=== PATIENT | male | born 1965 | race Caucasian/White ===

== ENCOUNTER 2023-10-08 15:37 | Inpatient (IN) | payer OTHER, SELFPAY ==
[2023-10-08] VITALS (8 sets, daily range): BP systolic 133–200; BP diastolic 86–100; BMI 32.5; BMI 30.8
--- NOTE | 2023-10-08 12:18 | ED.GENMED ---
History of Present Illness
General
Chief Complaint: Vascular Symptoms
Time Seen by Provider: 10/08/23 12:09
History of Present Illness
History of Present Illness:
57-year-old male with history of peripheral arterial disease presents to the emergency department for evaluation of left calf pain for the past 3 days. Patient is approximate 4 weeks status post arterial stenting of the left lower extremity,
patient is unaware of the details of this procedure as it was performed at [facility]. When asked why the patient does not wish to go back to [facility] he states 'because they do not speak [place] there'. He notes that he has not been taking
any of his discharge meds that were not previously prescribed to him before this hospital stay as 'I could not understand them'. He reports minimal pain at rest currently. No fevers or chills
Past History
Past History
ED Past Medical History: CAD, HTN, Hypercholesterolemia, NIDDM, [place] and Other
ED Past Surgical History: Tonsilectomy and Other
Patient has exhibited threatening behavior?: No
Social History
Tobacco: Smoker (1 PPD)
Alcohol: Other ('moderately' drinks more than a few times a week.)
Personal:
Living: with family
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
Family History
Family History: CAD
Review of Systems
Review of Systems
Allergies reviewed?: Yes
All Other Systems: ROS reviewed and negative except as documented in HPI and ROS
Phy Exam
Physical Exam
Physical Exam:
GEN: Well appearing, NAD, WDWN
HEENT: Oral mucosa moist, no scleral icterus
Cardiac: Regular rate
Lung: No respiratory distress, no tachypnea
MSK: Left calf compartments are soft x 4 with no tenderness, left dorsalis pedis and posterior tibialis pulses are palpable dopplerable, there is a dopplerable left popliteal pulse
Skin: Good color, no pallor or jaundice, no rashes
Neuro: AO x3, moves all extremities freely
Psych: Calm, cooperative
Course
Orders/Labs/Results
Orders:
Orders
10/08/23 12:17
CT Abd Aorta Angio W/ Run Off Urgent
Comment:
Reason For Exam: L leg pain, recent stent, noncompliant
10/08/23 12:20
Complete Blood Count/With Diff Urgent
Comprehensive Metabolic Panel Urgent
PTT Urgent
Prothrombin Time Urgent
10/08/23 12:36
Heparin 7,100 units IV NOW STA
10/08/23 12:[address] Non Medication Order As Directed
Physician Order: PTT 6 hours after initial start of Heparin infusion
Above order entered?: Yes
10/08/23 12:45
Heparin 84048 Units/250 ml 25,000 units in 250 ml IV PER PROTOCOL
Weight to be used for heparin protocol in kilograms (kg):: 88.5
Protocol:: Vascular Surgery
PTT Goal Range to be used:: PTT 73 to 111 seconds
Order type:: Initial
INITIAL Infusion Dose (UNITS/KG/hr) & then follow protocol:: 18 units/kg/hr
Infusion Dose in UNITS/hr & then follow protocol (UNITS/hr):: 1,600
INFUSION RATE in mL/hr & then follow protocol (mL/hr):: 16
PTT less than or equal to 64 seconds:: Notify Ordering Provider. obtain orders for rate increase &
possible bolus
PTT 64.1 to 72.9 seconds:: Increase rate by 100 units/hr (+ 1 mL/hr)
PTT 73 to 111 seconds:: Target Range. No change in rate.
PTT 111.1 to 130.9 seconds:: Decrease rate by 100 units/hr (- 1 mL/hr)
PTT 131 to 199.9 seconds:: HOLD for 1 hour. Then decrease rate by 200 units/hr (- 2 mL/hr)
PTT greater than or equal to 200 seconds:: STOP INFUSION. Notify Ordering provider to obtain further orders.
Lab follow-up:: Each change, PTT q6h until 2 consecutive are therapeutic. Then PTT
daily.
10/08/23 Dinner
2000 calorie (17 carb) Diabetic
At Your Request: Full Participation
10/08/23 15:07
EKG [Electrocardiogram (*1)] Stat
Reason for Study: PreOp
10/08/23 15:09
CeFAZolin 2 GRAM [Ancef] 2 grams in 10 ml IV PRE PROCEDURE
10/08/23 15:15
Admit/Transfer Patient As Directed
Co-Sign Provider:
Level of Care: Inpatient admission
Assign to:: Telemetry
Physician / Group: Sharon
Diagnosis: LLE critical limb ischemia
Reason for Telemetry: Arrhythmia
Date to Stop Telemetry: 10/11/23
Time to Stop Telemetry: 11:00
Reason for Hospitalization: Vascular surgery consult
Expected length of stay greater than two midnights?: Yes
ELOS- Estimated Length of Stay in days: 5
I certify the patient meets the requirements for IP care: Yes
PRN Pain Medication Management As Directed
May give lesser potent ordered pain med per pt: Yes
preference::
Protocol:: Medication orders for pain may be administered in a
manner that supports deferring to patient preference
when the pt is:
- Requesting an ordered lesser potent pain medication.
Least to most potent pain medications are defined
as: acetaminophen < NSAID < tramadol < opioids
(morphine, oxycodone, hydromorphone).
- Requesting a lesser dose of the same medication IF
ORDERED.
- Requesting a less intrusive route of administration
if both routes are prescribed by the provider (PO <
IV).
10/08/23 15:17
Code Status As Directed
Resuscitation Status: Full Code
10/08/23 15:25
Type+Screen Stat
08/22/24 16:21
Acetaminophen [Tylenol] 650 mg PO Q6HPRN PRN
Aspirin Low Dose EC [Aspir Low (Enteric Coated)] 81 mg PO DAILY
Dextrose 50%-Water [Dextrose 50% Syringe] 12.5 grams IV [id number] PRN
Gabapentin [Neurontin] 900 mg PO TID
Glucagon [GlucaGen] 1 mg IM PRN PRN
10/08/23 16:21
CARDIOLOGY CONSULT Routine
Consulting Provider: Fernanda Hassan
Was physician already notified: Yes
SURGICAL CONSULT Routine
Consulting Provider: Manny Nelson
Was physician already notified: Yes
Heparin Protocol- PTT Orders As Directed
PTT per Heparin protocol: -Obtain CBC and baseline PTT - if not already collected.
-Obtain PTT 6 hours from start of infusion. Then, every 6 hours until 2 consecutive
PTT's are therapeutic. Then, PTT Daily.
-With each rate change, obtain PTT every 6 hours until 2 consecutive PTT's are
therapeutic. Then, PTT Daily.
Activity As Directed
Activity Level: Ambulate
Bedside Glucose Monitoring As Directed
Frequency: AC&HS
Additional Instructions:: Change to q6h if pt on TPN, tube feeding or not eating
Notify MD As Directed
Notify physician if: PTT is greater than or equal to 200.
10/08/23 16:30
Insulin Aspart Corrective Low [Novolog Flexpen-Low Resistance] See Protocol SC AC
10/08/23 18:00
Atorvastatin [Lipitor] 80 mg PO QPM
10/08/23 20:00
Cilostazol [Pletal] 100 mg PO BID
10/08/23 22:00
insulin glargine [Lantus Solostar U-100 Insulin] 12 unit SC HS
10/09/23 Breakfast
NPO
Allow oral meds: Yes
Allow clear liquids: Sips of Clears
BMP [Basic Metabolic Panel] IN AM
Glycohemoglobin (HgbA1c) IN AM
10/09/23 08:00
Metoprolol Xl [Toprol Xl] 25 mg PO DAILY
10/10/23 06:00
BMP [Basic Metabolic Panel] IN AM
Complete Blood Count/No Diff Q2D
Comment: notify provider: Platelet count < 130,000 or decrease by 50% from baseline
10/11/23 06:00
BMP [Basic Metabolic Panel] IN AM
10/11/23 11:00
DC Protocol for Telemetry ONCE
10/12/23 06:00
Complete Blood Count/No Diff Q2D
Comment: notify provider: Platelet count < 130,000 or decrease by 50% from baseline
10/14/23 06:00
Complete Blood Count/No Diff Q2D
Comment: notify provider: Platelet count < 130,000 or decrease by 50% from baseline
10/16/23 06:00
Complete Blood Count/No Diff Q2D
Comment: notify provider: Platelet count < 130,000 or decrease by 50% from baseline
10/18/23 06:00
Complete Blood Count/No Diff Q2D
Comment: notify provider: Platelet count < 130,000 or decrease by 50% from baseline
10/20/23 06:00
Complete Blood Count/No Diff Q2D
Comment: notify provider: Platelet count < 130,000 or decrease by 50% from baseline
10/22/23 06:00
Complete Blood Count/No Diff Q2D
Comment: notify provider: Platelet count < 130,000 or decrease by 50% from baseline
10/24/23 06:00
Complete Blood Count/No Diff Q2D
Comment: notify provider: Platelet count < 130,000 or decrease by 50% from baseline
Abnormal Lab Results
10/08/23
12:20
WBC 12.3 H 10^3/uL
(4.8-10.8)
RBC 4.27 L 10^6/uL
(4.70-6.10)
MCH 31.9 H pg
(27.0-31.0)
MPV 10.8 H fL
(7.4-10.4)
Absolute Neuts (auto) 9.1 H 10^3/uL
(1.4-6.5)
Absolute Monos (auto) 0.8 H 10^3/uL
(0.1-0.6)
Lymphocytes % 16.5 L %
(20.5-51.1)
Sodium 133 L mmol/L
(135-145)
Potassium 5.4 H mmol/L
(3.5-5.1)
Glucose 217 H mg/dl
(70-99)
10/08/23 12:20
10/08/23 12:20
Vital Signs
Initial and Last Documented VS:
Initial Vital Signs
Temp Pulse Resp BP Pulse Ox
97.5 F 72 18 200/100 100
10/08/23 11:25 10/08/23 11:25 10/08/23 11:25 10/08/23 11:25 10/08/23 11:25
Last Documented Vital Signs
Temp Pulse Resp BP Pulse Ox
98.4 F 79 18 185/88 98
10/08/23 19:35 10/08/23 19:35 10/08/23 19:35 10/08/23 19:35 10/08/23 19:35
MDM/Problems Addressed
MDM/Problems Addressed:
Vascular was consulted urgently and evaluated the patient at bedside. Plan will be to admit the patient to the hospitalist service on IV heparin for eventual vascular surgery intervention. At this time he has no rest pain to suggest severe limb
ischemia thus urgent OR is not necessary
*Critical Care Note
Total Time (30-74mins, 75-104mins- exclusive of procedures): Not Applicable
ED Attending Note
-
Portions of this chart may have been created with voice recognition software.� Occasional wrong word or��sound alike� substitutions may have occurred due to the inherent limitations of voice recognition software.
Discharge Plan
Departure
Patient Disposition: Admit
Date of Disposition: 10/08/23
Time of Disposition: 14:37
Admit to: IMU
Presentation/result/management discussed w/ accepting MD/DO: Hospitalist
Discharge Problem:
Critical limb ischemia of left lower extremity
Interventions
Interventions:
*Risk Screen - Suicide Last Done: 10/08/23 11:25
*General Assessment Last Done: 10/08/23 11:25
*Neglect/Abuse Screening Last Done: 10/08/23 11:25
ED- Fall Risk Assessment Last Done: 10/08/23 16:05
*ED COVID-19 Vaccine History Last Done: 10/08/23 16:20
*Nursing Disposition Last Done: 10/08/23 16:20
ED- Cardiac Assessment Last Done: 10/08/23 11:33
ED- Pulmonary Assessment Last Done: 10/08/23 11:47
ED-Peripheral Vascular Assessment Last Done: 10/08/23 11:47
ED-Skin Assessment Last Done: 10/08/23 11:47
Discharge Date and Time
Discharge Date/Time: 10/08/23 16:21
[2023-10-08 12:31] LABS: % Basophils 0.6 % (0-2); % Eosinophils 2.4 % (0-6); % Immature Granulocytes 0.3 % (0-0.5); % Lymphocytes 16.5 % (20.5-51.1); % Monocytes 6.2 % (1.7-9.3); Absolute Basophils 0.1 10^3/uL (0-0.2); Absolute Eosinophils 0.3 10^3/uL (0-0.7); Absolute Monocytes 0.8 10^3/uL (0.1-0.6); Absolute Neutrophils 9.1 10^3/uL (1.4-6.5); Hematocrit 39.8 % (39.0-52.0); Hemoglobin 13.6 g/dL (13.0-18.0); Mean Corp Hgb Conc. 34.2 g/dL (33.0-37.0); Mean Corpuscular Hgb 31.9 pg (27.0-31.0); Mean Corpuscular Volume 93.2 fL (80.0-94.0); Mean Platelet Volume 10.8 fL (7.4-10.4); Nucleated Red Blood Cells % 0 % (-); Platelet Count 280 10^3/uL (130-400); Red Blood Cell Count 4.27 10^6/uL (4.70-6.10); White Blood Cell Count 12.3 10^3/uL (4.8-10.8)
[2023-10-08 12:46] LABS: INR 1.03; PT 13.5 Sec (11.4-14.6)
[2023-10-08 12:47] LABS: APTT 27.5 Sec (23.4-35.0)
[2023-10-08 12:50] LABS: ALT (SGPT) 16 U/L (0-50); AST (SGOT) 20 U/L (17-59); Albumin 4.3 g/dl (3.5-5.0); Alkaline Phosphatase 62 U/L (38-126); Blood Urea Nitrogen 12 mg/dl (9-20); Calcium 9.4 mg/dl (8.4-10.2); Carbon Dioxide 25 mmol/L (22-30); Chloride 98 mmol/L (98-107); Estimated Creatinine Clearance 78 ml/min; Glucose 217 mg/dl (70-99); Potassium 5.4 mmol/L (3.5-5.1); Sodium 133 mmol/L (135-145); Total Bilirubin 0.4 mg/dl (0.2-1.3); Total Protein 7.1 g/dl (6.3-8.2); eGFR > 60.00
[2023-10-08] MEDS: HEPARIN 25000 UNITS/250 ML IV (13:11)
[2023-10-08] MEDS: HEPARIN 7100 UNITS IV (13:12)
--- NOTE | 2023-10-08 15:19 | HPS.HSE ---
Family Physician
-
Family Physician: Miguel Chaney
Chief Complaint
-
Left calf pain, cramps
History of Present Illness
57-year-old male with multiple medical problems including CAD, PAD, here complaining of progressive left calf pain and cramps since Thursday.
Apparently had left lower extremity stenting at [facility] 4 weeks ago. Since then he has grown increasingly frustrated with his medical care and decided to stop all his medications. Has not seen his primary care doctor since.
Continues to smoke as well.
Developed increasing left calf pain and cramping sensation since Thursday. Worse with exertion. Pain does keep him up at night.
Currently does not have a public health outreach worker. Does not take aspirin on a daily basis.
Medical History
Past Medical History
Past Medical History: Reports Other
Additional Past Medical History:
PAD
CAD, history of [place]
Essential hypertension
DM2
Hyperlipidemia
Past Surgical History: Reports Other
Additional Past Surgical History:
Cardiac catheterization with stenting 2008
Tonsillectomy
Umbilical hernia repair
Right lower extremity arteriogram with 3 stents placed, July 2019.
Right lower extremity arteriogram, angioplasty and stenting of right superficial femoral artery, February 2020
Social History
Tobacco: Smoker
Alcohol: Occasional
Drug: None
Employment: Employed
Family History
Family History: Not pertinent
Allergies / Home Medications
Allergies reflects when Allergies were last updated in [employer].
Home Medications with original date entered in [employer]
Allergy/Medication List:
Allergies
Allergy/AdvReac Type Severity Reaction Status Date / Time
No Known Allergies Allergy Verified 03/09/20 10:17
Home Medications
enalapril maleate 10 mg tablet 10 mg PO DAILY ##30 01/11/16
cilostazol 100 mg tablet 100 mg PO BID 03/09/20
metoprolol succinate 25 mg tablet,extended release 24 hr 25 mg PO DAILY 03/09/20
gabapentin 300 mg capsule 900 mg PO TID 03/29/21
dapagliflozin propanediol 10 mg tablet (Vinayga) 10 mg PO DAILY 06/02/22
metformin 1,000 mg tablet 1,000 mg PO BID 06/02/22
atorvastatin 80 mg tablet 80 mg PO QPM 10/08/23
insulin glargine 100 unit/mL (3 mL) subcutaneous pen (Lantus Solostar U-100 Insulin) 25 unit SC HS 10/08/23
semaglutide 0.25 mg or 0.5 mg (2 mg/1.5 mL) subcutaneous pen injector (Ozempic) 0.5 mg SC FR 10/08/23
Review of Systems
-
History Source: Patient
A 12 point ROS was completed and negative except as noted: Yes
Musculoskeletal: Reports Other (Left calf pain, cramps)
Physical Exam
Vital Signs
Vital Signs
Temp Pulse Resp BP Pulse Ox
97.5 F 70 13 186/89 99
10/08/23 11:25 10/08/23 13:15 10/08/23 13:15 10/08/23 13:00 10/08/23 13:15
Physical Exam
General: Well Developed, Well Nourished, No Apparent Distress and Comfortable
HEENT: NormoCephalic, Anicteric and Moist mucous membranes
Respiratory: Clear
Cardiac: S1/S2 and Regular Rhythm
GI: Soft, Non Tender and Non Distended
Genito-urinary: Deferred by me
Musculoskeletal: No Clubbing, No Cyanosis and No Edema
Skin: Warm and Dry
Neuro: AO x 3
Hematologic/Lymphatic: No Lymphadenopathy
Psych: Calm
Laboratory Results
-
10/08/23 12:20
10/08/23 12:20
Laboratory Results
PT 13.5 Sec (11.4-14.6) 10/08/23 12:20
INR 1.03 10/08/23 12:20
APTT 27.5 Sec (23.4-35.0) 10/08/23 12:20
Total Bilirubin 0.4 mg/dl (0.2-1.3) 10/08/23 12:20
AST 20 U/L (17-59) 10/08/23 12:20
ALT 16 U/L (0-50) 10/08/23 12:20
Alkaline Phosphatase 62 U/L (38-126) 10/08/23 12:20
Impression/Plan
-
Left lower extremity critical limb ischemia -concern for stent occlusion. Admit to telemetry. Consult vascular surgery. N.p.o. after midnight. Discussed with Dr. Nelson.
Cardiology consult for preoperative assessment although I suspect he is acceptable risk given the lack of cardiovascular symptoms.
Hyponatremia -recheck labs in the morning.
Hyperkalemia -hold enalapril.
PAD -with prior lower extremity revascularization. Not compliant with antiplatelet therapy or his meds. Still smokes.
CAD -with prior coronary stenting. Currently does not have a public health outreach worker.
DM2 with hyperglycemia -glucose 217. Check hemoglobin A1c. Doubt he takes his meds at home as he admits to noncompliance. Hold Ozempic and Farxiga. Hold metformin. Reduce glargine dose by 50%. Add low resistance corrective aspart scale.
Essential hypertension -stable.
Hyperlipidemia -on atorvastatin.
Tobacco dependence
Obesity due to excess calories
Full code
--- NOTE | 2023-10-08 15:33 | W.PN.UPDATE ---
Update Note
Progress Note Update
Seen and evaluated in the emergency room. 57-year-old male with extensive medical history including diabetes, hypertension, hyperlipidemia, coronary artery disease (history of MS as well as at least 2 coronary percutaneous interventions at
[place]), PAD (history of right lower extremity angioplasty/stent, history of right lower extremity arterial bypass at [facility] subsequently, history of recent left lower extremity stents 4 weeks ago). He also has a history of active
tobacco use up to 2 packs a day. However he recently has slowed and is working on quitting. Patient notes that he had this procedure done about 4 weeks ago due to some toenail issues on his left foot. However about 3 days ago developed acute
onset of left foot pain. The pain was severe. He cannot sleep at night. Finds himself dangling the left foot off the bed to relieve his pain. He notes now however when I saw him in the ER that his pain has lightened and he is actually not in any
pain currently. No weakness in the foot.
On exam/he is awake and alert. Head is normocephalic and atraumatic. Eyes are anicteric. Neck is soft without jugular venous distention. Breathing is unlabored. Right lower extremity with palpable femoral pulse and distal PT pulse. (1+/2+ at
best). In the left lower extremity he has nonpalpable femoral or distal pulses. His left foot is ruborous. He has elevation pallor. No ulcerations. Motor and sensory function are intact.
CT angiogram reviewed. On the right side he has patent iliac stent and patent iliac system otherwise. Right common femoral moderate atherosclerosis with likely about 50% stenosis. He has bypass that emanates from the distal SFA that traverses
down to the below-knee popliteal artery that is patent. (Note chronically occluded right SFA stents). On the left side his entire iliac system is occluded. He has a stent that extends from common iliac to external iliac artery that is occluded.
Then the distal external iliac into common femoral artery has a stent which is not completely expanded in the common femoral artery and is occluded. There is reconstituted flow in his profunda. SFA is chronically occluded as well. Reconstituted
flow in the popliteal artery behind the knee.
Plan/ Ischemic rest pain left foot occluded left common femoral artery stent. Discussed with him that I do not think there is any real benefit in thrombolysis or reopening this common femoral artery stent as it is likely due to fail again. My
recommendation at this point would be surgical revascularization of the common femoral artery with inflow to help revascularize the profunda. That could be done either with left groin cutdown and attempted stent retrieval with thrombectomy (but
this may not be achievable). Alternatively left groin cutdown with right groin redo dissection and right to left femoral to femoral artery bypass. I did discuss with him alternative of aortofemoral bypass but I think this is much higher risk and
he is a high risk patient. In addition he has moderate atherosclerosis throughout his aorta. I did discuss with him that he has outflow occlusive disease (SFA). However would favor at this point only revascularizing his inflow to the profunda
because I think that would get him out of the acute rest pain he has.
I discussed with him timing. He is not acutely ischemic. No evidence of acute limb ischemia. He has ischemic rest pain. He has a significant cardiac history has not followed with a product management consultant in a while. He notes he cannot remember the last
time he saw one. He also has active cardiovascular risk factors including diabetes hypertension hyperlipidemia and he is stated to me that he is tired of having to take these medications that do not make him feel any better. I discussed with him
the importance of medications for risk control/risk factor modifications but he did not seem to fully get that. He has not been taking antiplatelet therapy following his recent stenting as well which may have been a factor in his stent thrombosis
but I do not think it is the only factor, I think more likely this is due to stenting of the common femoral artery with heavy plaque disease. I discussed with hospitalist Dr. Herrera. We recommended patient sees cardiology while here because of
his risk factors. He does not endorse active chest pain or pressure and he is able to climb a flight of stairs, but regardless would favor evaluation and workup as needed. And then we can electively revascularize.
--- NOTE | 2023-10-08 15:39 | CON.VAS ---
Consultation
Consultation Request
Performing Provider: Omar
Reason for Consultation: Left leg pain
Medical History
-
Chief Complaint: L leg pain
History of Present Illness:
57 yo male with significant past medical history for CAD (MIx2, RCA stenting x4? [facility] 2009, [facility] 2014), PAD (BL iliac stenting, femoral stenting, multiple hospitals), uncontrolled DM, HTN, HLD presents to the ER today for increasing pain
to the left foot. Pt states pain began on Thursday and has increased in intensity since then. He was unable to sleep last because of this pain. Slight relief when hanging leg off of the bed. Pain has decreased since arriving to the ER and starting
heparin drip.
Pt has long history of arterial disease. He is treated at [facility], [facility] and [facility]. He has not seen a art dealer in 4-5 years. He does not take any of his prescribed medications at this time just 'when he feels like it.' He has a
history of noncompliance. The last time our services saw the pt was in 2014. Dr Esparza did GUITAR TEACHER/stenting to his opposite leg at that time.
On exam/he is awake and alert. Head is normocephalic and atraumatic. Eyes are anicteric. Neck is soft without jugular venous distention. Breathing is unlabored. Right lower extremity with palpable femoral pulse and distal PT pulse. (1+/2+ at
best). In the left lower extremity he has nonpalpable femoral or distal pulses. His left foot is ruborous. He has elevation pallor. No ulcerations. Motor and sensory function are intact.
CT angiogram reviewed. On the right side he has patent iliac stent and patent iliac system otherwise. Right common femoral moderate atherosclerosis with likely about 50% stenosis. He has bypass that emanates from the distal SFA that traverses
down to the below-knee popliteal artery that is patent. (Note chronically occluded right SFA stents). On the left side his entire iliac system is occluded. He has a stent that extends from common iliac to external iliac artery that is occluded.
Then the distal external iliac into common femoral artery has a stent which is not completely expanded in the common femoral artery and is occluded. There is reconstituted flow in his profunda. SFA is chronically occluded as well. Reconstituted
flow in the popliteal artery behind the knee.
Past Medical History
Past Medical History: CAD, HTN, Hypercholesterolemia, IDDM and Renal Failure
Past Surgical History: Cardiac
Social History
Tobacco: Smoker
Alcohol: Daily
Family History
Family History: Reviewed & Not Pertinent
Allergies / Home Medications
Allergy/AdvReac Type Severity Reaction Status Date / Time
No Known Allergies Allergy Verified 03/09/20 10:17
�Medication �Instructions �Recorded �Confirmed �Type
enalapril maleate 10 mg tablet 10 mg PO DAILY ##30 01/11/16 10/08/23 Rx
cilostazol 100 mg tablet 100 mg PO BID 03/09/20 10/08/23 History
metoprolol succinate 25 mg 25 mg PO DAILY 03/09/20 10/08/23 History
tablet,extended release 24 hr
gabapentin 300 mg capsule 900 mg PO TID 03/29/21 10/08/23 History
dapagliflozin propanediol 10 mg 10 mg PO DAILY 06/02/22 10/08/23 History
tablet (Farxiga)
metformin 1,000 mg tablet 1,000 mg PO BID 06/02/22 10/08/23 History
atorvastatin 80 mg tablet 80 mg PO QPM 10/08/23 10/08/23 History
insulin glargine 100 unit/mL (3 25 unit SC HS 10/08/23 10/08/23 History
mL) subcutaneous pen (Lantus
Solostar U-100 Insulin)
semaglutide 0.25 mg or 0.5 mg (2 0.5 mg SC FR 10/08/23 10/08/23 History
mg/1.5 mL) subcutaneous pen
injector (Ozempic)
Review of Systems
-
History Source: Patient
All other systems: Negative unless noted
Constitutional: Reports No Symptoms
EENT: Reports No Symptoms
Respiratory: Reports No Symptoms
Cardiac: Reports No Symptoms
Vascular: Reports Leg Pain / Claudication
Abdomen/GI: Reports No Symptoms
Musculoskeletal: Reports No Symptoms
Skin: Reports No Symptoms
Neurological: Reports No Symptoms
Physical Exam
Vital Signs
Temp Pulse Resp BP Pulse Ox
97.5 F 71 13 133/93 98
10/08/23 11:25 10/08/23 15:15 10/08/23 15:15 10/08/23 14:00 10/08/23 14:30
Lab Results
10/08/23 12:20
10/08/23 12:20
Physical Exam
General: No Apparent Distress
HEENT: Normocephalic and Atraumatic
Respiratory: Non Labored Respirations
Cardiac: Negative JVD
GI: Soft, Non Tender and Non Distended
Musculoskeletal: No Clubbing, Cyanosis and Edema
Skin: Other (Left foot cooler than R. Great toe pale. elevation palor)
Neuro: Awake, Alert and Oriented
Psych: Calm
Pulses: Left Femoral: Doppler (NONPALP), Left Dorsalis Pedis: Doppler (NO signal), Right Dorsalis Pedis: +1, Left Posterior Tibial: Doppler (NO SIGNAL) and Right Posterior Tibial: +1
Assessment / Plan
-
Plan/ Ischemic rest pain left foot occluded left common femoral artery stent. Discussed with him that I do not think there is any real benefit in thrombolysis or reopening this common femoral artery stent as it is likely due to fail again. My
recommendation at this point would be surgical revascularization of the common femoral artery with inflow to help revascularize the profunda. That could be done either with left groin cutdown and attempted stent retrieval with thrombectomy (but
this may not be achievable). Alternatively left groin cutdown with right groin redo dissection and right to left femoral to femoral artery bypass. I did discuss with him alternative of aortofemoral bypass but I think this is much higher risk and
he is a high risk patient. In addition he has moderate atherosclerosis throughout his aorta. I did discuss with him that he has outflow occlusive disease (SFA). However would favor at this point only revascularizing his inflow to the profunda
because I think that would get him out of the acute rest pain he has.
I discussed with him timing. He is not acutely ischemic. No evidence of acute limb ischemia. He has ischemic rest pain. He has a significant cardiac history has not followed with a art dealer in a while. He notes he cannot remember the last
time he saw one. He also has active cardiovascular risk factors including diabetes hypertension hyperlipidemia and he is stated to me that he is tired of having to take these medications that do not make him feel any better. I discussed with him
the importance of medications for risk control/risk factor modifications but he did not seem to fully get that. He has not been taking antiplatelet therapy following his recent stenting as well which may have been a factor in his stent thrombosis
but I do not think it is the only factor, I think more likely this is due to stenting of the common femoral artery with heavy plaque disease. I discussed with hospitalist Dr. Herrera. We recommended patient sees cardiology while here because of
his risk factors. He does not endorse active chest pain or pressure and he is able to climb a flight of stairs, but regardless would favor evaluation and workup as needed. And then we can electively revascularize.
Data Reviewed
-
Labs: Labs Reviewed by me
[2023-10-08 16:43] LABS: Glucose - Point of Care 127 mg/dl (70-99)
--- NOTE | 2023-10-08 17:07 | CON.CAR ---
Addendum entered and electronically signed by Fernanda Hassan DO 10/09/23 10:23:
Spoke with vascular surgery this morning with plan for possible open surgical right to left femorofemoral bypass. Given high risk vascular procedure will proceed with a Lexiscan nuclear stress test this morning.
Addendum entered and electronically signed by Fernanda Hassan DO 10/09/23 07:38:
Right carotid bruit with prior carotid ultrasound noting greater than 70% right ICA stenosis. Repeat carotid duplex.
Original Note:
Consultation
Consultation Request
Date/Time Consultation Requested: 10/08/23
Date/Time Consultation Performed: 10/08/23
Requesting Provider: Dr. Nelson
Performing Provider: Dr. Hassan
Reason for Consultation: preop cardiac evaluation
Medical History
-
Chief Complaint: Acute on chronic left foot pain
History of Present Illness:
I had the pleasure to meet Weston Richard for preoperative cardiac risk assessment with anticipated need for revascularization of left lower extremity for symptomatic PAD. Parker is a 57-year-old gentleman with longstanding uncontrolled diabetes
mellitus type 2, known coronary artery disease with remote PCI to the RCA at [facility] in 2009 and 2 overlapping drug-eluting stents to the RCA in 2014 at [facility] with Dr. Zarco. He also has significant peripheral
arterial disease status post bilateral iliac stenting and femoral stenting. He also has right carotid artery stenosis deemed greater than 70% by study in 2022, hypertension uncontrolled and hyperlipidemia. He denies a history of stroke/TIA.
Additionally, Weston has a history of alcohol dependence and quit heavy drinking approximately a year ago now drinking 2-3 drinks a week and denies alcohol withdrawal symptoms. He also smokes 2 packs a day which she has been trying to cut back in
the last couple of weeks. He denies illicit drug use. He has a history of medical noncompliance although states that he is taking medications prior to this hospitalization; he was not able to recall names or doses of his medications. He states he
has maintained care with a primary care physician but does not follow with cardiology or vascular surgery. 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 Activity is limited due to leg pain however he denies chest
pain/shortness of breath with activity estimated 5-7 METS. He presented to [facility] for increasing pain in his left foot which began on Thursday including rest pain. He has been admitted and seen by vascular surgery; currently on IV
heparin drip.
Past medical history:
Hypertension; hyperlipidemia; longstanding insulin-dependent diabetes, uncontrolled with neuropathy; coronary artery disease with prior non-STEMI and remote PCI to the RCA in 2009 and 2014, significant PAD, right carotid artery disease, ongoing
tobacco dependence, history of alcohol dependence, history of noncompliance,
Past surgical history: Tonsillectomy, umbilical hernia repair, left heart catheterization/stent placement, lower extremity arteriogram with angioplasty and stenting
Past Medical History
Past Medical History: Other (See HPI)
Past Surgical History: Other (See HPI)
Social History
Tobacco: Smoker
Alcohol: Former (Former alcoholic now drinking 2-3 drinks a week)
Drug: None
Personal: Single
Living: Alone
Employment: Employed
Family History
Family History: Reviewed & Not Pertinent
Allergies / Home Medications
Allergy/AdvReac Type Severity Reaction Status Date / Time
No Known Allergies Allergy Verified 03/09/20 10:17
�Medication �Instructions �Recorded �Confirmed �Type
enalapril maleate 10 mg tablet 10 mg PO DAILY ##30 01/11/16 10/08/23 Rx
cilostazol 100 mg tablet 100 mg PO BID 03/09/20 10/08/23 History
metoprolol succinate 25 mg 25 mg PO DAILY 03/09/20 10/08/23 History
tablet,extended release 24 hr
gabapentin 300 mg capsule 900 mg PO TID 03/29/21 10/08/23 History
dapagliflozin propanediol 10 mg 10 mg PO DAILY 06/02/22 10/08/23 History
tablet (Farxiga)
metformin 1,000 mg tablet 1,000 mg PO BID 06/02/22 10/08/23 History
atorvastatin 80 mg tablet 80 mg PO QPM 10/08/23 10/08/23 History
insulin glargine 100 unit/mL (3 25 unit SC HS 10/08/23 10/08/23 History
mL) subcutaneous pen (Lantus
Solostar U-100 Insulin)
semaglutide 0.25 mg or 0.5 mg (2 0.5 mg SC FR 10/08/23 10/08/23 History
mg/1.5 mL) subcutaneous pen
injector (Ozempic)
Review of Systems
-
History Source: Patient
All other systems: Negative unless noted
Constitutional: Fatigue
EENT: No Symptoms
Respiratory: Cough
Cardiac: No Symptoms
Abdomen/GI: No Symptoms
Musculoskeletal: Joint Pain and Other (Left leg claudication)
Neurological: No Symptoms
Hematologic/Lymphatic: No Symptoms
Physical Exam
Vital Signs
Temp Pulse Resp BP Pulse Ox
98.1 F 77 17 182/95 97
10/08/23 16:29 10/08/23 16:29 10/08/23 16:29 10/08/23 16:29 10/08/23 16:29
Lab Results
10/08/23 12:20
10/08/23 12:20
Physical Exam
General: Other (57-year-old gentleman who appears older than his stated age.)
HEENT: Normocephalic, Anicteric and Other (Poor dentition)
Respiratory: Other (Bronchovesicular breath sounds no wheezes or crackles. Occasional rhonchi)
Cardiac: S1/S2, Regular Rhythm and Other (Right carotid bruit. Left leg cool to touch. Nonpalpable pulses); Negative Murmur, Rub or Peripheral Edema
GI: Soft, Non Tender, Non Distended and Normal Bowel Sounds
Musculoskeletal: No Edema
Neuro: AO x 3 and Nonfocal/Grossly Intact
Psych: Calm
Impression / Plan
-
Impression:
Significant PAD with worsening left lower extremity claudication; no acute limb ischemia per vascular
History of coronary artery disease with remote RCA stenting
Hypertension
Hyperlipidemia
Type 2 diabetes mellitus, uncontrolled with neuropathy
Right carotid artery stenosis, greater than 70% in 2022
Tobacco dependence
8 mm right lower lobe pulmonary mass noted on CT imaging this admission
History of alcohol abuse
History of noncompliance
2D echocardiogram 10/08/2023: Normal biventricular size and systolic function with mild LVH. EF 55 to 60% and grade 1 diastolic dysfunction. No hemodynamically significant valve disease. No evidence of pulmonary hypertension. No significant
change when compared to study in 2014.
Left heart catheterization 02/26/2014: Right dominant. Left main widely patent medium size vessel. LAD with luminal irregularities. Circumflex with moderate luminal irregularities and a proximal 40 to 50% stenosis. RCA small with anterior
takeoff. Mid RCA occluded at the edge of the previously placed overlapping long stented segment. Left to right collaterals fill the distal vessel. Percutaneous coronary intervention with placement of 2 overlapping Resolute drug-eluting stents (2.5
x 30 mm and 2.75 x 26 mm)
Plan:
Patient is admitted for worsening left lower extremity claudication with plans for vascular revascularization possibly tomorrow
-Will discuss plan with Dr. Nelson.
-Continue IV heparin drip
-We discussed the need for aggressive risk factor reduction, tobacco cessation, glycemic control, and medication compliance. We also reviewed the need for close cardiac and vascular follow-up from here on out
-From a cardiovascular standpoint, he has at least moderate cardiovascular risk but is relatively stable and may proceed with procedure as planned.
-Twelve-lead EKG sinus rhythm with occasional PACs. Poor R wave progression with possible anterior infarct age indeterminant and inferior T wave abnormality not significantly changed when compared to 2022 study
-2D echocardiogram with normal biventricular size and systolic function and mild LVH without hemodynamically significant valve disease
Hypertension
-Continue metoprolol succinate. Patient had previously been on FERCHO inhibitor and will likely resume if renal function remained stable following peripheral angiogram
Hyperlipidemia
-continue high intensity statin
-Check lipid profile in the morning
Longstanding type 2 diabetes mellitus, uncontrolled with peripheral neuropathy
-Hemoglobin A1c 10.8%
-Defer management to primary. Consider the addition of SGLT-2 inh
History of renal insufficiency in 2022 with Peak creatinine 2.5. Renal function currently stable at 1.1. Will follow closely.
History of coronary artery disease with remote RCA stenting�no symptoms of angina. Continue aggressive risk factor reduction
Tobacco dependence�smoking cessation strongly advised
Pulmonary nodule noted on CT abdomen�will need further evaluation given concern for malignancy
Data Reviewed
-
EKG: Report Reviewed by me
Radiology: Report Reviewed by me
CT Scan: Report Reviewed by me
Medical Tests (Nuc Med, Echo etc): Report Reviewed by me
Labs: Labs Reviewed by me
Old Records: Reviewed
[2023-10-08] MEDS: NEURONTIN 900 MG PO ×2 (17:53→21:59)
[2023-10-08] MEDS: ASPIR LOW (ENTERIC COATED) 81 MG PO (17:53)
[2023-10-08] MEDS: LIPITOR 80 MG PO (17:54)
[2023-10-08] MEDS: TYLENOL 650 MG PO (17:54)
--- NOTE | 2023-10-08 18:10 | PTCARENOTE ---
Pt. arrived to [facility] at 1630 walked from stretcher to bed without incident. Shortly after arrival pt. taken down to echo. On return to unit, pt.'s BP was 184/93. made aware, no new orders at this time. will continue to monitor.
--- NOTE | 2023-10-08 18:25 | W.PN.UPDATE ---
Update Note
Progress Note Update
Cross Coverage Update:
Notified by nurse concern uncontrolled BP 187/93 patient also in significant pain from critical limb ischemia despite Tylenol.
Morphine 2 mg Q4HPRN ordered for moderate severe pain
Case was discussed with primary attending who was in agreement with plan for pain control.
Per discussion, aggressive blood pressure control not indicated at this time without signs/evidence end organ damage.
Recommend to continue monitoring for now and treat underlying cause elevated pressures (such as pain).
[2023-10-08] MEDS: MORPHINE SULFATE 2 MG IV ×2 (18:40→22:43)
[2023-10-08 19:18] LABS: APTT 98.3 Sec (23.4-35.0)
[2023-10-08] MEDS: PLETAL 100 MG PO (20:35)
[2023-10-08 21:46] LABS: Glucose - Point of Care 236 mg/dl (70-99)
[2023-10-08] MEDS: LANTUS 0.12 UNITS SC (21:59)
[2023-10-09] VITALS (8 sets, daily range): BP systolic 138–186; BP diastolic 79–103
[2023-10-09 02:12] LABS: APTT 49.4 Sec (23.4-35.0)
--- NOTE | 2023-10-09 02:44 | PTCARENOTE ---
PTT resulted as 49.4. Per protocol TATIANA Caro notified of result. Ordered to increase rate by 200 units. Next PTT due in 6 hours.
[2023-10-09 06:05] LABS: Glucose - Point of Care 187 mg/dl (70-99)
[2023-10-09] MEDS: NOVOLOG FLEXPEN-LOW RESISTANCE 1 UNITS SC (06:09)
[2023-10-09] MEDS: ASPIR LOW (ENTERIC COATED) 81 MG PO (08:07)
[2023-10-09] MEDS: TOPROL XL PO ×2 (08:07→08:48)
[2023-10-09] MEDS: NEURONTIN 900 MG PO (08:08)
[2023-10-09] MEDS: PLETAL 100 MG PO ×2 (08:13→19:31)
[2023-10-09] MEDS: MORPHINE SULFATE 2 MG IV ×4 (08:36→23:47)
[2023-10-09 08:48] LABS: APTT 29.6 Sec (23.4-35.0)
[2023-10-09 09:32] LABS: Blood Urea Nitrogen 14 mg/dl (9-20); Calcium 9.4 mg/dl (8.4-10.2); Carbon Dioxide 24 mmol/L (22-30); Chloride 104 mmol/L (98-107); Estimated Creatinine Clearance 69 ml/min; Glucose 166 mg/dl (70-99); Potassium 4.8 mmol/L (3.5-5.1); Sodium 139 mmol/L (135-145); eGFR > 60.00
--- NOTE | 2023-10-09 09:36 | CM ---
CM met with Mr. Richard at bedside to complete IA and review discharge plans.
He states prior to admission he has been living with his son in a spilt level home with 2 entry steps and He states he has two steps seven steps to get to each level. 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 He states he does not have any
DME in the home; has a prescription plan and uses [facility] in [place].
Plan: Weston would like to return home with his son when medically stable; Watch for SNF or VN needs post-op
[2023-10-09 10:09] LABS: Glycohemoglobin (HgbA1c) 10.3 % (4.0-5.6)
--- NOTE | 2023-10-09 10:18 | W.PN.VS ---
Addendum entered and electronically signed by Dagoberto Esparza III, MD 10/09/23 11:43:
This patient was seen and examined with TATIANA Vincent. I agree with the history and physical exam as well as the assessment and plan. I have the following additions:
No rest pain currently
Dopp signal monophasic/weak in distal AT
Motor/sensory intact left foot
Cardiology now planning to proceed with stress test today
Patient subtherapeutic on heparin this morning
Needs better IV access
Heparin drip with therapeutic PTT goal
Agree with transfer to IMU
Discussed revascularization strategy with patient this morning which will include a planned left femoral exposure, retrograde iliac thrombectomy and likely iliac stenting along with removal of common femoral artery stent/femoral endarterectomy and
profundoplasty.
Technical aspects of this procedure were discussed with him in detail. Benefits and rationale for this approach were discussed with him in detail. Operative risks were discussed with him in detail including but limited to CT, bleeding, infection,
wound healing complications, ongoing limb ischemia and the need for additional procedures. We also discussed limited durability of any vascular procedure given his poor medical compliance and active smoking.
Will discuss results of stress with cardiology later today
Signed:
Dagoberto Esparza III, MD
[facility]
[phone] (cell)
Original Note:
Today's Communication / Plan
-
Patient seen and examined at bedside with Dr. Dagoberto sEparza III, below plan reviewed with attending.
Assessment/Plan
-
Assessment: 57-year-old male with chronic limb threatening ischemia and rest pain to left lower extremity
Plan:
Initially considering OR today for revascularization, however cardiology preferring nuclear stress test prior to providing clearance for surgery
Noted to be subtherapeutic at PTT 29 this a.m. despite heparin infusion order in place (and evidence of being therapeutic with prior PTT draw), after reviewing with darlene RN suspect patient was occluding peripheral IV with arm bent as peripheral
IV is in his antecubital, thus he subsequently was not receiving his heparin infusion. Additionally he only has 1 usable peripheral IV, ordered for IV team to insert additional IV so heparin could be initiated while also going down to nuclear
stress test. Unfortunately patient was already off floor to nuclear stress test prior to be able to give order for heparin bolus. Will restart heparin drip at previous rate and obtain PTT at 4 hours.
Transfer to IMU for increased observation given reports of rest pain overnight
Subjective Data
-
Date of Service: October 09, 2023
Patient seen and examined at bedside, currently denies pain at left foot/lower extremity. However, he does endorse experiencing intermittent rest pain overnight requiring increased pain medication for control. Denies chest pain, fever, chills,
nausea, and vomiting.
Objective Data
-
Vital Signs
Temp Pulse Resp BP Pulse Ox
98.4 F 77 18 138/84 98
10/09/23 07:53 10/09/23 07:53 10/09/23 07:53 10/09/23 07:53 10/09/23 07:53
Intake and Output
10/08/23 10/09/23 10/10/23
06:59 06:59 06:59
Intake Total 350 / 350
Balance 350 / 350
Intake:
Oral fluids 350 / 350
Other:
Number of approximated MODERATE 2
amounts of urine
Lab Results
10/08/23 12:20
10/09/23 08:10
Calcium 9.4 mg/dl (8.4-10.2) 10/09/23 08:10
Total Bilirubin 0.4 mg/dl (0.2-1.3) 10/08/23 12:20
AST 20 U/L (17-59) 10/08/23 12:20
ALT 16 U/L (0-50) 10/08/23 12:20
Alkaline Phosphatase 62 U/L (38-126) 10/08/23 12:20
Total Protein 7.1 g/dl (6.3-8.2) 10/08/23 12:20
Albumin 4.3 g/dl (3.5-5.0) 10/08/23 12:20
Physical Exam
-
No apparent distress, resting in bed comfortably, AAOx3
No tachycardia
Non Labored Respirations on room air
Soft, Non Tender and Non Distended
Left foot remains cooler than right, left foot with elevation pallor
--- NOTE | 2023-10-09 12:19 | W.PN.CARDCBS ---
Today's Communication / Plan
-
Check Lexiscan sestamibi stress test prior to cardiac clearance for peripheral bypass surgery
Needs pulmonary follow-up regarding lung nodule
Impression / Plan
-
Impression:
Significant PAD with worsening left lower extremity claudication; no acute limb ischemia per vascular
History of coronary artery disease with remote RCA stenting
Hypertension
Hyperlipidemia
Type 2 diabetes mellitus, uncontrolled with neuropathy
Right carotid artery stenosis, greater than 70% in 2022
Tobacco dependence
8 mm right lower lobe pulmonary mass noted on CT imaging this admission
History of alcohol abuse
History of noncompliance
2D echocardiogram 10/08/2023: Normal biventricular size and systolic function with mild LVH. EF 55 to 60% and grade 1 diastolic dysfunction. No hemodynamically significant valve disease. No evidence of pulmonary hypertension. No significant
change when compared to study in 2014.
Left heart catheterization 02/26/2014: Right dominant. Left main widely patent medium size vessel. LAD with luminal irregularities. Circumflex with moderate luminal irregularities and a proximal 40 to 50% stenosis. RCA small with anterior
takeoff. Mid RCA occluded at the edge of the previously placed overlapping long stented segment. Left to right collaterals fill the distal vessel. Percutaneous coronary intervention with placement of 2 overlapping Resolute drug-eluting stents (2.5
x 30 mm and 2.75 x 26 mm)
Plan:
He is for Lexiscan sestamibi stress test as preoperative evaluation prior to planned peripheral lower extremity bypass surgery
Continue statin for hypercholesterolemia
He needs better control of diabetes with hemoglobin A1c of 10.8
Tobacco dependence�smoking cessation strongly advised
Pulmonary nodule noted on CT abdomen�will need further evaluation given concern for malignancy
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
Subjective
Date of Service: October 09, 2023
No complaints.
Objective
Labs:
10/08/23 12:20
10/09/23 08:10
Labs
Hgb 13.6 g/dL (13.0-18.0) 10/08/23 12:20
Hct 39.8 % (39.0-52.0) 10/08/23 12:20
Plt Count 280 10^3/uL (130-400) 10/08/23 12:20
PT 13.5 Sec (11.4-14.6) 10/08/23 12:20
INR 1.03 10/08/23 12:20
APTT 29.6 Sec (23.4-35.0) 10/09/23 08:10
Sodium 139 mmol/L (135-145) 10/09/23 08:10
Potassium 4.8 mmol/L (3.5-5.1) 10/09/23 08:10
BUN 14 mg/dl (9-20) 10/09/23 08:10
Creatinine 1.2 mg/dL (0.7-1.3) 10/09/23 08:10
Glucose 166 mg/dl (70-99) H 10/09/23 08:10
Vital Signs and I&O:
Vital Signs
Temp Pulse Resp BP Pulse Ox
98.4 F 77 18 138/84 98
10/09/23 07:53 10/09/23 07:53 10/09/23 07:53 10/09/23 07:53 10/09/23 07:53
Vital Signs
Temp Pulse Resp BP Pulse Ox
98.4 F 77 18 138/84 98
10/09/23 07:53 10/09/23 07:53 10/09/23 07:53 10/09/23 07:53 10/09/23 07:53
Intake & Output
10/07/23 10/08/23 10/09/23 10/10/23
06:59 06:59 06:59 06:59
Intake Total 350 / 350
Balance 350 / 350
Physical Exam
Physical Exam
General: Well developed, well nourished in NAD.
Neck: Supple, no JVD, HJR, carotids +2 B/L, no bruits bilaterally.
Heart: Non displaced PMI, RRR, no murmurs, No S3, S4, no rubs.
Lungs: Scattered rhonchi
Extremities: No clubbing, cyanosis or edema bilaterally.
Neuro: Grossly nonfocal, awake, alert and oriented x3.
[2023-10-09] MEDS: HEPARIN 25000 UNITS/250 ML IV (12:49)
--- NOTE | 2023-10-09 12:54 | W.PN.HOSP.TC ---
Addendum entered and electronically signed by Rio Herrera DO 10/09/23 14:18:
Vascular surgery plans on performing left lower extremity revascularization on Thursday.
Diet resumed.
CT of abdomen on admission shows incidental new 8 mm noncalcified pulmonary mass in the basilar portion of the right lower lobe. Will need outpatient follow-up.
Original Note:
Today's Communication/Plan
-
Await vascular surgery input
Assessment / Plan
Assessment / Plan
Gen-AAOx3, NAD
HEENT-NC, AT, anicteric, clear oral mm
Neck-supple
CV-reg, no M, +S1/S2
Lungs-clear B/L
Abd-soft, NT, ND
Ext-no edema
Musculoskeletal-no cyanosis, clubbing
Skin-warm and dry
Neuro-grossly non-focal
Psych-calm, cooperative
Left lower extremity critical limb ischemia -concern for stent occlusion. Currently n.p.o. awaiting operative intervention by vascular surgery. Currently on IV heparin drip.
Revised cardiac risk index score of 3. Stress test performed this morning, showed small area of inferior/inferolateral ischemia. Cardiology recommends medical management. No plans for catheterization.
Echocardiogram shows normal biventricular size and systolic function without regional wall motion abnormality. Mild concentric LVH. LVEF 55 to 60%, grade 1 diastolic dysfunction. No significant valvular disease.
Hyponatremia -improved.
Hyperkalemia -hold enalapril. Potassium improved.
PAD -with prior lower extremity revascularization. Not compliant with antiplatelet therapy or his meds. Still smokes.
CAD -with prior coronary stenting. Currently does not have a compound worker.
DM2 with hyperglycemia -glucose 217. Hemoglobin A1c 10.3%. Doubt he takes his meds at home as he admits to noncompliance. Hold Ozempic and Farxiga. Hold metformin.
Lantus dose cut in half, currently on 12 units at bedtime. Glucose 187 this morning.
Essential hypertension -stable.
Hyperlipidemia -on atorvastatin.
Tobacco dependence -currently on nicotine replacement therapy.
Obesity due to excess calories
Full code
Anticipated Discharge: > 48 hours
Subjective/Interval History
-
Date of Service: October 09, 2023
Patient seen and examined. Complaining of hunger.
Objective Data
-
Labs:
Laboratory Results
10/09/23 10/09/23 10/09/23
01:54 08:10 14:00
APTT 49.4 H 29.6 Pending
Sodium 139
Potassium 4.8
Chloride 104
Carbon Dioxide 24
BUN 14
Creatinine 1.2
Glucose 166 H
Calcium 9.4
Vital Signs:
Vital Signs
Temp Pulse Resp BP Pulse Ox
97.6 F 80 18 185/81 98
10/09/23 12:48 10/09/23 12:48 10/09/23 12:48 10/09/23 12:48 10/09/23 12:48
I&O
10/08/23 10/09/23 10/10/23
06:59 06:59 06:59
Intake Total 350 / 350
Balance 350 / 350
Review of Systems
-
History Source: Patient
All other systems: Reviewed and negative
[2023-10-09 12:57] LABS: Glucose - Point of Care 148 mg/dl (70-99)
[2023-10-09] MEDS: NOVOLOG FLEXPEN-LOW RESISTANCE SC ×2 (13:09→17:19)
[2023-10-09 14:25] LABS: APTT 68.5 Sec (23.4-35.0)
--- NOTE | 2023-10-09 14:28 | W.PN.UPDATE ---
Update Note
Progress Note Update
Reviewed extensively with patient plan for revascularization on 10/12/2023, all questions and concerns addressed. N.p.o. at midnight on 10/11. Hospitalist and external relations manager updated via [place] text.
[2023-10-09] MEDS: NEURONTIN 600 MG PO ×2 (15:40→22:08)
[2023-10-09 16:52] LABS: Glucose - Point of Care 292 mg/dl (70-99)
[2023-10-09] MEDS: LIPITOR 80 MG PO (17:19)
[2023-10-09] MEDS: NOVOLOG FLEXPEN-LOW RESISTANCE 3 UNITS SC (17:21)
--- NOTE | 2023-10-09 18:28 | PTCARENOTE ---
Pt arrived from 3 via bed. Aox3. Heparin gtt infusing per orders, see intervention. Unable to obtain doppler pulses on LLE. Dr. Herrera aware, no further orders received at this time.
[2023-10-09] MEDS: FLUSH (NSS) 2 FLUSH IV ×2 (19:46→23:48)
[2023-10-09] MEDS: LANTUS 0.12 UNITS SC (22:09)
[2023-10-09 22:16] LABS: Glucose - Point of Care 216 mg/dl (70-99)
--- NOTE | 2023-10-09 22:19 | PTCARENOTE ---
SBP 184. Karina SIMPSON TT'd and up to floor for another pt's rapid response. BP taken again after some time and SBP now 175. Per Karina SIMPSON will continue to monitor at this time. If BP continues to be high may give low dose Lopressor. Will continue to
monitor.
[2023-10-09 22:28] LABS: APTT 98.7 Sec (23.4-35.0)
[2023-10-10] VITALS (9 sets, daily range): BP systolic 142–170; BP diastolic 58–90
--- NOTE | 2023-10-10 02:13 | PTCARENOTE ---
Pt received at beginning of shift resting in bed. AAOx3. Left foot warm but cooler then right foot. Negative doppler dorsalis pulse on left, decreased on right. Pt admits to decreased sensation to LLE. Heparin infusing at 19ml/hr. 2200 PTT 98.7 -
therapeutic. Next PTT at 0400. Admits to left calf tenderness. Sits up at side of bed for pain relief. Medicated with IV Morphine x 2 so far this shift with fair relief. Able to bare weight on left foot/leg. VSS. Hypertensive SBP 150-180's.
Continuing to monitor. Afebrile. POX 94% RA. Occasional moist window draper cough. Rest of assessment as documented. Call santillan remains within reach. Will continue to monitor.
[2023-10-10] MEDS: HEPARIN 25000 UNITS/250 ML IV ×2 (02:31→14:43)
[2023-10-10 04:56] LABS: Hematocrit 39.1 % (39.0-52.0); Hemoglobin 13.2 g/dL (13.0-18.0); Mean Corp Hgb Conc. 33.8 g/dL (33.0-37.0); Mean Corpuscular Hgb 31.5 pg (27.0-31.0); Mean Corpuscular Volume 93.3 fL (80.0-94.0); Mean Platelet Volume 10.5 fL (7.4-10.4); Platelet Count 277 10^3/uL (130-400); Red Blood Cell Count 4.19 10^6/uL (4.70-6.10); Red Cell Dist. Width 13.2 % (11.5-14.5); White Blood Cell Count 10.9 10^3/uL (4.8-10.8)
[2023-10-10 05:00] LABS: Blood Urea Nitrogen 20 mg/dl (9-20); Calcium 9.4 mg/dl (8.4-10.2); Carbon Dioxide 27 mmol/L (22-30); Chloride 104 mmol/L (98-107); Estimated Creatinine Clearance 69 ml/min; Glucose 126 mg/dl (70-99); Potassium 4.7 mmol/L (3.5-5.1); Sodium 140 mmol/L (135-145); eGFR > 60.00
[2023-10-10 05:15] LABS: APTT 98.7 Sec (23.4-35.0)
[2023-10-10] MEDS: TOPROL XL 25 MG PO (07:43)
[2023-10-10] MEDS: PLETAL 100 MG PO ×2 (07:43→21:10)
[2023-10-10] MEDS: ASPIR LOW (ENTERIC COATED) 81 MG PO (07:44)
[2023-10-10] MEDS: NEURONTIN 600 MG PO ×3 (07:44→21:10)
[2023-10-10] MEDS: MORPHINE SULFATE 2 MG IV ×3 (07:45→20:21)
--- NOTE | 2023-10-10 08:09 | W.PN.HOSP.TC ---
Today's Communication/Plan
-
Adjust insulin
Assessment / Plan
Assessment / Plan
Gen-AAOx3, NAD
HEENT-NC, AT, anicteric, clear oral mm
Neck-supple
CV-reg, no M, +S1/S2
Lungs-clear B/L
Abd-soft, NT, ND
Ext-no edema
Musculoskeletal-no cyanosis, clubbing
Skin-warm and dry
Neuro-grossly non-focal
Psych-calm, cooperative
Left lower extremity critical limb ischemia -due to occlusion of left common iliac artery, left external iliac artery, left common femoral artery and proximal two thirds of the left superficial femoral artery despite presence of multiple vascular
stents. This was confirmed on CT angio. Continue IV heparin drip. Vascular surgery plans on revascularization of left lower extremity on Thursday.
Currently on IV morphine as needed for left lower extremity pain due to ischemia.
Revised cardiac risk index score of 3. Stress test performed this morning, showed small area of inferior/inferolateral ischemia. Cardiology recommends medical management. No plans for catheterization.
Echocardiogram shows normal biventricular size and systolic function without regional wall motion abnormality. Mild concentric LVH. LVEF 55 to 60%, grade 1 diastolic dysfunction. No significant valvular disease.
Hyponatremia -improved.
Hyperkalemia -hold enalapril. Potassium improved.
PAD -with prior lower extremity revascularization involving bypass graft extending from the right common femoral artery to the distal right popliteal artery/tibioperoneal trunk. Not compliant with antiplatelet therapy or his meds. Still smokes.
Smoking cessation encouraged.
CAD -with prior coronary stenting. Currently does not have a jigger artisan.
Bilateral carotid artery stenosis -ultrasound confirms 70% stenosis in the right carotid bulb. 50 to 69% stenosis left carotid bulb. No known history of stroke. Will need outpatient follow-up.
DM2 with hyperglycemia -glucose 217. Hemoglobin A1c 10.3%. Doubt he takes his meds at home as he admits to noncompliance. Hold Ozempic and Farxiga. Hold metformin.
Glucose 126 this morning. Increase Lantus to 15 units at bedtime, add NovoLog 5 units AC. Discussed importance of strict glucose control with patient.
Incidental 8 mm right lower lobe pulmonary nodule - noted on CT scan. Will need outpatient follow-up.
Essential hypertension -stable.
Hyperlipidemia -on atorvastatin.
Tobacco dependence -currently on nicotine replacement therapy.
Obesity due to excess calories
Full code
Anticipated Discharge: > 48 hours
Subjective/Interval History
-
Date of Service: October 10, 2023
Patient seen and examined. Complaining of some left lower extremity pain.
Objective Data
-
Labs:
Laboratory Results
10/09/23 10/09/23 10/10/23
21:14 22:05 04:12
WBC 10.9 H
Hgb 13.2
Hct 39.1
Plt Count 277
APTT Cancelled 98.7 H 98.7 H
Sodium 140
Potassium 4.7
Chloride 104
Carbon Dioxide 27
BUN 20
Creatinine 1.2
Glucose 126 H
Calcium 9.4
Vital Signs:
Vital Signs
Temp Pulse Resp BP Pulse Ox
97.8 F 77 12 148/68 96
10/10/23 02:35 10/10/23 07:43 10/10/23 06:00 10/10/23 07:43 10/10/23 06:00
I&O
10/09/23 10/10/23 10/11/23
06:59 06:59 06:59
Intake Total 350 / 350 468 / 468
Balance 350 / 350 468 / 468
Review of Systems
-
History Source: Patient
All other systems: Reviewed and negative
[2023-10-10] MEDS: NOVOLOG FLEXPEN-LOW RESISTANCE 1 UNITS SC (08:23)
[2023-10-10] MEDS: NOVOLOG FLEXPEN 5 UNITS SC ×2 (08:23→17:38)
[2023-10-10 08:29] LABS: Glucose - Point of Care 180 mg/dl (70-99)
[2023-10-10 11:33] LABS: Glucose - Point of Care 204 mg/dl (70-99)
[2023-10-10] MEDS: NOVOLOG FLEXPEN SC (13:26)
[2023-10-10] MEDS: NOVOLOG FLEXPEN-LOW RESISTANCE 2 UNITS SC ×2 (13:27→17:38)
--- NOTE | 2023-10-10 14:54 | PTCARENOTE ---
Rec'd pt this AM. Pt became angry over discussion with MD regarding poorly controlled diabetes. Pt also refuses to call for assisstance to get OOB and use the bathroom, stating he finds it 'creepy' and inappropriate that staff would stand outside
bathroom. He demands to be allowed to walk to bathroom on his own, stating that he has been walking on his ischemic leg for months with no fall issues. Will not cooperate witih call santillan or bed alarm. RN educated pt on fall risk. He states that he
understands the risk. vital signs stable. Heparin drip infusing.
[2023-10-10] MEDS: LIPITOR 80 MG PO (17:37)
[2023-10-10 17:41] LABS: Glucose - Point of Care 202 mg/dl (70-99)
[2023-10-10] MEDS: FLUSH (NSS) 2 FLUSH IV (20:21)
[2023-10-10] MEDS: LANTUS 0.15 UNITS SC (21:09)
[2023-10-10 21:20] LABS: Glucose - Point of Care 125 mg/dl (70-99)
[2023-10-10 21:52] LABS: Glucose - Point of Care 125 mg/dl (70-99)
[2023-10-11] VITALS (13 sets, daily range): BP systolic 120–179; BP diastolic 61–95
--- NOTE | 2023-10-11 00:35 | PTCARENOTE ---
Pt received at beginning of shift resting in bed. All hardwired wires off. Pt taking wires off constantly. Will not keep BP cuff on. Pt requested to shower but currently on Heparin gtt. Offered bed bath and pt refused. Argumentative when pt does not
get what he wants. Admits to 08/25 pain to LLE. Medicated with Morphine x 1 with fair relief. VSS. SR/PVC/Bigeminy on CM. Afebrile. POX 95% RA. 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 Refuses to use call santillan for oob assistance to bathroom. LLE without pulse,
sensation. Pt argumentative with education on safety plan of care. Rest of assessment as documented. Turns self in bed. Sits up on side of bed intermittently. Call santillan remains within reach. Will continue to monitor.
[2023-10-11] MEDS: HEPARIN 25000 UNITS/250 ML IV ×2 (03:42→18:25)
[2023-10-11 05:54] LABS: APTT 121.3 Sec (23.4-35.0)
[2023-10-11 06:03] LABS: Blood Urea Nitrogen 20 mg/dl (9-20); Calcium 9.6 mg/dl (8.4-10.2); Carbon Dioxide 23 mmol/L (22-30); Chloride 105 mmol/L (98-107); Estimated Creatinine Clearance 76 ml/min; Glucose 147 mg/dl (70-99); Potassium 4.2 mmol/L (3.5-5.1); Sodium 139 mmol/L (135-145); eGFR > 60.00
[2023-10-11] MEDS: MORPHINE SULFATE 2 MG IV (07:14)
[2023-10-11 07:45] LABS: Glucose - Point of Care 152 mg/dl (70-99)
--- NOTE | 2023-10-11 08:29 | W.PN.HOSP.TC ---
Today's Communication/Plan
-
N.p.o. after midnight
Assessment / Plan
Assessment / Plan
Gen-AAOx3, NAD
HEENT-NC, AT, anicteric, clear oral mm
Neck-supple
CV-reg, no M, +S1/S2
Lungs-clear B/L
Abd-soft, NT, ND
Ext-no edema
Musculoskeletal-no cyanosis, clubbing
Skin-warm and dry
Neuro-grossly non-focal
Psych-calm, cooperative
Left lower extremity critical limb ischemia -due to occlusion of left common iliac artery, left external iliac artery, left common femoral artery and proximal two thirds of the left superficial femoral artery despite presence of multiple vascular
stents. This was confirmed on CT angio. Continue IV heparin drip. Vascular surgery plans on revascularization of left lower extremity on Thursday.
Currently on IV morphine as needed for left lower extremity pain due to ischemia.
Revised cardiac risk index score of 3. Stress test performed this morning, showed small area of inferior/inferolateral ischemia. Cardiology recommends medical management. No plans for catheterization.
Echocardiogram shows normal biventricular size and systolic function without regional wall motion abnormality. Mild concentric LVH. LVEF 55 to 60%, grade 1 diastolic dysfunction. No significant valvular disease.
Hyponatremia -improved.
Hyperkalemia -hold enalapril. Potassium improved.
PAD -with prior lower extremity revascularization involving bypass graft extending from the right common femoral artery to the distal right popliteal artery/tibioperoneal trunk. Not compliant with antiplatelet therapy or his meds. Still smokes.
Smoking cessation encouraged.
CAD -with prior coronary stenting. 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
Bilateral carotid artery stenosis -ultrasound confirms 70% stenosis in the right carotid bulb. 50 to 69% stenosis left carotid bulb. No known history of stroke. Will need outpatient follow-up.
DM2 with hyperglycemia -glucose 147 this am. Hemoglobin A1c 10.3%. Doubt he takes his meds at home as he admits to noncompliance. Hold Ozempic and Farxiga. Hold metformin.
Continue Lantus to 15 units at bedtime, NovoLog 5 units AC. Discussed importance of strict glucose control with patient.
Incidental 8 mm right lower lobe pulmonary nodule - noted on CT scan. Will need outpatient follow-up.
Essential hypertension -stable.
Hyperlipidemia -on atorvastatin.
Tobacco dependence -currently on nicotine replacement therapy.
Obesity due to excess calories
Full code
Anticipated Discharge: > 48 hours
Subjective/Interval History
-
Date of Service: October 11, 2023
Patient seen and examined. Complaining of left foot pain.
Objective Data
-
Labs:
Laboratory Results
10/11/23 10/11/23
05:05 12:00
APTT 121.3 H Pending
Sodium 139
Potassium 4.2
Chloride 105
Carbon Dioxide 23
BUN 20
Creatinine 1.1
Glucose 147 H
Calcium 9.6
Vital Signs:
Vital Signs
Temp Pulse Resp BP Pulse Ox
98.1 F 86 19 167/81 91
10/11/23 03:19 10/11/23 06:00 10/11/23 06:00 10/11/23 01:11 10/11/23 06:00
I&O
10/10/23 10/11/23 10/12/23
06:59 06:59 06:59
Intake Total 468 / 468 428 / 428
Balance 468 / 468 428 / 428
Review of Systems
-
History Source: Patient
All other systems: Reviewed and negative
[2023-10-11] MEDS: NOVOLOG FLEXPEN-LOW RESISTANCE 1 UNITS SC ×2 (09:09→17:40)
[2023-10-11] MEDS: NOVOLOG FLEXPEN 5 UNITS SC ×3 (09:09→17:39)
[2023-10-11] MEDS: PLETAL 100 MG PO ×2 (09:10→19:26)
[2023-10-11] MEDS: ASPIR LOW (ENTERIC COATED) 81 MG PO (09:10)
[2023-10-11] MEDS: NEURONTIN 600 MG PO ×3 (09:10→21:27)
[2023-10-11] MEDS: TOPROL XL 25 MG PO ×2 (09:11→19:26)
[2023-10-11] MEDS: TOPROL XL PO (09:18)
[2023-10-11] MEDS: NICODERM TRANSDERMAL 21 MG TRANSDERM (10:11)
[2023-10-11] MEDS: MORPHINE SULFATE 4 MG IV ×4 (10:18→23:28)
[2023-10-11 11:13] LABS: Glucose - Point of Care 219 mg/dl (70-99)
[2023-10-11 12:32] LABS: APTT 101.3 Sec (23.4-35.0)
[2023-10-11] MEDS: NOVOLOG FLEXPEN-LOW RESISTANCE 2 UNITS SC (13:01)
--- NOTE | 2023-10-11 14:09 | W.PN.CARDCBS ---
Today's Communication / Plan
-
Continue IV heparin drip
N.p.o. after midnight for vascular surgery
Will follow with you
Impression / Plan
-
Impression:
Significant PAD with worsening left lower extremity claudication; no acute limb ischemia per vascular
History of coronary artery disease with remote RCA stenting
Hypertension
Hyperlipidemia
Type 2 diabetes mellitus, uncontrolled with neuropathy
Right carotid artery stenosis, greater than 70% in 2022
Tobacco dependence
8 mm right lower lobe pulmonary mass noted on CT imaging this admission
History of alcohol abuse
History of noncompliance
2D echocardiogram 10/08/2023: Normal biventricular size and systolic function with mild LVH. EF 55 to 60% and grade 1 diastolic dysfunction. No hemodynamically significant valve disease. No evidence of pulmonary hypertension. No significant
change when compared to study in 2014.
Left heart catheterization 02/26/2014: Right dominant. Left main widely patent medium size vessel. LAD with luminal irregularities. Circumflex with moderate luminal irregularities and a proximal 40 to 50% stenosis. RCA small with anterior
takeoff. Mid RCA occluded at the edge of the previously placed overlapping long stented segment. Left to right collaterals fill the distal vessel. Percutaneous coronary intervention with placement of 2 overlapping Resolute drug-eluting stents (2.5
x 30 mm and 2.75 x 26 mm)
Plan:
Lower extremity critical limb ischemia due to occlusion of left common iliac artery, left external iliac artery, left common femoral artery and proximal two thirds of left superficial femoral artery despite presence of multiple vascular stents
confirmed by CT angiogram
-Continue IV heparin. Continue aspirin/Pletal
-Vascular plan for left femoral exposure, retrograde iliac thrombectomy and likely iliac stenting along with removal of common femoral artery stent/femoral endarterectomy and profundoplasty on 10/12/2023
-2D echocardiogram with normal biventricular size and systolic function and mild LVH without hemodynamically significant valve disease
-Lexiscan nuclear stress test with small inferior inferolateral ischemia; official report pending.
-No chest pain suggestive of angina and recommend medical therapy in the setting of critical limb ischemia
-Revised cardiac risk index 4. Patient aware of increased cardiovascular risks. Patient remains relatively stable without symptoms suggestive of angina or heart failure and may proceed as planned
-Close hemodynamic monitoring during surgery
-Check postop EKG
-Will follow with you
Coronary artery disease with history of non-STEMI and remote RCA stenting
-No chest pain suggestive of angina
-Stress test does show small area of inferior and inferolateral ischemia which was reviewed with patient and vascular surgery. In the setting of critical limb ischemia requiring revascularization would manage medically
-Continue aspirin/Plavix and IV heparin
-High intensity statin for goal LDL 55 to 60 mg/dL. Will check lipid profile
Continue metoprolol succinate but increase to 25 mg twice daily for goal heart rates 60-65 bpm
-Continue blood pressure management, currently hypertensive. Increase beta-[place].
-Patient had been on lisinopril which was held due to hyperkalemia. Will reassess postop
Uncontrolled hypertension�monitor trends after increasing metoprolol succinate. If able would consider retrial of FERCHO or ARB in the postoperative period [discontinued secondary to hyperkalemia]
Uncontrolled type 2 diabetes mellitus with hemoglobin A1c 10.3%
-Management per primary
-Patient would benefit from diabetic education and outpatient endocrine involvement
-Would consider addition of SGLT2 inhibitor prior to discharge
Bilateral carotid stenosis with inpatient ultrasound noting 70% stenosis in the right carotid bulb and 50 to 69% stenosis in left carotid bulb
-Recommend outpatient surveillance monitoring with vascular surgery
COPD with ongoing tobacco dependence�tobacco cessation strongly advised
Incidental 8 mm right lower lobe pulmonary nodule noted on CT scan which will require outpatient follow-up. Patient is aware.
History of alcoholism in remission
History of noncompliance with medical follow-up and medications�importance of compliance strongly stressed
Progress Note - Continuity Manager
Subjective
Date of Service: October 11, 2023
Patient seen and examined sitting out of bed to chair. Still complaining of left leg pain although improved with narcotics. No chest pain or pressure. No shortness of breath.
Objective
Labs:
10/10/23 04:12
10/11/23 05:05
Labs
Hgb 13.2 g/dL (13.0-18.0) 10/10/23 04:12
Hct 39.1 % (39.0-52.0) 10/10/23 04:12
Plt Count 277 10^3/uL (130-400) 10/10/23 04:12
PT 13.5 Sec (11.4-14.6) 10/08/23 12:20
INR 1.03 10/08/23 12:20
APTT 101.3 Sec (23.4-35.0) H 10/11/23 12:01
Sodium 139 mmol/L (135-145) 10/11/23 05:05
Potassium 4.2 mmol/L (3.5-5.1) 10/11/23 05:05
BUN 20 mg/dl (9-20) 10/11/23 05:05
Creatinine 1.1 mg/dL (0.7-1.3) 10/11/23 05:05
Glucose 147 mg/dl (70-99) H 10/11/23 05:05
Vital Signs and I&O:
Vital Signs
Temp Pulse Resp BP Pulse Ox
98.3 F 76 14 123/73 91
10/11/23 10:55 10/11/23 12:04 10/11/23 12:04 10/11/23 12:04 10/11/23 12:04
Vital Signs
Temp Pulse Resp BP Pulse Ox
98.3 F 76 14 123/73 91
10/11/23 10:55 10/11/23 12:04 10/11/23 12:04 10/11/23 12:04 10/11/23 12:04
Intake & Output
10/09/23 10/10/23 10/11/23 10/12/23
06:59 06:59 06:59 06:59
Intake Total 350 / 350 468 / 468 428 / 428 200 / 200
Output Total 500 / 500
Balance 350 / 350 468 / 468 428 / 428 -300 / -300
Physical Exam
Physical Exam
General: Other (57-year-old gentleman who appears older than his stated age.)
HEENT: Normocephalic, Anicteric and Other (Poor dentition)
Respiratory: Other (Bronchovesicular breath sounds no wheezes or crackles. Occasional rhonchi)
Cardiac: S1/S2, Regular Rhythm. No murmur
GI: Soft, Non Tender, Non Distended and Normal Bowel Sounds
Musculoskeletal: No Edema. Left leg warmth has improved since admission.
Neuro: AO x 3 and Nonfocal/Grossly Intact
--- NOTE | 2023-10-11 14:20 | PTCARENOTE ---
Patient has been calm and cooperative this shift with fall protocol after further education provided. Discussed Heparin drip and Morphine IV side effects and risks. Patient has been calling for nurse before getting out of bed. Pain on left lower
extremity improved after Morphine 4mg IV administered. Patients PTT at noon was therapeutic. Patient is scheduled for OR tomorrow, NPO status discussed. Patient informed nurse that he took 2 of his Nicotene Gum tablets this morning. Dr. Herrera
notified and orders for Nicotene patch and gum placed. Patients own meds sent to pharmacy as per protocol.
[2023-10-11] MEDS: NICORETTE 4 MG PO ×2 (14:58→19:10)
[2023-10-11 16:53] LABS: Glucose - Point of Care 150 mg/dl (70-99)
[2023-10-11] MEDS: LIPITOR 80 MG PO (17:39)
[2023-10-11 18:26] LABS: APTT 87.3 Sec (23.4-35.0)
[2023-10-11] MEDS: FLUSH (NSS) 2 FLUSH IV ×2 (19:28→23:28)
[2023-10-11] MEDS: LANTUS 0.15 UNITS SC (21:30)
--- NOTE | 2023-10-11 21:30 | PTCARENOTE ---
Report received from previous shift RN [id number]. Pt in bed, AAO3. Telemetry rhythm reveals SR w oc PVCs, HR 70-90's, no edema noted, doppler pulses in RLE, absent pulses L dp/pt, decreased sensation in b/l LE (L more decreased than R), unchanged from
earlier in admission. Lung sounds are decreased throughout w crackles 1/[address] up L and in R base, pt denies SOB, + oc nonproductive cough, pox 95-96% on room air. Pt requested PRN Nicorette gum, administered as ordered. Nicotine patch on R upper
arm. +BS, abdomen soft round nontender, tolerating 2000 ADA diet, pt aware of NPO p mn status for pending OR procedure. Urinal at bedside. L w int with Heparin drip infusing at therapeutic rate of 1800 units/hr. L AC int flushed and patent, capped.
Pt reporting pain LLE 7/10 (on 1-10 pain scale), PRN medication administered as ordered. Call santillan within reach, safe environment maintained, bed alarm on and monitoring for pt safety. Will monitor closely.
[2023-10-11 21:41] LABS: Glucose - Point of Care 171 mg/dl (70-99)
[2023-10-11 21:45] LABS: HDL Cholesterol 42 mg/dl; LDL Cholesterol, Calculated 84 mg/dl; Total Cholesterol 148 mg/dl (50-199); Triglyceride 113 mg/dl (10-149); Very Low Density Lipoprotein 22 mg/dl (0-30)
[2023-10-12] VITALS (12 sets, daily range): BP systolic 129–164; BP diastolic 48–89
[2023-10-12] MEDS: MORPHINE SULFATE 4 MG IV ×4 (04:45→18:16)
[2023-10-12] MEDS: FLUSH (NSS) 2 FLUSH IV (04:46)
[2023-10-12 04:59] LABS: Hematocrit 35.7 % (39.0-52.0); Hemoglobin 12.1 g/dL (13.0-18.0); Mean Corp Hgb Conc. 33.9 g/dL (33.0-37.0); Mean Corpuscular Hgb 31.3 pg (27.0-31.0); Mean Corpuscular Volume 92.5 fL (80.0-94.0); Mean Platelet Volume 10.8 fL (7.4-10.4); Platelet Count 253 10^3/uL (130-400); Red Blood Cell Count 3.86 10^6/uL (4.70-6.10); White Blood Cell Count 9.1 10^3/uL (4.8-10.8)
[2023-10-12 05:07] LABS: INR 1.05; PT 13.5 Sec (11.4-14.6)
[2023-10-12 05:32] LABS: APTT 192.5 Sec (23.4-35.0)
[2023-10-12 05:38] LABS: Blood Urea Nitrogen 21 mg/dl (9-20); Calcium 8.3 mg/dl (8.4-10.2); Carbon Dioxide 22 mmol/L (22-30); Chloride 107 mmol/L (98-107); Estimated Creatinine Clearance 93 ml/min; Glucose 150 mg/dl (70-99); Potassium 4.1 mmol/L (3.5-5.1); Sodium 139 mmol/L (135-145); eGFR > 60.00
[2023-10-12] MEDS: NEURONTIN 600 MG PO ×3 (08:27→20:53)
--- NOTE | 2023-10-12 08:28 | W.PN.HOSP.TC ---
Today's Communication/Plan
-
For LLE revascularization today
Assessment / Plan
Assessment / Plan
Left lower extremity critical limb ischemia -due to occlusion of left common iliac artery, left external iliac artery, left common femoral artery and proximal two thirds of the left superficial femoral artery despite presence of multiple vascular
stents. This was confirmed on CT angio. Continue IV heparin drip. Vascular surgery plans on revascularization of left lower extremity today.
Currently on IV morphine as needed for left lower extremity pain due to ischemia. Revised cardiac risk index score of 3. Stress test showed small area of inferior/inferolateral ischemia. Cardiology recommends medical management. No plans for
catheterization. Echocardiogram shows normal biventricular size and systolic function without regional wall motion abnormality. Mild concentric LVH. LVEF 55 to 60%, grade 1 diastolic dysfunction. No significant valvular disease.
Hyponatremia -improved.
Hyperkalemia -hold enalapril. Resolved
PAD -with prior lower extremity revascularization involving bypass graft extending from the right common femoral artery to the distal right popliteal artery/tibioperoneal trunk. Not compliant with antiplatelet therapy or his meds. Still smokes.
Smoking cessation encouraged.
CAD -with prior coronary stenting. 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
Bilateral carotid artery stenosis -ultrasound confirms 70% stenosis in the right carotid bulb. 50 to 69% stenosis left carotid bulb. No known history of stroke. Will need outpatient follow-up.
DM2 with hyperglycemia -Hemoglobin A1c 10.3%. Doubt he takes his meds at home as he admits to noncompliance. Hold Ozempic and Farxiga. Hold metformin.
Continue Lantus to 15 units at bedtime, NovoLog 5 units AC. Discussed importance of strict glucose control with patient.
Incidental 8 mm right lower lobe pulmonary nodule - noted on CT scan. Will need outpatient follow-up.
Essential hypertension -stable.
Hyperlipidemia -on atorvastatin.
Tobacco dependence -currently on nicotine replacement therapy.
Obesity due to excess calories
DVT prophylaxis�IV heparin drip
Full code
Total time spent to see the patient on the floor, examine the patient, review data and lab results, discuss treatment plan with patient, nursing staff around 38 minutes.
Physical Exam
General: No acute distress
HEENT: Normocephalic, Atraumatic, EOMI, MMM
Respiratory: Clear to Auscultation bilaterally
Cardiac: Normal S1/S2, Regular Rate and Rhythm
GI: Soft, Nontender, Nondistended, Normal Bowel Sounds
Extremities: No Clubbing, Cyanosis, or Edema
Neuro: Nonfocal/Grossly Intact
Psych: Calm, Cooperative
Derm: No Visible lesions
Anticipated Discharge: 24 - 48 hours
Subjective/Interval History
-
Date of Service: October 12, 2023
Patient denies pain. No shortness of breath. No fever, no vomiting.
Objective Data
-
Labs:
Laboratory Results
10/12/23 10/12/23
04:39 12:35
WBC 9.1
Hgb 12.1 L
Hct 35.7 L
Plt Count 253
PT 13.5
INR 1.05
APTT 192.5 H* Pending
Sodium 139
Potassium 4.1
Chloride 107
Carbon Dioxide 22
BUN 21 H
Creatinine 0.9
Glucose 150 H
Calcium 8.3 L
Vital Signs:
Vital Signs
Temp Pulse Resp BP Pulse Ox
97.5 F 65 14 148/65 98
10/12/23 08:27 10/12/23 08:00 10/12/23 06:00 10/12/23 08:00 10/12/23 08:00
I&O
10/11/23 10/12/23 10/13/23
06:59 06:59 06:59
Intake Total 428 / 428 851 / 851
Output Total 2049
Balance 428 / 428 -1199 / -1199
[2023-10-12] MEDS: NOVOLOG FLEXPEN-LOW RESISTANCE SC ×3 (08:30→17:56)
[2023-10-12] MEDS: NOVOLOG FLEXPEN SC ×3 (08:30→17:28)
[2023-10-12] MEDS: ASPIR LOW (ENTERIC COATED) PO (08:35)
[2023-10-12] MEDS: TOPROL XL 25 MG PO ×2 (08:36→20:54)
[2023-10-12 08:40] LABS: Glucose - Point of Care 144 mg/dl (70-99)
[2023-10-12] MEDS: PLETAL PO ×2 (10:05→20:56)
[2023-10-12] MEDS: NICODERM TRANSDERMAL TRANSDERM (10:05)
[2023-10-12] MEDS: PERIDEX 0.12% ORAL RINSE 15 ML PO (10:06)
[2023-10-12] MEDS: BACTROBAN 2% OINTMENT 1 APPLIC NASAL (10:06)
--- NOTE | 2023-10-12 10:44 | W.SUR.PREOP ---
Pre-Operative Surgical Note
-
I have examined this patient prior to the performance of the scheduled procedure.
The patient's condition is unchanged from the time of the current History and
Physical and the patient is able to undergo the scheduled procedure.
--- NOTE | 2023-10-12 10:44 | PTCARENOTE ---
Patient NPO overnight for OR. OR check list complete. Waiting for call to OR.
[2023-10-12] MEDS: HEPARIN 25000 UNITS/250 ML IV (10:51)
[2023-10-12 12:00] LABS: Glucose - Point of Care 142 mg/dl (70-99)
[2023-10-12 13:37] LABS: APTT 75.5 Sec (23.4-35.0)
--- NOTE | 2023-10-12 14:02 | PTCARENOTE ---
Report given to RN from Naval Inspector. Waiting for call to send patient. PTT 75.5 as per protocol heparin drip remains at 1600 units/16 mls/hr. Patient currently sleeping in bed. No complaints at this time. Vital signs stable. Patient remains NPO.
[2023-10-12] MEDS: FLUSH (NSS) 1 FLUSH IV (14:14)
[2023-10-12 16:41] LABS: Glucose - Point of Care 100 mg/dl (70-99)
[2023-10-12] MEDS: NEURONTIN PO (17:28)
--- NOTE | 2023-10-12 18:45 | PTCARENOTE ---
Patient remains NPO still waiting to go to [facility]. Medicated patient with IV morphine as ordered for pain at left leg and foot.
[2023-10-12] MEDS: LIPITOR PO (20:04)
[2023-10-12 21:20] LABS: Glucose - Point of Care 85 mg/dl (70-99)
[2023-10-13] VITALS (14 sets, daily range): BP systolic 120–175; BP diastolic 42–102
[2023-10-13 00:52] LABS: Glucose - Point of Care 99 mg/dl (70-99)
[2023-10-13] MEDS: LANTUS SC (01:43)
[2023-10-13] MEDS: ANCEF 10 IV (02:00)
--- NOTE | 2023-10-13 02:05 | PTCARENOTE ---
Report given to [facility] RN. pathology lab technician RN to bedside to take Pt to procedure.
[2023-10-13 02:22] LABS: ACT-LR - POC 147 Seconds (116-155)
[2023-10-13 02:34] LABS: Glucose - Point of Care 99 mg/dl (70-99)
[2023-10-13 02:40] LABS: ACT-LR - POC 279 Seconds (116-155)
[2023-10-13 03:42] LABS: ACT-LR - POC 260 Seconds (116-155)
[2023-10-13 06:03] LABS: Hematocrit 36.4 % (39.0-52.0); Hemoglobin 12.7 g/dL (13.0-18.0); Mean Corp Hgb Conc. 34.9 g/dL (33.0-37.0); Mean Corpuscular Hgb 31.4 pg (27.0-31.0); Mean Corpuscular Volume 90.1 fL (80.0-94.0); Mean Platelet Volume 10.6 fL (7.4-10.4); Platelet Count 307 10^3/uL (130-400); Red Blood Cell Count 4.04 10^6/uL (4.70-6.10); Red Cell Dist. Width 13.2 % (11.5-14.5); White Blood Cell Count 17.5 10^3/uL (4.8-10.8)
[2023-10-13] MEDS: DILAUDID 0.5 MG IV ×3 (06:19→15:19)
[2023-10-13] MEDS: NSS 1000 IV ×3 (06:22→23:41)
[2023-10-13 06:36] LABS: APTT 176.8 Sec (23.4-35.0)
[2023-10-13 06:37] LABS: Blood Urea Nitrogen 25 mg/dl (9-20); Carbon Dioxide 19 mmol/L (22-30)
--- NOTE | 2023-10-13 07:05 | PTCARENOTE ---
~[id number]: Received patient from PACU team in room 3361 on oxygen via simple mask at 10L. neurovascular assessment performed with handoff RN. Pt's left lower extremity is skin color and warm to the touch. > 2 capillary refill. Pt verbalized
feeling some sensation to his Left LE but mild. Doppler pulse to Lt foot DP and DT are weak. Left groin aquacell dressing is intact with a small amount of drainage. Right radial arterial line zeroed and calibrated. Waveform is wdl. The patient is
oriented to self. Pt states that he is in a 'vehicle' and attempted multiple times to get oob to urinate. Teaching provided on goss catheter. showed the patient goss bag as he did not believe RN. Pt continued attempts at getting OOB. Teaching
provided on post-op orders and risk for fall and injury. Explained to the patient the need for oxygen mask and Jessica hugger use to aid in perfusion. RNs at the bedside for assistance with the patient. The pt verbalized feeling 'pain in my penis.' PRN
administered.Continued reorientation for confusion as the patient verbalized not being aware of hospital stay nor reasoning for being in the hospital. Pt's sinus rhtyhm on the monitor. Afebrile with them 98.7 via temp sensing goss
catheter.Diminished breath sounds throughout. No cough noted at this time. Audible bowel sound. Goss catheter is draining small amount of cloudy and yellow urine. Patient cleansed with CHG wipes. Safety measure in use. Bed check alarm in use.
Handoff report to incoming RN.
[2023-10-13 07:08] LABS: Calcium 9.2 mg/dl (8.4-10.2); Chloride 106 mmol/L (98-107); Estimated Creatinine Clearance 51 ml/min; Glucose 152 mg/dl (70-99); Magnesium 2.1 mg/dl (1.6-2.3); Potassium 5.6 mmol/L (3.5-5.1); Sodium 139 mmol/L (135-145); eGFR 50.57
[2023-10-13 07:42] LABS: Glucose - Point of Care 178 mg/dl (70-99)
--- NOTE | 2023-10-13 08:17 | W.PN.ANS.POP ---
Anesthesia Post Operative
- Anesthesia Post Op Note
Vital Signs Stable-See Nursing Note: Yes
Airway Patent: Yes
Adequate Pain Control: Yes
Change in Mental Status: Yes (confused per nurse, was AAAOx3, but when asked if ok, responds 'i dont know)
Current Postoperative Nausea & Vomiting: No
Anesthesia Complications: No
General Anesthetic Recall: No
Unplanned Admission: No
Post Op Hydration Adequate: Yes
--- NOTE | 2023-10-13 08:20 | W.PN.VS ---
Today's Communication / Plan
-
See below.
Assessment/Plan
-
Assessment: 57-year-old male with chronic limb threatening ischemia and rest pain to left lower extremity, POD# 0 Left LINEN CHECKER endarterectomy, angioplasty, and stent placement
Plan:
Operative findings suggestive of chronic disease not acute thrombus, no role for continuation of heparin infusion. Will transition patient to [facility] protocol of Xarelto 2.5 mg p.o. twice daily with aspirin 81 mg p.o. daily
Continue neurovascular checks
Bed rest today
Subjective Data
-
Date of Service: October 13, 2023
Patient seen and examined at bedside, oriented to person and time confused to situation; however, easily reoriented. Reports mild pain at left groin surgical site. Denies nausea, vomiting, fever, and chills.
Objective Data
-
Vital Signs
Temp Pulse Resp BP Pulse Ox
98.8 F 81 17 135/64 97
10/13/23 08:03 10/13/23 07:00 10/13/23 07:00 10/13/23 07:00 10/13/23 07:37
Intake and Output
10/12/23 10/13/23 10/14/23
06:59 06:59 06:59
Intake Total 851 / 851 64 64 100 / 100
Output Total 2049 1200 / 1200 40 / 40
Balance -1199 / -1199 -1136 / -1136 60 / 60
Intake:
Oral fluids 440 / 440
IV fluids (Total) 195 / 195 100 / 100
Nss 1,000 ml @ 100 mls/hr IV . 100 / 100
Q10H KENNY Rx#:[id number]
IV piggybacks 216 / 216 / 64
Output:
Urine, Esparza 100 / 100 40 / 40
Urine, Voided 2049 1100 / 1100
Lab Results
10/13/23 05:35
Calcium 9.2 mg/dl (8.4-10.2) 10/13/23 05:35
Magnesium 2.1 mg/dl (1.6-2.3) 10/13/23 05:35
Total Bilirubin 0.4 mg/dl (0.2-1.3) 10/08/23 12:20
AST 20 U/L (17-59) 10/08/23 12:20
ALT 16 U/L (0-50) 10/08/23 12:20
Alkaline Phosphatase 62 U/L (38-126) 10/08/23 12:20
Total Protein 7.1 g/dl (6.3-8.2) 10/08/23 12:20
Albumin 4.3 g/dl (3.5-5.0) 10/08/23 12:20
Physical Exam
-
Awake, alert, oriented x 2 (person and time). Required reorientation to situation/place.
No tachycardia
No dyspnea
ABD rotund, nondistended, nontender
Left groin dressing dry and intact, no evidence of hematoma, all surrounding compartments soft
Left foot warm, positive DP Doppler signal
Esparza draining clear yellow urine
--- NOTE | 2023-10-13 08:21 | W.SUR.POST ---
Surgical Immediate Post Op
Note
Pre Op Diagnosis: Acute on chronic PAOD
Post Op Diagnosis: Acute on chronic PAOD
Procedure Performed: Left WEDGER MACHINE endarterectomy, angioplasty, and stent placement
Primary Surgeon: Mechelle Esparza MD
Secondary Surgeons: Parker Esparza MD, PhD
Anesthesia: Per Anesthesia
Estimated Blood Loss: 20 cc
Fluids: Per Anestehsia
Drains/Shunts: None
Specimens/Cultures: None
Doppler/Duplex/Angio (Y/N): Yes, multiple angios
Complications: None
Operative Findings: Left groin cutdown, angioplasty and stent retrograde to aortic bifurcation, LFCA endarterectomy, completion angio with adequate runoff.
[2023-10-13 08:29] LABS: Urine Albumin 1+ (Neg - Trace); Urine Bilirubin Negative (Negative); Urine Character Clear (Clear); Urine Color Yellow; Urine Glucose Negative (Negative); Urine Ketone 1+ (Negative); Urine Leukocyte Negative (Negative); Urine Nitrite Negative (Negative); Urine Occult Blood 1+ (Negative); Urine Urobilinogen Negative (Neg - 1+)
[2023-10-13 08:32] LABS: APTT 48.8 Sec (23.4-35.0)
[2023-10-13] MEDS: NOVOLOG FLEXPEN-LOW RESISTANCE 1 UNITS SC (08:35)
[2023-10-13] MEDS: ASPIR LOW (ENTERIC COATED) 81 MG PO (08:36)
[2023-10-13] MEDS: NOVOLOG FLEXPEN 5 UNITS SC ×2 (08:36→12:40)
[2023-10-13] MEDS: NEURONTIN 600 MG PO ×3 (08:36→22:02)
[2023-10-13] MEDS: NICODERM TRANSDERMAL 21 MG TRANSDERM (08:36)
[2023-10-13] MEDS: TOPROL XL 25 MG PO ×2 (08:37→20:41)
[2023-10-13 08:51] LABS: Blood Urea Nitrogen 29 mg/dl (9-20); Calcium 9.2 mg/dl (8.4-10.2); Carbon Dioxide 19 mmol/L (22-30); Chloride 105 mmol/L (98-107); Estimated Creatinine Clearance 48 ml/min; Glucose 182 mg/dl (70-99); Potassium 5.6 mmol/L (3.5-5.1); Sodium 139 mmol/L (135-145); eGFR 47.02
[2023-10-13] MEDS: OFIRMEV 100 IV (08:51)
--- NOTE | 2023-10-13 09:11 | W.PN.HOSP.TC ---
Today's Communication/Plan
-
see bold
Assessment / Plan
Assessment / Plan
Left lower extremity critical limb ischemia -due to occlusion of left common iliac artery, left external iliac artery, left common femoral artery and proximal two thirds of the left superficial femoral artery despite presence of multiple vascular
stents. This was confirmed on CT angio. Status post left lower extremity angioplasty 10/11. Status post IV heparin drip, now on Xarelto. Continue Pletal, aspirin, statin.
Acute kidney injury -likely from contrast during surgery. Hold enalapril/metformin, continue IV fluids.
CAD - Stress test showed small area of inferior/inferolateral ischemia. Cardiology recommends medical management. No plans for catheterization. Echocardiogram shows normal biventricular size and systolic function without regional wall motion
abnormality. Mild concentric LVH. LVEF 55 to 60%, grade 1 diastolic dysfunction. No significant valvular disease.
Hyperkalemia -hold enalapril. Potassium 5.6 this morning, treat with Lokelma.
Hyponatremia -improved.
PAD -with prior lower extremity revascularization involving bypass graft extending from the right common femoral artery to the distal right popliteal artery/tibioperoneal trunk. Not compliant with antiplatelet therapy or his meds. Still smokes.
Smoking cessation encouraged. Continue Pletal, aspirin, statin, xarelto.
Bilateral carotid artery stenosis -ultrasound confirms 70% stenosis in the right carotid bulb. 50 to 69% stenosis left carotid bulb. No known history of stroke. Will need outpatient follow-up.
DM2 with hyperglycemia -Hemoglobin A1c 10.3%. Doubt he takes his meds at home as he admits to noncompliance. Hold Ozempic and Farxiga. Hold metformin. Continue insulin adjustment as per diabetes nurse practitioner.
Incidental 8 mm right lower lobe pulmonary nodule - noted on CT scan. Will need outpatient follow-up.
Essential hypertension -stable.
Hyperlipidemia -on atorvastatin.
Tobacco dependence -currently on nicotine replacement therapy.
Obesity due to excess calories
DVT prophylaxis�xarelto
Full code
Total time spent to see the patient on the floor, examine the patient, review data and lab results, discuss treatment plan with patient, nursing staff around 51 minutes.
Physical Exam
General: Obese, no acute distress
HEENT: Normocephalic, Atraumatic, EOMI, MMM
Respiratory: Clear to Auscultation bilaterally
Cardiac: Normal S1/S2, Regular Rate and Rhythm
GI: Soft, Nontender, Nondistended, Normal Bowel Sounds
Extremities: No Clubbing, Cyanosis, or Edema
Neuro: Nonfocal/Grossly Intact
Psych: Calm, Cooperative
Derm: No Visible lesions
Anticipated Discharge: 24 - 48 hours
Subjective/Interval History
-
Date of Service: October 13, 2023
Patient reports left groin pain. No chest pain, no shortness of breath. No fever, no vomiting.
Objective Data
-
Labs:
Laboratory Results
10/12/23 10/13/23 10/13/23
21:09 05:35 08:10
WBC 17.5 H
Hgb 12.7 L
Hct 36.4 L
Plt Count 307 D
APTT 81.0 H 176.8 H* 48.8 H
Sodium 139 139
Potassium 5.6 H D 5.6 H
Chloride 106 105
Carbon Dioxide 19 L 19 L
BUN 25 H 29 H
Creatinine 1.6 H 1.7 H
Glucose 152 H 182 H
Calcium 9.2 9.2
Vital Signs:
Vital Signs
Temp Pulse Resp BP Pulse Ox
98.8 F 81 17 135/64 97
10/13/23 08:03 10/13/23 07:00 10/13/23 07:00 10/13/23 07:00 10/13/23 07:37
I&O
10/12/23 10/13/23 10/14/23
06:59 06:59 06:59
Intake Total 851 / 851 64 / 64 100 / 100
Output Total 2049 1200 / 1200 40
Balance -1199 / -1199 -1136 / -1136 60
[2023-10-13 09:20] LABS: Urine Amorphous Seen
[2023-10-13 09:21] LABS: Urine Hyaline Cast 0-2 /LPF (0-2)
[2023-10-13] MEDS: LOKELMA 10 GRAM PO ×2 (09:22→15:18)
[2023-10-13 09:23] LABS: Urine Red Blood Cell 0-2 /HPF (0-2)
[2023-10-13] MEDS: PLETAL 100 MG PO ×2 (09:23→20:41)
[2023-10-13 09:24] LABS: Urine Mucus Few
[2023-10-13] MEDS: XARELTO 2.5 MG PO ×2 (09:24→20:41)
--- NOTE | 2023-10-13 10:11 | OR.RPT ---
Operative Report
Operative Report
Date of Operation: 10/13/2023
Pre Op Diagnosis: Acute on chronic limb ischemia, left lower extremity
Post Op Diagnosis: Acute on chronic limb ischemia, left lower extremity
Procedure:
1.)Lleft common femoral artery endarterectomy with profundoplasty and patch angioplasty using bovine pericardium
2.) Removal of intravascular stent from common femoral artery
2.) Retrograde balloon angioplasty and stenting of the left common iliac artery and left external iliac artery (overlapping [place] VBX stents; 7 mm x 59 mm proximal; 7 mm x 59 mm mid; 7 mm x 39 mm distal)
3.) Completion left lower extremity arteriogram
Surgeon: Dagoberto Esparza III, MD
Employee Benefits Director: Parker Esparza MD PhD PGY-6
Anesthesia: General
Complications: None
Estimated Blood Loss: 100 cc
History and Indications for Procedure: 57-year-old male with prior left lower extremity endovascular interventions. He developed acute on chronic left lower extremity ischemia. He was taken to the operating room for revascularization.
Procedure in Detail: Weston Richard was correctly identified and placed supine on the operating table. After adequate induction of anesthesia, the abdomen, pelvis, and bilateral groins to the thighs were prepped and draped in usual sterile fashion.
Preoperative antibiotics were administered. A time-out procedure was performed with the nursing and anesthesia staff confirming the patient's identity as well as the nature and laterality of the procedure. I made a vertical incision over the left
groin. Electrocautery was used to dissect the subcutaneous tissue. Lymphatics were ligated and divided between ties and metal clips. Through a combination of sharp dissection and electrocautery, I identified the common femoral artery. The distal
external iliac artery was encircled with a vessel loop underneath the inguinal ligament. Dissection was then continued distally. The femoral bifurcation was identified as well as the proximal superficial femoral artery and profunda femoral artery.
The proximal superficial femoral artery was encircled with a vessel loop. Dissection on the profunda femoral artery was carried to the first branch point. Distal control was obtained with vessel loop. The distal external iliac artery was heavily
calcified, occluded and could not be clamped for proximal control.
The patient was systemically heparinized. I punctured the distal QUALITY ASSURANCE CLERK at the femoral bifurcation, distal to the thrombosed common femoral artery stent in a retrograde fashion with a micropuncture needle and upsized to a 5 Fr sheath over a [place]ap[place]
wire. Using a [place] and Glidewire we navigated retrograde through the occluded iliac system. The wire and catheter were advanced into the distal abdominal aorta. An aortogram was performed confirming that we were within the true lumen. I
then upsized to a 7 Fr sheath over a [employer] wire. Under roadmap guidance I then treated the occluded iliac system with overlapping VBX stents. A 7 mm x 59 mm [place] VBX stent was positioned in the proximal left common iliac artery and deployed without
difficulty. An additional 7 mm x 59 mm [place] VBX stent was then positioned and deployed just distal to this. Lastly, a 7 mm x 39 mm [place] VBX stent was brought into the distal external iliac artery and deployed without difficulty. The balloon was
then left at nominal pressure here and secured for proximal control. The distal vessel loops were secured.
The 7 [place] sheath was backed out of the arteriotomy. An 11-blade and Gardner scissors were used to make and extend the arteriotomy on the common femoral artery. The arteriotomy was carried distally on to the profunda femoral artery. The
arteriotomy was extended up to the proximal common femoral artery. The thrombosed bare metal stent within the common femoral artery was completely removed. Acute thrombus was removed with forceps and suction. An endarterectomy was then performed
in the standard fashion with a [place] elevator. The proximal extent of the plaque was pulled out from the distal external iliac artery using forceps and clamps. Additional thrombus from this area was also removed with forceps, irrigation and
suction. Following this we could clearly visualize the distal end of the VBX balloon in the lumen of the distal external iliac artery. The distal end of the plaque was everted from the profunda femoral artery. There was brisk backbleeding from
the profunda femoral artery which was then flushed with heparinized saline. The endarterectomy plane was then irrigated with heparinized saline solution and any loose fronds of tissue were removed. I brought onto the field a precut piece of bovine
pericardium and this was sewn in place using a running 6-0 Prolene suture. Prior to the completion of the anastomosis I deflated the balloon and removed the wire, sheath and balloon from the artery. I forward and back flushed the artery. The
anastomosis was then completed. The proximal and distal vessel loops were then released. There was an excellent palpable pulse within the common femoral artery and the profunda femoral artery. Excellent quality Doppler signals were demonstrated in
the distal profunda femoral artery branches. The suture line was closely inspected for hemostasis which was achieved.
I performed a completion arteriogram by puncturing the midportion of the patch in a retrograde fashion with a micropuncture needle and then placing the micro dilator and sheath over the microwire. A runoff arteriogram demonstrated a widely patent
left common femoral artery and profunda femoral artery. Robust profunda branches in the thigh were identified. The superficial femoral artery was chronically occluded. There was reconstitution of the popliteal artery behind the knee. Tibial
runoff was via the peroneal and anterior tibial arteries. The posterior tibial artery appeared to be occluded. Flow was seen into the foot. Satisfied with this result we then concluded the procedure. The micro sheath was removed from the patch
and the access site repaired with a single interrupted 5-0 Prolene suture.
All suture lines were closely inspected once again. Hemostasis was achieved. Hemostasis was achieved in the wound bed. The wound was irrigated with copious amounts of saline. The wound was then closed in multiple layers and sterile dressings
applied.
The patient tolerated the procedure well and was taken to the PACU in stable condition.
Attestation: I was present and responsible for the entire procedure
Signed:
Dagoberto Esparza III, MD
[facility]
[phone] ([id number])
--- NOTE | 2023-10-13 10:24 | CON.INTV ---
Consultation
Consultation Request
Date/Time Consultation Requested: 10/13/2023
Date/Time Consultation Performed: 10/13/2023
Requesting Provider: Dr. Esparza
Performing Provider: Dr. Frank Alvarez
Reason for Consultation: Postoperative ICU care
Medical History
-
History of Present Illness:
57-year-old man with past medical history significant for coronary artery disease, peripheral arterial disease, tobacco abuse, type 2 diabetes, hypertension, prior history of alcohol abuse comes to the hospital complaining of left calf pain and
cramping since Thursday prior to admission. He was admitted on 10/08/2023.
Patient with history of bilateral iliac stents, femoral stenting in multiple hospital. Patient history of medical noncompliance. Vascular surgery was consulted, heparin drip started. After his prior stenting's by vascular surgery he lost to
follow-up. Last time seen was in 2014.
He was found to have a left food occluded left common femoral artery stent.
He was taken to the operating room on 10/08/2023 and underwent left common femoral artery endarterectomy, angioplasty and stent placement.
Seen by me in the critical care unit 10/13/2023: He is somnolent but comfortable. Pain is controlled.
Denies any shortness of breath. Arterial line is in place. Hemodynamically stable.
Past Medical History
Past Medical History: Other (See assessment and plan)
Social History
Tobacco: Smoker
Alcohol: Occasional
Drug: None
Personal: Single
Employment: Employed
Family History
Family History: Reviewed & Not Pertinent
Allergies / Home Medications
Allergies
Allergy/AdvReac Type Severity Reaction Status Date / Time
No Known Allergies Allergy Verified 03/09/20 10:17
Home Medications
�Medication �Instructions �Recorded �Confirmed �Last Taken �Type
enalapril maleate 10 mg tablet 10 mg PO DAILY ##30 01/11/16 10/08/23 10/07/23 Rx
cilostazol 100 mg tablet 100 mg PO BID Blood Clot 03/09/20 10/08/23 10/07/23 History
Prevention/Tx
metoprolol succinate 25 mg 25 mg PO DAILY Blood Pressure 03/09/20 10/08/23 10/07/23 History
tablet,extended release 24 hr
gabapentin 300 mg capsule 900 mg PO TID Neurological 03/29/21 10/08/23 10/08/23 History
Condition
dapagliflozin propanediol 10 mg 10 mg PO DAILY Diabetes 06/02/22 10/08/23 10/07/23 History
tablet (Farxiga)
metformin 1,000 mg tablet 1,000 mg PO BID Diabetes 06/02/22 10/08/23 10/07/23 History
atorvastatin 80 mg tablet 80 mg PO QPM High Cholesterol 10/08/23 10/08/23 10/07/23 History
insulin glargine 100 unit/mL (3 25 unit SC HS Diabetes 10/08/23 10/08/23 10/07/23 History
mL) subcutaneous pen (Lantus
Solostar U-100 Insulin)
semaglutide 0.25 mg or 0.5 mg (2 0.5 mg SC FR Diabetes 10/08/23 10/08/23 10/02/23 History
mg/1.5 mL) subcutaneous pen
injector (Ozempic)
Review of Systems
-
History Source: Patient
All other systems: Negative unless noted
Vitals / Labs / Diagnostic Testing
Vital Signs
Temp Pulse Resp BP Pulse Ox
98.2 F 81 17 135/64 96
10/13/23 09:00 10/13/23 07:00 10/13/23 07:00 10/13/23 07:00 10/13/23 09:43
Lab Data
10/13/23 05:35
Laboratory Results
10/12/23 10/12/23 10/12/23
13:10 20:42 21:09
APTT 75.5 H Cancelled 81.0 H
10/13/23 10/13/23
05:35 08:10
APTT 176.8 H* 48.8 H
Diagnostic Testing:
Physical Exam
-
HEENT: Normocephalic
GI: Soft and Non Distended
Neurology: Awake and No Motor Deficits
Skin: Warm
General: Comfortable
Assessment
-
Critical limb ischemia-occlusion of left, iliac artery, left external iliac artery, left common femoral artery and proximal two thirds of the left superficial femoral artery despite stents placed in the past.
Status post: 10/13/2023
1.)Lleft common femoral artery endarterectomy with profundoplasty and patch angioplasty using bovine pericardium
2.) Removal of intravascular stent from common femoral artery
3.) Retrograde balloon angioplasty and stenting of the left common iliac artery and left external iliac artery
Postoperative acute kidney injury: Suspect hypotensive insult/ATN
Hyperkalemia-multifactorial
Uncontrolled diabetes
Incidental right lower lobe lung nodule-about [address] abdomen pelvis
Conditions present prior admission:
History of peripheral arterial disease with prior stents, lost to follow-up last time seen was 2014
History of coronary stenting remote RCA-not following with cardiology
Stress test this admission showed small area of inferior and inferior lateral ischemia-medical management.
Hypertension
Hyperlipidemia
Type 2 diabetes with neuropathy-uncontrolled
Right carotic artery stenosis greater than 70% in 2022
Tobacco abuse
History of alcohol abuse
History of noncompliance
Assessment and plan:
Postoperative surgical intensive care unit monitoring
Supplemental oxygen as needed
Incentive spirometry
Aspiration precautions
Nebulizers if needed-currently not bronchospastic
Smoking cessation encouraged-nicotine replacement
-
Neuro and vascular checks per protocol
Analgesia with narcotics-watch respiratory status and mental status closely. Still waking up from anesthesia.
Vascular surgery following-correspondence and operative notes reviewed
Anticoagulation restarted
Monitor H&H
Incisions are intact without hematoma
-
Acute kidney injury: Suspect hypotensive insult during procedure.
Hyperkalemic
Continue gentle IV fluids
Hyperkalemia: Multifactorial, acidosis, constipation, hyper glycemia.
Insulin provided as insulin sliding scale
Lokelma will be provided
Hopefully as renal function improves potassium will decrease back to normal. Hold enalapril
Repeat BMP later today.
Monitor blood pressure
Arterial line in place
Restart oral antihypertensives
Poorly controlled diabetes with hemoglobin A1c of 10
Follow blood sugars-subcu insulin
Low carbohydrate diet
Insulin supplementation as needed
In regards to right lower lobe lung nodule: Patient will require follow-up in the outpatient setting with short-term follow-up with a CAT scan of the chest.. Suspect lung nodule too small for PET/CT sensitivity
DVT prophylaxis-on anticoagulation
Early nutrition
Early mobilization
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

Imaging reviewed:
2D echocardiogram 10/08/2023: Normal biventricular size and systolic function with mild LVH. EF 55 to 60% and grade 1 diastolic dysfunction. No hemodynamically significant valve disease. No evidence of pulmonary hypertension. No significant
change when compared to study in 2015.
CT angiogram 10/08/2023: Reviewed
1). The left common iliac artery, left external iliac artery, left common femoral artery and proximal two thirds of the left superficial femoral artery are occluded despite the presence of multiple vascular stents. The distal left superficial
femoral artery reconstitutes via collateral circulation
2). The right SFA graft is occluded, however, there is patent bypass graft extending from the distal common femoral artery to the distal right popliteal artery/tibial peroneal trunk.
3). There is a new 8 mm noncalcified pulmonary mass in the basilar portion of the right lower lobe. This mass may be benign or malignant.
[2023-10-13] MEDS: MIRALAX 17 GRAMS PO ×2 (11:10→20:41)
--- NOTE | 2023-10-13 11:25 | W.PN.CARDCBS ---
Today's Communication / Plan
-
Stable cardiology status
Sign off
Arrange follow-up in our office
Impression / Plan
-
Impression:
Significant PAD with worsening left lower extremity claudication
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
left common femoral artery endarterectomy with profundoplasty and patch angioplasty and removal of intravascular stent from common femoral artery with retrograde balloon angioplasty and stenting of left common iliac artery and left external iliac
artery 10/13/2023
History of coronary artery disease with remote RCA stenting
Hypertension
Hyperlipidemia
Type 2 diabetes mellitus, uncontrolled with neuropathy
Right carotid artery stenosis, greater than 70% in 2022
Tobacco dependence
8 mm right lower lobe pulmonary mass noted on CT imaging this admission
History of alcohol abuse
History of noncompliance
Lexiscan sestamibi stress test 10/09/2023: Positive Lexiscan sestamibi stress test consistent with ischemia and a small to moderate area of inferior inferolateral infarct
2D echocardiogram 10/08/2023: Normal biventricular size and systolic function with mild LVH. EF 55 to 60% and grade 1 diastolic dysfunction. No hemodynamically significant valve disease. No evidence of pulmonary hypertension. No significant
change when compared to study in 2014.
Left heart catheterization 02/26/2014: Right dominant. Left main widely patent medium size vessel. LAD with luminal irregularities. Circumflex with moderate luminal irregularities and a proximal 40 to 50% stenosis. RCA small with anterior
takeoff. Mid RCA occluded at the edge of the previously placed overlapping long stented segment. Left to right collaterals fill the distal vessel. Percutaneous coronary intervention with placement of 2 overlapping Resolute drug-eluting stents (2.5
x 30 mm and 2.75 x 26 mm)
Plan:
He is seen status post left femoral artery vascular surgery
Remains stable from a cardiology viewpoint
Continue to treat abnormal stress test with Toprol and high-dose Lipitor
Incidental 8 mm right lower lobe pulmonary nodule noted on CT scan which will require outpatient follow-up. Patient is aware.
Will sign off and arrange cardiology follow-up in our office
Progress Note - Beverage Manager
Subjective
Date of Service: October 13, 2023
No chest pain or shortness of breath. Appears confused.
Objective
Labs:
10/13/23 05:35
Labs
Hgb 12.7 g/dL (13.0-18.0) L 10/13/23 05:35
Hct 36.4 % (39.0-52.0) L 10/13/23 05:35
Plt Count 307 10^3/uL (130-400) D 10/13/23 05:35
PT 13.5 Sec (11.4-14.6) 10/12/23 04:39
INR 1.05 10/12/23 04:39
APTT 48.8 Sec (23.4-35.0) H 10/13/23 08:10
Sodium 139 mmol/L (135-145) 10/13/23 08:10
Potassium 5.6 mmol/L (3.5-5.1) H 10/13/23 08:10
BUN 29 mg/dl (9-20) H 10/13/23 08:10
Creatinine 1.7 mg/dL (0.7-1.3) H 10/13/23 08:10
Glucose 182 mg/dl (70-99) H 10/13/23 08:10
Vital Signs and I&O:
Vital Signs
Temp Pulse Resp BP Pulse Ox
98.0 F 81 17 135/64 96
10/13/23 11:15 10/13/23 07:00 10/13/23 07:00 10/13/23 07:00 10/13/23 09:43
Vital Signs
Temp Pulse Resp BP Pulse Ox
98.0 F 81 17 135/64 96
10/13/23 11:15 10/13/23 07:00 10/13/23 07:00 10/13/23 07:00 10/13/23 09:43
Intake & Output
10/11/23 10/12/23 10/13/23 10/14/23
06:59 06:59 06:59 06:59
Intake Total 428 / 428 851 / 851 64 / 64 300 / 300
Output Total 2049 / 2049 1200 / 1200 90 / 90
Balance 428 / 428 -1199 / -1199 -1136 / -1136 210 / 210
Physical Exam
Physical Exam
General: Well developed, well nourished in NAD.
Neck: Supple, no JVD, HJR, carotids +2 B/L, no bruits bilaterally.
Heart: Non displaced PMI, RRR, no murmurs, No S3, S4, no rubs.
Lungs: Scattered rhonchi
Extremities: No clubbing, cyanosis or edema bilaterally.
Neuro: Awake but confused
--- NOTE | 2023-10-13 11:54 | PTCARENOTE ---
systems reviewed, pt less confused, follows commands. c/o l incision discomfort. medicated as charted. pt consistently reporting he needs to urinate despite goss catheter. Bladder scan for 0ml.
[2023-10-13 12:14] LABS: Glucose - Point of Care 268 mg/dl (70-99)
[2023-10-13] MEDS: NOVOLOG FLEXPEN-LOW RESISTANCE 3 UNITS SC ×2 (12:39→16:30)
--- NOTE | 2023-10-13 13:16 | PN.DE.MGMTRT ---
Insulin Management
- -
10/13/2023 Diabetes Management Consult
Patient admitted 10/07 with l calf pain for 3 days. PMH PAD, CAD, HTN, HCL, diabetes [place], s/p arterial stens at [facility] 4 weeks ago. Prior to admission was taking Farxiga 10 mg, lantus 25 units @ hs, 1000 mg metformin BID, Ozempic Fridays. A1C is
10.3%, cr 1.7, eGFR 47.02
Patient is awake alert and oriented able to discuss diabetes management. States his primary care manages his diabetes. He has had diabetes 13 years.
Patient did not receive his lantus last HS, glucose this AM 152 to 268. Will resume Lantus 25 units @ hs tonight. Will resume Farxiga 10 mg now and daily. Currently receiving novolog 5 units AC with low corrective. I did discuss with patient
with A1C 10.3% he most likely will require meal time insulin. He states he really was hoping not to have to take it.
Patient states he has a working glucose monitor at home.
Will follow for further needed adjustments.
Discussed with nurse.
Diabetes History
- -
Type of Diabetes: 2 requiring insulin
Pre-Admission Diabetes Regimen
10/13/23 10/13/23
05:35 08:10
Creatinine 1.6 H 1.7 H
Lab Results
Hemoglobin A1c 10.3 % (4.0-5.6) H 10/09/23 08:10
Insulin Pump Settings
IP Diabetes Regimen
10/12/23 10/12/23 10/13/23
16:30 21:09 00:41
Glucose
POC Glucose 100 H 85 99
10/13/23 10/13/23 10/13/23
02:22 05:35 07:30
Glucose 152 H
POC Glucose 99 178 H
10/13/23 10/13/23
08:10 11:56
Glucose 182 H
POC Glucose 268 H
Patient Education
[2023-10-13 14:27] LABS: Blood Urea Nitrogen 34 mg/dl (9-20); Carbon Dioxide 22 mmol/L (22-30); Chloride 98 mmol/L (98-107); Estimated Creatinine Clearance 46 ml/min; Glucose 287 mg/dl (70-99); Potassium 5.5 mmol/L (3.5-5.1); Sodium 136 mmol/L (135-145)
--- NOTE | 2023-10-13 14:42 | W.PN.UPDATE ---
Update Note
Progress Note Update
Remains mildly hyperkalemic
Renal function no significantly worsened
UA noted with concentrated urine.
Will adjust bowel regimen.
Will treat with 5 units of IV insulin as he is hyperglycemic.
Will adjust baseline insulin as well
Will increase IV fluids to 120 cc an hour.
Encourage oral intake.
Repeat labs 9 PM.
[2023-10-13] MEDS: TYLENOL 650 MG PO (14:58)
[2023-10-13] MEDS: NOVOLIN R 5 UNITS IV (14:59)
[2023-10-13] MEDS: FARXIGA 10 MG PO (15:02)
[2023-10-13 15:08] LABS: Glucose - Point of Care 323 mg/dl (70-99)
--- NOTE | 2023-10-13 15:25 | CM ---
CM following re: discharge planning.
Discussed in Rounds, reviewed pt's chart, met with pt.
Pt is s/p Left common femoral artery endarterectomy 10/13/23.
Pt reports he lives with a room mate who rents a space in his house, has 2 sons. Per pt, one son visits every weekend and helps as needed. Per pt, his room mate is helpful as well. 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
Pt reports he does not anticipate any after care VN needs and he will come back to work.
D/C plan: home with no after care VN needs. family to transport at discharge.
CM will follow with discharge plan updates as needed.
--- NOTE | 2023-10-13 15:28 | PTCARENOTE ---
pt repeat k remains elevated, iv insulin given with additional lokelma as ordered. otherwise no changes.
--- NOTE | 2023-10-13 16:00 | PTCARENOTE ---
systems reviewed. on room air sats dropping in to mid 80s, sats mid to high 90s on 2lnc. pulses unchanged. Pt continues to c/o needing to 'pee' Otherwise no changes.
[2023-10-13] MEDS: NOVOLOG FLEXPEN 8 UNITS SC (16:30)
[2023-10-13 16:36] LABS: Glucose - Point of Care 268 mg/dl (70-99)
[2023-10-13] MEDS: LIPITOR 80 MG PO (17:35)
--- NOTE | 2023-10-13 20:00 | PTCARENOTE ---
on assessment pt AAOx3, denies pain, bedrest orders, doppler pulses, SR with PVCs, 2L NC, lungs diminished, dario hugger per order, goss draining yellow urine, L groin site intact with old drainage noted, call santillan in reach.
[2023-10-13] MEDS: LIDOCAINE URO-JET 2% 1 SYRINGE TOPICAL (20:40)
[2023-10-13 21:41] LABS: Glucose - Point of Care 269 mg/dl (70-99)
[2023-10-13] MEDS: LANTUS 0.25 UNITS SC (22:02)
[2023-10-13 22:26] LABS: Blood Urea Nitrogen 35 mg/dl (9-20); Calcium 8.7 mg/dl (8.4-10.2); Carbon Dioxide 22 mmol/L (22-30); Chloride 101 mmol/L (98-107); Estimated Creatinine Clearance 51 ml/min; Glucose 279 mg/dl (70-99); Potassium 4.7 mmol/L (3.5-5.1); Sodium 136 mmol/L (135-145); eGFR 50.57
[2023-10-14] VITALS (17 sets, daily range): BP systolic 124–186; BP diastolic 58–102; PULSE 91; BMI 31.6
--- NOTE | 2023-10-14 | PTCARENOTE ---
no change from prior assessment, denies pain to L groin, discomfort at catheter site has improved.
[2023-10-14] MEDS: DILAUDID 0.5 MG IV ×2 (00:36→05:32)
--- NOTE | 2023-10-14 03:50 | PTCARENOTE ---
pt c/o increased pain to L groin site, see MAR, PRN meds given, pt states 'much better', continues with positive doppler pulses to BLLE, call santillan in reach.
[2023-10-14 04:42] LABS: Hematocrit 32.5 % (39.0-52.0); Hemoglobin 11.8 g/dL (13.0-18.0); Mean Corp Hgb Conc. 36.3 g/dL (33.0-37.0); Mean Corpuscular Hgb 31.5 pg (27.0-31.0); Mean Corpuscular Volume 86.7 fL (80.0-94.0); Mean Platelet Volume 10.6 fL (7.4-10.4); Platelet Count 285 10^3/uL (130-400); Red Blood Cell Count 3.75 10^6/uL (4.70-6.10)
[2023-10-14 05:32] LABS: Blood Urea Nitrogen 31 mg/dl (9-20); Calcium 8.9 mg/dl (8.4-10.2); Carbon Dioxide 22 mmol/L (22-30); Chloride 105 mmol/L (98-107); Estimated Creatinine Clearance 59 ml/min; Glucose 202 mg/dl (70-99); Potassium 4.4 mmol/L (3.5-5.1); Sodium 140 mmol/L (135-145); eGFR 59.36
[2023-10-14] MEDS: NOVOLOG FLEXPEN-LOW RESISTANCE 1 UNITS SC (08:03)
[2023-10-14] MEDS: NOVOLOG FLEXPEN 8 UNITS SC (08:04)
[2023-10-14] MEDS: NICODERM TRANSDERMAL 21 MG TRANSDERM (08:05)
[2023-10-14] MEDS: ASPIR LOW (ENTERIC COATED) 81 MG PO (08:05)
[2023-10-14] MEDS: MIRALAX 17 GRAMS PO ×2 (08:05→20:09)
[2023-10-14] MEDS: FARXIGA 10 MG PO (08:05)
[2023-10-14] MEDS: NEURONTIN 600 MG PO ×3 (08:05→21:47)
[2023-10-14] MEDS: XARELTO 2.5 MG PO ×2 (08:06→20:10)
[2023-10-14] MEDS: TOPROL XL 25 MG PO ×2 (08:06→20:10)
[2023-10-14] MEDS: PLETAL 100 MG PO ×2 (08:06→20:10)
[2023-10-14 08:07] LABS: Glucose - Point of Care 180 mg/dl (70-99)
[2023-10-14] MEDS: TYLENOL 650 MG PO ×5 (08:07→23:07)
--- NOTE | 2023-10-14 08:26 | PN.DE.MGMTRT ---
Insulin Management
- -
10/14/2023 Diabetes Management Consult Follow up:
Patient admitted 10/07 with l calf pain for 3 days. s/p LLE angioplasty. PMH PAD, CAD, HTN, HCL, diabetes [place], s/p arterial stens at [facility] 4 weeks ago. Prior to admission was taking Farxiga 10 mg, lantus 25 units @ hs, 1000 mg metformin BID,
Ozempic Fridays. A1C is 10.3%, cr 1.7, eGFR 47.02
Patient is awake alert and oriented able to discuss diabetes management. States his primary care manages his diabetes. He has had diabetes 13 years.
10/11 Patient did not receive his lantus last HS, glucose 10/12 AM 152 to 268.
10/13 Received Lantus 25 units @ hs fasting glucose 207, will increase hs lantus to 28 units. Farxiga 10 mg daily resumed yesterday. Currently receiving novolog 8 units AC with low corrective, pre meal glucose 268 consistently. Will increase AC
novolog to 10 units with low corrective.
I did discuss with patient with A1C 10.3% he will require meal time insulin. Provided information on novolog insulin action. He again states he really was hoping not to have to take it. Discussed importance of good glucose control for healing,
he verbalizes understanding.
Patient states he has a working glucose monitor at home.
Will follow for further needed adjustments.
Discussed with nurse.
Diabetes History
- -
Type of Diabetes: 2 requiring insulin
Pre-Admission Diabetes Regimen
10/13/23 10/13/23 10/13/23
08:10 13:59 21:56
Creatinine 1.7 H 1.8 H 1.6 H
10/14/23
04:46
Creatinine 1.4 H
Lab Results
Hemoglobin A1c 10.3 % (4.0-5.6) H 10/09/23 08:10
Insulin Pump Settings
IP Diabetes Regimen
10/13/23 10/13/23 10/13/23
08:10 11:56 13:59
Glucose 182 H 287 H
POC Glucose 268 H
10/13/23 10/13/23 10/13/23
14:57 16:25 21:30
Glucose
POC Glucose 323 H 268 H 269 H
10/13/23 10/14/23 10/14/23
21:56 04:46 07:56
Glucose 279 H 202 H
POC Glucose 180 H
Meal type: Breakfast
Amount consumed: 100%
Patient Education
--- NOTE | 2023-10-14 08:54 | W.PN.VS ---
Today's Communication / Plan
-
Assessment/Plan
-
Assessment: 57-year-old male with chronic limb threatening ischemia and rest pain to left lower extremity, POD# 1 Left FRAUD MANAGER endarterectomy, angioplasty, and stent placement
Plan:
Continue Compass protocol of Xarelto 2.5 mg p.o. twice daily with aspirin 81 mg p.o. daily for AC
Continue neurovascular checks
Can discontinue bed rest, PT/OT consult
Remove goss
Liberate from IVF
Continue serial labs
Subjective Data
-
Date of Service: October 14, 2023
Overnight he had no new complaints. His pain is well-controlled. He is having some bladder irritation from his goss catheter but otherwise denies any new issues and is clinically improving.
Objective Data
-
Vital Signs
Temp Pulse Resp BP Pulse Ox
98.9 F 79 14 141/60 95
10/14/23 06:00 10/14/23 06:00 10/14/23 06:00 10/14/23 06:00 10/14/23 06:00
Intake and Output
10/13/23 10/14/23 10/15/23
06:59 06:59 06:59
Intake Total 4450 / 4450
Output Total 1200 / 1200 3425 / 3425
Balance -1136 / -1136 1025 / 1025
Intake:
Oral fluids 1730 / 1730
IV fluids (Total) 2720 / 2720
Nss 1,000 ml @ 120 mls/hr IV . 2720 / 2720
[id number] KENNY Rx#:[id number]
IV piggybacks
Output:
Urine, Goss 100 / 100 2525 / 2525
Urine, Voided 1100 / 1100 900 / 900
Lab Results
10/14/23 04:36
10/14/23 04:46
Calcium 8.9 mg/dl (8.4-10.2) 10/14/23 04:46
Magnesium 2.1 mg/dl (1.6-2.3) 10/13/23 05:35
Total Bilirubin 0.4 mg/dl (0.2-1.3) 10/08/23 12:20
AST 20 U/L (17-59) 10/08/23 12:20
ALT 16 U/L (0-50) 10/08/23 12:20
Alkaline Phosphatase 62 U/L (38-126) 10/08/23 12:20
Total Protein 7.1 g/dl (6.3-8.2) 10/08/23 12:20
Albumin 4.3 g/dl (3.5-5.0) 10/08/23 12:20
Physical Exam
-
Awake, alert, oriented x 3. NAD.
No tachycardia
No dyspnea
ABD nondistended, nontender
Left groin dressing dry and intact, no evidence of hematoma
Left foot warm, positive DP/PT Doppler signal
Goss draining clear yellow urine
--- NOTE | 2023-10-14 09:17 | W.PN.HOSP.TC ---
Today's Communication/Plan
-
Stable for tele
Assessment / Plan
Assessment / Plan
Left lower extremity critical limb ischemia -due to occlusion of left common iliac artery, left external iliac artery, left common femoral artery and proximal two thirds of the left superficial femoral artery despite presence of multiple vascular
stents. This was confirmed on CT angio. Status post left lower extremity angioplasty 10/11. Status post IV heparin drip, now on Xarelto. Continue Pletal, aspirin, statin. Discharge when cleared by vascular surgery.
Acute kidney injury -likely from contrast during surgery. Hold enalapril/metformin, continue IV fluids. Creatinine improved, is 1.4 today, down from 1.7.
CAD - Stress test showed small area of inferior/inferolateral ischemia. Cardiology recommends medical management. No plans for catheterization. Echocardiogram shows normal biventricular size and systolic function without regional wall motion
abnormality. Mild concentric LVH. LVEF 55 to 60%, grade 1 diastolic dysfunction. No significant valvular disease.
Hyperkalemia -hold enalapril. Resolved, potassium normal status post Lokelma.
Hyponatremia -improved.
PAD -with prior lower extremity revascularization involving bypass graft extending from the right common femoral artery to the distal right popliteal artery/tibioperoneal trunk. Not compliant with antiplatelet therapy or his meds. Still smokes.
Smoking cessation encouraged. Continue Pletal, aspirin, statin, xarelto.
Bilateral carotid artery stenosis -ultrasound confirms 70% stenosis in the right carotid bulb. 50 to 69% stenosis left carotid bulb. No known history of stroke. Will need outpatient follow-up.
DM2 with hyperglycemia -Hemoglobin A1c 10.3%. Doubt he takes his meds at home as he admits to noncompliance. Hold Ozempic and Farxiga. Hold metformin. Continue insulin adjustment as per diabetes nurse practitioner.
Incidental 8 mm right lower lobe pulmonary nodule - noted on CT scan. Will need outpatient follow-up.
Essential hypertension -blood pressure elevated, start hydralazine 50 mg 3 times daily, continue metoprolol succinate 25 mg twice daily
Hyperlipidemia -on atorvastatin.
Tobacco dependence -currently on nicotine replacement therapy.
Obesity due to excess calories
DVT prophylaxis�xarelto
Full code
Total time spent to see the patient on the floor, examine the patient, review data and lab results, discuss treatment plan with patient, nursing staff around 50 minutes.
Physical Exam
General: Obese, no acute distress
HEENT: Normocephalic, Atraumatic, EOMI, MMM
Respiratory: Clear to Auscultation bilaterally
Cardiac: Normal S1/S2, Regular Rate and Rhythm
GI: Soft, Nontender, Nondistended, Normal Bowel Sounds
Extremities: No Clubbing, Cyanosis, or Edema
Neuro: Nonfocal/Grossly Intact
Psych: Calm, Cooperative
Anticipated Discharge: 24 - 48 hours
Subjective/Interval History
-
Date of Service: October 14, 2023
Patient reports his groin pain is tolerable. No shortness of breath, no chest pain. No fever, no vomiting.
Objective Data
-
Labs:
Laboratory Results
10/13/23 10/14/23 10/14/23
21:56 04:36 04:46
WBC 19.0 H
Hgb 11.8 L
Hct 32.5 L
Plt Count 285
Sodium 136 140
Potassium 4.7 4.4
Chloride 101 105
Carbon Dioxide 22 22
BUN 35 H 31 H
Creatinine 1.6 H 1.4 H
Glucose 279 H 202 H
Calcium 8.7 8.9
Vital Signs:
Vital Signs
Temp Pulse Resp BP Pulse Ox
98.9 F 79 14 141/60 95
10/14/23 06:00 10/14/23 06:00 10/14/23 06:00 10/14/23 06:00 10/14/23 06:00
I&O
10/13/23 10/14/23 10/15/23
06:59 06:59 06:59
Intake Total 64 / 64 4450 / 4450
Output Total 1200 / 1200 3425 / 3425
Balance -1136 / -1136 1025 / 1025
[2023-10-14] MEDS: ROXICODONE 5 MG PO ×2 (10:02→15:02)
--- NOTE | 2023-10-14 11:43 | W.PN.INTV ---
Today's Communication / Plan
Recommendations
Continue postoperative care
Neurovascular checks
Increase activity as able
Analgesia
Follow renal function
Discontinue IV fluids
Encourage oral hydration
Smoking cessation
Outpatient pulmonary follow-up in regards to lung nodule
Sign off. Please call pulmonary if any respiratory issues arise.
Assessment
-
Critical limb ischemia-occlusion of left, iliac artery, left external iliac artery, left common femoral artery and proximal two thirds of the left superficial femoral artery despite stents placed in the past.
Status post: 10/13/2023
1.)Lleft common femoral artery endarterectomy with profundoplasty and patch angioplasty using bovine pericardium
2.) Removal of intravascular stent from common femoral artery
3.) Retrograde balloon angioplasty and stenting of the left common iliac artery and left external iliac artery
Postoperative acute kidney injury: Suspect hypotensive insult/ATN
Hyperkalemia-multifactorial
Uncontrolled diabetes
Incidental right lower lobe lung nodule-about [address] abdomen pelvis
Conditions present prior admission:
History of peripheral arterial disease with prior stents, lost to follow-up last time seen was 2014
History of coronary stenting remote RCA-not following with cardiology
Stress test this admission showed small area of inferior and inferior lateral ischemia-medical management.
Hypertension
Hyperlipidemia
Type 2 diabetes with neuropathy-uncontrolled
Right carotic artery stenosis greater than 70% in 2022
Tobacco abuse
History of alcohol abuse
History of noncompliance
Assessment and plan:
Continue with current care
Now out of bed, sitting on a chair.
Tolerating diet
Continue with analgesia, as needed narcotics orally. Monitor respiratory status closely.
-
Again, smoking cessation encouraged-nicotine replacement
-
Neuro and vascular checks per protocol
Incision without hematoma.
Vascular surgery following-correspondence and operative notes reviewed
Anticoagulation restarted-Xarelto
Antiplatelet
-
Acute kidney injury: Suspect hypotensive insult during procedure.
Hyperkalemia resolved
Discontinue IV fluids, encourage oral hydration.
Monitor blood pressure
Arterial line has been discontinued
Continue oral antihypertensive
-
Poorly controlled diabetes with hemoglobin A1c of 10
Follow blood sugars-subcu insulin
Low carbohydrate diet
Insulin supplementation as needed
In regards to right lower lobe lung nodule: Patient will require follow-up in the outpatient setting with short-term follow-up with a CAT scan of the chest.. Suspect lung nodule too small for PET/CT sensitivity.
Information will be left in the chart.
DVT prophylaxis-on anticoagulation-Xarelto
-
Tolerating diet
Physical therapy/Occupational Therapy.
Stable hemodynamically over 24 hours postop. Will transition to telemetry.
Critical care team will sign off.
Please call pulmonary if any respiratory issues arise

Imaging reviewed:
2D echocardiogram 10/08/2023: Normal biventricular size and systolic function with mild LVH. EF 55 to 60% and grade 1 diastolic dysfunction. No hemodynamically significant valve disease. No evidence of pulmonary hypertension. No significant
change when compared to study in 2015.
CT angiogram 10/08/2023: Reviewed
1). The left common iliac artery, left external iliac artery, left common femoral artery and proximal two thirds of the left superficial femoral artery are occluded despite the presence of multiple vascular stents. The distal left superficial
femoral artery reconstitutes via collateral circulation
2). The right SFA graft is occluded, however, there is patent bypass graft extending from the distal common femoral artery to the distal right popliteal artery/tibial peroneal trunk.
3). There is a new 8 mm noncalcified pulmonary mass in the basilar portion of the right lower lobe. This mass may be benign or malignant.
Subjective Dataa
Subjective Data
Date of Service:
Date of Service: October 14, 2023
Chief Complaint: [employer] Follow Up ( left, iliac artery, left external iliac artery, left common femoral artery and proximal two thirds of the left superficial femoral artery despite stents placed in the past.)
Subjective:
No new complaints.
Now sitting out of bed.
Discomfort on the incision site.
Denies shortness of breath, significant cough or phlegm production.
Has not been able to move his bowels.
Review of Systems
General: Fever (n)
Cardiopulmonary: Dyspnea (none at rest)
GI: Abdominal Pain (n) and Nausea (n)
Neuro: Headache (n)
Objective Data
Data Reviewed
Vital Signs / I&O / Oxygen:
Vital Signs
Temp Pulse Resp BP Pulse Ox
98.9 F 80 13 156/102 97
10/14/23 08:25 10/14/23 08:38 10/14/23 08:38 10/14/23 08:38 10/14/23 08:38
Intake and Output
10/13/23 10/14/23 10/15/23
06:59 06:59 06:59
Intake Total 64 / 64 4450 / 4970 580 / 580
Output Total 1200 / 1200 3425 / 4375 1125 / 1125
Balance -1136 / -1136 1025 / 595 -545 / -545
SaO2 97
Nasal Cannula flow liters per 2
minute
Physical Exam
General: Comfortable
HEENT: Normocephalic
Cardiovascular: S1-S2
Respiratory: Clear and Non-Labored Respirations
GI: Soft and Distended (Obese)
Neurology: Awake, Alert and Oriented
Skin: Other (Left inguinal incision intact. No evidence for hematoma. No evidence for bleeding.)
Labs/Micro/Reports
Lab Data
10/14/23 04:36
10/14/23 04:46
--- NOTE | 2023-10-14 12:50 | CM ---
CM following re: discharge planning.
Discussed in Rounds, reviewed pt's chart, met with pt.
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
PT and OT evaluations noted - home PT/OT recommended. Pt is aware, expressed his agreement. A list of VN vendors provided. pt preferred [facility]. A referral to VN made.
Pt reports he lives with a room mate who rents a space in his house, has 2 sons. Per pt, one son visits every weekend and helps as needed. Per pt, his room mate is helpful as well.
D/C plan: home with [facility] and family support. Family to transport at discharge.
CM will follow with discharge plan updates as needed.
[2023-10-14 13:10] LABS: Glucose - Point of Care 229 mg/dl (70-99)
[2023-10-14] MEDS: NOVOLOG FLEXPEN-LOW RESISTANCE 2 UNITS SC (13:11)
[2023-10-14] MEDS: NOVOLOG FLEXPEN 10 UNITS SC ×2 (13:11→18:15)
--- NOTE | 2023-10-14 13:13 | PTCARENOTE ---
Received pt this am with assessment as charted. Pt c/o incisional discomfort and goss discomfort. Once Dr Goss in to see pt, goss removed, ivf capped and pt assisted oob to chair. Steady on feet, but awkward gait that improved with use of
walker. Pt/ot in to see pt once oob for a few hours and worked with pt. Pt with increased groin/incisional pain with activity, medicated with oxycodone and pt rested. Pt with downgrade to [facility], given new room 2120, report called prior to transfer.
--- NOTE | 2023-10-14 13:19 | PTCARENOTE ---
Pt. transferred from ICU to . VSS. Pt. oriented to floor.
[2023-10-14] MEDS: APRESOLINE 50 MG PO ×2 (17:06→21:47)
[2023-10-14] MEDS: LIPITOR 80 MG PO (17:09)
[2023-10-14 18:14] LABS: Glucose - Point of Care 295 mg/dl (70-99)
[2023-10-14] MEDS: NOVOLOG FLEXPEN-LOW RESISTANCE 3 UNITS SC (18:15)
[2023-10-14 21:30] LABS: Glucose - Point of Care 200 mg/dl (70-99)
[2023-10-14] MEDS: LANTUS 0.28 UNITS SC (21:47)
[2023-10-15 03:00] VITALS: BP 160/78
[2023-10-15] MEDS: TYLENOL PO ×2 (03:55→12:38)
[2023-10-15] MEDS: TYLENOL 650 MG PO ×4 (05:15→20:41)
[2023-10-15 05:41] VITALS: BMI 30.9
[2023-10-15 06:54] LABS: Hematocrit 35.3 % (39.0-52.0); Mean Corpuscular Hgb 31.3 pg (27.0-31.0); Mean Corpuscular Volume 91.9 fL (80.0-94.0); Mean Platelet Volume 11.4 fL (7.4-10.4); Platelet Count 305 10^3/uL (130-400); Red Blood Cell Count 3.84 10^6/uL (4.70-6.10); Red Cell Dist. Width 13.3 % (11.5-14.5); White Blood Cell Count 16.4 10^3/uL (4.8-10.8)
[2023-10-15 07:00] VITALS: BP 174/86
--- NOTE | 2023-10-15 07:30 | PN.DE.MGMTRT ---
Insulin Management
- -
10/15/2023 Diabetes Management Consult Follow up:
Patient admitted 10/07 with l calf pain for 3 days. s/p LLE angioplasty. PMH PAD, CAD, HTN, HCL, diabetes OR, s/p arterial stens at [facility] 4 weeks ago. Prior to admission was taking Farxiga 10 mg, lantus 25 units @ hs, 1000 mg metformin BID,
Ozempic Fridays. A1C is 10.3%, cr 1.7, eGFR 47.02
Patient is awake alert and oriented able to discuss diabetes management. States his primary care manages his diabetes. He has had diabetes 13 years.
10/14 Received Lantus 28 units @ hs fasting glucose 178, will increase hs lantus to 30 units. Farxiga 10 mg daily resumed. Currently receiving novolog 10 units AC with low corrective, pre meal glucose 180 to 295 consistently. Will increase AC
novolog to 14 units with low corrective.
Provided information on novolog insulin action. He states he understands importance of taking novolog. Discussed importance of good glucose control for healing, he verbalizes understanding.
Patient states he has a working glucose monitor at home.
Will follow for further needed adjustments.
Discussed with nurse.
Diabetes History
- -
Type of Diabetes: 2 requiring insulin
Pre-Admission Diabetes Regimen
Lab Results
Hemoglobin A1c 10.3 % (4.0-5.6) H 10/09/23 08:10
Insulin Pump Settings
IP Diabetes Regimen
10/14/23 10/14/23 10/14/23
07:56 13:09 18:13
POC Glucose 180 H 229 H 295 H
10/14/23
21:26
POC Glucose 200 H
Meal type: Dinner
Meal type: Lunch
Meal type: Breakfast
Amount consumed: 100%
Amount consumed: 100%
Amount consumed: 100%
Patient Education
[2023-10-15 07:39] LABS: Blood Urea Nitrogen 24 mg/dl (9-20); Calcium 9.3 mg/dl (8.4-10.2); Carbon Dioxide 25 mmol/L (22-30); Chloride 104 mmol/L (98-107); Estimated Creatinine Clearance 60 ml/min; Glucose 146 mg/dl (70-99); Potassium 4.8 mmol/L (3.5-5.1); Sodium 141 mmol/L (135-145); eGFR 59.36
[2023-10-15 07:49] LABS: Glucose - Point of Care 178 mg/dl (70-99)
--- NOTE | 2023-10-15 07:59 | W.PN.HOSP.TC ---
Today's Communication/Plan
-
Increase bowel regimen
Discharge tomorrow
Assessment / Plan
Assessment / Plan
Left lower extremity critical limb ischemia -due to occlusion of left common iliac artery, left external iliac artery, left common femoral artery and proximal two thirds of the left superficial femoral artery despite presence of multiple vascular
stents. This was confirmed on CT angio. Status post left lower extremity angioplasty 10/11. Status post IV heparin drip, now on Xarelto. Continue Pletal, aspirin, statin. Plan for discharge tomorrow
Acute kidney injury -likely from contrast during surgery. Hold enalapril/metformin, continue IV fluids. Creatinine improved, is 1.4 today, down from 1.7.
CAD - Stress test showed small area of inferior/inferolateral ischemia. Cardiology recommends medical management. No plans for catheterization. Echocardiogram shows normal biventricular size and systolic function without regional wall motion
abnormality. Mild concentric LVH. LVEF 55 to 60%, grade 1 diastolic dysfunction. No significant valvular disease.
Hyperkalemia -hold enalapril. Resolved, potassium normal status post Lokelma.
Constipation-increase bowel regimen
Hyponatremia -improved.
PAD -with prior lower extremity revascularization involving bypass graft extending from the right common femoral artery to the distal right popliteal artery/tibioperoneal trunk. Not compliant with antiplatelet therapy or his meds. Still smokes.
Smoking cessation encouraged. Continue Pletal, aspirin, statin, xarelto.
Bilateral carotid artery stenosis -ultrasound confirms 70% stenosis in the right carotid bulb. 50 to 69% stenosis left carotid bulb. No known history of stroke. Will need outpatient follow-up.
DM2 with hyperglycemia -Hemoglobin A1c 10.3%. Doubt he takes his meds at home as he admits to noncompliance. Hold Ozempic and Farxiga. Hold metformin. Continue insulin adjustment as per diabetes nurse practitioner.
Incidental 8 mm right lower lobe pulmonary nodule - noted on CT scan. Will need outpatient follow-up.
Essential hypertension -blood pressure elevated, started hydralazine 50 mg 3 times daily, continue metoprolol succinate 25 mg twice daily
Hyperlipidemia -on atorvastatin.
Tobacco dependence -currently on nicotine replacement therapy.
Obesity due to excess calories
DVT prophylaxis�xarelto
Full code
Total time spent to see the patient on the floor, examine the patient, review data and lab results, discuss treatment plan with patient, nursing staff around 51 minutes.
Physical Exam
General: Obese, no acute distress
HEENT: Normocephalic, Atraumatic, EOMI, MMM
Respiratory: Clear to Auscultation bilaterally
Cardiac: Normal S1/S2, Regular Rate and Rhythm
GI: Soft, Nontender, Nondistended, Normal Bowel Sounds
Extremities: No Clubbing, Cyanosis, or Edema
Neuro: Nonfocal/Grossly Intact
Psych: Calm, Cooperative
Anticipated Discharge: Within 24 hours
Subjective/Interval History
-
Date of Service: October 15, 2023
Patient complains of neuropathic pain in his feet. He complains of constipation. No fever, no vomiting.
Objective Data
-
Labs:
Laboratory Results
10/15/23
05:37
WBC 16.4 H
Hgb 12.0 L
Hct 35.3 L
Plt Count 305
Sodium 141
Potassium 4.8
Chloride 104
Carbon Dioxide 25
BUN 24 H
Creatinine 1.4 H
Glucose 146 H
Calcium 9.3
Vital Signs:
Vital Signs
Temp Pulse Resp BP Pulse Ox
98.8 F 85 20 160/78 93
10/15/23 03:00 10/15/23 03:00 10/15/23 03:00 10/15/23 03:00 10/15/23 03:00
I&O
10/14/23 10/15/23 10/16/23
06:59 06:59 06:59
Intake Total 4450 / 4970 2960 / 2960
Output Total 3425 / 4375 2425 / 2425
Balance 1025 / 306 535 / 535
[2023-10-15] MEDS: ROXICODONE 5 MG PO ×2 (08:17→22:43)
--- NOTE | 2023-10-15 08:17 | W.PN.VS ---
Today's Communication / Plan
-
Patient seen and examined at bedside with Dr. Manny Nelson, below plan approved by attending
Assessment/Plan
-
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
Plan:
Continue [facility] protocol of Xarelto 2.5 mg p.o. twice daily with aspirin 81 mg p.o. daily for AC
PT/OT consult
From a vascular surgical perspective cleared for discharge
Follow-up appointment placed in discharge instructions, we will sign off please call with questions or concerns
Subjective Data
-
Date of Service: October 15, 2023
Patient seen and examined at bedside, offers no complaints. Reports complete resolution of rest pain at left foot. Does endorse continued discomfort at bilateral feet which is baseline due to his peripheral neuropathy.
Objective Data
-
Vital Signs
Temp Pulse Resp BP Pulse Ox
98.8 F 85 20 160/78 93
10/15/23 03:00 10/15/23 03:00 10/15/23 03:00 10/15/23 03:00 10/15/23 03:00
Intake and Output
10/14/23 10/15/23 10/16/23
06:59 06:59 06:59
Intake Total 4450 / 4970 2960 / 2960
Output Total 3425 / 4375 2425 / 2425
Balance 1025 / 595 535 / 535
Intake:
Oral fluids 1730 / 2130 2780 / 2780
IV fluids (Total) 2720 / 2840 180 / 180
Nss 1,000 ml @ 120 mls/hr IV . 2720 / 2840 180 / 180
[id number] KENNY Rx#:[id number]
Output:
Urine, Esparza 2525 / 3475 1125 / 1125
Urine, Voided 900 / 900 1300 / 1300
Other:
Number of approximated MODERATE 4
amounts of urine
Lab Results
10/15/23 05:37
10/15/23 05:37
Calcium 9.3 mg/dl (8.4-10.2) 10/15/23 05:37
Magnesium 2.1 mg/dl (1.6-2.3) 10/13/23 05:35
Total Bilirubin 0.4 mg/dl (0.2-1.3) 10/08/23 12:20
AST 20 U/L (17-59) 10/08/23 12:20
ALT 16 U/L (0-50) 10/08/23 12:20
Alkaline Phosphatase 62 U/L (38-126) 10/08/23 12:20
Total Protein 7.1 g/dl (6.3-8.2) 10/08/23 12:20
Albumin 4.3 g/dl (3.5-5.0) 10/08/23 12:20
Physical Exam
-
Awake, alert, oriented x 3. NAD.
No tachycardia
No dyspnea
ABD nondistended, nontender
Left groin dressing removed, no evidence of hematoma, staple sites well-approximated and CDI
Left foot warm, positive DP Doppler signal
[2023-10-15] MEDS: TOPROL XL 25 MG PO ×2 (08:18→20:41)
[2023-10-15] MEDS: MIRALAX 17 GRAMS PO ×2 (08:18→20:40)
[2023-10-15] MEDS: NEURONTIN 600 MG PO ×3 (08:18→21:49)
[2023-10-15] MEDS: APRESOLINE 50 MG PO ×3 (08:19→21:49)
[2023-10-15] MEDS: PLETAL 100 MG PO ×2 (08:19→20:40)
[2023-10-15] MEDS: ASPIR LOW (ENTERIC COATED) 81 MG PO (08:20)
[2023-10-15] MEDS: FARXIGA 10 MG PO (08:20)
[2023-10-15] MEDS: NICODERM TRANSDERMAL 21 MG TRANSDERM (08:25)
[2023-10-15] MEDS: XARELTO 2.5 MG PO ×2 (08:29→20:40)
[2023-10-15] MEDS: NOVOLOG FLEXPEN-LOW RESISTANCE 1 UNITS SC (09:35)
[2023-10-15] MEDS: CITROMA 300 ML PO (09:36)
[2023-10-15] MEDS: NOVOLOG FLEXPEN 14 UNITS SC ×2 (09:36→12:59)
[2023-10-15 11:00] VITALS: BP 152/79
[2023-10-15 11:27] LABS: Glucose - Point of Care 241 mg/dl (70-99)
[2023-10-15] MEDS: NOVOLOG FLEXPEN-LOW RESISTANCE 2 UNITS SC (12:58)
--- NOTE | 2023-10-15 14:48 | CM ---
Patient seen at bedside.
PT recommends home health.
Patient referral in care port for [facility].
Per note patient to be discharged tomorrow.
Spoke with him regarding transportation and he states drove to the hospital.
tt - [facility] - no driving for 1 week.
CM spoke to patient & patient will have his friend transport.
PLAN: Discharge tentative for tomorrow to home with [facility].
Friend will transport him home.
[2023-10-15 15:00] VITALS: BP 160/80
[2023-10-15 17:22] LABS: Glucose - Point of Care 72 mg/dl (70-99)
[2023-10-15] MEDS: DULCOLAX 10 MG RECTAL (17:35)
[2023-10-15] MEDS: NOVOLOG FLEXPEN-LOW RESISTANCE SC (17:35)
[2023-10-15] MEDS: LIPITOR 80 MG PO (17:35)
[2023-10-15] MEDS: NOVOLOG FLEXPEN SC (17:36)
--- NOTE | 2023-10-15 18:00 | PTCARENOTE ---
Patient drank entire bottle of mag citrate this morning ; he refused ordered supp. this morning; patient has not had a bowel movement but reports flatus; patient requested Dulcolax supp this evening so that he can administer it himself. Patient
educated on how to administer and supplies left in bathroom.
[2023-10-15 19:14] VITALS: BP 146/69
[2023-10-15] MEDS: SENOKOT-S 2 TABLET PO (20:41)
[2023-10-15 21:31] LABS: Glucose - Point of Care 226 mg/dl (70-99)
[2023-10-15] MEDS: LANTUS 0.28 UNITS SC (21:48)
[2023-10-15 23:33] VITALS: BP 158/70
[2023-10-16] MEDS: TYLENOL 650 MG PO (00:11)
[2023-10-16 02:54] VITALS: BP 145/75
[2023-10-16 03:00] VITALS: BP 145/75
[2023-10-16] MEDS: TYLENOL PO ×2 (04:24→10:15)
[2023-10-16 07:00] VITALS: BP 140/76
[2023-10-16 07:26] LABS: Hematocrit 34.2 % (39.0-52.0); Hemoglobin 11.7 g/dL (13.0-18.0); Mean Corp Hgb Conc. 34.2 g/dL (33.0-37.0); Mean Corpuscular Hgb 31.2 pg (27.0-31.0); Mean Corpuscular Volume 91.2 fL (80.0-94.0); Mean Platelet Volume 11.2 fL (7.4-10.4); Platelet Count 309 10^3/uL (130-400); Red Blood Cell Count 3.75 10^6/uL (4.70-6.10); Red Cell Dist. Width 13.2 % (11.5-14.5); White Blood Cell Count 14.8 10^3/uL (4.8-10.8)
[2023-10-16 07:43] LABS: Blood Urea Nitrogen 19 mg/dl (9-20); Calcium 9.4 mg/dl (8.4-10.2); Carbon Dioxide 24 mmol/L (22-30); Chloride 103 mmol/L (98-107); Estimated Creatinine Clearance 69 ml/min; Glucose 123 mg/dl (70-99); Magnesium 2.8 mg/dl (1.6-2.3); Potassium 4.1 mmol/L (3.5-5.1); Sodium 140 mmol/L (135-145); eGFR > 60.00
--- NOTE | 2023-10-16 07:43 | PN.DE.MGMTRT ---
Insulin Management
- -
10/16/2023: Diabetes Management F/U:
Patient admitted 10/07 with Left calf pain for 3 days. s/p LLE angioplasty. PMH: PAD, CAD, HTN, HCL, T2DM, [place] s/p arterial stents at [facility] 4 weeks ago. Prior to admission was taking Farxiga 10 mg, Lantus 25 units @ hs, 1000 mg metformin BID,
Ozempic Fridays. States his primary care manages his diabetes. He has had diabetes 13 years. A1C is 10.3%, cr 1.7, eGFR 47.02
Patient is sleeping at this time, unable to discuss diabetes management.
10/14 Farxiga 10 mg daily was resumed. AC NovoLog was increased to 14 units with low corrective, pre meal glucose 74 to 241.
Received Lantus 28 units @ hs fasting glucose 123 this AM.
Will cont current regimen: AC NovoLog 14 units with low corrective, Lantus 28 units and Farxiga
Will follow for further needed adjustments.
Pt was provided information on NovoLog insulin action on 10/14. He states he understands importance of taking NovoLog. Discussed importance of good glucose control for healing, he verbalizes understanding. Patient states he has a working glucose
monitor at home.
Diabetes History
- -
Type of Diabetes: 2 requiring insulin
Pre-Admission Diabetes Regimen
Lab Results
Hemoglobin A1c 10.3 % (4.0-5.6) H 10/09/23 08:10
Insulin Pump Settings
IP Diabetes Regimen
10/15/23 10/15/23 10/15/23
07:47 11:23 17:19
POC Glucose 178 H 241 H 72
10/15/23
21:29
POC Glucose 226 H
Meal type: Lunch
Meal type: Breakfast
Amount consumed: 0
Amount consumed: 100%
Patient Education
[2023-10-16 07:47] LABS: Glucose - Point of Care 142 mg/dl (70-99)
[2023-10-16 07:52] LABS: Procalcitonin 0.23 ng/ml (0.0-0.25)
--- NOTE | 2023-10-16 08:20 | W.PN.HOSP.TC ---
Today's Communication/Plan
-
Discharge today
Assessment / Plan
Assessment / Plan
Left lower extremity critical limb ischemia -due to occlusion of left common iliac artery, left external iliac artery, left common femoral artery and proximal two thirds of the left superficial femoral artery despite presence of multiple vascular
stents. This was confirmed on CT angio. Status post left lower extremity angioplasty 10/11. Status post IV heparin drip, now on Xarelto. Continue Pletal, aspirin, statin. Medically stable for discharge today, follow-up with vascular surgery in
the office.
Acute kidney injury -likely from contrast during surgery. Hold enalapril/metformin, continue IV fluids. Creatinine improved, is 1.2 today, down from 1.7.
CAD - Stress test showed small area of inferior/inferolateral ischemia. Cardiology recommends medical management. No plans for catheterization. Echocardiogram shows normal biventricular size and systolic function without regional wall motion
abnormality. Mild concentric LVH. LVEF 55 to 60%, grade 1 diastolic dysfunction. No significant valvular disease.
Hyperkalemia -hold enalapril. Resolved, potassium normal status post Lokelma.
Constipation-resolved on laxatives
Hyponatremia -improved.
PAD -with prior lower extremity revascularization involving bypass graft extending from the right common femoral artery to the distal right popliteal artery/tibioperoneal trunk. Not compliant with antiplatelet therapy or his meds. Still smokes.
Smoking cessation encouraged. Continue Pletal, aspirin, statin, xarelto.
Bilateral carotid artery stenosis -ultrasound confirms 70% stenosis in the right carotid bulb. 50 to 69% stenosis left carotid bulb. No known history of stroke. Will need outpatient follow-up.
DM2 with hyperglycemia -Hemoglobin A1c 10.3%. Doubt he takes his meds at home as he admits to noncompliance. Continue insulin adjustment as per diabetes nurse practitioner. Recommend discharge on Lantus 28 units at bedtime, NovoLog 14 units AC 3
times daily. Can resume metformin, Ozempic, Farxiga upon discharge.
Incidental 8 mm right lower lobe pulmonary nodule - noted on CT scan. Will need outpatient follow-up.
Essential hypertension -blood pressure elevated, continue metoprolol succinate 25 mg twice daily, resume enalapril upon discharge
Hyperlipidemia -on atorvastatin.
Tobacco dependence -currently on nicotine replacement therapy.
Peripheral neuropathy�continue gabapentin
Obesity due to excess calories
DVT prophylaxis�xarelto
Full code
Physical Exam
General: Obese, no acute distress
HEENT: Normocephalic, Atraumatic, EOMI, MMM
Respiratory: Clear to Auscultation bilaterally
Cardiac: Normal S1/S2, Regular Rate and Rhythm
GI: Soft, Nontender, Nondistended, Normal Bowel Sounds
Extremities: No Clubbing, Cyanosis, or Edema
Neuro: Nonfocal/Grossly Intact
Psych: Calm, Cooperative
Anticipated Discharge: Today
Subjective/Interval History
-
Date of Service: October 16, 2023
Patient reports having a large bowel movement and feeling better. No fever, no vomiting. He is eager for discharge today.
Objective Data
-
Labs:
Laboratory Results
10/16/23
07:03
WBC 14.8 H
Hgb 11.7 L
Hct 34.2 L
Plt Count 309
Sodium 140
Potassium 4.1
Chloride 103
Carbon Dioxide 24
BUN 19
Creatinine 1.2
Glucose 123 H
Calcium 9.4
Vital Signs:
Vital Signs
Temp Pulse Resp BP Pulse Ox
98.5 F 89 18 140/76 97
10/16/23 07:00 10/16/23 07:00 10/16/23 07:00 10/16/23 07:00 10/16/23 07:00
I&O
10/15/23 10/16/23 10/17/23
06:59 06:59 06:59
Intake Total 2960 / 2960 2620 / 2620
Output Total 2425 / 2425
Balance 535 / 535 262 / 2620
[2023-10-16] MEDS: MIRALAX 17 GRAMS PO (09:45)
[2023-10-16] MEDS: NOVOLOG FLEXPEN-LOW RESISTANCE SC (09:46)
[2023-10-16] MEDS: NOVOLOG FLEXPEN 14 UNITS SC (09:47)
[2023-10-16] MEDS: PLETAL 100 MG PO (09:48)
[2023-10-16] MEDS: SENOKOT-S 2 TABLET PO (09:48)
[2023-10-16] MEDS: ASPIR LOW (ENTERIC COATED) 81 MG PO (09:49)
[2023-10-16] MEDS: XARELTO 2.5 MG PO (09:49)
[2023-10-16] MEDS: APRESOLINE PO (09:49)
[2023-10-16] MEDS: NEURONTIN 600 MG PO (09:50)
[2023-10-16] MEDS: TOPROL XL 25 MG PO (09:50)
[2023-10-16] MEDS: FARXIGA 10 MG PO (09:50)
[2023-10-16] MEDS: NICODERM TRANSDERMAL 21 MG TRANSDERM (09:51)
[2023-10-16 10:29] VITALS: PULSE 101; O2SAT 94
--- NOTE | 2023-10-16 10:32 | CM ---
IMM explained & signed & placed in chart.
Stated Dr. Pope is discharging today.
Patient seen walking hallway.
PT had recommended Home health.
Referral in Care Port for [facility]-liaison aware
PLAN: Discharge to home with [facility]
Friend to transport home.
[2023-10-16 11:59] VITALS: BP 177/91
[2023-10-16] MEDS: APRESOLINE 50 MG PO (12:20)
--- NOTE | 2023-10-16 14:38 | W.DCSUMMARY ---
Discharge Summary
Discharge Data
Date of Admission: 10/08/23
Date of Discharge: 10/16/23
-
Pending Results: No
Hospital Course
Discharge diagnosis:
Left lower extremity critical limb ischemia
Acute kidney injury
Coronary artery disease
Hyperkalemia
Constipation
Hyponatremia
Peripheral artery disease
Bilateral carotid artery stenosis
Uncontrolled type 2 diabetes
Cigarette nicotine dependency
Peripheral neuropathy
Benign essential hypertension
Hyperlipidemia
Obesity due to excess calories
Incidental 8 mm right lower lobe pulmonary nodule
Consults: Cardiology, vascular surgery, sharepoint analyst
Procedures:
10/12/2023
Left lower extremity angioplasty with endarterectomy, and stent placement
Hospital course:
57-year-old male with a past medical history of cigarette nicotine dependency, PAD, CAD, DM2, peripheral neuropathy, hypertension, hyperlipidemia, and obesity was admitted for left lower extremity critical limb ischemia. Patient was treated with
heparin drip, pletal, aspirin, statin. Patient was seen in conjunction with vascular surgery. He has a history of coronary artery disease. Stress test showed small area of inferior/inferior lateral ischemia. He was also seen in conjunction with
cardiology. Cardiology recommends medical management. He underwent left lower extremity angioplasty with atherectomy and stent placement. His heparin drip was transitioned to Xarelto.
Patient's hospital course was complicated by hyperkalemia and acute kidney injury. His acute kidney injury is likely due to the contrast he received during his procedure. His enalapril and metformin were held. He received IV fluids. His
hyperkalemia resolved, and his creatinine improved to 1.2 on the day of discharge.
Patient also has uncontrolled type 2 diabetes. His hemoglobin A1c is 10.3. Suspect he is not compliant with a low carbohydrate diet. His metformin, Farxiga and Ozempic were held in the hospital. He was seen in conjunction with the diabetes nurse
practitioner. It is recommended that he be discharged on Lantus 28 units at bedtime, NovoLog 14 units AC 3 times daily. He has been counseled to adhere to a low carbohydrate diet. He can resume his metformin, Farxiga, and Ozempic upon discharge.
Patient also has cigarette nicotine dependency. He was counseled to permanently stop smoking.
He has benign essential hypertension. While his enalapril was held, he was treated with hydralazine for his hypertension. He is continued on metoprolol succinate. Since his creatinine normalized, he can resume enalapril upon discharge. He does
not need to continue the hydralazine upon discharge.
Patient's multiple medical conditions have been optimized. He is medically stable for discharge. He needs to follow-up with his primary care doctor in 1 week, and cardiology/vascular surgery as directed.
Disposition: Home self-care
Discharge planning: Required 52 minutes
Discharge Plan
-
Patient Disposition: Home (Routine Discharge)
Discharge Diagnosis/Procedures: Left common femoral artery endarterectomy with profundoplasty, removal of intravascular stent from common femoral artery, retrograde balloon angioplasty and stenting of the left common iliac artery and left external
iliac artery
Uncontrolled type 2 diabetes
Cigarette nicotine dependency
Acute kidney injury
Hyperkalemia
Condition: Good
Diet: As tolerated and Diabetic, Carb Controlled
Activity: No strenuous activity
Driving Restrictions: No driving for 1 week
Bathing Restrictions: OK to Shower
Wound Care: You may leave left groin staple site open to air. However, if meron are pulling due to clothing you may place gauze pad to protect meron from rubbing on clothes. If you choose to place gauze pad, you may secure with tape. Change
dressing daily or more frequently if becomes soiled. Please do your best to keep surgical site area dry at all times. You may shower but then promptly dry staple area. Do not soak or submerge surgical incision.
Activity Restrictions/Additional Instructions:
It is very important that you eat a low carb diet, quit smoking, and take your medications as prescribed.
Please follow-up with your primary care doctor in 1 week, cardiology and vascular surgery as directed.
Stand Alone Forms: DC Instr - Vascular OR
Referrals:
Jin Prince MD [Active] - 11/13/23 8:40 am (You have a cardiology follow-up appointment at the [place] office. Please call with questions)
Deepak Trejo MD [Active] - in two to four weeks (Lung nodule on CT)
Miguel Chaney DO [Family Provider] - in one week
Margi Peterson CRNP [Specified Professional Personl] - 10/29/23 9:45 am
Prescriptions:
New
insulin aspart U-100 [Novolog FlexPen U-100 Insulin] 100 unit/mL (3 mL) Insulin Pen
14 unit SC AC Qty: 5 0RF
(DME) pen needle, diabetic [BD Ultra-Fine Safia Pen Needle] 32 gauge x 5/32' Needle
Qty: 200 0RF
Rx Instructions:
As Directed
Xarelto 2.5 mg Tablet
2.5 mg PO BID Qty: 60 0RF
oxycodone 5 mg Tablet
5 mg PO Q4HPRN PRN (Reason: MODERATE TO SEVERE PAIN) Qty: 20 0RF
sennosides-docusate sodium 8.6-50 mg Tablet
2 tab PO BID Qty: 120 0RF
aspirin 81 mg Tablet,Delayed Release (Dr/Ec)
81 mg PO DAILY Qty: 30 0RF
Insulin Glargine Lantus [Lantus] 28 UNITS
Subcutaneous Insulin Syringe [Syringe-Insulin] 0 UNIT
As Directed mls/hr SC HS
Ordered By: Shaheed Pope MD
Last Taken: 10/15/23 21:48 0.28 mls
Continued
enalapril maleate 10 MG tablet
10 mg PO DAILY Qty: 30 0RF
cilostazol 100 MG tablet
100 mg PO BID
metoprolol succinate 25 MG tablet extended release 24 hr
25 mg PO DAILY
gabapentin 300 MG capsule
900 mg PO TID
metformin 1,000 mg Tablet
1,000 mg PO BID
dapagliflozin propanediol [Farxiga] 10 mg Tablet
10 mg PO DAILY
Ozempic 0.25 mg or 0.5 mg(2 mg/1.5 mL) Pen Injector
0.5 mg SC FR
atorvastatin 80 MG tablet
80 mg PO QPM
Discharge Orders:
Discharge Patient (As Directed); Ordered 10/16/23
Ordered By: Shaheed Pope
Discharge Date and Time
Discharge Date/Time: 10/16/23 12:34
Print Language: GHANAIAN
== END 2023-10-16 12:34 | disposition home health service (06) | DRG 253 ==
LOC: 2 NORTH 15:37
PROVIDERS: Internal Medicine Cardiovascular Disease; Nurse Practitioner; Physician Assistant; Surgery Vascular Surgery; ADMITTING PHYSICIAN Hospitalist; ATTENDING PHYSICIAN Family Medicine; CONSULT PHYSICIAN Internal Medicine Cardiovascular Disease; CONSULT PHYSICIAN Internal Medicine Critical Care Medicine; EMERGENCY PHYSICIAN Student in an Organized Health Care Education/Training Program; FAMILY PHYSICIAN Family Medicine; OTHER PHYSICIAN Surgery Vascular Surgery
PROC: 4A12XM4 Monitoring of Cardiac Stress, External Approach (ICD-10-PCS; 2023-10-09)
PROC: 3E033HZ Introduction of Radioactive Substance into Peripheral Vein, Percutaneous Approach (ICD-10-PCS; 2023-10-09)
PROC: 047J3DZ Dilation of Left External Iliac Artery with Intraluminal Device, Percutaneous Approach (ICD-10-PCS; 2023-10-13)
PROC: B4101ZZ Fluoroscopy of Abdominal Aorta using Low Osmolar Contrast (ICD-10-PCS; 2023-10-13)
PROC: 04PY3DZ Removal of Intraluminal Device from Lower Artery, Percutaneous Approach (ICD-10-PCS; 2023-10-13)
PROC: 04UL0KZ Supplement Left Femoral Artery with Nonautologous Tissue Substitute, Open Approach (ICD-10-PCS; 2023-10-13)
PROC: 047D3EZ Dilation of Left Common Iliac Artery with Two Intraluminal Devices, Percutaneous Approach (ICD-10-PCS; 2023-10-13)
PROC: 04CL0ZZ Extirpation of Matter from Left Femoral Artery, Open Approach (ICD-10-PCS; 2023-10-13)
DX: T82.868A Thrombosis due to vascular prosthetic devices, implants and grafts, initial encounter (principal); E87.1 Hypo-osmolality and hyponatremia; E87.20 Acidosis, unspecified; N17.8 Other acute kidney failure; I74.3 Embolism and thrombosis of arteries of the lower extremities; E11.51 Type 2 diabetes mellitus with diabetic peripheral angiopathy without gangrene; I70.222 Atherosclerosis of native arteries of extremities with rest pain, left leg; E11.42 Type 2 diabetes mellitus with diabetic polyneuropathy; F17.210 Nicotine dependence, cigarettes, uncomplicated; I25.10 Atherosclerotic heart disease of native coronary artery without angina pectoris; E66.09 Other obesity due to excess calories; E87.5 Hyperkalemia; G89.29 Other chronic pain; Y83.1 Surgical operation with implant of artificial internal device as the cause of abnormal reaction of the patient, or of later complication, without mention of misadventure at the time of the procedure; Y92.9 Unspecified place or not applicable; I65.23 Occlusion and stenosis of bilateral carotid arteries; F10.20 Alcohol dependence, uncomplicated; J44.9 Chronic obstructive pulmonary disease, unspecified; R91.1 Solitary pulmonary nodule; E11.65 Type 2 diabetes mellitus with hyperglycemia; N14.11 Contrast-induced nephropathy; T50.8X5A Adverse effect of diagnostic agents, initial encounter; Y92.234 Operating room of hospital as the place of occurrence of the external cause; E78.00 Pure hypercholesterolemia, unspecified; K59.00 Constipation, unspecified; I11.9 Hypertensive heart disease without heart failure; I25.2 Old myocardial infarction; Z91.148 Patient's other noncompliance with medication regimen for other reason; Z91.199 Patient's noncompliance with other medical treatment and regimen due to unspecified reason; Z79.84 Long term (current) use of oral hypoglycemic drugs; Z79.85 Long-term (current) use of injectable non-insulin antidiabetic drugs; Z79.4 Long term (current) use of insulin; Z95.5 Presence of coronary angioplasty implant and graft; Z68.30 Body mass index [BMI] 30.0-30.9, adult
CPT/HCPCS: 88300; 88304; 88311; 35371; 37221; 37799; 71045; 75635; 78452; 80048; 80053; 80061; 81003; 81015; 82962; 83036; 83735; 84145; 85025; 85027; 85610; 85730; 86850; 86900; 86901; 93005; 93017; 93306; 93880; 96374; 97116; 97163; 97166; 99285; 99406; A9500; C1769; C1874; C1894; J2785; Q9967

== ENCOUNTER 2023-10-29 14:41 | Inpatient (IN) | payer OTHER, SELFPAY ==
[2023-10-29] VITALS (23 sets, daily range): BP systolic 132–172; BP diastolic 68–118; BMI 30.9; BMI 30.8
--- NOTE | 2023-10-29 11:28 | ED.GENMED ---
History of Present Illness
<Nadia Flaherty PA-C - Last Filed: 10/29/23 16:49>
General
Chief Complaint: DVT/Possible Blood Clot
Source: patient
Exam Limitations: none
Time Seen by Provider: 10/29/23 10:39
Nursing documentation reviewed up to this point in time: agreed with
History of Present Illness
History of Present Illness:
Patient is a 57-year-old male with history CAD, hypertension, hyperlipidemia currently approximately 2 weeks postop from stent placement on Xarelto presenting with numbness/pain in right hand and fingers and suspected right radial artery occlusion
visualized on ultrasound this morning. Patient sent by vascular surgeon for evaluation.
Patient was seen by vascular surgeon this morning for staple removal following procedure. Patient reported that he had been feeling pain and numbness in his right hand and first 3 fingers since the procedure. Ultrasound displayed radial artery
occlusion. Patient did recently start Xarelto following stenting procedure.
Patient denies any chest pain or shortness of breath.
Patient denies any other complaints today.
Past History
<Nadia Flaherty PA-C - Last Filed: 10/29/23 16:49>
Past History
ED Past Medical History: CAD, HTN, Hypercholesterolemia, NIDDM, HI and Other
ED Past Surgical History: Tonsilectomy and Other
Patient has exhibited threatening behavior?: No
Social History
Tobacco: Smoker (1 PPD)
Alcohol: Other ('moderately' drinks more than a few times a week.)
Personal:
Living: with family
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
Family History
Family History: CAD
Review of Systems
<Nadia Flaherty PA-C - Last Filed: 10/29/23 16:49>
Review of Systems
Allergies reviewed?: Yes
All Other Systems: ROS reviewed and negative except as documented in HPI and ROS
Phy Exam
<Nadia Flaherty PA-C - Last Filed: 10/29/23 16:49>
Physical Exam
Physical Exam:
Vitals: Patient's vital signs are stable. Afebrile
General: Patient is well appearing, no acute distress. Nontoxic-appearing
Skin: Warm and dry, no rashes or lesions
Head: Normocephalic, atraumatic
Eyes: Sclera nonicteric. EOMs intact. No nystagmus.
Throat: Protecting airway
Neck: Normal ROM, no cervical spine tenderness, no meningismus
Cardiac: Regular rate and rhythm, no murmurs.
Pulm: Normal respiratory effort, no wheezes, rales, rhonchi heard on exam.
Abdomen: No abdominal tenderness.
Extremities: Palpable left radial pulse. Unable to palpate right radial pulse. Coolness noted to first 3 digits of right hand with delayed capillary refill. Limited range of motion in right hand/fingers with decreased production painter strength. Sensation
fully intact to right upper extremity.
Neuro: AAOx3. CN II-XII intact. No focal neurologic deficits.
Psychiatric: Normal affect.
Course
<Nadia Flaherty PA-C - Last Filed: 10/29/23 16:49>
Orders/Labs/Results
Orders:
Orders
10/29/23 10:57
Upper Ext Angio w/wo Contrast CT [CT Upper Ext Angio W/wo Iv Con] Urgent
Comment:
Reason For Exam: Right radial occlusion confirmed by US
0.9% Sodium Chloride 500 ml [Nss] 500 ml IV BOLUS
10/29/23 11:36
Complete Blood Count/With Diff Urgent
PTT Urgent
10/29/23 12:10
Comprehensive Metabolic Panel Urgent
10/29/23 14:21
Admit/Transfer Patient As Directed
Co-Sign Provider:
Level of Care: Inpatient admission
Assign to:: ICU
Physician / Group: [facility]
Diagnosis: right artery occlusion
Reason for Hospitalization: right artery occlusion
Expected length of stay greater than two midnights?: Yes
ELOS- Estimated Length of Stay in days: 3
I certify the patient meets the requirements for IP care: Yes
PRN Pain Medication Management As Directed
May give lesser potent ordered pain med per pt: Yes
preference::
Protocol:: Medication orders for pain may be administered in a
manner that supports deferring to patient preference
when the pt is:
- Requesting an ordered lesser potent pain medication.
Least to most potent pain medications are defined
as: acetaminophen < NSAID < tramadol < opioids
(morphine, oxycodone, hydromorphone).
- Requesting a lesser dose of the same medication IF
ORDERED.
- Requesting a less intrusive route of administration
if both routes are prescribed by the provider (PO <
IV).
10/29/23 14:26
Code Status As Directed
Resuscitation Status: Full Code
10/29/23 14:31
Consult Vascular Surgery [Vascular Surgery Consult] Routine
Consulting Provider: Manny Nelson
Was physician already notified: Yes
Abnormal Lab Results
10/29/23 10/29/23
11:36 12:10
WBC 16.6 H 10^3/uL
(4.8-10.8)
RBC 3.93 L 10^6/uL
(4.70-6.10)
Hgb 12.3 L g/dL
(13.0-18.0)
Hct 37.0 L %
(39.0-52.0)
MCV 94.1 H fL
(80.0-94.0)
MCH 31.3 H pg
(27.0-31.0)
Plt Count 563 H 10^3/uL
(130-400)
MPV 10.6 H fL
(7.4-10.4)
Abs Immat Gran (auto) 0.1 H 10^3/uL
(0-0.05)
Absolute Neuts (auto) 12.8 H 10^3/uL
(1.4-6.5)
Absolute Monos (auto) 1.0 H 10^3/uL
(0.1-0.6)
Neutrophils % 77.4 H %
(42.2-75.2)
Lymphocytes % 13.5 L %
(20.5-51.1)
Carbon Dioxide 21 L mmol/L
(22-30)
Glucose 187 H mg/dl
(70-99)
10/29/23 11:36
10/29/23 12:10
Vital Signs
Initial and Last Documented VS:
Initial Vital Signs
Temp Pulse Resp BP Pulse Ox
97.6 F 88 18 147/78 100
10/29/23 10:33 10/29/23 10:33 10/29/23 10:33 10/29/23 10:33 10/29/23 10:33
Last Documented Vital Signs
Temp Pulse Resp BP Pulse Ox
97.6 F 72 18 172/83 96
10/29/23 10:33 10/29/23 14:45 10/29/23 14:45 10/29/23 14:30 10/29/23 14:30
<Rajni Jasso MD - Last Filed: 10/29/23 13:55>
Orders/Labs/Results
Orders:
Orders
10/29/23 10:57
Upper Ext Angio w/wo Contrast CT [CT Upper Ext Angio W/wo Iv Con] Urgent
Comment:
Reason For Exam: Right radial occlusion confirmed by US
0.9% Sodium Chloride 500 ml [Nss] 500 ml IV BOLUS
10/29/23 11:36
Complete Blood Count/With Diff Urgent
PTT Urgent
10/29/23 12:10
Comprehensive Metabolic Panel Urgent
10/29/23 14:21
Admit/Transfer Patient As Directed
Co-Sign Provider:
Level of Care: Inpatient admission
Assign to:: ICU
Physician / Group: [facility]
Diagnosis: right artery occlusion
Reason for Hospitalization: right artery occlusion
Expected length of stay greater than two midnights?: Yes
ELOS- Estimated Length of Stay in days: 3
I certify the patient meets the requirements for IP care: Yes
PRN Pain Medication Management As Directed
May give lesser potent ordered pain med per pt: Yes
preference::
Protocol:: Medication orders for pain may be administered in a
manner that supports deferring to patient preference
when the pt is:
- Requesting an ordered lesser potent pain medication.
Least to most potent pain medications are defined
as: acetaminophen < NSAID < tramadol < opioids
(morphine, oxycodone, hydromorphone).
- Requesting a lesser dose of the same medication IF
ORDERED.
- Requesting a less intrusive route of administration
if both routes are prescribed by the provider (PO <
IV).
10/29/23 14:26
Code Status As Directed
Resuscitation Status: Full Code
10/29/23 14:31
Consult Vascular Surgery [Vascular Surgery Consult] Routine
Consulting Provider: Manny Nelson
Was physician already notified: Yes
Abnormal Lab Results
10/29/23 10/29/23
11:36 12:10
WBC 16.6 H 10^3/uL
(4.8-10.8)
RBC 3.93 L 10^6/uL
(4.70-6.10)
Hgb 12.3 L g/dL
(13.0-18.0)
Hct 37.0 L %
(39.0-52.0)
MCV 94.1 H fL
(80.0-94.0)
MCH 31.3 H pg
(27.0-31.0)
Plt Count 563 H 10^3/uL
(130-400)
MPV 10.6 H fL
(7.4-10.4)
Abs Immat Gran (auto) 0.1 H 10^3/uL
(0-0.05)
Absolute Neuts (auto) 12.8 H 10^3/uL
(1.4-6.5)
Absolute Monos (auto) 1.0 H 10^3/uL
(0.1-0.6)
Neutrophils % 77.4 H %
(42.2-75.2)
Lymphocytes % 13.5 L %
(20.5-51.1)
Carbon Dioxide 21 L mmol/L
(22-30)
Glucose 187 H mg/dl
(70-99)
10/29/23 11:36
10/29/23 12:10
Vital Signs
Initial and Last Documented VS:
Initial Vital Signs
Temp Pulse Resp BP Pulse Ox
97.6 F 88 18 147/78 100
10/29/23 10:33 10/29/23 10:33 10/29/23 10:33 10/29/23 10:33 10/29/23 10:33
Last Documented Vital Signs
Temp Pulse Resp BP Pulse Ox
97.6 F 72 18 172/83 96
10/29/23 10:33 10/29/23 14:45 10/29/23 14:45 10/29/23 14:30 10/29/23 14:30
<Nadia Flaherty PA-C - Last Filed: 10/29/23 16:49>
MDM/Problems Addressed
Differential Diagnosis Includes:
Not limited to: Arterial occlusion, postoperative complication, Raynaud's, etc.
MDM/Problems Addressed:
57-year-old male 2 weeks postop from stenting presents with suspected right arterial occlusion visualized on ultrasound this morning outpatient. Patient with pain, numbness in right hand and digits (mainly in first 3 digits). Symptoms seem to
start immediately following procedure 2 weeks ago. Has been on Xarelto postoperatively. Vital stable. Exam as above. Patient does have palpable left radial pulse. Unable to palpate right radial pulse. Coolness and decreased capillary refill
noted to right hand/first 3 digits. Patient does have great sensation in right hand. Discussed with vascular surgery who recommend CTA upper extremity for better evaluation. Will check basic labs. Vascular surgeon at bedside to eval patient.
Treatment and dispo pending imaging. Patient stable
Chronic conditions affecting care:
CAD, hypertension, hyperlipidemia, diabetes
Acute Exacerbation and/or Progression of Chronic Illness:
Acute hypertensive
<Nadia Flaherty PA-C - Last Filed: 10/29/23 16:49>
*Radiology
Radiology exam reviewed: radiology read reviewed
*Pulse Oximetry
Patient hypoxic: no
*EKG
Interpreted by ED Provider?: NA
*Coatings Inspector Interpretation
Rate: Coatings Inspector- N/A
*Critical Care Note
Total Time (30-74mins, 75-104mins- exclusive of procedures): Not Applicable
Data Reviewed
Review of Other/Old Records Reveals: Operative Reports (Stenting INSPECTOR FIBROUS WALLBOARD endarterectomy, angioplasty and stent placement 10/13/23)
<Nadia Flaherty PA-C - Last Filed: 10/29/23 16:49>
Patient Management
Discussion with other providers: Compress Trucker (Vascular Surgeon - Dr. Nelson )
Escalation/DeEscalation of care consider admission/obs:
Admit for thrombectomy versus bypass. Patient to go to the OR shortly and admit to ICU postop.
<Nadia Flaherty PA-C - Last Filed: 10/29/23 16:49>
Update Note
Update Note:
Update: Labs reviewed. Leukocytosis and mild anemia noted. Chemistry without any abnormal findings. CTA upper extremity�no occlusion of right radial artery at level of mid forearm. Incidental finding of nodule in right lower lobe which patient
was made aware of. Discussed findings with vascular surgeon, Dr. Nelson. Patient will be brought to OR for thrombectomy versus bypass and admitted to ICU following OR. Will hold off on heparin for now per vascular surgery. Patient admitted to
hospitalist service in stable condition. Patient comfortable with plan. Patient seen by attending physician.
ED Attending Note
<Nadia Flaherty PA-C - Last Filed: 10/29/23 16:49>
-
Portions of this chart may have been created with voice recognition software.� Occasional wrong word or��sound alike� substitutions may have occurred due to the inherent limitations of voice recognition software.
<Rajni Jasso MD - Last Filed: 10/29/23 13:55>
ED Attending Note
Patient seen and examined by attending physician: Yes
I performed the substantive portion of visit, reviewed & personally made and approve the management plan that is documented in note by myself or ALPHONSE.: Yes
ED Attending Note:
57-year-old man with recent femoral stent placement presenting to the emergency department with radial artery occlusion. Patient states that for the past few weeks has been having right wrist pain with cool first 3 digits. He does have numbness
tingling to the first 3 digits intermittently. He has been taking Xarelto. He did have a ultrasound outpatient that showed a radial artery occlusion so he was sent here for additional imaging. Vitals unremarkable.
GENERAL: in no acute distress
HEENT: normocephalic, extraocular movements intact, moist oral mucosa
NECK: normal inspection
RESPIRATORY: no respiratory distress, clear to auscultation bilaterally
CARDIOVASCULAR: regular rate and rhythm, left radial pulse palpable. Unable to palpate right radial pulse. Cool first 3 digits of the right hand. Normal sensation to the entire hand
ABDOMEN/: soft, non-distended, non-tender to palpation, no rebound or guarding
EXTREMITIES: non-tender, no edema/swelling
NEUROLOGIC: awake and alert, moves all extremities
SKIN: warm
57-year-old man with history of recent stent placement presenting to the emergency department with radial artery occlusion seen on outpatient ultrasound today. Discussed with vascular surgery who evaluated patient at bedside. Will proceed with CTA
of the extremity. Will hold off on heparin initiation until the results of the CAT scan per vascular. Dispo pending results.
Discharge Plan
Departure
Patient Disposition: Admit
Date of Disposition: 10/29/23
Time of Disposition: 13:43
Presentation/result/management discussed w/ accepting MD/DO: Hospitalist
Discharge Problem:
Radial artery occlusion, right
Interventions
Interventions:
*Risk Screen - Suicide Last Done: 10/29/23 11:38
*General Assessment Last Done: 10/29/23 11:38
*Neglect/Abuse Screening Last Done: 10/29/23 11:38
ED- Fall Risk Assessment Last Done: 10/29/23 11:38
*Nursing Disposition Last Done: 10/29/23 14:53
ED- Cardiac Assessment Last Done: 10/29/23 11:38
ED- Pulmonary Assessment Last Done: 10/29/23 11:38
ED-Peripheral Vascular Assessment Last Done: 10/29/23 11:38
ED-Skin Assessment Last Done: 10/29/23 11:38
Discharge Date and Time
Discharge Date/Time: 10/29/23 14:59
[2023-10-29] MEDS: NSS 500 IV (11:33)
[2023-10-29 12:04] LABS: % Basophils 0.8 % (0-2); % Eosinophils 1.7 % (0-6); % Immature Granulocytes 0.4 % (0-0.5); % Lymphocytes 13.5 % (20.5-51.1); % Monocytes 6.2 % (1.7-9.3); % Neutrophils 77.4 % (42.2-75.2); Absolute Basophils 0.1 10^3/uL (0-0.2); Absolute Eosinophils 0.3 10^3/uL (0-0.7); Absolute Immature Granulocytes 0.1 10^3/uL (0-0.05); Absolute Lymphocytes 2.2 10^3/uL (1.2-3.4); Absolute Neutrophils 12.8 10^3/uL (1.4-6.5); Hemoglobin 12.3 g/dL (13.0-18.0); Mean Corp Hgb Conc. 33.2 g/dL (33.0-37.0); Mean Corpuscular Hgb 31.3 pg (27.0-31.0); Mean Corpuscular Volume 94.1 fL (80.0-94.0); Mean Platelet Volume 10.6 fL (7.4-10.4); Nucleated Red Blood Cells % 0 % (-); Platelet Count 563 10^3/uL (130-400); Red Blood Cell Count 3.93 10^6/uL (4.70-6.10); Red Cell Dist. Width 12.6 % (11.5-14.5); White Blood Cell Count 16.6 10^3/uL (4.8-10.8)
[2023-10-29 12:06] LABS: APTT 34.6 Sec (23.4-35.0)
[2023-10-29 12:48] LABS: ALT (SGPT) 18 U/L (0-50); AST (SGOT) 21 U/L (17-59); Albumin 3.8 g/dl (3.5-5.0); Alkaline Phosphatase 49 U/L (38-126); Blood Urea Nitrogen 13 mg/dl (9-20); Calcium 9.4 mg/dl (8.4-10.2); Carbon Dioxide 21 mmol/L (22-30); Chloride 104 mmol/L (98-107); Estimated Creatinine Clearance 76 ml/min; Glucose 187 mg/dl (70-99); Potassium 5.1 mmol/L (3.5-5.1); Sodium 139 mmol/L (135-145); Total Bilirubin 0.3 mg/dl (0.2-1.3); Total Protein 6.5 g/dl (6.3-8.2); eGFR > 60.00
--- NOTE | 2023-10-29 13:32 | W.PN.UPDATE ---
Addendum entered and electronically signed by Manny Nelson MD 10/29/23 16:31:
Correction to below CT interpretation. The interosseous branch does not appear occluded as I noted below. The ulnar artery is occluded at least segmentally.
Original Note:
Update Note
Progress Note Update
Seen and examined. Status post recent left femoral thromboendarterectomy and removal stent and iliac stenting. For ischemic rest pain. Notes his left foot pain symptoms have significantly proved, however he has been complaining of right hand pain
and numbness and slight weakness. Symptoms primarily on the second third and fourth fingers. He notes that he has had the symptoms since essentially postoperatively but has worsened over the last couple days. No ulcerations. Symptoms have been
present now for approximately 2 weeks. Patient seen in CT scan.
On exam/he is in no acute distress. Right upper extremity with palpable brachial pulse in the distal upper arm. Nonpalpable distally. He does have a scar along the ulnar aspect of his forearm. When asked him about it he notes that he had an
injury there years ago. I asked if any vascular injuries or issues were present and he thinks he might of had a ligation of the artery, but then on further questioning it sounds like it may have been a nerve issue. Unclear. Regardless I am unable
to palpate an ulnar or radial pulse distally. His hand is pink. Capillary refill slightly delayed compared to the other side
Plan/subacute ischemia right hand/fingers. I reviewed his CT scan imaging he just completed (CTA). Distal brachial artery does indeed have an area of moderate stenosis with plaque calcified eccentrically, soft plaque more centrally. Distal to
here he does have a normal brachial bifurcation. Ulnar artery bifurcates into the interosseous and the main ulnar artery. The main ulnar artery distally appears occluded on CT imaging. Interosseous also appears to be calcified and occluded.
Radial artery proximally is patent and then occludes more distally but there is what appears to be reconstituted flow at the level of the hand. Discussed with him these findings. Discussed recommendation for revascularization. Discussed attempted
thrombectomy through wrist incision. Discussed however that his symptoms have been present for 2 weeks and therefore may not be treatable with standard thrombectomy. Discussed alternative of bypass from the brachial artery more proximally. He
does have disease in the brachial artery in the distal upper arm. Would have to come off proximally to there. Discussed the use of venous conduit if needed. Discussed potential development of compartment syndrome in which case would enlist the
help of hand surgeons for hand fasciotomies if needed. Discussed risk/benefits/alternatives. He understands all wishes to proceed. Will plan relatively urgent OR today and add onto the schedule.
--- NOTE | 2023-10-29 13:41 | W.PN.UPDATE ---
Update Note
Progress Note Update
Consult for Vascular Surgery:
--- NOTE | 2023-10-29 13:55 | HPS.HSE ---
Addendum entered and electronically signed by Norman White MD 10/29/23 14:37:
I saw and examined the patient.
The HOUSE CARPENTER or PA's note was reviewed and I agree with the note.
Comment:
57-year-old male with a past medical history of cigarette nicotine dependency, PAD, CAD, DM2, peripheral neuropathy, hypertension, hyperlipidemia, and obesity, left lower extremity critical limb ischemia 2 weeks ago and underwent recent left femoral
thromboendarterectomy and removal stent and iliac stenting, now presents for right hand pain and numbness and slight weakness over the last 2 weeks.� Symptoms began in the second third and fourth fingers and worsened over the last couple days.�
Patient does have palpable brachial pulse in the distal upper arm, nonpalpable distally.� Able to palpate ulnar and radial pulses.� Hand is warm.� Vascular consulted..� Main ulnar artery distally appears to be occluded on CAT scan.� Vascular
discussed recommendation from HPI revascularization,� Attempted thrombectomy.� Plan�will undergo vascular procedure to evaluate further possible interventions.� Follow-up with vascular for plan of anticoagulation, aspirin, cilostazol.� Can resume
home dose of Lantus if resuming regular diet, hold oral hypoglycemics.� Pain control with IV morphine
Original Note:
Family Physician
-
Family Physician: Miguel Chaney
Chief Complaint
-
right hand pain and and numb
History of Present Illness
57 year old Status post recent left femoral thromboendarterectomy and removal stent and iliac stenting. For ischemic rest pain, DM, HLD, PVD, CO, HTN, CAD presented to us with complaining of right hand pain and numbness and slight weakness.
Symptoms primarily on the second third and fourth fingers. He notes that he has had the symptoms since essentially postoperatively but has worsened over the last couple days. denied chest pain, sob. denied RODRIGUEZ, dizzy or syncopal episode .denied
abdominal pain,n,v,d. denied dysuria o hematuria.
patient was evaluated by Vascular for plan for OR today.
Medical History
Past Medical History
Past Medical History: Reports Other
Additional Past Medical History:
diabetes
hyperlipidemia
Peripheral vascular disease,
CO:
Hypertension
Coronary artery disease
Past Surgical History: Reports Other
Additional Past Surgical History:
tonsillectomy
Emblica hernia repair
Right lower extremity stents left lower extremity send stent
Social History
Tobacco: Smoker
Alcohol: Occasional
Drug: None
Family History
Family History: Not pertinent
Allergies / Home Medications
Allergies reflects when Allergies were last updated in [facility].
Home Medications with original date entered in [facility]
Allergy/Medication List:
Allergies
Allergy/AdvReac Type Severity Reaction Status Date / Time
No Known Allergies Allergy Verified 10/29/23 10:38
Home Medications
cilostazol 100 mg tablet 100 mg PO BID Blood Clot Prevention/Tx 03/09/20
metoprolol succinate 25 mg tablet,extended release 24 hr 25 mg PO DAILY Blood Pressure 03/09/20
gabapentin 300 mg capsule 900 mg PO TID pain 03/29/21
dapagliflozin propanediol 10 mg tablet (Farxiga) 10 mg PO DAILY Diabetes 06/02/22
metformin 1,000 mg tablet 1,000 mg PO BID Diabetes 06/02/22
atorvastatin 80 mg tablet 80 mg PO DAILY High Cholesterol 10/08/23
aspirin 81 mg tablet,delayed release 81 mg PO DAILY Blood Clot Prevention/Tx 10/29/23
enalapril maleate 10 mg tablet 10 mg PO DAILY blood pressure 10/29/23
insulin aspart U-100 100 unit/mL (3 mL) subcutaneous pen (Novolog FlexPen U-100 Insulin aspart) 14 unit SC AC diabetes 10/29/23
insulin glargine 100 unit/mL (3 mL) subcutaneous pen (Lantus Solostar U-100 Insulin) 28 unit SC HS diabetes 10/29/23
oxycodone 5 mg tablet 5 mg PO Q4HPRN PRN moderate-severe pain 10/29/23
rivaroxaban 2.5 mg tablet (Xarelto) 2.5 mg PO BID Blood Clot Prevention/Tx 10/29/23
sennosides 8.6 mg-docusate sodium 50 mg tablet 2 tab PO BID Constipation 10/29/23
Review of Systems
-
Constitutional: Reports No Symptoms
EENT: Reports No Symptoms
Respiratory: Reports No Symptoms
Cardiac: Reports No Symptoms
Abdomen/GI: Reports No Symptoms
: Reports No Symptoms
Musculoskeletal: Reports Other ( right hand pain, numbness)
Skin: Reports Other ( left groin Steri-Strips)
Neurological: Reports No Symptoms
Endocrine: Reports No Symptoms
Hematologic/Lymphatic: Reports No Symptoms
Psych: Reports No Symptoms
Physical Exam
Vital Signs
Vital Signs
Temp Pulse Resp BP Pulse Ox
97.6 F 71 17 157/86 98
10/29/23 10:33 10/29/23 13:00 10/29/23 13:00 10/29/23 13:00 10/29/23 12:45
Physical Exam
General: Well Developed, Well Nourished and No Apparent Distress
HEENT: NormoCephalic, Moist mucous membranes and Atraumatic
Respiratory: Clear
Cardiac: S1/S2 and Regular Rhythm; No Murmur or Rub
GI: Soft, Non Tender, Non Distended and Normal Bowel Sounds; No Organomegaly
Rectal: Deferred by Provider
Musculoskeletal: No Clubbing, No Cyanosis and No Edema
Skin: Rash and Other ( left groin Steri-Strips clean dry and intact)
Neuro: AO x 3 and Nonfocal/grossly intact
Psych: Calm
Laboratory Results
-
10/29/23 11:36
10/29/23 12:10
Laboratory Results
APTT 34.6 Sec (23.4-35.0) 10/29/23 11:36
Total Bilirubin 0.3 mg/dl (0.2-1.3) 10/29/23 12:10
AST 21 U/L (17-59) 10/29/23 12:10
ALT 18 U/L (0-50) 10/29/23 12:10
Alkaline Phosphatase 49 U/L (38-126) 10/29/23 12:10
Data Reviewed
-
Diagnostic Radiology: Report Reviewed by me
Lab Data: Labs Reviewed by me
Impression/Plan
-
#right radial arterial occlusion
#s/p stent placement
-vascular consulted
-Extremity arterial Study with Right digital brachial index measures 0.33. There is focal occlusion of the right radial artery at the level of the wrist, with reconstitution of the distal radial artery.Left digital brachial index measures 0.96.
-UE angio pending.
-plan for revascularization today
-keep patient NPO
-Tylenol, oxy and morphine for pain.
#chronic leukocytosis
-wbc 16.6, patient afebrile
-ctm
#post op anemia
-hgb 12.3
-ctm
#recent Left lower extremity critical limb ischemia -due to occlusion of left common iliac artery, left external iliac artery, left common femoral artery and proximal two thirds of the left superficial femoral artery despite presence of multiple
vascular stents.
- Status post left lower extremity angioplasty 10/11.
-hold cilostazol and Xarelto
#CAD
- Stress test showed small area of inferior/inferolateral ischemia
- Echocardiogram shows normal biventricular size and systolic function without regional wall motion abnormality. Mild concentric LVH. LVEF 55 to 60%, grade 1 diastolic dysfunction. No significant valvular disease.
#PAD -with prior lower extremity revascularization involving bypass graft extending from the right common femoral artery to the distal right popliteal artery/tibioperoneal trunk.
-Continue, aspirin, statin,
#Bilateral carotid artery stenosis
-ultrasound confirms 70% stenosis in the right carotid bulb. 50 to 69% stenosis left carotid bulb. No known history of stroke. Will need outpatient follow-up.
#DM2 with hyperglycemia -Hemoglobin A1c 10.3%.
-Farxiga
-NovoLog 14u with meals
-Lantus 28u at hs
-metformin continued
-at present NPO for surgical intervention, insulin when on Diet
#Essential hypertension
-BP stable
continue metoprolol succinate 25 mg twice daily,and enalapril
#Hyperlipidemia -on atorvastatin.
#Tobacco dependence -currently on nicotine replacement therapy.
#Peripheral neuropathy�continue gabapentin
#Obesity due to excess calories
#DVT prophylaxis�Xarelto
#Full code
--- NOTE | 2023-10-29 15:27 | PTCARENOTE ---
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 Patient has 20G in left arm, 20g originally in right arm removed. Patient with faint pulse in right radial, SPO2 monitor 98% with good pleth, + cap refill. Patient states small amount of pain
in right hand. No complaints otherwise currently. awaiting MD to consent patient.
--- NOTE | 2023-10-29 16:27 | W.SUR.PREOP ---
Pre-Operative Surgical Note
-
I have examined this patient prior to the performance of the scheduled procedure.
The patient's condition is unchanged from the time of the current History and
Physical and the patient is able to undergo the scheduled procedure.
Discussed again with patient procedure of right upper extremity arterial thrombectomy (radial artery), possible need for surgical bypass. Discussed risks including but not limited to bleeding, infections, worsened or acute limb ischemia, thrombotic
complications, failure to relieve his symptoms (discussed with patient that if his symptoms are neurologic in nature they may not be recoverable). He understands all these things and wishes to proceed.
[2023-10-29 17:31] LABS: Glucose - Point of Care 108 mg/dl (70-99)
--- NOTE | 2023-10-29 18:35 | W.SUR.POST ---
Surgical Immediate Post Op
Note
Pre Op Diagnosis: Right radial occlusion/ subacute ischemia right hand/fingers
Post Op Diagnosis: Same
Procedure Performed: RUE right radial artery thrombectomy
Primary Surgeon: Manny Nelson MD
Livestock Farmer: TATIANA Monroy
Anesthesia: GETA
Estimated Blood Loss: 15 ml
Fluids: See anesthesia flow sheets
Drains/Shunts: N/A
Specimens/Cultures: None
Doppler/Duplex/Angio (Y/N): Y
Complications: None
Operative Findings: Successful thrombectomy of right radial artery, distal Doppler radial pulse
--- NOTE | 2023-10-29 18:49 | OR.RPT ---
Operative Report
Operative Report
PROCEDURE DATE: 10/29/2023
Preoperative diagnosis: Subacute right hand ischemia with radial artery thrombosis.
Postoperative diagnosis: Same
Procedure: Right upper extremity radial artery thrombectomy.
Surgeon: Omar
[facility] Subject Matter Expert: ENEDELIA Boles, required for all aspects of procedure including assistance with traction/countertraction, following a suture line, assistance with closure.
Complications: None
Anesthesia: General
Indications for procedure:
Patient had undergone left lower extremity revascularization procedure. Had a right upper extremity radial arterial line placed at the time. Post procedurally and when he went home he noted numbness/pain in his 2nd through 4th digits. Worsened
and therefore patient presented to the emergency room. CT scan findings demonstrated occlusion of his right radial artery. Therefore brought for thrombectomy. Risk/benefit/alternatives all fully discussed. Patient understood all wish to proceed.
Description of procedure:
Patient was identified brought to the operating room placed on the table in supine position. After the adequate administration of anesthesia he was prepped and draped in the standard surgical fashion. A standard preoperative timeout was undertaken
and everybody was in agreement the plan. A longitudinal incision was made in the volar aspect of the wrist on the radial aspect. This was carried through skin subcutaneous tissue. Through the fascial layer and the radial artery was identified.
It was carefully dissected away from surrounding structures to great care to void and injuries structures. Circumferential dissection was undertaken proximally distally and Vesseloops passed around it. I gave the patient appropriate dose of
heparin and then tightened the Vesseloops proximally distally. A transverse arteriotomy was made with a Davis blade and then extended using a micro Gardner scissor. A 2 Tomas was then run proximally. I retrieved some form debris as well. Had
better inflow bleeding but still not well. I then had trouble passing the to Tomas again. Therefore then used a 3 Tomas and pulled out a fairly large or thrombus/clot. Now I had much improved inflow bleeding. I ran the 3 Tomas 1 more time
with a negative pass. I ran the 2 Tomas twice more with negative passes as well. I had good backbleeding distally. Therefore irrigated heparinized saline. I then closed the arteriotomy with interrupted 7-0 Prolene sutures. I then released my
clamps proximally and distally. There was a good pulse into the closure site but more distally in the radial artery the pulse we can. There was still a Doppler signal but I was concerned that there may have been more thrombus distally even though
there had been good backbleeding. Therefore I reopened my arteriotomy after replacing the clamps on the artery proximally distally. I then used a 2 Tomas and ran it distally towards the hand. I now retrieved a very small formed thrombus versus
intimal debris. After this side excellent much improved backbleeding. I ran the 2 Tomas 2 more times with negative passes. At this point I was very satisfied. I reclosed the arteriotomy with 7-0 Prolene suture interrupted. I then released my
clamps again and now had excellent pulsatile bleeding proximally and distally to the closure site. Excellent Doppler signal was noted. At this point is very satisfied. I irrigated. I achieved full hemostasis. We then closed in layers using 3-0
Vicryl deep dermal followed by 4 Monocryl running subcuticular stitch. Dermabond was applied. The patient tolerated the procedure well.
[2023-10-29 18:59] LABS: Glucose - Point of Care 139 mg/dl (70-99)
[2023-10-29] MEDS: DILAUDID 0.5 MG IV (19:22)
[2023-10-29 19:27] LABS: Hematocrit 32.5 % (39.0-52.0); Mean Corp Hgb Conc. 33.8 g/dL (33.0-37.0); Mean Corpuscular Hgb 30.8 pg (27.0-31.0); Mean Platelet Volume 10.1 fL (7.4-10.4); Platelet Count 475 10^3/uL (130-400); Red Blood Cell Count 3.57 10^6/uL (4.70-6.10); Red Cell Dist. Width 12.6 % (11.5-14.5); White Blood Cell Count 14.7 10^3/uL (4.8-10.8)
[2023-10-29] MEDS: HEPARIN 25000 UNITS/250 ML IV (19:36)
[2023-10-29 19:39] LABS: PT 15.3 Sec (11.4-14.6)
[2023-10-29 19:43] LABS: APTT 148.7 Sec (23.4-35.0)
[2023-10-29 20:09] LABS: Blood Urea Nitrogen 11 mg/dl (9-20); Calcium 8.9 mg/dl (8.4-10.2); Carbon Dioxide 20 mmol/L (22-30); Chloride 108 mmol/L (98-107); Estimated Creatinine Clearance 69 ml/min; Glucose 143 mg/dl (70-99); Potassium 5.6 mmol/L (3.5-5.1); Sodium 140 mmol/L (135-145); eGFR > 60.00
[2023-10-29] MEDS: NOVOLOG FLEXPEN-LOW RESISTANCE SC (20:19)
--- NOTE | 2023-10-29 20:30 | PTCARENOTE ---
rec'd patient from lab nurse. oriented x3. neurovascular checks initiated. R wrist with incision, approximated edges, glue in place. + radial pulse with Doppler. SR on monitor. on RA, denies SOB. pt c/o hunger, diet ordered, dinner provided. pt
verbally upset stating we are 'starving him' after providing food tray and snacks. pt cursing continuously, expressing anger with discomfort during his stay, removing BP buff. pt educated on need for cardiac monitoring. urinal at bedside. call santillan
within reach. care ongoing.
[2023-10-29] MEDS: NSS 1000 IV (20:43)
[2023-10-29] MEDS: ROXICODONE 5 MG PO (21:48)
[2023-10-29] MEDS: NEURONTIN 900 MG PO (21:48)
[2023-10-29] MEDS: LANTUS 0.28 UNITS SC (23:02)
[2023-10-29] MEDS: NOVOLOG FLEXPEN 14 UNITS SC (23:03)
[2023-10-29 23:08] LABS: Glucose - Point of Care 285 mg/dl (70-99)
[2023-10-30] VITALS (11 sets, daily range): BP systolic 134–174; BP diastolic 59–93; BMI 30.8
--- NOTE | 2023-10-30 | PTCARENOTE ---
pt reassessed. neurovascular checks unchanged, see flowsheet. PRN pain meds given. pt still cursing and expressing discomfort. offered ways to provide comfort to patient. heparin gtt and IVF continue. call santillan within reach, care ongoing.
[2023-10-30 03:55] LABS: Hematocrit 34.5 % (39.0-52.0); Hemoglobin 11.7 g/dL (13.0-18.0); Mean Corp Hgb Conc. 33.9 g/dL (33.0-37.0); Mean Corpuscular Hgb 30.3 pg (27.0-31.0); Mean Corpuscular Volume 89.4 fL (80.0-94.0); Mean Platelet Volume 10.2 fL (7.4-10.4); Platelet Count 527 10^3/uL (130-400); Red Blood Cell Count 3.86 10^6/uL (4.70-6.10); Red Cell Dist. Width 12.5 % (11.5-14.5); White Blood Cell Count 18.3 10^3/uL (4.8-10.8)
[2023-10-30 04:12] LABS: Blood Urea Nitrogen 16 mg/dl (9-20); Calcium 9.5 mg/dl (8.4-10.2); Carbon Dioxide 20 mmol/L (22-30); Chloride 105 mmol/L (98-107); Estimated Creatinine Clearance 64 ml/min; Glucose 245 mg/dl (70-99); Potassium 5.8 mmol/L (3.5-5.1); Sodium 138 mmol/L (135-145); eGFR > 60.00
[2023-10-30] MEDS: NOVOLOG FLEXPEN 4 UNITS SC (04:40)
[2023-10-30] MEDS: ROXICODONE 5 MG PO (04:40)
[2023-10-30 05:15] LABS: PT 14.3 Sec (11.4-14.6)
[2023-10-30 05:16] LABS: APTT 32.6 Sec (23.4-35.0)
--- NOTE | 2023-10-30 05:23 | PTCARENOTE ---
AM labs sent. PRN pain meds given for R wrist pain. neurovascular checks ongoing. call santillan within reach, care ongoing.
[2023-10-30] MEDS: ASPIR LOW (ENTERIC COATED) 81 MG PO (07:41)
[2023-10-30] MEDS: GLUCOPHAGE 1000 MG PO (07:41)
[2023-10-30] MEDS: NEURONTIN 900 MG PO (07:42)
[2023-10-30] MEDS: TOPROL XL 25 MG PO (07:42)
[2023-10-30] MEDS: NOVOLOG FLEXPEN 14 UNITS SC ×2 (07:42→12:45)
[2023-10-30] MEDS: FARXIGA 10 MG PO (07:42)
[2023-10-30] MEDS: LIPITOR 80 MG PO (07:42)
[2023-10-30] MEDS: NOVOLOG FLEXPEN-LOW RESISTANCE 1 UNITS SC ×2 (07:43→12:45)
[2023-10-30 07:49] LABS: Glucose - Point of Care 197 mg/dl (70-99)
--- NOTE | 2023-10-30 07:54 | PTCARENOTE ---
pt received from previous rn- aox3, nsr on monitor, room air. pt angry about admission and cursing at staff- taking off bp cuff and pulse ox, educated about importance of monitoring and keeping wires on, pt verbalized understanding. educated about
importance of heparin gtt and ivf. pt continues to need reinforcement about compliance and medications. denies pain. right radial site c/d/i, palpable pulse. discussed poc with [place] [facility] from vascular. all safety precautions in place.call santillan within
reach
--- NOTE | 2023-10-30 08:05 | CON.INTV ---
Consultation
Consultation Request
Date/Time Consultation Requested: 10/29/2023 - 1854
Date/Time Consultation Performed: 10/30/2023 - 801
Requesting Provider: TATIANA Rodriguez
Performing Provider: Bijan Howell MD
Reason for Consultation: post-op/thrombectomy
Medical History
-
Chief Complaint: Right arm clot seen on outpatient ultrasound
History of Present Illness:
57-year-old male tobacco smoker with a past medical history of PAD s/p left common femoral endarterectomy with profundoplasty and patch angioplasty (10/13/2023) and right lower extremity endovascular intervention (February 2020 + July 2019), CAD with
history of WI 2009 s/p JANNA, hypertension, hyperlipidemia and DM type II presents with right hand pain and cool to touch. He saw the vascular surgery today in the office; today he underwent upper extremity arterial US study showing right-sided
short segment radial artery occlusion with reconstitution distally. Patient was recommended to go to the ER for admission and further management. He was given 500cc IVF with NS 0.9% in ER. Initial vitals showed he was afebrile to 97.6 �F, pulse
rate 88, breathing at 18 breaths/min, BP 147/78 and saturating 100% on room air. Labs showed leukocytosis to 16.6, anemia of 12.3, platelet count elevated at 563, and glucose 187. He underwent CTA right upper extremity showing focal narrowing at
the junction of the right axillary + proximal brachial arteries with diameter reduction of 50 to 60%, and focal calcification involving the distal right brachial artery. The radial artery appears to occlude at the level of the mid forearm,
reconstituting at the level of the wrist. There was also evidence for multifocal short segment occlusion of the ulnar artery. Surgical revascularization was discussed and he is being brought to the OR for right-sided radial artery thrombectomy.
There were no complications and he was transferred to the ICU for further care with cylinder press operator helper services consulted for additional management/recommendations.
Patient seen and evaluated this morning. No right hand pain. He does have some slight numbness in his middle 3 fingers, but it is not bothersome. Saturating 92% on room air, BP 153/74 and heart rate 83. Likely going home today as per vascular
surgery.
PMHx: Tobacco smoker, DM type II, hyperlipidemia, PVD, CAD with Hx of WI (2009) s/p stent, hypertension
PSHx: Umbilical hernia repair, bilateral lower extremity stents, coronary artery stent
Past Medical History
Past Medical History: Other (Above as per HPI)
Past Surgical History: Other (Above as per HPI)
Social History
Tobacco: Smoker
Alcohol: Other (History of alcohol abuse)
Drug: None
Employment: Employed
Family History
Family History: Reviewed & Not Pertinent
Allergies / Home Medications
Allergies
Allergy/AdvReac Type Severity Reaction Status Date / Time
No Known Allergies Allergy Verified 10/29/23 10:38
Home Medications
�Medication �Instructions �Recorded �Confirmed �Last Taken �Type
cilostazol 100 mg tablet 100 mg PO BID Blood Clot 03/09/20 10/08/23 10/07/23 History
Prevention/Tx
metoprolol succinate 25 mg 25 mg PO DAILY Blood Pressure 03/09/20 10/29/23 10/29/23 History
tablet,extended release 24 hr
gabapentin 300 mg capsule 900 mg PO TID pain 03/29/21 10/29/23 10/29/23 History
dapagliflozin propanediol 10 mg 10 mg PO DAILY Diabetes 06/02/22 10/29/23 10/29/23 History
tablet (Farxiga)
metformin 1,000 mg tablet 1,000 mg PO BID Diabetes 06/02/22 10/29/23 10/29/23 History
atorvastatin 80 mg tablet 80 mg PO DAILY High Cholesterol 10/08/23 10/29/23 10/29/23 History
aspirin 81 mg tablet,delayed 81 mg PO DAILY Blood Clot 10/29/23 10/29/23 10/29/23 History
release Prevention/Tx
enalapril maleate 10 mg tablet 10 mg PO DAILY blood pressure 10/29/23 10/29/23 10/29/23 History
insulin aspart U-100 100 unit/mL 14 unit SC AC diabetes 10/29/23 10/29/23 Unknown History
(3 mL) subcutaneous pen (Novolog
FlexPen U-100 Insulin aspart)
insulin glargine 100 unit/mL (3 28 unit SC HS diabetes 10/29/23 10/29/23 Unknown History
mL) subcutaneous pen (Lantus
Solostar U-100 Insulin)
oxycodone 5 mg tablet 5 mg PO Q4HPRN PRN moderate-severe 10/29/23 10/29/23 Unknown History
pain
rivaroxaban 2.5 mg tablet (Xarelto) 2.5 mg PO BID Blood Clot 10/29/23 10/29/23 10/29/23 History
Prevention/Tx
sennosides 8.6 mg-docusate sodium 2 tab PO BID Constipation 10/29/23 Unknown History
50 mg tablet
Review of Systems
-
History Source: Patient
All other systems: Negative unless noted
Vitals / Labs / Diagnostic Testing
Vital Signs
Temp Pulse Resp BP Pulse Ox
98.5 F 72 14 153/74 96
10/30/23 04:50 10/30/23 07:40 10/30/23 07:40 10/30/23 08:19 10/30/23 07:57
Lab Data
10/30/23 03:40
Laboratory Results
10/29/23 10/29/23 10/30/23
11:36 19:18 03:40
PT 15.3 H Cancelled
INR 1.20 Cancelled
APTT 34.6 148.7 H Cancelled
10/30/23
04:39
PT 14.3
INR 1.10
APTT 32.6
Diagnostic Testing:
Physical Exam
-
HEENT: Normocephalic and Anicteric
Cardiovascular: S1/S2 and Peripheral Edema (negative)
Respiratory: Clear, Wheeze (negative), Rales (negative) and Rhonchi (negative)
GI: Soft, Non Distended, Non Tender and Normal Bowel Sounds
Neurology: AO x 3 and Tremors (negative)
Skin: Warm and Dry
General: Respiratory Distress (negative), Comfortable, Chills (negative) and Sweats (negative)
Assessment
-
Assessment: 57-year-old male tobacco smoker with a past medical history of PAD s/p left common femoral endarterectomy with profundoplasty and patch angioplasty (10/13/2023) and right lower extremity endovascular intervention (February 2020 + July
2019), CAD with history of [place] 2008 s/p JANNA, hypertension, hyperlipidemia and DM type II presents with right hand pain and cool to touch. He saw the vascular surgery today in the office; today he underwent upper extremity arterial US study showing
right-sided short segment radial artery occlusion with reconstitution distally. Patient was recommended to go to the ER for admission and further management. He was given 500cc IVF with NS 0.9% in ER. Initial vitals showed he was afebrile to 97.6
�F, pulse rate 88, breathing at 18 breaths/min, BP 147/78 and saturating 100% on room air. Labs showed leukocytosis to 16.6, anemia of 12.3, platelet count elevated at 563, and glucose 187. He underwent CTA right upper extremity showing focal
narrowing at the junction of the right axillary + proximal brachial arteries with diameter reduction of 50 to 60%, and focal calcification involving the distal right brachial artery. The radial artery appears to occlude at the level of the mid
forearm, reconstituting at the level of the wrist. There was also evidence for multifocal short segment occlusion of the ulnar artery. Surgical revascularization was discussed and he is being brought to the OR for right-sided radial artery
thrombectomy. There were no complications and he was transferred to the ICU for further care with cylinder press operator helper services consulted for additional management/recommendations.
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
Impression:
#Right upper extremity occlusion involving the radial + ulnar arteries with focal narrowing at the junction of the right axillary + proximal brachial arteries s/p radial artery thrombectomy (POD #1)
#8 mm right lower lobe pulmonary nodule
#Anemia
#Hyperkalemia
#DM type II (uncontrolled with HbA1c: 10.3 on 10/09/2023) c/b hyperglycemia
#Tobacco use disorder
Plan:
Postoperative surgical intensive care unit monitoring
Supplemental oxygen as needed to maintain SpO2 >90-94%
prn nebulized bronchodilators
Incentive spirometry encouraged 10x per hour for at least 4 hrs a day
Aspiration precautions
Pain control
Neuro and vascular checks per protocol
Maintain MAP>65
Replete electrolytes with K>4, Mg>2
Recheck BMP to assess K level to assure <5.2
Maintain euglycemia with goal BG 140-180
Vascular surgery following-correspondence and operative notes reviewed
Transfuse blood products as needed to keep Hb>7g/dL, and plt>50k (given post-operative status)
Of note, on CTA right upper extremity there was a right lower lobe 8 mm noncalcified solitary pulmonary nodule seen; this nodule was present on recent CTA abdominal aorta with runoff on 10/08/2023. Would recommend dedicated CT chest to evaluate the
remainder of the lung parenchyma as he is at risk of lung cancer given his tobacco smoking history. Since patient is being discharged home today, I will arrange for outpatient office follow-up to discuss this further.
DVT prophylaxis
Nicotine patch
Early nutrition
Early mobilization
Patient doing well, and is being prepared for discharge home. Blanket Folder/Pulmonary service will now sign off. Thank you for allowing us to be involved in the care of this patient. Please reconsult if there are any additional questions/concerns,
or if patient's respiratory status deteriorates.
Data:
CTA RUE 10/29/2023:
Focal narrowing at the junction of the right axillary and proximal brachial arteries, diameter reduction of 50-60%.
There is focal calcification involving the distal right brachial artery, with diameter reduction in the range of 50-60%.
The radial artery appears to occlude at the level the mid forearm, with reconstitution at the level of the wrist.
By CT angiography, there is evidence for multifocal short segment occlusion of the ulnar artery. Thin caliber interosseous artery has contrast enhancement into the distal forearm.
Not mentioned above, in the visualized right lung, there is a well-defined nodule within the right lower lobe, and this nodule has diameter of 8 mm. A follow-up CT of the chest is recommended.
Arterial US 10/29/2023:
1. Right digital brachial index measures 0.33. There is focal occlusion of the right radial artery at the level of the wrist, with reconstitution of the distal radial artery.
2. Left digital brachial index measures 0.96.
[2023-10-30] MEDS: VASOTEC 10 MG PO (08:19)
--- NOTE | 2023-10-30 08:48 | VNURNOTE ---
Chart reviewed. Patient is current with [facility] nurses. Res[facility] care [facility]- Will follow hospital course.
--- NOTE | 2023-10-30 09:22 | W.PN.VS ---
Addendum entered and electronically signed by Manny Nelson MD 10/30/23 09:54:
Seen and examined with ENEDELIA Cartagena. Agree with findings as noted below. Patient notes his right hand feels overall better. He has improved strength and no pain anymore (pain is all resolved now). He does note some persistent slight numbness/atypical
sensation. Right wrist incision is clean dry and intact. 2+ palpable radial pulse distal to the incision. Excellent palmar arch Doppler signal. Hand is pink and warm and well-perfused. Improved motor function. Compartments all soft in the
hand. Plan/as discussed and noted below.
Original Note:
Today's Communication / Plan
-
Patient seen and examined at bedside with Dr. Manny Nelson, the plan reviewed with attending.
Assessment/Plan
-
Assessment: 57 year old male POD#1 Right upper extremity radial artery thrombectomy
Plan:
Will discontinue heparin infusion and transition patient to full-strength Xarelto (20 mg p.o. once a day) for 1 month postoperative and then he will transition back to [facility] protocol which is Xarelto 2.5 mg p.o. twice daily, with aspirin 81 mg
p.o. daily
Can get out of bed to chair with progression ambulation as tolerated
Will follow-up in 2 weeks in our office
From a vascular surgical perspective he is eligible for discharge later this afternoon, however will defer to primary team
Subjective Data
-
Date of Service: October 30, 2023
Initially attempted to assess patient earlier in the morning but he was clearly frustrated and angered at his current situation. He stated he was 'Fjoe over this place and all these tubes.' He continued to angrily yell more expletive words. He
was attempting to walk around his room after he was instructed to ask for help in order to ensure he did not fall. Patient was helped back to bed, and I returned with attending Dr. Nelson. He did state pain, paresthesia, and motor function is markedly
was improved at right hand. He denies coolness at right hand.
Objective Data
-
Vital Signs
Temp Pulse Resp BP Pulse Ox
98.5 F 72 14 153/74 96
10/30/23 04:50 10/30/23 07:40 10/30/23 07:40 10/30/23 08:19 10/30/23 07:57
Intake and Output
10/29/23 10/30/23 10/31/23
06:59 06:59 06:59
Intake Total 1064 / 1064 176 / 176
Output Total 1000 / 1000 600 / 600
Balance 64 / 64 -424 / -424
Intake:
Oral fluids 960 / 960
IV fluids (Total) 104 / 104 176 / 176
Heparin gtt 4 / 4 16 16
NS 0 / 0 160 / 160
normosol 100 / 100
Output:
Urine, Voided 1000 / 1000 600 / 600
Lab Results
10/30/23 03:40
10/30/23 03:40
Calcium 9.5 mg/dl (8.4-10.2) 10/30/23 03:40
Total Bilirubin 0.3 mg/dl (0.2-1.3) 10/29/23 12:10
AST 21 U/L (17-59) 10/29/23 12:10
ALT 18 U/L (0-50) 10/29/23 12:10
Alkaline Phosphatase 49 U/L (38-126) 10/29/23 12:10
Total Protein 6.5 g/dl (6.3-8.2) 10/29/23 12:10
Albumin 3.8 g/dl (3.5-5.0) 10/29/23 12:10
Physical Exam
-
Awake, alert, oriented x 3. NAD.
No tachycardia
No dyspnea
ABD nondistended, nontender
Right upper extremity with +1palpable radial pulse, hand warm, motor and sensation intact
Left groin CDI with steri strips
--- NOTE | 2023-10-30 09:22 | PTCARENOTE ---
pt refusing vitals at this time despite education
[2023-10-30] MEDS: LOKELMA 10 GRAM PO (10:11)
[2023-10-30] MEDS: XARELTO 20 MG PO (10:30)
[2023-10-30 11:42] LABS: Glucose - Point of Care 134 mg/dl (70-99)
--- NOTE | 2023-10-30 12:23 | W.PN.HOSP.TC ---
Addendum entered and electronically signed by Norman White MD 10/30/23 15:07:
[id number]
Original Note:
Today's Communication/Plan
-
ransition patient to full-strength Xarelto (20 mg p.o. once a day) for 1 month postoperative and then he will transition back to [facility] protocol which is Xarelto 2.5 mg p.o. twice daily, with aspirin 81 mg p.o. daily
�Ambulate as tolerated
-lokelma, f/u bmp prior to dc
-if K improves can dc
f/u pcp, vascular outpatient
-f/u cbc, bmp outpatient in 3 days with pcp
Assessment / Plan
Assessment / Plan
Awake, alert, oriented x 3. NAD.
No tachycardia
No dyspnea
ABD nondistended, nontender
Right upper extremity with +1palpable radial pulse, hand warm, motor and sensation intact
Left groin CDI with steri strips
#right radial arterial occlusion
#s/p stent placement
-Extremity arterial Study with Right digital brachial index measures 0.33. There is focal occlusion of the right radial artery at the level of the wrist, with reconstitution of the distal radial artery.Left digital brachial index measures 0.96.
- POD#1 Right upper extremity radial artery thrombectomy
�Discontinue heparin
�transition patient to full-strength Xarelto (20 mg p.o. once a day) for 1 month postoperative and then he will transition back to [facility] protocol which is Xarelto 2.5 mg p.o. twice daily, with aspirin 81 mg p.o. daily
�Ambulate as tolerated
� Follow-up vascular in 2 weeks
#Hyperkalemia
� Suspect secondary to heparin
� Discontinue heparin
� Lokelma
� Follow-up BMP
� Follow BMP outpatient to ensure stability
#chronic leukocytosis
=- patient afebrile, no source of infection
-ctm
� Follow-up CBC outpatient
� Slight jump most likely secondary to acute procedure
#recent Left lower extremity critical limb ischemia -due to occlusion of left common iliac artery, left external iliac artery, left common femoral artery and proximal two thirds of the left superficial femoral artery despite presence of multiple
vascular stents.
- Status post left lower extremity angioplasty 10/11.
- cilostazol and Xarelto(as discussed above)
#CAD
- Stress test showed small area of inferior/inferolateral ischemia
- Echocardiogram shows normal biventricular size and systolic function without regional wall motion abnormality. Mild concentric LVH. LVEF 55 to 60%, grade 1 diastolic dysfunction. No significant valvular disease.
#PAD -with prior lower extremity revascularization involving bypass graft extending from the right common femoral artery to the distal right popliteal artery/tibioperoneal trunk.
-Continue, aspirin, statin, cilostazol
#Bilateral carotid artery stenosis
-ultrasound confirms 70% stenosis in the right carotid bulb. 50 to 69% stenosis left carotid bulb. No known history of stroke. Will need outpatient follow-up with vascular
#DM2 with hyperglycemia -Hemoglobin A1c 10.3%.
-Farxiga
-NovoLog 14u with meals
-Lantus 28u at hs
-metformin continued
#Essential hypertension
-BP stable
continue metoprolol succinate 25 mg twice daily,and enalapril
#Hyperlipidemia -on atorvastatin.
#Tobacco dependence -currently on nicotine replacement therapy. cessation advised
#Peripheral neuropathy�continue gabapentin
#Obesity due to excess calories
#DVT prophylaxis�Xarelto
#Full code
More than 30 minutes spent in discharge including
Final examination of the patient
Summarizing hospital stay
Instructions for continuing care to all relevant caregivers
Preparation of discharge records, prescriptions, and referral forms
Total time spent (35 in minutes):
Anticipated Discharge: Today
Subjective/Interval History
-
Date of Service: October 30, 2023
Tolerated thrombectomy well, persistent slight numbness/atypical sensation, pulses palpable. Hand is pink and warm.
Objective Data
-
Labs:
Laboratory Results
10/30/23 10/30/23 10/30/23
03:40 04:39 14:00
WBC 18.3 H
Hgb 11.7 L
Hct 34.5 L
Plt Count 527 H
PT Cancelled 14.3
INR Cancelled 1.10
APTT Cancelled 32.6
Sodium 138 Pending
Potassium 5.8 H Pending
Chloride 105 Pending
Carbon Dioxide 20 L Pending
BUN 16 Pending
Creatinine 1.3 Pending
Glucose 245 H Pending
Calcium 9.5 Pending
Vital Signs:
Vital Signs
Temp Pulse Resp BP Pulse Ox
98.7 F 68 20 159/78 97
10/30/23 11:20 10/30/23 10:10 10/30/23 10:00 10/30/23 10:10 10/30/23 11:20
I&O
10/29/23 10/30/23 10/31/23
06:59 06:59 06:59
Intake Total 1064 / 1064 184 / 184
Output Total 1000 / 1000 1200 / 1200
Balance 64 / 64 -1016 / -1016
Review of Systems
-
History Source: Patient
All other systems: Not reviewed unless documented
Data Reviewed
-
CT Scan: Image personally visualized and interpreted and Report Reviewed by me
Labs: Labs Reviewed by me
--- NOTE | 2023-10-30 12:32 | CM ---
Addendum entered by Kvng [place] 10/30/23 13:49:
Discharge order noted. pt is aware and he stated his friend will transport home.
D/C plan: home with [facility] and family support. Friend to transport.
Original Note:
CM following re: discharge planning.
Discussed in Rounds, reviewed pt's chart, met with pt.
Pt is a 57 year old male, admitted with primary dx of POD#1 Right upper extremity radial artery thrombectomy
Pt reports he lives with a room mate who rents a space in his house, has 2 sons. Per pt, one son visits every weekend and helps as needed. Per pt, his room mate is helpful as well. 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
Pt reports he does not anticipate any after care VN needs and he will come back to work.
Pt was discharged home 2 weeks ago from with [facility].
D/C plan: home with resumptions of [facility] and family support. Family to transport at discharge.
CM will follow with discharge plan updates as needed.
[2023-10-30 12:55] LABS: Glucose - Point of Care 154 mg/dl (70-99)
[2023-10-30 13:39] LABS: Blood Urea Nitrogen 16 mg/dl (9-20); Calcium 9.7 mg/dl (8.4-10.2); Carbon Dioxide 23 mmol/L (22-30); Chloride 102 mmol/L (98-107); Estimated Creatinine Clearance 69 ml/min; Glucose 134 mg/dl (70-99); Potassium 4.5 mmol/L (3.5-5.1); Sodium 139 mmol/L (135-145); eGFR > 60.00
--- NOTE | 2023-10-30 14:22 | PTCARENOTE ---
pt vascular check unchanged. ambulating in room without difficulty. given d/c paperwork- verbalized understanding to education. iv removed, pressure dressing applied, wheelchaired down by rn
== END 2023-10-30 14:10 | disposition home health service (06) | DRG 254 ==
LOC: ICU 14:41
PROVIDERS: Nurse Practitioner; Physician Assistant; Registered Nurse; Surgery Vascular Surgery; ADMITTING PHYSICIAN Internal Medicine; CONSULT PHYSICIAN Internal Medicine Critical Care Medicine; EMERGENCY PHYSICIAN Student in an Organized Health Care Education/Training Program; FAMILY PHYSICIAN Family Medicine
PROC: 03CB0ZZ Extirpation of Matter from Right Radial Artery, Open Approach (ICD-10-PCS; 2023-10-29)
DX: I74.2 Embolism and thrombosis of arteries of the upper extremities (principal); I25.10 Atherosclerotic heart disease of native coronary artery without angina pectoris; I10 Essential (primary) hypertension; E11.42 Type 2 diabetes mellitus with diabetic polyneuropathy; M79.641 Pain in right hand; E78.00 Pure hypercholesterolemia, unspecified; F17.210 Nicotine dependence, cigarettes, uncomplicated; I70.208 Unspecified atherosclerosis of native arteries of extremities, other extremity; E11.51 Type 2 diabetes mellitus with diabetic peripheral angiopathy without gangrene; I65.23 Occlusion and stenosis of bilateral carotid arteries; E87.5 Hyperkalemia; R91.1 Solitary pulmonary nodule; E66.09 Other obesity due to excess calories; F10.10 Alcohol abuse, uncomplicated; D64.9 Anemia, unspecified; D72.829 Elevated white blood cell count, unspecified; M25.531 Pain in right wrist; E11.65 Type 2 diabetes mellitus with hyperglycemia; I25.2 Old myocardial infarction; Z68.30 Body mass index [BMI] 30.0-30.9, adult; Z79.84 Long term (current) use of oral hypoglycemic drugs; Z79.82 Long term (current) use of aspirin; Z79.4 Long term (current) use of insulin; Z79.02 Long term (current) use of antithrombotics/antiplatelets; Z95.5 Presence of coronary angioplasty implant and graft
CPT/HCPCS: 88304; 34111; 73206; 80048; 80053; 82962; 85025; 85027; 85610; 85730; 93923; 93930; 96360; 99285; C1757; Q9967

== ENCOUNTER 2024-04-25 14:57 | Inpatient (IN) | payer OTHER, SELFPAY ==
[2024-04-25] VITALS (13 sets, daily range): BP systolic 135–196; BP diastolic 67–114; BMI 31.2
--- NOTE | 2024-04-25 11:42 | ED.GENMED ---
History of Present Illness
<TATIANA Multani - Last Filed: 04/26/24 09:18>
General
Chief Complaint: DVT/Possible Blood Clot
Source: patient
Exam Limitations: none
Time Seen by Provider: 04/25/24 10:43
Nursing documentation reviewed up to this point in time: agreed with
History of Present Illness
History of Present Illness:
Patient is a 58-year-old male with past medical history of radial arterial occlusion history of, left limb ischemia with left lower extremity angioplasty with arthrectomy and stent, CAD hyperkalemia type 2 diabetes chronic nicotine use hypertension
hyperlipidemia presents to the ER complaining of left calf and lower leg pain for the past 2 days. Worse with walking. Patient is on Xarelto.
Patient denies any injury fever chills.
Past History
<TATIANA Multani - Last Filed: 04/26/24 09:18>
Past History
ED Past Medical History: CAD, HTN, Hypercholesterolemia, NIDDM, [place] and Other
ED Past Surgical History: Tonsilectomy and Other
Patient has exhibited threatening behavior?: No
Social History
Tobacco: Smoker (1 PPD)
Alcohol: Other ('moderately' drinks more than a few times a week.)
Personal:
Living: with family
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
Family History
Family History: CAD
Review of Systems
<TATIANA Multani - Last Filed: 04/26/24 09:18>
Review of Systems
Allergies reviewed?: Yes
All Other Systems: ROS reviewed and negative except as documented in HPI and ROS
Constitutional: Reports no symptoms; Denies fever, fatigue or chills
Respiratory: Reports no symptoms
Cardiac: Reports no symptoms
ABD/GI: Reports no symptoms
Musculoskeletal: Reports other (Left lower extremity pain worse with walking; denies swelling denies redness)
Skin: Reports no symptoms
Neurological: Reports no symptoms
Psychiatric: Reports no symptoms
Phy Exam
<TATIANA Multani - Last Filed: 04/26/24 09:18>
General Physical Exam
General Presentation: no apparent distress
General age: appears stated age
General Skin: warm and dry
General Habitus: normal
General Mental: alert
Neurological Exam
Neurological Exam: alert and oriented x3
Musculoskeletal Exam
Musculoskeletal Exam: other (lle : unable to obtain doppler/palpable pulses , left foot is cold to touch compared to right and calf is cooler than right )
Course
<TATIANA Multani - Last Filed: 04/26/24 09:18>
Orders/Labs/Results
Orders:
Orders
04/25/24 Breakfast
NPO
Allow oral meds: No
Allow clear liquids: No
NPO with Ice Chips: No
04/25/24 09:59
US Periph Venous LOWER Ext LT Urgent
Comment:
Reason For Exam: pain, history of DVT
04/25/24 12:02
IV Insert/Care/Rem.- Treatment PRN
HYDROmorphone [Dilaudid] 0.5 mg IV NOW STA
04/25/24 12:03
CT Abd Aorta Angio W/ Run Off Stat
Comment:
Reason For Exam: cold leg/acute limb ischemia
04/25/24 12:50
Complete Blood Count/With Diff Urgent
04/25/24 13:50
Heparin 7,000 units IV NOW STA
Nursing to Place Non Medication Order As Directed
Physician Order: PTT 6 hours after initial start of Heparin infusion
Above order entered?: Yes
04/25/24 13:58
Type And Crossmatch [Type+Screen] Urgent
Comprehensive Metabolic Panel Urgent
PTT Urgent
Comment: Obtain baseline before beginning heparin infusion if not already collected
Prothrombin Time Urgent
Comment: ADD ON
04/25/24 14:00
Heparin 3,500 units IV PRN PRN
Heparin 7,000 units IV PRN PRN
Heparin 68743 Units/250 ml 25,000 units in 250 ml IV PER PROTOCOL
Weight to be used for heparin protocol in kilograms (kg):: 87.4
Protocol:: DVT/PE
PTT Goal Range to be used:: PTT 73 to 111 seconds
Order type:: Initial
INITIAL Infusion Dose (UNITS/KG/hr) & then follow protocol:: 18 units/kg/hr
Infusion Dose in UNITS/hr & then follow protocol (UNITS/hr):: 1,600
INFUSION RATE in mL/hr & then follow protocol (mL/hr):: 16
For DVT/PE algorithm, re-bolus for low PTT?: Yes
PTT less than or equal to 64 seconds:: Re-bolus 80 units/kg (max 10,000units). Increase by 300 units/hr
(+ 3mL/hr)
PTT 64.1 to 72.9 seconds:: Re-bolus 40 units/kg (max 5,000 units). Increase by 200 units/hr
(+ 2mL/hr)
PTT 73 to 111 seconds:: Target Range. No change in rate.
PTT 111.1 to 130.9 seconds:: Decrease rate by 200 units/hr (- 2 mL/hr)
PTT 131 to 199.9 seconds:: HOLD for 1 hr. Then decrease by 300 units/hr (- 3mL/hr)
PTT greater than or equal to 200 seconds:: HOLD for 2 hrs & Notify Provider. Then decrease by 300 units/hr
(- 3mL/hr)
Lab follow-up:: Each change, PTT q6h until 2 consecutive are therapeutic. Then
PTT daily.
04/25/24 14:08
CeFAZolin 2 GRAM [Ancef] 2 grams in 10 ml IV PRE PROCEDURE
Chlorhexidine Oral Rinse 0.12% [Peridex 0.12% Oral Rinse] 15 ml PO ONCE ONE
Mupirocin [Bactroban 2% Ointment] See Dose Instructions NASAL ONCE ONE
04/25/24 14:28
Sustainability Engineer Consult Routine
Consulting Provider: Bijan Howell
Was physician already notified: Yes
Vascular Surgery Consult Routine
Consulting Provider: Dagoberto Esparza III
Was physician already notified: Yes
04/25/24 14:38
Admit/Transfer Patient As Directed
Co-Sign Provider:
Level of Care: Inpatient admission
Assign to:: ICU
Physician / Group: Ant
Diagnosis: LLE Artery Occlusion
Reason for Hospitalization: Heparin Drip, LE Bypass
Expected length of stay greater than two midnights?: Yes
ELOS- Estimated Length of Stay in days: 3
I certify the patient meets the requirements for IP care: Yes
PRN Pain Medication Management As Directed
May give lesser potent ordered pain med per pt: Yes
preference::
Protocol:: Medication orders for pain may be administered in a
manner that supports deferring to patient preference
when the pt is:
- Requesting an ordered lesser potent pain medication.
Least to most potent pain medications are defined
as: acetaminophen < NSAID < tramadol < opioids
(morphine, oxycodone, hydromorphone).
- Requesting a lesser dose of the same medication IF
ORDERED.
- Requesting a less intrusive route of administration
if both routes are prescribed by the provider (PO <
IV).
04/25/24 14:41
Code Status As Directed
Resuscitation Status: Full Code
04/25/24 16:06
Acetaminophen [Tylenol] 650 mg PO Q4HPRN PRN
Dextrose 50%-Water [Dextrose 50% Syringe] 12.5 grams IV [id number] PRN
Gabapentin [Neurontin] 900 mg PO TID
Glucagon [GlucaGen] 1 mg IM PRN PRN
HydrALAZINE [Apresoline] 5 mg IV Q4HPRN PRN
04/25/24 16:06
Heparin Protocol- PTT Orders As Directed
PTT per Heparin protocol: -Obtain CBC and baseline PTT - if not already collected.
-Obtain PTT 6 hours from start of infusion. Then, every 6 hours until 2 consecutive
PTT's are therapeutic. Then, PTT Daily.
-With each rate change, obtain PTT every 6 hours until 2 consecutive PTT's are
therapeutic. Then, PTT Daily.
Activity As Directed
Activity Level: Out of Bed-Early Mobility
With Assistance
Bedside Glucose Monitoring As Directed
Frequency: AC&HS
Additional Instructions:: Change to q6h if pt on TPN, tube feeding or not eating
I&O [Intake/ Output] As Directed
Frequency: q12h
Notify MD As Directed
Notify physician if: PTT is greater than or equal to 200.
Vital Signs As Directed
Frequency: Per unit guidelines
Weight As Directed
Frequency: Daily
Smoking Cessation Counseling [RESP] Routine
04/25/24 16:30
Insulin Aspart Pen [Novolog Flexpen] 14 units SC AC
04/25/24 18:00
Insulin Aspart Corrective Mod [Novolog Flexpen-Moderate Resistance] See Protocol SC Q6
04/25/24 20:00
Duloxetine Delayed Release [Cymbalta Delayed Release] 60 mg PO BID
04/25/24 22:00
Zolpidem Tartrate [Ambien] 5 mg PO HS
04/25/24 22:30
PTT Routine
04/26/24 04:28
Basic Metabolic Panel IN AM
Complete Blood Count/No Diff IN AM
Glycohemoglobin (HgbA1c) IN AM
04/26/24 08:00
Aspirin Low Dose EC [Aspir Low (Enteric Coated)] 81 mg PO DAILY
Atorvastatin [Lipitor] 80 mg PO DAILY
Dapagliflozin [Farxiga] 10 mg PO DAILY
Enalapril [Vasotec] 10 mg PO DAILY
Metoprolol Xl [Toprol Xl] 25 mg PO DAILY
Nicotine [Nicoderm Transdermal] 14 mg TRANSDERM DAILY
04/27/24 06:00
Complete Blood Count/No Diff Q2D
Comment: notify provider: Platelet count < 130,000 or decrease by 50% from baseline
04/29/24 06:00
Complete Blood Count/No Diff Q2D
Comment: notify provider: Platelet count < 130,000 or decrease by 50% from baseline
05/01/24 06:00
Complete Blood Count/No Diff Q2D
Comment: notify provider: Platelet count < 130,000 or decrease by 50% from baseline
05/03/24 06:00
Complete Blood Count/No Diff Q2D
Comment: notify provider: Platelet count < 130,000 or decrease by 50% from baseline
05/05/24 06:00
Complete Blood Count/No Diff Q2D
Comment: notify provider: Platelet count < 130,000 or decrease by 50% from baseline
05/07/24 06:00
Complete Blood Count/No Diff Q2D
Comment: notify provider: Platelet count < 130,000 or decrease by 50% from baseline
05/09/24 06:00
Complete Blood Count/No Diff Q2D
Comment: notify provider: Platelet count < 130,000 or decrease by 50% from baseline
05/11/24 06:00
Complete Blood Count/No Diff Q2D
Comment: notify provider: Platelet count < 130,000 or decrease by 50% from baseline
Abnormal Lab Results
04/25/24 04/25/24
12:50 13:58
WBC 14.7 H 10^3/uL
(4.8-10.8)
MPV 11.3 H fL
(7.4-10.4)
Abs Immat Gran (auto) 0.1 H 10^3/uL
(0-0.05)
Absolute Neuts (auto) 11.3 H 10^3/uL
(1.4-6.5)
Absolute Monos (auto) 0.9 H 10^3/uL
(0.1-0.6)
Neutrophils % 77.3 H %
(42.2-75.2)
Lymphocytes % 13.8 L %
(20.5-51.1)
Sodium 134 L mmol/L
(135-145)
Glucose 224 H mg/dl
(70-99)
04/25/24 12:50
04/25/24 13:58
Vital Signs
Initial and Last Documented VS:
Initial Vital Signs
Temp Pulse Resp BP Pulse Ox
97.3 F 96 18 165/110 98
04/25/24 09:56 04/25/24 09:56 04/25/24 09:56 04/25/24 09:56 04/25/24 09:56
Last Documented Vital Signs
Temp Pulse Resp BP Pulse Ox
98.7 F 92 20 196/76 95
04/26/24 07:38 04/26/24 07:02 04/26/24 06:00 04/26/24 07:02 04/26/24 05:00
<Maxime Kurtz, DO - Last Filed: 04/25/24 13:53>
Orders/Labs/Results
Orders:
Orders
04/25/24 Breakfast
NPO
Allow oral meds: No
Allow clear liquids: No
NPO with Ice Chips: No
04/25/24 09:59
US Periph Venous LOWER Ext LT Urgent
Comment:
Reason For Exam: pain, history of DVT
04/25/24 12:02
IV Insert/Care/Rem.- Treatment PRN
HYDROmorphone [Dilaudid] 0.5 mg IV NOW STA
04/25/24 12:03
CT Abd Aorta Angio W/ Run Off Stat
Comment:
Reason For Exam: cold leg/acute limb ischemia
04/25/24 12:50
Complete Blood Count/With Diff Urgent
04/25/24 13:50
Heparin 7,000 units IV NOW STA
Nursing to Place Non Medication Order As Directed
Physician Order: PTT 6 hours after initial start of Heparin infusion
Above order entered?: Yes
04/25/24 13:58
Type And Crossmatch [Type+Screen] Urgent
Comprehensive Metabolic Panel Urgent
PTT Urgent
Comment: Obtain baseline before beginning heparin infusion if not already collected
Prothrombin Time Urgent
Comment: ADD ON
04/25/24 14:00
Heparin 3,500 units IV PRN PRN
Heparin 7,000 units IV PRN PRN
Heparin 89394 Units/250 ml 25,000 units in 250 ml IV PER PROTOCOL
Weight to be used for heparin protocol in kilograms (kg):: 87.4
Protocol:: DVT/PE
PTT Goal Range to be used:: PTT 73 to 111 seconds
Order type:: Initial
INITIAL Infusion Dose (UNITS/KG/hr) & then follow protocol:: 18 units/kg/hr
Infusion Dose in UNITS/hr & then follow protocol (UNITS/hr):: 1,600
INFUSION RATE in mL/hr & then follow protocol (mL/hr):: 16
For DVT/PE algorithm, re-bolus for low PTT?: Yes
PTT less than or equal to 64 seconds:: Re-bolus 80 units/kg (max 10,000units). Increase by 300 units/hr
(+ 3mL/hr)
PTT 64.1 to 72.9 seconds:: Re-bolus 40 units/kg (max 5,000 units). Increase by 200 units/hr
(+ 2mL/hr)
PTT 73 to 111 seconds:: Target Range. No change in rate.
PTT 111.1 to 130.9 seconds:: Decrease rate by 200 units/hr (- 2 mL/hr)
PTT 131 to 199.9 seconds:: HOLD for 1 hr. Then decrease by 300 units/hr (- 3mL/hr)
PTT greater than or equal to 200 seconds:: HOLD for 2 hrs & Notify Provider. Then decrease by 300 units/hr
(- 3mL/hr)
Lab follow-up:: Each change, PTT q6h until 2 consecutive are therapeutic. Then
PTT daily.
04/25/24 14:08
CeFAZolin 2 GRAM [Ancef] 2 grams in 10 ml IV PRE PROCEDURE
Chlorhexidine Oral Rinse 0.12% [Peridex 0.12% Oral Rinse] 15 ml PO ONCE ONE
Mupirocin [Bactroban 2% Ointment] See Dose Instructions NASAL ONCE ONE
04/25/24 14:28
Sustainability Engineer Consult Routine
Consulting Provider: Bijan Howell
Was physician already notified: Yes
Vascular Surgery Consult Routine
Consulting Provider: Dagoberto Esparza III
Was physician already notified: Yes
04/25/24 14:38
Admit/Transfer Patient As Directed
Co-Sign Provider:
Level of Care: Inpatient admission
Assign to:: ICU
Physician / Group: Ant
Diagnosis: LLE Artery Occlusion
Reason for Hospitalization: Heparin Drip, LE Bypass
Expected length of stay greater than two midnights?: Yes
ELOS- Estimated Length of Stay in days: 3
I certify the patient meets the requirements for IP care: Yes
PRN Pain Medication Management As Directed
May give lesser potent ordered pain med per pt: Yes
preference::
Protocol:: Medication orders for pain may be administered in a
manner that supports deferring to patient preference
when the pt is:
- Requesting an ordered lesser potent pain medication.
Least to most potent pain medications are defined
as: acetaminophen < NSAID < tramadol < opioids
(morphine, oxycodone, hydromorphone).
- Requesting a lesser dose of the same medication IF
ORDERED.
- Requesting a less intrusive route of administration
if both routes are prescribed by the provider (PO <
IV).
04/25/24 14:41
Code Status As Directed
Resuscitation Status: Full Code
04/25/24 16:06
Acetaminophen [Tylenol] 650 mg PO Q4HPRN PRN
Dextrose 50%-Water [Dextrose 50% Syringe] 12.5 grams IV [id number] PRN
Gabapentin [Neurontin] 900 mg PO TID
Glucagon [GlucaGen] 1 mg IM PRN PRN
HydrALAZINE [Apresoline] 5 mg IV Q4HPRN PRN
04/25/24 16:06
Heparin Protocol- PTT Orders As Directed
PTT per Heparin protocol: -Obtain CBC and baseline PTT - if not already collected.
-Obtain PTT 6 hours from start of infusion. Then, every 6 hours until 2 consecutive
PTT's are therapeutic. Then, PTT Daily.
-With each rate change, obtain PTT every 6 hours until 2 consecutive PTT's are
therapeutic. Then, PTT Daily.
Activity As Directed
Activity Level: Out of Bed-Early Mobility
With Assistance
Bedside Glucose Monitoring As Directed
Frequency: AC&HS
Additional Instructions:: Change to q6h if pt on TPN, tube feeding or not eating
I&O [Intake/ Output] As Directed
Frequency: q12h
Notify MD As Directed
Notify physician if: PTT is greater than or equal to 200.
Vital Signs As Directed
Frequency: Per unit guidelines
Weight As Directed
Frequency: Daily
Smoking Cessation Counseling [RESP] Routine
04/25/24 16:30
Insulin Aspart Pen [Novolog Flexpen] 14 units SC AC
04/25/24 18:00
Insulin Aspart Corrective Mod [Novolog Flexpen-Moderate Resistance] See Protocol SC Q6
04/25/24 20:00
Duloxetine Delayed Release [Cymbalta Delayed Release] 60 mg PO BID
04/25/24 22:00
Zolpidem Tartrate [Ambien] 5 mg PO HS
04/25/24 22:30
PTT Routine
04/26/24 04:28
Basic Metabolic Panel IN AM
Complete Blood Count/No Diff IN AM
Glycohemoglobin (HgbA1c) IN AM
04/26/24 08:00
Aspirin Low Dose EC [Aspir Low (Enteric Coated)] 81 mg PO DAILY
Atorvastatin [Lipitor] 80 mg PO DAILY
Dapagliflozin [Farxiga] 10 mg PO DAILY
Enalapril [Vasotec] 10 mg PO DAILY
Metoprolol Xl [Toprol Xl] 25 mg PO DAILY
Nicotine [Nicoderm Transdermal] 14 mg TRANSDERM DAILY
04/27/24 06:00
Complete Blood Count/No Diff Q2D
Comment: notify provider: Platelet count < 130,000 or decrease by 50% from baseline
04/29/24 06:00
Complete Blood Count/No Diff Q2D
Comment: notify provider: Platelet count < 130,000 or decrease by 50% from baseline
05/01/24 06:00
Complete Blood Count/No Diff Q2D
Comment: notify provider: Platelet count < 130,000 or decrease by 50% from baseline
05/03/24 06:00
Complete Blood Count/No Diff Q2D
Comment: notify provider: Platelet count < 130,000 or decrease by 50% from baseline
05/05/24 06:00
Complete Blood Count/No Diff Q2D
Comment: notify provider: Platelet count < 130,000 or decrease by 50% from baseline
05/07/24 06:00
Complete Blood Count/No Diff Q2D
Comment: notify provider: Platelet count < 130,000 or decrease by 50% from baseline
05/09/24 06:00
Complete Blood Count/No Diff Q2D
Comment: notify provider: Platelet count < 130,000 or decrease by 50% from baseline
05/11/24 06:00
Complete Blood Count/No Diff Q2D
Comment: notify provider: Platelet count < 130,000 or decrease by 50% from baseline
Abnormal Lab Results
04/25/24 04/25/24
12:50 13:58
WBC 14.7 H 10^3/uL
(4.8-10.8)
MPV 11.3 H fL
(7.4-10.4)
Abs Immat Gran (auto) 0.1 H 10^3/uL
(0-0.05)
Absolute Neuts (auto) 11.3 H 10^3/uL
(1.4-6.5)
Absolute Monos (auto) 0.9 H 10^3/uL
(0.1-0.6)
Neutrophils % 77.3 H %
(42.2-75.2)
Lymphocytes % 13.8 L %
(20.5-51.1)
Sodium 134 L mmol/L
(135-145)
Glucose 224 H mg/dl
(70-99)
04/25/24 12:50
04/25/24 13:58
Vital Signs
Initial and Last Documented VS:
Initial Vital Signs
Temp Pulse Resp BP Pulse Ox
97.3 F 96 18 165/110 98
04/25/24 09:56 04/25/24 09:56 04/25/24 09:56 04/25/24 09:56 04/25/24 09:56
Last Documented Vital Signs
Temp Pulse Resp BP Pulse Ox
98.7 F 92 20 196/76 95
04/26/24 07:38 04/26/24 07:02 04/26/24 06:00 04/26/24 07:02 04/26/24 05:00
<TATIANA Multani - Last Filed: 04/26/24 09:18>
MDM/Problems Addressed
MDM/Problems Addressed:
As documented patient is a 58-year-old male with significant medical history including diabetes arterial disease with recent left lower leg angioplasty stent in September 2023 and radial artery occlusion on the right in October 2023. He presents for
pain to his left calf. He does note that his foot is cold. He has pain with walking. He presents awake alert his left lower extremity is cool to touch worse in the foot and lower calf. He has no Doppler pulses are palpable pulses. Ultrasound
negative for DVT. Case discussed with vascular surgery Dr. Esparza who operated on this same leg in October 2023. Patient ordered CT abdomen aorta with runoff.
Patient was evaluated by vascular surgery CAT scan shows on the left occlusion of iliac stents the common and external iliac arteries:, Probable femoral enterectomy changes which are partially thrombosed and there is long segment SFA and popliteal
occlusion on the left
Patient will require surgery
<TATIANA Multani - Last Filed: 04/26/24 09:18>
*Radiology
Radiology exam reviewed: radiology read reviewed
*Pulse Oximetry
Patient hypoxic: no
<Maxime Kurtz DO - Last Filed: 04/25/24 13:53>
*Critical Care Note
Total Time (30-74mins, 75-104mins- exclusive of procedures): 33 min
comment:
The high probability of a clinically significant, sudden or life threatening deterioration of the cardiovascular system(s) required my full and direct attention, intervention and personal management. The aggregate critical care time was 33 minutes.
This time is in addition to time spent performing reported procedures but includes the following:
[x] Data Review and interpretation
[x] Patient assessment and monitoring of vital signs
[x] Documentation
[x] Medication orders and management
ED Attending Note
<TATIANA Multani - Last Filed: 04/26/24 09:18>
-
Portions of this chart may have been created with voice recognition software.� Occasional wrong word or��sound alike� substitutions may have occurred due to the inherent limitations of voice recognition software.
<Maxime Kurtz DO - Last Filed: 04/25/24 13:53>
ED Attending Note
Patient seen and examined by attending physician: Yes
I performed the substantive portion of visit, reviewed & personally made and approve the management plan that is documented in note by myself or ALPHONSE.: Yes
ED Attending Note:
I have seen and evaluated the patient with a [id number] encounter. I have spoken to the advance practicer provider and involved in the medical history, the physical exam, medical decision making.
Evaluation and management service: agree unless noted differently below.
Results interpretation: agree unless noted differently below.
Focused HPI: 58-year-old male presenting with sudden onset of pain in his left leg. 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
Physical exam: Left foot is cold. Cap refill greater than 2 seconds. I cannot appreciate a DP pulse in the left foot
Medical Decision Making: Vascular surgery made aware and will evaluate. Will obtain CTA
Update 1:50 PM Case discussed with vascular surgery. Patient has arterial clot and the plan is for femorofemoral bypass. Will start heparin and admit
Discharge Plan
Departure
Patient Disposition: Admit
Date of Disposition: 04/25/24
Time of Disposition: 13:52
Admit to: Telemetry
Presentation/result/management discussed w/ accepting MD/DO: Hospitalist
Discharge Problem:
Peripheral artery embolism or thrombosis
Interventions
Interventions:
*General Assessment Last Done: 04/25/24 09:56
*Neglect/Abuse Screening Last Done: 04/25/24 09:56
*Nursing Disposition Last Done: 04/25/24 16:12
ED- Cardiac Assessment Last Done: 04/25/24 11:59
ED- Pulmonary Assessment Last Done: 04/25/24 11:59
ED-Peripheral Vascular Assessment Last Done: 04/25/24 11:59
ED-Skin Assessment Last Done: 04/25/24 11:59
Discharge Date and Time
Discharge Date/Time: 04/25/24 16:22
[2024-04-25] MEDS: DILAUDID 0.5 MG IV ×2 (12:52→18:29)
[2024-04-25 13:23] LABS: % Basophils 0.8 % (0-2); % Eosinophils 1.4 % (0-6); % Immature Granulocytes 0.4 % (0-0.5); % Lymphocytes 13.8 % (20.5-51.1); % Monocytes 6.3 % (1.7-9.3); % Neutrophils 77.3 % (42.2-75.2); Absolute Basophils 0.1 10^3/uL (0-0.2); Absolute Eosinophils 0.2 10^3/uL (0-0.7); Absolute Immature Granulocytes 0.1 10^3/uL (0-0.05); Absolute Monocytes 0.9 10^3/uL (0.1-0.6); Absolute Neutrophils 11.3 10^3/uL (1.4-6.5); Hematocrit 48.6 % (39.0-52.0); Hemoglobin 16.2 g/dL (13.0-18.0); Mean Corp Hgb Conc. 33.3 g/dL (33.0-37.0); Mean Corpuscular Hgb 30.2 pg (27.0-31.0); Mean Corpuscular Volume 90.5 fL (80.0-94.0); Mean Platelet Volume 11.3 fL (7.4-10.4); Nucleated Red Blood Cells % 0 % (-); Platelet Count 336 10^3/uL (130-400); Red Blood Cell Count 5.37 10^6/uL (4.70-6.10); Red Cell Dist. Width 14.4 % (11.5-14.5); White Blood Cell Count 14.7 10^3/uL (4.8-10.8)
--- NOTE | 2024-04-25 14:00 | HPS.HSE ---
Family Physician
-
Family Physician: Miguel Chaney
Chief Complaint
-
Left Lower Extremity Pain
History of Present Illness
Patient is a 58 y/o male past medical history of peripheral arterial disease, hypertension, hyperlipidemia, diabetes and active smoker who presents with worsening left lower extremity pain. Patient reports intermittent left lower extremity pain for
the last several weeks. Over the weekend pain became much more intense, and lasting for longer periods of time. He denies any discoloration of the foot.
Medical History
Past Medical History
Past Medical History: Reports Other
Additional Past Medical History:
Peripheral Arterial Disease
Coronary Artery Disease
Essential Hypertension
Hyperlipidemia
Diabetes Mellitus, Type II
Past Surgical History: Reports Other
Additional Past Surgical History:
Tonsillectomy
Umbilical Hernia Repair
Right Radial Artery Thrombectomy
Left Common Femoral Artery Endarterectomy
Bilateral Lower Extremity Stents
Social History
Tobacco: Smoker (1 PPD)
Alcohol: Occasional
Family History
Family History: Not pertinent
Allergies / Home Medications
Allergies reflects when Allergies were last updated in [employer].
Home Medications with original date entered in [employer]
Allergy/Medication List:
Allergies
Allergy/AdvReac Type Severity Reaction Status Date / Time
No Known Allergies Allergy Verified 04/25/24 09:58
Home Medications
cilostazol 100 mg tablet 100 mg PO BID Blood Clot Prevention/Tx 03/09/20
metoprolol succinate 25 mg tablet,extended release 24 hr 25 mg PO DAILY Blood Pressure 03/09/20
gabapentin 300 mg capsule 900 mg PO TID pain 03/29/21
dapagliflozin propanediol 10 mg tablet (Farxiga) 10 mg PO DAILY Diabetes 06/02/22
metformin 1,000 mg tablet 1,000 mg PO BID Diabetes 06/02/22
atorvastatin 80 mg tablet 80 mg PO DAILY High Cholesterol 10/08/23
aspirin 81 mg tablet,delayed release 81 mg PO DAILY Blood Clot Prevention/Tx 10/29/23
enalapril maleate 10 mg tablet 10 mg PO DAILY blood pressure 10/29/23
insulin aspart U-100 100 unit/mL (3 mL) subcutaneous pen (Novolog FlexPen U-100 Insulin aspart) 14 unit SC AC diabetes 10/29/23
insulin glargine 100 unit/mL (3 mL) subcutaneous pen (Lantus Solostar U-100 Insulin) 25 unit SC HS diabetes 10/29/23
duloxetine 30 mg capsule,delayed release 60 mg PO BID 04/25/24
rivaroxaban 2.5 mg tablet 2.5 mg PO BID 04/25/24
zolpidem 5 mg tablet 5 mg PO HS 04/25/24
Review of Systems
-
A 12 point ROS was completed and negative except as noted: Yes
Constitutional: Denies Fever or Chills
Respiratory: Denies Cough or Trouble Breathing
Cardiac: Denies Chest Pain or Palpitations
Physical Exam
Vital Signs
Vital Signs
Temp Pulse Resp BP Pulse Ox
97.3 F 78 15 161/102 98
04/25/24 09:56 04/25/24 12:18 04/25/24 12:18 04/25/24 12:18 04/25/24 09:56
Physical Exam
General: Comfortable and Conversant
HEENT: Anicteric and Moist mucous membranes
Respiratory: Clear and Non Labored Respirations
Cardiac: S1/S2 and Regular Rhythm
GI: Soft and Non Tender
Rectal: Deferred by Provider
Musculoskeletal: No Clubbing, No Cyanosis and No Edema
Skin: Dry and Other (Left Lower Extremity Cold to Touch; No discoloration noted)
Neuro: Awake, Alert, Oriented and Nonfocal/grossly intact
Psych: Calm
Laboratory Results
-
04/25/24 12:50
Laboratory Results
Total Bilirubin Cancelled 04/25/24 13:32
AST Cancelled 04/25/24 13:32
ALT Cancelled 04/25/24 13:32
Alkaline Phosphatase Cancelled 04/25/24 13:32
Data Reviewed
-
CT Scan: Report Reviewed by me
Lab Data: Labs Reviewed by me
Impression/Plan
-
Left Iliac Artery Stent Occlusion
-Vascular planning for Bypass this afternoon
-Admit to ICU
-Continue heparin drip
-Continue aspirin
Right Lower Lobe Lung Nodule
-Noted to be increasing in size, highly suspicious of malignancy
-Follow-up with Pulmonary
Essential Hypertension
-Continue enalapril, and metoprolol
-Add hydralazine prn
Hyperlipidemia
-Continue atorvastatin
Diabetes Mellitus, Type II
-Hold Metformin
-Continue Farxiga
-Continue Lantus and Novolog
-Monitor sugars and continue coverage insulin
Diabetes Neuropathy
-Continue duloxetine and gabapentin
Coronary Artery Disease s/p Stent
-Continue aspirin
Tobacco Use Disorder / Nicotine Dependence
-Continue Nicotine Patch
-Encourage smoking cessation
DVT proph: Heparin Drip
Code Status: Full Code
[2024-04-25] MEDS: HEPARIN 7000 UNITS IV (14:05)
[2024-04-25] MEDS: HEPARIN 25000 UNITS/250 ML IV (14:07)
--- NOTE | 2024-04-25 14:08 | CON.VAS ---
Addendum entered and electronically signed by Dagoberto Esparza III, MD 04/25/24 17:05:
This patient was seen and examined in collaboration with Flower and Bina in the emergency department. I agree with the history and physical exam as well as the assessment and plan. I have the following additions:
58-year-old male
Known to me from prior acute limb ischemia event treated in September 2023
Patient noncompliant with follow-up and has not been seen for regular surveillance visits for several months
Previously declined further workup of carotid stenosis
Continues to smoke 1 pack/day
Presents with left foot symptoms starting Thursday evening
On examination today he has gross motor function to the left foot and ankle
Foot is cool compared to the right
No Doppler signals in the left foot
CT angiogram reveals occluded left iliac stents
Common femoral endarterectomy site filled with thrombus
Profunda reconstitutes
Chronic SFA occlusion
Also noted to have a right lower lobe nodule, larger in size compared to the prior imaging and highly suspicious for malignancy.
Planning for operative intervention. My plan is for right to left femorofemoral bypass. The technical aspects of this procedure were discussed with him in detail. The benefits and rationale for this approach were discussed with him in detail.
Operative risks were discussed with him in detail including but not limited to bleeding, heart attack, stroke, , infection, wound healing complications, leg swelling, graft failure, limb loss and the need for additional procedures. He
expressed a clear understanding of our conversation and agrees to proceed with surgery as detailed above.
Signed:
Dagoberto Esparza III, MD
[facility]
[phone] ([id number])
Original Note:
Consultation
Consultation Request
Date/Time Consultation Performed: 04/25/24 1400
Requesting Provider: Hospitalist
Performing Provider: Flower Cartagena, RESEARCH COORDINATOR-C for Dagoberto Esparza III, MD
Reason for Consultation: Left lower extremity critical limb threatening ischemia
Medical History
-
Chief Complaint: Left lower extremity acute onset pain
History of Present Illness:
This is a 58-year-old male with significant past medical history for CAD, hypertension, peripheral arterial disease, chronic kidney disease, hypercholesterolemia, and insulin-dependent diabetes who presents to [facility] reporting acute
onset of left lower extremity calf/foot pain starting on Thursday (04/23/2024). Patient is known to our vascular surgical group for extensive history of peripheral arterial disease see below for past vascular surgical interventions. Patient endorses
that he has been doing well until experiencing acute onset of left foot and calf pain on Thursday, he noted that dangling his leg off the side of the bed improved his pain. He also endorses that left foot pain was bothersome and giving him trouble
sleeping throughout the night on Thursday night into Thursday and last night. Left foot pain described as rest pain. He does note that it was intermittently improving, until yesterday morning acutely worsened when he attempted to go grocery shopping
and his left calf pain was so painful with ambulation that he aborted his grocery shopping trip. Following his attempt at increased ambulation he continued to experience more consistent pain, prompting him to seek medical attention this morning.
He continues to smoke roughly 1 pack/day. However, he does endorse compliance with prescribed medications including Xarelto. According to outpatient records he was to follow-up in December of 2023 but canceled that appointment and did not
reschedule.
Past vascular surgical history:
08/12/19 Balloon angioplasty and stenting of right superficial femoral artery stenosis 5 mm x 120 mm Innova stent proximal SFA and 6 mm x 60 mm Innova stent distal SFA, balloon angioplasty of right external iliac artery (7 mm x 40 mm), balloon
angioplasty and stenting of left common iliac artery (8 mm x 37 mm Express LD), balloon angioplasty of left external iliac artery (7 mm x 40 mm), diagnostic [id number] arteriogram, diagnostic right lower extremity arteriogram Dagoberto Esparza III, MD
03/09/20 Balloon angioplasty and stenting of right superficial femoral artery (Overlapping Zilver PTX's (distal to proximal SFA: 6 mm x 140 mm-->6 mm x 140 mm-->6 mm x 40 mm), diagnostic [id number] arteriogram, diagnostic right lower extremity
arteriogram- Dagoberto Esparza III, MD
10/13/23 Left common femoral artery endarterectomy with profundoplasty and patch angioplasty using bovine pericardium, removal of intravascular stent from common femoral artery, retrograde balloon angioplasty and stenting of the left common iliac
artery and left external iliac artery (overlapping Davis VBX stents; 7 mm x 59 mm proximal; 7 mm x 59 mm mid; 7 mm x 39 mm distal), completion left lower extremity arteriogram- Dagoberto Esparza III, MD
10/29/23 Right upper extremity radial artery thrombectomy- Manny Nelson MD
Past Medical History
Past Medical History: CAD, HTN, Hypercholesterolemia, IDDM and Other (CKD)
Past Surgical History: Tonsilectomy and Other (Umbilical hernia repair)
Social History
Tobacco: Smoker (1 pack/day)
Alcohol: Other ('moderately' drinks more than a few times a week)
Allergies / Home Medications
Allergy/AdvReac Type Severity Reaction Status Date / Time
No Known Allergies Allergy Verified 04/25/24 09:58
�Medication �Instructions �Recorded �Confirmed �Type
cilostazol 100 mg tablet 100 mg PO BID Blood Clot 03/09/20 04/25/24 History
Prevention/Tx
metoprolol succinate 25 mg 25 mg PO DAILY Blood Pressure 03/09/20 04/25/24 History
tablet,extended release 24 hr
gabapentin 300 mg capsule 900 mg PO TID pain 03/29/21 04/25/24 History
dapagliflozin propanediol 10 mg 10 mg PO DAILY Diabetes 06/02/22 04/25/24 History
tablet (Farxiga)
metformin 1,000 mg tablet 1,000 mg PO BID Diabetes 06/02/22 04/25/24 History
atorvastatin 80 mg tablet 80 mg PO DAILY High Cholesterol 10/08/23 04/25/24 History
aspirin 81 mg tablet,delayed 81 mg PO DAILY Blood Clot 10/29/23 04/25/24 History
release Prevention/Tx
enalapril maleate 10 mg tablet 10 mg PO DAILY blood pressure 10/29/23 04/25/24 History
insulin aspart U-100 100 unit/mL 14 unit SC AC diabetes 10/29/23 04/25/24 History
(3 mL) subcutaneous pen (Novolog
FlexPen U-100 Insulin aspart)
insulin glargine 100 unit/mL (3 25 unit SC HS diabetes 10/29/23 04/25/24 History
mL) subcutaneous pen (Lantus
Solostar U-100 Insulin)
duloxetine 30 mg capsule,delayed 60 mg PO BID 04/25/24 04/25/24 History
release
rivaroxaban 2.5 mg tablet 2.5 mg PO BID 04/25/24 04/25/24 History
zolpidem 5 mg tablet 5 mg PO HS 04/25/24 04/25/24 History
Review of Systems
-
History Source: Patient
Constitutional: Reports No Symptoms
EENT: Reports No Symptoms
Respiratory: Reports No Symptoms
Cardiac: Reports No Symptoms
Vascular: Reports Leg Pain / Claudication
Abdomen/GI: Reports No Symptoms
: Reports No Symptoms
Musculoskeletal: Reports Other (Left foot and calf sharp/stabbing pain)
Skin: Reports No Symptoms
Neurological: Reports No Symptoms
Endocrine: Reports No Symptoms
Physical Exam
Vital Signs
Temp Pulse Resp BP Pulse Ox
97.3 F 78 15 161/102 98
04/25/24 09:56 04/25/24 12:18 04/25/24 12:18 04/25/24 12:18 04/25/24 09:56
Lab Results
04/25/24 12:50
Physical Exam
General: No Apparent Distress and Comfortable
HEENT: Normocephalic, Anicteric and Atraumatic
Respiratory: Non Labored Respirations
Cardiac: Negative JVD
GI: Soft, Non Tender and Non Distended
Musculoskeletal: No Edema
Skin: Other (Left foot cooler than right, cap refill less than 4 seconds at left foot digits, nonpalpable/no Doppler signals at DP or PT at left foot )
Neuro: AO x 3
Pulses: Right Dorsalis Pedis: Doppler
Assessment / Plan
-
Assessment: 58-year-old male with left lower extremity acute limb threatening ischemia, CT aorta angio with runoff demonstrating occlusion of left iliac artery stents and partially thrombosed femoral endarterectomy site
Plan:
Given acute onset of changes, rest pain, and absent DP and PT Doppler signals in the left foot will urgently expedite patient to OR today for right to left fem-fem bypass with right femoral endarterectomy
N.p.o.
Type and screen
Initiate heparin infusion for anticoagulation
Plan relayed to ED physician
I performed this shared service with the attending. I evaluated the patient [id number] and have entered clinical documentation as shown in the encounter note. I performed the following component(s):�history and physical exam. Note that medical
decision making is not final until attested by vascular attending.
--- NOTE | 2024-04-25 14:20 | W.PN.UPDATE ---
Addendum entered and electronically signed by Padma Cain MD 04/25/24 14:26:
Blood pressure 190s due to pain. PRN hydralazine.
Original Note:
Update Note
Progress Note Update
This is an addendum to H&P written by Sona Yeh on 04/25/2024. Patient seen and examined independently with PA.
58-year-old male past medical history of radial artery occlusion status post thrombectomy, CAD, PAD status post revascularization of right lower extremity on Xarelto, prior [employer] endarterectomy/stent, bilateral carotid artery stenosis, type 2
diabetes, hypertension, hyperlipidemia, tobacco dependence, peripheral neuropathy, obesity, presenting with left calf pain for the past 2 days with walking.
Cold left foot on examination with diminished pulses.
Labs show leukocytosis.
CTA abdomen with runoff shows high-grade stenosis of superior mesenteric artery, patent iliac stent and patent femoral to below-knee popliteal bypass. One-vessel runoff via peroneal. On the left occlusion of the iliac stents of common and external
iliac arteries. Probable femoral endarterectomy changes partially thrombosed. There is long segment SFA and popliteal lesion in the left.
There is also incidentally discovered right lower lobe 1.2 cm nodule highly suspicious for malignancy.
Patient with acute arterial occlusion with limb ischemia.
Vascular consulted. Heparin drip started. NPO. Plan for femorofemoral bypass today.
Patient aware of lung nodule. Outpatient follow-up with pulmonary.
[2024-04-25 14:30] LABS: ALT (SGPT) 19 U/L (0-50); AST (SGOT) 20 U/L (17-59); Albumin 3.7 g/dl (3.5-5.0); Alkaline Phosphatase 85 U/L (38-126); Blood Urea Nitrogen 14 mg/dl (9-20); Calcium 9.3 mg/dl (8.4-10.2); Carbon Dioxide 27 mmol/L (22-30); Chloride 102 mmol/L (98-107); Glucose 224 mg/dl (70-99); Potassium 4.8 mmol/L (3.5-5.1); Sodium 134 mmol/L (135-145); Total Bilirubin 0.4 mg/dl (0.2-1.3); Total Protein 6.8 g/dl (6.3-8.2); eGFR > 60.00
[2024-04-25 14:33] LABS: APTT 29.6 Sec (23.4-35.0)
--- NOTE | 2024-04-25 15:00 | CON.INTV ---
Consultation
Consultation Request
Date/Time Consultation Requested: 04/25/20241427
Date/Time Consultation Performed: 04/25/2024 - 1444
Requesting Provider: Sona Purcell PA-C
Performing Provider: Dr. Howell
Reason for Consultation: LLE ischemia
Medical History
-
Chief Complaint: Left lower extremity pain
History of Present Illness:
58-year-old male active tobacco smoker with a past medical history of PAD with multiple balloon angioplasties and stenting of the lower extremities + left common femoral endarterectomy, CAD with history of DC s/p JANNA (2008), hypertension,
hyperlipidemia, DM type II, and alcohol use who presents with left lower extremity pain. Patient thought that he was having a DVT, however lower extremity duplex done on admission was negative for a DVT in the left lower extremity. Initially in
the ER, he was afebrile to 97.3 �F, pulse rate 96, respiratory rate 18, BP 165/110, and saturating 98% on room air. Initial labs showed leukocytosis to 14.7, Hb 16.2, sodium 134, and glucose 224. The patient's left foot was cool with no Doppler
signals. CTA abdominal aorta with runoff showed occluded left iliac stents and the common femoral endarterectomy site was filled with thrombus. Patient seen by vascular surgery and plan is for a right to left femoral-femoral bypass. Patient was
admitted to the ICU for closer monitoring while awaiting the OR. Can Line Examiner services consulted for additional management/recommendations.
When I saw the patient he was resting in bed, complaining of left foot pain that extends up to the knee. Also says that he has a toothache and his finger on his right hand hurt as he hit it on a fan recently. He is continuing to smoke 1 pack/day.
He knows that he has to quit but he is addicted and does not really want to stop yet. He currently denies a cough, SOB, chest pain, nausea, fevers or chills.
PMHx: PAD with history of lower extremity PCI with stenting + left common femoral artery endarterectomy, CAD, hypertension, history of DC s/p stent (2008), hyperlipidemia, hypertension, DM type II, tobacco use, alcohol use, history of DVT
PSHx: Tonsillectomy, umbilical hernia repair, balloon angioplasty with stenting of the right SFA x2, balloon angioplasty and stenting of left common iliac artery, left common femoral endarterectomy, right upper extremity radial artery thrombectomy,
umbilical hernia repair
Past Medical History
Past Medical History: Other (Above as per HPI)
Past Surgical History: Other (Above as per HPI)
Social History
Tobacco: Smoker (1 PPD)
Alcohol: Daily
Drug: Marijuana
Family History
Family History: Reviewed & Not Pertinent
Allergies / Home Medications
Allergies
Allergy/AdvReac Type Severity Reaction Status Date / Time
No Known Allergies Allergy Verified 04/25/24 09:58
Home Medications
�Medication �Instructions �Recorded �Confirmed �Last Taken �Type
cilostazol 100 mg tablet 100 mg PO BID Blood Clot 03/09/20 04/25/24 04/25/24 History
Prevention/Tx
metoprolol succinate 25 mg 25 mg PO DAILY Blood Pressure 03/09/20 04/25/24 04/25/24 History
tablet,extended release 24 hr
gabapentin 300 mg capsule 900 mg PO TID pain 03/29/21 04/25/24 04/25/24 History
dapagliflozin propanediol 10 mg 10 mg PO DAILY Diabetes 06/02/22 04/25/24 04/25/24 History
tablet (Farxiga)
metformin 1,000 mg tablet 1,000 mg PO BID Diabetes 06/02/22 04/25/24 04/25/24 History
atorvastatin 80 mg tablet 80 mg PO DAILY High Cholesterol 10/08/23 04/25/24 04/25/24 History
aspirin 81 mg tablet,delayed 81 mg PO DAILY Blood Clot 10/29/23 04/25/24 7 Days Ago History
release Prevention/Tx ~04/18/24
enalapril maleate 10 mg tablet 10 mg PO DAILY blood pressure 10/29/23 04/25/24 04/25/24 History
insulin aspart U-100 100 unit/mL 14 unit SC AC diabetes 10/29/23 04/25/24 Unknown History
(3 mL) subcutaneous pen (Novolog
FlexPen U-100 Insulin aspart)
insulin glargine 100 unit/mL (3 25 unit SC HS diabetes 10/29/23 04/25/24 04/24/24 History
mL) subcutaneous pen (Lantus
Solostar U-100 Insulin)
duloxetine 30 mg capsule,delayed 60 mg PO BID 04/25/24 04/25/24 04/25/24 History
release
rivaroxaban 2.5 mg tablet 2.5 mg PO BID 04/25/24 04/25/24 04/25/24 History
tizanidine 2 mg capsule 2 - 4 mg PO HSPRN PRN muscle spasms 04/25/24 04/25/24 Unknown History
zolpidem 5 mg tablet 5 mg PO HS 04/25/24 04/25/24 Unknown History
Review of Systems
-
History Source: Patient
All other systems: Negative unless noted
Vitals / Labs / Diagnostic Testing
Vital Signs
Temp Pulse Resp BP Pulse Ox
98.4 F 68 18 189/100 96
04/25/24 16:15 04/25/24 17:00 04/25/24 17:00 04/25/24 17:00 04/25/24 17:00
Lab Data
04/25/24 12:50
04/25/24 13:58
Laboratory Results
04/25/24
13:58
PT 13.8
INR 1.03
APTT 29.6
Diagnostic Testing:
Physical Exam
-
HEENT: Normocephalic and Anicteric
Cardiovascular: S1/S2 and Peripheral Edema (negative)
Respiratory: Wheeze (negative), Rales (negative), Rhonchi (negative) and Non-Labored Respirations
GI: Soft, Non Distended, Non Tender and Normal Bowel Sounds
Neurology: AO x 3 and Tremors (negative)
Skin: Dry and Other (Cool left foot with no cyanosis)
General: Respiratory Distress (negative), Pain (Left lower extremity from the foot up to the knee), Chills (negative) and Sweats (negative)
Assessment
-
Assessment: 58-year-old male active tobacco smoker with a past medical history of PAD with multiple balloon angioplasties and stenting of the lower extremities + left common femoral endarterectomy, CAD with history of DC s/p JANNA (2008),
hypertension, hyperlipidemia, DM type II, and alcohol use who presents with left lower extremity pain. Patient thought that he was having a DVT, however lower extremity duplex done on admission was negative for a DVT in the left lower extremity.
Initially in the ER, he was afebrile to 97.3 �F, pulse rate 96, respiratory rate 18, BP 165/110, and saturating 98% on room air. Initial labs showed leukocytosis to 14.7, Hb 16.2, sodium 134, and glucose 224. The patient's left foot was cool with
no Doppler signals. CTA abdominal aorta with runoff showed occluded left iliac stents and the common femoral endarterectomy site was filled with thrombus. Patient seen by vascular surgery and plan is for a right to left femoral-femoral bypass.
Patient was admitted to the ICU for closer monitoring while awaiting the OR. Can Line Examiner services consulted for additional management/recommendations.
Chronic conditions INVOICE CHECKER: PAD with history of lower extremity PCI with stenting + left common femoral artery endarterectomy, CAD, hypertension, history of DC s/p stent (2008), hyperlipidemia, hypertension, DM type II, tobacco use, alcohol use, history
of DVT
Impression:
#Left lower extremity pain due to ischemia with threatened limb due to occluded left iliac stents and common femoral endarterectomy site is filled with thrombus
#Leukocytosis likely reactive due to above
#Hyponatremia (mild)
#DM type II complicated by hyperglycemia (uncontrolled with HbA1c: 10.3 on 10/09/2023)
#Enlarging right lower lobe nodule measuring 1.3 cm on CTA A/P from 04/25/2024 (previously measured 6.3 mm on CTA A/P from 10/08/2023) - concerning for lung cancer
#Active tobacco use (started smoking at age 14, and smokes 1 pack/day)
#Alcohol use
#History of DC s/p JANNA (2008)
#History of DVT on Xarelto
Plan:
- Patient presented with left lower extremity pain with concern for DVT however duplex US was negative. CTA abdominal aorta with runoff on 04/25/2024 showed occlusion of the left-sided iliac stents involving the common and external iliac arteries
with partially thrombosed femoral endarterectomy and long segment SFA and popliteal occlusion on the left with two-vessel runoff.
- Patient seen by vascular surgery, and the left foot is cool with no Doppler signals. Patient is being prepared for operative intervention with right to left femorofemoral bypass
- For now, continue heparin gtt
- Patient will be transferred back here to the ICU postoperatively for further care
- In the meantime, continue with q1hr neurovascular checks
- Nicotine patch if ok with vascular surgery
- Maintain SpO2 >90-94%; recommend outpatient PFTs given concern for COPD due to long tobacco smoking history
- Maintain MAP>65
- Trend WBC
- trend serum Na
- Replete electrolytes with K>4, Mg>2
- Maintain euglycemia with goal BG 140-180 with ISS q6hr with pre-meal aspart + lantus; check A1C tomorrow AM
- Trend H/H and transfuse if needed to keep Hb>7g/dL; keep plt>20k, unless there is concern for bleeding then keep plt>50k
- prn nebulized bronchodilators - not currently bronchospastic
- Incentive spirometer encouraged 10x per hour for at least 4 hrs a day
- Of note, he has a right lower lobe nodule measuring 1.3 cm, which is enlarging compared to prior CT abdomen/pelvis from 10/08/[address]23. [address] chest without contrast to assess remainder of the lung kirk and then additional workup
should be discussed as an outpatient --> he will likely need a robotic-assisted lung biopsy. Of note I had seen this patient previously in October 2023 and recommended outpatient follow-up with me at that time given his lung nodule however due to
his insurance he was unable to be scheduled with me - he had apparently been 'living on the streets' and lost his job at the time so he was never seen in our pulmonary office
- DVT ppx: heparin gtt
Critical care statement: A total of 42 minutes of critical care time was provided for this patient today. This includes management of unstable vital signs, evaluation of the patient at bedside, reviewing the patient's pertinent medical records
including radiographs, microbiology, laboratory evaluations, and discussion with primary team, consultants, pharmacy, nutrition, physical therapy, case management, charge nurse, critical care nursing, and respiratory therapy.
Data:
CTA abdominal aorta with runoff 04/25/2024:
1. Aortic atherosclerotic changes without aneurysmal dilation. High-grade stenosis superior mesenteric artery. Segmental narrowing of the splenic artery.
2. On the right, patent iliac stent and patent femoral to below-knee popliteal bypass. One-vessel runoff via peroneal. On the left, occlusion of iliac stents the common and external iliac arteries. Probable femoral endarterectomy changes which are
partially thrombosed, with narrow caliber patent channel reconstituted at the common femoral. There is long segment SFA and popliteal occlusion on the left. Two-vessel runoff.
3. Right lower lobe 1.3 cm nodule, larger as compared with prior and highly suspicious for malignancy.
4. Abnormal wall thickening of the sigmoid colon. While this may be inflammatory, neoplastic etiology cannot be excluded. This could be further evaluated with colonoscopy.
[2024-04-25 16:32] LABS: INR 1.03; PT 13.8 Sec (11.4-14.6)
[2024-04-25] MEDS: APRESOLINE 5 MG IV (16:43)
[2024-04-25] MEDS: NEURONTIN PO (16:45)
--- NOTE | 2024-04-25 16:55 | PTCARENOTE ---
Addendum entered by Lakia Mac RN 04/25/24 17:48:
no response from hydralazine. tangled yarn spool straightener updated, no new orders at this time
Original Note:
patient received from ED, assessments per work list. doppler pulses right leg, only able to obtain left femoral pulse by Doppler. heparin per work list. patient c/o pain left calf 04/25. lungs with expiratory wheezing, rhonchi bilaterally. crackles
bases. pulse oximeter 95 on room air. abdomen soft, distended. hypoactive bowel sounds. oriented to room. call santillan in reach. reviewed plan of care. tangled yarn spool straightener updated with patient assessments. prn hydralazine administered
[2024-04-25] MEDS: NOVOLOG FLEXPEN SC (17:14)
[2024-04-25] MEDS: NOVOLOG FLEXPEN-MODERATE RESISTANCE 1 UNITS SC (17:28)
[2024-04-25 17:38] LABS: Glucose - Point of Care 150 mg/dl (70-99)
[2024-04-25] MEDS: NICODERM TRANSDERMAL 14 MG TRANSDERM (17:54)
[2024-04-25] MEDS: TYLENOL 650 MG PO (18:28)
[2024-04-25] MEDS: ROXICODONE 5 MG PO (18:28)
[2024-04-25] MEDS: PERIDEX 0.12% ORAL RINSE 15 ML PO (19:01)
[2024-04-25] MEDS: BACTROBAN 2% OINTMENT 1 APPLIC NASAL (19:01)
--- NOTE | 2024-04-25 19:07 | PTCARENOTE ---
patient medicated with one time dose tylenol, roxycodone and dilaudid. patient voiced displeasure about not having anything to eat. explained rationale of npo prior to surgery. phone report given to vascular RN, transported to vascular lab by charge
nurse. report to oncoming RN
[2024-04-25 20:36] LABS: Glucose - Point of Care 137 mg/dl (70-99)
[2024-04-25 21:03] LABS: ACT-LR - POC 360 Seconds (116-155)
[2024-04-25 21:56] LABS: ACT-LR - POC 284 Seconds (116-155)
[2024-04-25 22:04] LABS: Glucose - Point of Care 138 mg/dl (70-99)
[2024-04-25] MEDS: CYMBALTA DELAYED RELEASE PO (22:48)
--- NOTE | 2024-04-25 23:02 | W.SUR.POST ---
Surgical Immediate Post Op
Note
Pre Op Diagnosis: acute left leg ischemia
Post Op Diagnosis: acute left leg ischemia
Procedure Performed: bilateral groin cutdown. R CFEA. R common femoral interposition graft with fem-fem bypass to L profunda.
Primary Surgeon: Dagoberto Esparza
Secondary Surgeons: Luis Barragan
Anesthesia: see anesthesia record
Estimated Blood Loss: 100cc
Fluids: see anesthesia record
Drains/Shunts: none
Specimens/Cultures: L inguinak lymph node
Doppler/Duplex/Angio (Y/N): y, doppler
Complications: none
Operative Findings: Bilateral groin cutdown. Extensive scar tissue. R CFEA -> interposition graft with 8mm dacron due to poor tissue quality. 6mm ringed ptfe from this R groin interposition graft to the L profunda with improvement in mottling of
LLE. Intermittent L DP and PT signal at end of case. Strong R PT, intermittent R DP signals. L inguinal lymph node excised and sent for pathology during the case due to abnormal discoloration.
--- NOTE | 2024-04-25 23:13 | OR.RPT ---
Operative Report
Operative Report
Date of Operation: 04/25/2024
Pre Op Diagnosis:
1. Acute limb ischemia, left lower extremity
2. Thrombosed left iliac stents and common femoral endarterectomy
3. Prior right lower extremity bypass
4. Severe peripheral arterial occlusive disease
5. Active smoker
6. Diabetes with peripheral arterial disease
Post Op Diagnosis:
1. Acute limb ischemia, left lower extremity
2. Thrombosed left iliac stents and common femoral endarterectomy
3. Prior right lower extremity bypass
4. Severe peripheral arterial occlusive disease
5. Active smoker
6. Diabetes with peripheral arterial disease
Procedure:
1. Reoperative BILATERAL groin surgery
2. Right distal external iliac artery to distal common femoral artery interposition graft (8 mm Dacron)
3. Right common femoral artery to left profunda femoral artery bypass using 6 mm ring reinforced PTFE graft
Surgeon: Dagoberto Esparza III, MD
Head Holder: Luis Barragan MD, PGY4
Anesthesia: General
Complications: None
Estimated Blood Loss: 100 cc
History and Indications for Procedure: 58-year-old male with known severe peripheral arterial occlusive disease. Previously underwent a left common femoral endarterectomy and patch angioplasty along with retrograde left iliac stenting for acute
limb ischemia at that time. He presented today with another episode of acute limb ischemia involving his left lower extremity. He was taken to the operating room emergently for revascularization
Procedure in Detail: Weston Richard was correctly identified and placed supine on the operating table. After adequate induction of anesthesia his abdomen, pelvis, bilateral groins and left lower extremity circumferentially was prepped and draped in
the usual sterile fashion. He received preoperative antibiotics. A timeout procedure was performed with the nursing and anesthesia staff confirming the patient's identity as well as the nature and laterality of the procedure.
On the right we made a vertical incision through the previous scar. Electrocautery and sharp dissection were used to expose the right common femoral artery. The right common femoral artery was calcified diffusely and clearly diseased by palpation.
We continued sharp dissection distally to the femoral bifurcation and identified the anastomosis of the bypass as well as the proximal vein graft. Distal control was obtained with a vessel loop. I then continued dissection proximally under the
inguinal ligament which was densely scarred. This made dissection quite difficult but we were able to obtain vessel loop control around the distal external iliac artery.
On the left we made a vertical incision through the inferior aspect of the previous scar. Electrocautery was used to divide the subcutaneous tissue down to the sartorius muscle. The sartorius fascia was incised and the muscle was retracted
laterally. Using careful sharp dissection and electrocautery I exposed the main profunda femoral artery at this location. A segment long enough for the anastomosis was exposed. The artery was soft at this location. Proximal and distal control
was obtained with vessel loops. A tunnel was created between the 2 incisions using a long tunneling clamp. A 6 mm ring reinforced PTFE graft was brought through the tunnel taking great care to keep proper orientation using the blue woodward.
The patient was systemically heparinized. We applied a Derra clamp to the distal right external iliac artery. We secured the distal vessel loop. The common femoral artery was calcified and diffusely diseased. I used an 11 blade to make an
arteriotomy and extended this proximally and distally with Gardner scissors. There was significant plaque within the common femoral artery. I made an attempt to perform an endarterectomy with a [place] elevator however the artery was very thin walled
and tore such that I did not think endarterectomy and patch angioplasty was suitable. I then transected common femoral artery proximally. Plaque was pulled from the distal external iliac artery up to the level of the clamp using forceps. The
femoral bifurcation was transected. The vessel loop was released. Backbleeding was identified. I then flushed the bypass with heparinized saline solution. A vascular clamp was applied distally.
I then brought onto the field and 8 mm Dacron limb. This was sewn end to end to the distal right external iliac artery using a running 5-0 Prolene suture. I then shortened the distal end of the graft and beveled it appropriately. The distal end
was sewn to the femoral bifurcation using a running 5-0 Prolene suture in a similar fashion. The proximal and distal clamps were then released. The proximal and distal suture lines were inspected and were hemostatic. Clamps were then reapplied.
I used an 11 blade to make a slit in the Dacron graft and extended this proximally and distally with Gardner scissors. I then beveled the end of the 6 mm PTFE graft. The end of the 6 mm PTFE graft was sewn end-to-side to the Dacron limb using a
running CV 6 [place]-Jj suture. Following this anastomosis the proximal and distal clamps were released. There was excellent pulsatile flow from the distal end of the PTFE graft in the left groin. The PTFE graft was back flushed with heparinized
saline and a clamp was placed on the graft in the right groin.
The proximal and distal vessel loops in the left profunda femoral artery were secured. I used an 11 blade to make an arteriotomy on the profunda. This was extended proximally distally with Gardner scissors. The distal artery backbled and was then
flushed with heparinized saline solution. I pressurized and then shortened the 6 mm PTFE graft. The graft was beveled and sewn to the profunda femoral artery in an end-to-side fashion using a running 6-0 Prolene suture. Prior to completing this
anastomosis I irrigated under the anastomosis with heparinized saline solution. The anastomosis was completed. The vessel loops were released in the left groin followed by the clamp on the graft in the right groin. Immediately there was a good
pulse in the graft and profunda femoral artery and the left groin. Excellent quality Doppler signals were audible in the distal profunda femoral artery and the left groin incision. The signal clearly augmented with compression and release of the
PTFE graft.
At this point all suture lines were once again closely inspected for hemostasis which was achieved. Both wounds were irrigated with copious amounts of saline solution. The wounds were then closed in multiple layers and sterile ASIA dressings were
applied.
At the conclusion of the case the patient had a monophasic Doppler signal at the dorsalis pedis location in the left foot and in the popliteal artery behind the knee.
Attestation: I was present and responsible for the entire procedure
Signed:
Dagoberto Esparza III, MD
[facility]
[phone] (cell)
[2024-04-25 23:55] LABS: Glucose - Point of Care 164 mg/dl (70-99)
[2024-04-26] MEDS: APRESOLINE 5 MG IV
[2024-04-26] MEDS: NEURONTIN 900 MG PO ×4 (00:08→21:56)
[2024-04-26] MEDS: AMBIEN 5 MG PO ×2 (00:08→21:56)
[2024-04-26] MEDS: LANTUS 0.25 UNITS SC (00:09)
[2024-04-26] MEDS: NOVOLOG FLEXPEN-MODERATE RESISTANCE 1 UNITS SC ×3 (00:09→12:36)
--- NOTE | 2024-04-26 00:25 | PTCARENOTE ---
received pt from PACU got bedside report, pt drowsy but Ox3, weak but [place] and follows commands, denies pain, diaphoretic, NSR on the monitor c PVCs, hypertensive, hydralazine given per APR, Dr. Esparza made aware, + radials, doppler R post tib and
pedal, doppler L popliteal, and post tib, absent L pedal c doppler, L radial a-line zeroed, lungs coarse, rhonchi, crackles @ bases, SpO2 96% 4L NC, BSx4 hypoactive, thermistor wolfgang draining yellow output, B/L groin ASIA drains, L drain reinforced,
dressings dry and intact, Hep 1000 units, NS via gravity, 18G RAC, 18G L hand, CHG bath, call santillan within reach, otherwise refer to documentation.
[2024-04-26 00:57] LABS: Hematocrit 44.5 % (39.0-52.0); Hemoglobin 14.7 g/dL (13.0-18.0); Mean Corpuscular Hgb 30.4 pg (27.0-31.0); Mean Corpuscular Volume 92.1 fL (80.0-94.0); Mean Platelet Volume 11.3 fL (7.4-10.4); Platelet Count 269 10^3/uL (130-400); Red Blood Cell Count 4.83 10^6/uL (4.70-6.10); Red Cell Dist. Width 14.6 % (11.5-14.5); White Blood Cell Count 21.1 10^3/uL (4.8-10.8)
[2024-04-26 01:08] LABS: INR 1.17; PT 15.2 Sec (11.4-14.6)
[2024-04-26 01:22] LABS: APTT > 200 Sec (23.4-35.0)
[2024-04-26] MEDS: APRESOLINE 10 MG IV ×2 (01:31→04:41)
--- NOTE | 2024-04-26 01:33 | PTCARENOTE ---
PTT >200 orders followed SIDEWALK REPAIRER made aware, pt remains hypertensive after dose of hydralazine, SIDEWALK REPAIRER notified hydralazine given per APR.
[2024-04-26 01:53] LABS: Blood Urea Nitrogen 13 mg/dl (9-20); Calcium 7.9 mg/dl (8.4-10.2); Carbon Dioxide 19 mmol/L (22-30); Chloride 112 mmol/L (98-107); Estimated Creatinine Clearance 83 ml/min; Glucose 163 mg/dl (70-99); Potassium 4.1 mmol/L (3.5-5.1); Sodium 140 mmol/L (135-145); eGFR > 60.00
--- NOTE | 2024-04-26 03:25 | PTCARENOTE ---
systems reviewed, vascular checks per worklist, pt denies pain, doppler pulses, L pedal and post tib weak c doppler, otherwise refer to documentation
[2024-04-26] MEDS: DILAUDID 0.5 MG IV (04:51)
[2024-04-26 05:01] LABS: Hematocrit 44.5 % (39.0-52.0); Hemoglobin 14.9 g/dL (13.0-18.0); Mean Corp Hgb Conc. 33.5 g/dL (33.0-37.0); Mean Corpuscular Hgb 30.7 pg (27.0-31.0); Mean Corpuscular Volume 91.8 fL (80.0-94.0); Mean Platelet Volume 11.6 fL (7.4-10.4); Platelet Count 275 10^3/uL (130-400); Red Blood Cell Count 4.85 10^6/uL (4.70-6.10); Red Cell Dist. Width 14.7 % (11.5-14.5); White Blood Cell Count 23.5 10^3/uL (4.8-10.8)
[2024-04-26 05:06] VITALS: BMI 31.4
[2024-04-26 05:06] LABS: Blood Urea Nitrogen 15 mg/dl (9-20); Calcium 8.6 mg/dl (8.4-10.2); Carbon Dioxide 18 mmol/L (22-30); Chloride 107 mmol/L (98-107); Estimated Creatinine Clearance 75 ml/min; Glucose 187 mg/dl (70-99); Potassium 4.6 mmol/L (3.5-5.1); Sodium 138 mmol/L (135-145); eGFR > 60.00
[2024-04-26 05:46] LABS: Glucose - Point of Care 184 mg/dl (70-99)
--- NOTE | 2024-04-26 05:57 | PTCARENOTE ---
pulses on left leg faint throughout the night much harder to fine with 0600 pulse checks, pt c/o 08/25 R groin pain refer to APR, hydralazine given per MAR, Dr. Esparza made aware, dario claudettegger applied to lower extremities, otherwise refer to
documentation.
[2024-04-26] MEDS: VASOTEC 10 MG PO (07:02)
[2024-04-26] MEDS: LOPRESSOR 5 MG IV (07:02)
[2024-04-26] MEDS: TOPROL XL 25 MG PO (07:02)
--- NOTE | 2024-04-26 07:06 | PTCARENOTE ---
house provider ordered IV Lopressor, and morning BP meds given, otherwise refer to documentation
[2024-04-26 08:03] LABS: APTT 37.4 Sec (23.4-35.0); INR 1.06; PT 14.1 Sec (11.4-14.6)
--- NOTE | 2024-04-26 08:20 | W.PN.INTV ---
Today's Communication / Plan
Recommendations
Continue postoperative vascular management as per vascular surgery
Neurovascular checks
Cardene drip as per vascular surgery
Heparin drip as per vascular surgery
prn DuoNebs; outpatient PFTs given suspected COPD
Pain control
Up OOB as tolerated
PT/OT
Nicotine patch; nicotine cessation strongly recommended
Outpatient follow-up for concerning right lower lobe nodule
Continue ICU level care for this critically ill patient
Assessment
-
Assessment: 58-year-old male active tobacco smoker with a past medical history of PAD with multiple balloon angioplasties and stenting of the lower extremities + left common femoral endarterectomy, CAD with history of SD s/p JANNA (2008),
hypertension, hyperlipidemia, DM type II, and alcohol use who presents with left lower extremity pain. Patient thought that he was having a DVT, however lower extremity duplex done on admission was negative for a DVT in the left lower extremity.
Initially in the ER, he was afebrile to 97.3 �F, pulse rate 96, respiratory rate 18, BP 165/110, and saturating 98% on room air. Initial labs showed leukocytosis to 14.7, Hb 16.2, sodium 134, and glucose 224. The patient's left foot was cool with
no Doppler signals. CTA abdominal aorta with runoff showed occluded left iliac stents and the common femoral endarterectomy site was filled with thrombus. Patient seen by vascular surgery and plan is for a right to left femoral-femoral bypass.
Patient was admitted to the ICU for closer monitoring while awaiting the OR. Master Esthetician services consulted for additional management/recommendations.
Chronic conditions OUT PATIENT THERAPIST: PAD with history of lower extremity PCI with stenting + left common femoral artery endarterectomy, CAD, hypertension, history of SD s/p stent (2008), hyperlipidemia, hypertension, DM type II, tobacco use, alcohol use, history
of DVT
Impression:
#Left lower extremity pain due to ischemia with threatened limb due to occluded left iliac stents and common femoral endarterectomy site is filled with thrombus s/p right distal external iliac artery to distal common femoral artery interposition
graft + right FILLER IN to left profunda femoral artery bypass (POD #1)
#Hypertensive urgency in post-operative period now on cardene gtt
#Leukocytosis likely reactive due to above
#Hyponatremia- now resolved
#DM type II complicated by hyperglycemia (uncontrolled with HbA1c: 9.9 on 04/26/2024)
#Enlarging right lower lobe nodule measuring 1.3 cm on CTA A/P from 04/25/2024 (previously measured 6.3 mm on CTA A/P from 10/08/2023) - concerning for lung cancer
#Active tobacco use (started smoking at age 14, and smokes 1 pack/day)
#Alcohol use
#History of SD s/p JANNA (2008)
#History of DVT
Plan:
- Patient presented with left lower extremity pain with concern for DVT however duplex US was negative. CTA abdominal aorta with runoff on 04/25/2024 showed occlusion of the left-sided iliac stents involving the common and external iliac arteries
with partially thrombosed femoral endarterectomy and long segment SFA and popliteal occlusion on the left with two-vessel runoff.
- Patient seen by vascular surgery, and the left foot was cool with no Doppler signals. Patient underwent bilateral reoperative groin surgery on 04/25/2024, with right distal external iliac artery to distal common femoral artery interposition
graft, and right common femoral artery to left profunda femoral artery bypass using a 6 mm ring reinforced PTFE graft
- Continue heparin gtt as per vascular surgery
- Continue with neurovascular checks as per vascular surgery
- Continue with Cardene drip with goal MAP 70�100
- Nicotine patch
- Maintain SpO2 >90-94%; recommend outpatient PFTs given concern for COPD due to long tobacco smoking history
- Maintain MAP>65
- Trend WBC --> patient is nontoxic-appearing and remains afebrile; continue to monitor off antibiotics; continue to monitor for fever
- trend serum Na
- Replete electrolytes with K>4, Mg>2
- Maintain euglycemia with goal BG 140-180 with ISS q6hr with pre-meal aspart + lantus; adjust as necessary; diabetic PRECISION FARMING SPECIALIST on board
- Trend H/H and transfuse if needed to keep Hb>7g/dL; keep plt>50k (given his post-operative status)
- prn nebulized bronchodilators - not currently bronchospastic
- Incentive spirometer encouraged 10x per hour for at least 4 hrs a day
- Of note, he has a right lower lobe nodule measuring 1.3 cm, which is enlarging compared to prior CT abdomen/pelvis from 10/08/2023. [address] chest without contrast to assess remainder of the lung kirk and then additional workup
should be discussed as an outpatient --> he will likely need a robotic-assisted lung biopsy. Of note I had seen this patient previously in October 2023 and recommended outpatient follow-up with me at that time given his lung nodule however due to
his insurance he was unable to be scheduled with me - he had apparently been 'living on the streets' and lost his job at the time so he was never seen in our pulmonary office
- DVT ppx: heparin gtt
Continue ICU level care for this critically ill patient
Critical care statement: A total of 36 minutes of critical care time was provided for this patient today. This includes management of unstable vital signs, evaluation of the patient at bedside, reviewing the patient's pertinent medical records
including radiographs, microbiology, laboratory evaluations, and discussion with primary team, consultants, pharmacy, nutrition, physical therapy, case management, charge nurse, critical care nursing, and respiratory therapy.
Data:
CTA abdominal aorta with runoff 04/25/2024:
1. Aortic atherosclerotic changes without aneurysmal dilation. High-grade stenosis superior mesenteric artery. Segmental narrowing of the splenic artery.
2. On the right, patent iliac stent and patent femoral to below-knee popliteal bypass. One-vessel runoff via peroneal. On the left, occlusion of iliac stents the common and external iliac arteries. Probable femoral endarterectomy changes which are
partially thrombosed, with narrow caliber patent channel reconstituted at the common femoral. There is long segment SFA and popliteal occlusion on the left. Two-vessel runoff.
3. Right lower lobe 1.3 cm nodule, larger as compared with prior and highly suspicious for malignancy.
4. Abnormal wall thickening of the sigmoid colon. While this may be inflammatory, neoplastic etiology cannot be excluded. This could be further evaluated with colonoscopy.
Subjective Dataa
Subjective Data
Date of Service:
Date of Service: April 26, 2024
Chief Complaint: Master Esthetician Follow Up
Subjective:
Patient seen and evaluate this morning. BP elevated this morning to 181/78, and Cardene drip started. Also remains on heparin drip. Otherwise saturating 98% on 4 L/min. Patient in no acute distress this morning.
Review of Systems
General: Other (Negative unless mentioned above)
Objective Data
Data Reviewed
Vital Signs / I&O / Oxygen:
Vital Signs
Temp Pulse Resp BP Pulse Ox
98.7 F 92 20 196/76 95
04/26/24 07:38 04/26/24 07:02 04/26/24 06:00 04/26/24 07:02 04/26/24 05:00
Intake and Output
04/25/24 04/26/24 04/27/24
06:59 06:59 06:59
Intake Total 699 / 699
Output Total 905 / 905
Balance -206 / -206
SaO2 95
Nasal Cannula flow liters per 4
minute
Physical Exam
General: Respiratory Distress (negative), Chills (negative) and Sweats (negative)
HEENT: Normocephalic and Anicteric
Cardiovascular: S1-S2, Rub (negative) and Peripheral Edema (negative)
Respiratory: Clear, Wheeze (negative), Crackles (negative), Rhonchi (negative), Accessory Resp Muscle Use (negative) and Stridor (negative)
GI: Soft, Non Distended, Non Tender and Normal Bowel Sounds
Neurology: Awake, Alert and Tremors (negative)
Skin: Warm, Dry, Cyanosis (negative) and Jaundice (negative)
Labs/Micro/Reports
Lab Data
04/26/24 04:28
04/26/24 04:28
Laboratory Results
04/25/24 04/26/24 04/26/24
13:58 00:42 07:35
PT 13.8 15.2 H 14.1
INR 1.03 1.17 1.06
APTT 29.6 > 200 H* 37.4 H
[2024-04-26] MEDS: HEPARIN 7000 UNITS IV ×3 (08:22→22:35)
[2024-04-26] MEDS: NICODERM TRANSDERMAL 14 MG TRANSDERM (08:26)
[2024-04-26] MEDS: FARXIGA 10 MG PO (08:26)
[2024-04-26] MEDS: ASPIR LOW (ENTERIC COATED) 81 MG PO (08:26)
[2024-04-26] MEDS: CYMBALTA DELAYED RELEASE 60 MG PO ×2 (08:26→19:38)
[2024-04-26] MEDS: LIPITOR 80 MG PO (08:26)
--- NOTE | 2024-04-26 08:38 | W.PN.VS ---
Addendum entered and electronically signed by Dagoberto Esparza III, MD 04/26/24 19:40:
This patient was seen and examined in collaboration with TATIANA Vincent. I agree with the history and physical exam as well as the assessment and plan.
Signed:
Dagoberto Esparza III, MD
[facility] Surgery
[phone] (dcqu)
Original Note:
Today's Communication / Plan
-
Patient seen and examined at bedside with Dr. Dagoberto Esparza III, below plan reviewed with attending.
Assessment/Plan
-
Assessment: 58-year-old male POD #1 Reoperative BILATERAL groin surgery, right distal external iliac artery to distal common femoral artery interposition graft (8 mm Dacron), right common femoral artery to left profunda femoral artery bypass using 6
mm ring reinforced PTFE graft
Plan:
Patient hypertensive will start Cardene drip, goal SBP 100-165
Discontinue Esparza catheter
Discontinue IV fluids
Continue heparin drip
Consultation hematology/oncology for pulmonary nodule and recommendations for anticoagulation
Continue neurovascular checks
Continue to encourage incentive spirometry
Smoking cessation education
Subjective Data
-
Date of Service: April 26, 2024
Patient seen and examined at bedside, reports adequately managed postoperative pain. Reports resolution of left foot rest pain. Denies nausea, vomiting, fever, and chills.
Objective Data
-
Vital Signs
Temp Pulse Resp BP Pulse Ox
98.7 F 92 20 196/76 95
04/26/24 07:38 04/26/24 07:02 04/26/24 06:00 04/26/24 07:02 04/26/24 05:00
Intake and Output
04/25/24 04/26/24 04/27/24
06:59 06:59 06:59
Intake Total 699 / 699 64 / 64
Output Total 905 / 905 185 / 185
Balance -206 / -206 -121 / -121
Intake:
Oral fluids 600 / 600 50 / 50
IV fluids (Total)
heparin
Output:
Urine, Esparza 905 / 905 185 / 185
Lab Results
04/26/24 04:28
04/26/24 04:28
Calcium 8.6 mg/dl (8.4-10.2) 04/26/24 04:28
Total Bilirubin 0.4 mg/dl (0.2-1.3) 04/25/24 13:58
AST 20 U/L (17-59) 04/25/24 13:58
ALT 19 U/L (0-50) 04/25/24 13:58
Alkaline Phosphatase 85 U/L (38-126) 04/25/24 13:58
Total Protein 6.8 g/dl (6.3-8.2) 04/25/24 13:58
Albumin 3.7 g/dl (3.5-5.0) 04/25/24 13:58
Physical Exam
-
No apparent distress, resting in bed comfortably
No tachycardia
No dyspnea
ABD rotund, nontender, nondistended
Bilateral groin javid dressings dry and intact, holding suction, no evidence of hematoma or edema, all surrounding compartments soft
Bilateral PT Doppler signal present, bilateral feet warm
Esparza draining clear yellow urine
[2024-04-26 09:25] LABS: Glucose - Point of Care 162 mg/dl (70-99)
--- NOTE | 2024-04-26 09:25 | W.PN.HOSP.TC ---
Addendum entered and electronically signed by Chidi Milligan MD 04/26/24 22:19:
Attending Addendum-
I saw and evaluated the patient. I reviewed the resident�s note and agree with findings and plan as documented in the resident�s note. Sub: denies pain in b/L LE. Denies CP SOB cough fevers chills urinary difficulties Full 12 point ROS reviewed and
negative except as documented Exam: Vitals reviewed in chart GEN-NAD heart RRR no M/R/G lungs clear abd soft LE no edema b/l groin sites bandaged B/L LE distal pulses dopplerable not palpable goss in place draining clear yellow urine
Plan:
# Acute Critical LLE ischemia/Severe PAD
-Left Iliac Artery Stent Occlusion
-POD #1 Reoperative BILATERAL groin surgery, right distal external iliac artery to distal common femoral artery interposition graft (8 mm Dacron), right common femoral artery to left profunda femoral artery bypass using 6 mm ring reinforced PTFE
graft
-cont care in ICU
-Continue heparin drip- follow aPTT closely
-wound care
-Continue aspirin
-hold xarelto for now restart when able
#Right Lower Lobe Lung Nodule
-Noted to be increasing in size, highly suspicious of malignancy
-onc c/s placed, likely for close OP follow up with PET scan
#Hypertensive Urgency
-Continue enalapril hold metoprolol
-coreg initiated
-cont nicardipine gtt- titrate per protocol
-cont hydralazine prn
# Abnormal wall thickening of the sigmoid colon
- had colon 2022 no reported issues per patient
- will need repeat colon as OP
# Acute Hypoxemic Respiratory Failure
- likely underlying COPD- needs OP PFTS
- wean o2 for sats > 88%
#Hyperlipidemia
-Continue atorvastatin
# Post Op Urinary Retention
- TOV today
# Leukocytosis
- likely reactive and secondary to inflammation
- trend
- check blood cx for completeness
#Diabetes Mellitus, Type II
-Hold Metformin
-uncontrolled
-Continue Farxiga
-increase Lantus and NovoLog (Home )
-HbA1c 9.9
-Monitor sugars and continue coverage insulin
#Diabetes Neuropathy
-Continue duloxetine and gabapentin
#Coronary Artery Disease s/p Stent
-Continue aspirin
#Tobacco Use Disorder / Nicotine Dependence
-Continue Nicotine Patch
-counselled at great length re smoking cessation
# Severe PAD- recurrent severe disease
- due to continued smoking
- cont asa and Xarelto (failure vs pseudo failure) restart when able to reduce risks of major thrombotic vascular events
DVT proph: Heparin Drip
Code Status: Full Code-->DNR AAO x 3
ACP
Patient consented to discuss, was alone, time spent explanation of advance directives, changes in health status, patient�s health care wishes if the patient becomes unable to make health decisions, goals of care, code status, and prognosis- changed
code status to DNR- 'I dont want to be on a ventilator just let me go. richard lived a great life'- 16 minutes
CC Note
Due to a high probability of clinically significant, life-threatening deterioration, the patient required a high level of preparedness to intervene emergently. I personally spent this critical care time directly and personally managing the patient.
This critical care time included obtaining a history; examining the patient; ordering and review of studies and STAT labs; arranging urgent treatment with development of a management plan; evaluation of patient's response to treatment; reassessment;
and, discussions with other providers.
This critical care time was performed to assess and manage the high probability of imminent, life-threatening deterioration that could result in multi-organ failure. It was exclusive of separately billable procedures and treating other patients and
teaching time. Total time documented is also exclusive of any additional time listed that was spent in advance care planning discussion
Total critical care time: Approximately 32 minutes
Original Note:
Today's Communication/Plan
-
* Consult diabetes management.
* Continue heparin with eventual switch back to DOAC.
* Carvedilol and nicardipine for blood pressure control.
Assessment / Plan
Assessment / Plan
Assessment
Weston Richard, 58-year-old male, has had progressive intermittent left lower extremity pain for the past several months. Acutely got worse and came to the hospital on 04-25-24. CT/CTA in the ED showed left occlusion of the iliac stents of common and
external iliac arteries, and he was started on heparin drip. Taken to OR for femoro-femoral bypass. Admitted to the ICU for post-op monitoring.
Impression and plan
Acute LEFT lower extremity ischemia
LEFT common and external iliac stent occlusion
LEFT common femoral endarterectomy partial thrombosis
Severe peripheral arterial occlusive disease
- Post-operative day 1; doing well and pain appropriately controlled.
- Well perfused bilaterally on exam.
- Continue heparin drip for now; eventual switch back to DOAC with increased dosing.
Tobacco use disorder
Current smoker
- About 44 pack-year smoking history.
- Discussed how this has been driving a majority of his health issues.
- He acknowledges but feels addicted and does not believe he can quit.
- Continue nicotine patch.
Bilateral carotid artery disease
Coronary artery disease
Superior mesenteric artery stenosis
History of DC s/p JANNA 2008
History of several balloon angioplasties and stenting
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
- Continue aspirin.
- Asymptomatic for the standpoint of the above.
Leukocytosis
- Chronic, possibly in setting of smoking history.
- Up-tick is likely reactive post-op.
- Can check BC x2.
Primary hypertension
- Elevated post-operatively.
- Started on nicardipine drip for now.
- Added carvedilol; will monitor.
Type II diabetes mellitus
- Poorly-controlled with an A1c of 9.9.
- Continue home insulin and cover with SSI.
- Consult diabetes management for recommendations for insulin dosing.
- Hold metformin while inpatient.
Right lower lobe lung nodule
- Seen on CT incidentally.
- Highly suspicious for malignancy given the rapid increase in size from September 2023.
- Needs biopsy as an outpatient; will refer to pulmonology at discharge.
Abnormal sigmoid colon thickening
- Seen on CT incidentally.
- Not symptomatic from a GI standpoint.
- Colonoscopy in July 2022.
- Will refer at discharge; may need a repeat.
Class I obesity due to excess calorie intake
- Affects all aspects of care.
- Will benefit greatly from a GLP-1 in setting of diabetes and cardiovascular risk reduction.
- Discuss outpatient with primary.
Hyperlipidemia
- Continue atorvastatin.
Peripheral neuropathy
- Continue gabapentin.
Sleep-onset insomnia
- Would benefit from sleep study as outpatient.
- Discuss with primary.
- Continue zolpidem.
Thromboprophylaxis
- On heparin.
Code status
- Full.
Anticipated Discharge: > 48 hours
Subjective/Interval History
-
Date of Service: April 26, 2024
Pain much better post-op. Doing well and has no new complaints. Feels cold but the hugger has helped.
Objective Data
-
Labs:
Laboratory Results
04/26/24 04/26/24 04/26/24
00:42 04:28 07:35
WBC 21.1 H 23.5 H
Hgb 14.7 14.9
Hct 44.5 44.5
Plt Count 269 275
PT 15.2 H 14.1
INR 1.17 1.06
APTT > 200 H* 37.4 H
Sodium 140 138
Potassium 4.1 4.6
Chloride 112 H 107
Carbon Dioxide 19 L 18 L
BUN 13 15
Creatinine 1.0 1.1
Glucose 163 H 187 H
Calcium 7.9 L 8.6
04/26/24 04/26/24
09:30 14:30
WBC
Hgb
Hct
Plt Count
PT
INR
APTT Pending Pending
Sodium
Potassium
Chloride
Carbon Dioxide
BUN
Creatinine
Glucose
Calcium
Vital Signs:
Vital Signs
Temp Pulse Resp BP Pulse Ox
98.7 F 92 20 196/76 95
04/26/24 07:38 04/26/24 07:02 04/26/24 06:00 04/26/24 07:02 04/26/24 05:00
I&O
04/25/24 04/26/24 04/27/24
06:59 06:59 06:59
Intake Total 699 / 699 64 / 64
Output Total 905 / 905 185 / 185
Balance -206 / -206 -121 / -121
Review of Systems
-
History Source: Patient
Constitutional: Reports Fatigue and Chills
EENT: Reports No Symptoms Reported
Respiratory: Reports No Symptoms
Cardiac: Reports No Symptoms
Abdomen/GI: Reports No Symptoms
Genitourinary: Reports No Symptoms
Musculoskeletal: Reports No Symptoms
Skin: Reports No Symptoms
Neuro: Reports No Symptoms
Endocrine: Reports No Symptoms
Hematologic / Lymphatic: Reports No Symptoms
Allergy / Immunology: Reports No Symptoms
Physical Exam
-
General: No Apparent Distress and Comfortable
HEENT: Normocephalic, Atraumatic, Moist Mucous Membranes, Anicteric and No Ptosis
Respiratory: Clear to Auscultation and Non Labored Respirations
Cardiac: Regular Rhythm and S1/S2
GI: Soft, Nontender, Nondistended and No Hepatosplenomegaly
Genito-urinary: No Costovertebral Tender
Musculoskeletal: No Clubbing, No Cyanosis, No Edema and Other (1+ pedal pulses bilaterally)
Skin: Warm, Dry and IV Access / Catheter Site
Neuro: Awake, Alert, Oriented, No Motor Deficits and No Sensory Deficits
Psych: Calm
[2024-04-26] MEDS: CARDENE 200 IV (09:48)
[2024-04-26] MEDS: NOVOLOG FLEXPEN 14 UNITS SC ×2 (09:50→14:23)
--- NOTE | 2024-04-26 10:41 | CON.ONC ---
Impression
Impression
PAD with recurrent stent occlusions despite ASA 81mg and Eliquis 2.5mg bid
RLL lung nodule, smoker
Sigmoid colon thickening on CT Abd
Plan
Plan
Agree w/ consideration to increase Eliquis to 5mg bid in the setting of recurrent stent occlusion (once safe to switch from heparin)
Continue ASA as well for antiplatelet properties
Smoking cessation
f/u with pulm re: suspicious lung nodule, known to Dr. Howell who saw him this admission
Colonoscopy was done in 08/08. Anticipate add'l imaging (ie, PET scan) in setting of suspected lung cancer. If activity persists in colon, would rec. repeat colonoscopy.
Will sign off, please call w/ questions
Patient History
History of Present Illness
Asked to see patient re: anticoagulation recs in the setting of recurrent stent occlusions; also pulmonary nodule and abnormal bowel imaging.
He is a cigarette smoker, presented 04/23/24 with left foot/calf pain. No doppler signal identified in left foot. He underwent right to left femorofemoral bypass 04/25/24. Currently on heparin.
History is noted for extensive PAD, with interventions as below. He's been maintained on Eliquis 2.5 bid and ASA 81mg/d, though vascular surgery is considering full dose Eliquis. He denies bleeding.
CT Abd showed thickening in the sigmoid colon which may be inflammatory. His colonoscopy was last done in 07/2022. It also shows a progressive RLL lung mass, concerning for malignancy. He's known to Dr. Howell, who saw patient this admission.
Past-Medical/Surgical History
Past vascular surgical history:
08/12/19 Balloon angioplasty and stenting of right superficial femoral artery stenosis 5 mm x 120 mm Innova stent proximal SFA and 6 mm x 60 mm Innova stent distal SFA, balloon angioplasty of right external iliac artery (7 mm x 40 mm), balloon
angioplasty and stenting of left common iliac artery (8 mm x 37 mm Express LD), balloon angioplasty of left external iliac artery (7 mm x 40 mm), diagnostic hdctz-af-juqor arteriogram, diagnostic right lower extremity arteriogram Dagoberto Esparza III, MD
03/09/20 Balloon angioplasty and stenting of right superficial femoral artery (Overlapping Zilver PTX's (distal to proximal SFA: 6 mm x 140 mm-->6 mm x 140 mm-->6 mm x 40 mm), diagnostic anexf-ne-cyrei arteriogram, diagnostic right lower extremity
arteriogram- Dagoberto Esparza III, MD
10/13/23 Left common femoral artery endarterectomy with profundoplasty and patch angioplasty using bovine pericardium, removal of intravascular stent from common femoral artery, retrograde balloon angioplasty and stenting of the left common iliac
artery and left external iliac artery (overlapping Quinton VBX stents; 7 mm x 59 mm proximal; 7 mm x 59 mm mid; 7 mm x 39 mm distal), completion left lower extremity arteriogram- Dagoberto Esparza III, MD
10/29/23 Right upper extremity radial artery thrombectomy- Manny Nelson MD
Past Medical History
Past Medical History: CAD, HTN, Hypercholesterolemia, IDDM and Other (CKD)
Past Surgical History: Tonsilectomy and Other (Umbilical hernia repair)
Social History
Tobacco: Smoker (1 pack/day)
Alcohol: Other ('moderately' drinks more than a few times a week)
Allergies / Home Medications
Patient Medication
�Medication �Instructions �Recorded �Confirmed �Last Taken �Type
cilostazol 100 mg tablet 100 mg PO BID Blood Clot 03/09/20 04/25/24 04/25/24 History
Prevention/Tx
metoprolol succinate 25 mg 25 mg PO DAILY Blood Pressure 03/09/20 04/25/24 04/25/24 History
tablet,extended release 24 hr
gabapentin 300 mg capsule 900 mg PO TID pain 03/29/21 04/25/24 04/25/24 History
dapagliflozin propanediol 10 mg 10 mg PO DAILY Diabetes 06/02/22 04/25/24 04/25/24 History
tablet (Farxiga)
metformin 1,000 mg tablet 1,000 mg PO BID Diabetes 06/02/22 04/25/24 04/25/24 History
atorvastatin 80 mg tablet 80 mg PO DAILY High Cholesterol 10/08/23 04/25/24 04/25/24 History
aspirin 81 mg tablet,delayed 81 mg PO DAILY Blood Clot 10/29/23 04/25/24 7 Days Ago History
release Prevention/Tx ~04/18/24
enalapril maleate 10 mg tablet 10 mg PO DAILY blood pressure 10/29/23 04/25/24 04/25/24 History
insulin aspart U-100 100 unit/mL 14 unit SC AC diabetes 10/29/23 04/25/24 Unknown History
(3 mL) subcutaneous pen (Novolog
FlexPen U-100 Insulin aspart)
insulin glargine 100 unit/mL (3 25 unit SC HS diabetes 10/29/23 04/25/24 04/24/24 History
mL) subcutaneous pen (Lantus
Solostar U-100 Insulin)
duloxetine 30 mg capsule,delayed 60 mg PO BID 04/25/24 04/25/24 04/25/24 History
release
rivaroxaban 2.5 mg tablet 2.5 mg PO BID 04/25/24 04/25/24 04/25/24 History
tizanidine 2 mg capsule 2 - 4 mg PO HSPRN PRN muscle spasms 04/25/24 04/25/24 Unknown History
zolpidem 5 mg tablet 5 mg PO HS 04/25/24 04/25/24 Unknown History
Active Medications
Generic Name Dose Route Start Last Admin
Trade Name Freq PRN Reason Stop Dose Admin
Acetaminophen 650 mg 04/25/24 16:06
Acetaminophen 325 Mg Tablet PO 05/23/24 16:05
Q4HPRN PRN
mild pain/ fever>100.5F
Aspirin 81 mg 04/26/24 08:00 04/26/24 08:26
Aspirin 81 Mg (Enteric Coated) Tablet PO 05/24/24 07:59 81 mg
DAILY KENNY Administration
Atorvastatin Calcium 80 mg 04/26/24 08:00 04/26/24 08:26
Atorvastatin (Lipitor) 80 Mg Tablet PO 05/24/24 07:59 80 mg
DAILY KENNY Administration
Bisacodyl 10 mg 04/25/24 19:30
Bisacodyl 10 Mg Rectal Suppository RECTAL 05/23/24 19:29
DAILYPRN PRN
constipation
Carvedilol 6.25 mg 04/26/24 20:00
Carvedilol 6.25 Mg Tablet PO 05/24/24 19:59
BID KENNY
Dapagliflozin 10 mg 04/26/24 08:00 04/26/24 08:26
Dapagliflozin (Farxiga) 10 Mg Tablet PO 05/24/24 07:59 10 mg
DAILY KENNY Administration
Dextrose 12.5 grams 04/25/24 16:06
Dextrose 50% (0.5 Grams/Ml) 50 Ml Syringe IV 05/23/24 16:05
[id number] PRN
hypoglycemia
Protocol
Duloxetine HCl 60 mg 04/25/24 20:00 04/26/24 08:26
Duloxetine Delayed Release 60 Mg Capsule PO 05/23/24 19:59 60 mg
BID KENNY Administration
Enalapril Maleate 10 mg 04/26/24 08:00 04/26/24 07:02
Enalapril 10 Mg Tablet PO 05/24/24 07:59 10 mg
DAILY KENNY Administration
Gabapentin 900 mg 04/25/24 16:06 04/26/24 08:25
Gabapentin 300 Mg Capsule PO 05/23/24 16:05 900 mg
TID KENNY Administration
Glucagon 1 mg 04/25/24 16:06
Glucagon 1 Mg Vial IM 05/23/24 16:05
PRN PRN
hypoglycemia
Protocol
Heparin Sodium 7,000 units 04/25/24 14:00 04/26/24 08:22
Heparin 80 Units/Kg Rebolus-Do Not Discard IV 05/23/24 13:59 7,000 units
PRN PRN Administration
PTT < OR = 64 seconds
Heparin Sodium 3,500 units 04/25/24 14:00
Heparin 40 Units/Kg Rebolus-Do Not Discard IV 05/23/24 13:59
PRN PRN
PTT = 64.1 to 72.9 seconds
Hydralazine HCl 10 mg 04/26/24 01:25 04/26/24 04:41
Hydralazine 20 Mg/Ml Vial IV 05/24/24 01:24 10 mg
Q4HPRN PRN Administration
SBP>180
Hydromorphone HCl 2 mg 04/25/24 19:30
Hydromorphone 2 Mg Tablet PO 05/09/24 19:29
Q4HPRN PRN
moderate pain
Hydromorphone HCl 0.5 mg 04/25/24 19:30 04/26/24 04:51
Hydromorphone 0.5 Mg/0.5 Ml Syringe IV 05/09/24 19:29 0.5 mg
Q2HPRN PRN Administration
severe pain
Heparin Sodium 25,000 units in 250 mls @ 0 mls/hr 04/25/24 14:00 04/25/24 14:07
Heparin 79457 Units/250 Ml IV 250 mls
PER PROTOCOL KENNY Administration
Protocol
Per Protocol
Insulin Glargine 25 units/ 0.25 mls @ 0 mls/hr 04/25/24 22:00 04/26/24 00:09
Device SC 05/23/24 21:59 0.25 mls
HS KENNY Administration
As Directed
Nicardipine/Sodium Chloride 40 mg in 200 mls @ 0 mls/hr 04/26/24 08:30 04/26/24 09:48
Cardene IV 200 mls
PER PROTOCOL KENNY Administration
Protocol
Per Protocol
Insulin Aspart 0 units 04/25/24 18:00 04/26/24 05:36
Insulin Aspart Moderate Resistance 300 Units/3 Ml Pen.Injctr SC 05/23/24 17:59 1 units
Q6 KENNY Administration
Protocol
Insulin Aspart 14 units 04/25/24 16:30 04/26/24 09:50
Insulin Aspart (100 Units/Ml) 3 Ml Flexpen SC 05/23/24 16:29 14 units
AC KENNY Administration
Nicotine 14 mg 04/25/24 17:30 04/26/24 08:26
Nicotine 14 Mg Patch TRANSDERM 05/23/24 17:29 14 mg
DAILY KENNY Administration
Ondansetron HCl 4 mg 04/25/24 18:18
Ondansetron 4 Mg/2 Ml Vial IV 04/26/24 18:18
PACU-ONCEPRN PRN
nausea/vomiting
Prochlorperazine Edisylate 5 mg 04/25/24 18:18
Prochlorperazine 10 Mg/2 Ml Vial IV 04/26/24 18:18
PACU-ONCEPRN PRN
nausea/vomiting
Sodium Chloride 0 flush 04/25/24 17:00
Sodium Chloride 0.9% (Flush) Syringe IV 05/23/24 16:59
PER PROTOCOL KENNY
Zolpidem Tartrate 5 mg 04/25/24 22:00 04/26/24 00:08
Zolpidem Tartrate 5 Mg Tablet PO 05/23/24 21:59 5 mg
HS KENNY Administration
Review of Systems
-
All Other Systems: Not reviewed unless documented
Physical Exam
-
General: Well Developed, Well Nourished and No Apparent Distress
HEENT: Negative Jaundice
Cardiology: Normal Sinus Rhythm
Neurology: Non Focal and No Lateralizing Symptoms
Psych: Calm and Intact Judgement/Insight
Labs
Lab Results
WBC 23.5 10^3/uL (4.8-10.8) H 04/26/24 04:28
RBC 4.85 10^6/uL (4.70-6.10) 04/26/24 04:28
Hgb 14.9 g/dL (13.0-18.0) 04/26/24 04:28
Hct 44.5 % (39.0-52.0) 04/26/24 04:28
MCV 91.8 fL (80.0-94.0) 04/26/24 04:28
MCH 30.7 pg (27.0-31.0) 04/26/24 04:28
MCHC 33.5 g/dL (33.0-37.0) 04/26/24 04:28
RDW 14.7 % (11.5-14.5) H 04/26/24 04:28
Plt Count 275 10^3/uL (130-400) 04/26/24 04:28
MPV 11.6 fL (7.4-10.4) H 04/26/24 04:28
Abs Immat Gran (auto) 0.1 10^3/uL (0-0.05) H 04/25/24 12:50
Absolute Neuts (auto) 11.3 10^3/uL (1.4-6.5) H 04/25/24 12:50
Absolute Lymphs (auto) 2.0 10^3/uL (1.2-3.4) 04/25/24 12:50
Absolute Monos (auto) 0.9 10^3/uL (0.1-0.6) H 04/25/24 12:50
Absolute Eos (auto) 0.2 10^3/uL (0-0.7) 04/25/24 12:50
Absolute Basos (auto) 0.1 10^3/uL (0-0.2) 04/25/24 12:50
Immature Gran % 0.4 % (0-0.5) 04/25/24 12:50
Neutrophils % 77.3 % (42.2-75.2) H 04/25/24 12:50
Lymphocytes % 13.8 % (20.5-51.1) L 04/25/24 12:50
Monocytes % 6.3 % (1.7-9.3) 04/25/24 12:50
Eosinophils % 1.4 % (0-6) 04/25/24 12:50
Basophils % 0.8 % (0-2) 04/25/24 12:50
Creatinine 1.1 mg/dL (0.7-1.3) 04/26/24 04:28
Vital Signs
Vital Signs
Temp Pulse Resp BP Pulse Ox
98.7 F 92 20 196/76 95
04/26/24 07:38 04/26/24 07:02 04/26/24 06:00 04/26/24 07:02 04/26/24 05:00
[2024-04-26 10:51] LABS: Glycohemoglobin (HgbA1c) 9.9 % (4.0-5.6)
[2024-04-26] MEDS: COREG 6.25 MG PO ×2 (11:01→19:38)
--- NOTE | 2024-04-26 11:24 | CM ---
CM following re: discharge planning.
Discussed in Rounds, reviewed pt's chart, met with pt.
Pt is a 58 year old male, admitted with primary dx of POD#1 POD #1 Reoperative BILATERAL groin surgery
Pt reports he lives with a room mate who rents a space in his house, has 2 sons. Per pt, one son visits every weekend and helps as needed. Per pt, his room mate is helpful as well. 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
known to [facility].
PCP: Miguel Chaney
Pharmacy: [facility]
D/C plan: home with anticipated no needs vs VN and family support. Family to transport at discharge.
CM will follow with discharge plan updates as needed.
[2024-04-26] MEDS: DILAUDID 2 MG PO (12:30)
--- NOTE | 2024-04-26 12:41 | PTCARENOTE ---
Pt started on Cardene gtt this am for HTN. Now weaned off. Heparin gtt per protocol. Vilma d/c'd. Weaned O2 to 2L NC. Very faint doppler pedal pulses. All other assessments unchanged.
[2024-04-26 12:45] LABS: Glucose - Point of Care 197 mg/dl (70-99)
--- NOTE | 2024-04-26 12:52 | W.PN.ANS.POP ---
Anesthesia Post Operative
- Anesthesia Post Op Note
Vital Signs Stable-See Nursing Note: Yes
Airway Patent: Yes
Adequate Pain Control: Yes
Change in Mental Status: No
Current Postoperative Nausea & Vomiting: No
Anesthesia Complications: No
General Anesthetic Recall: No
Unplanned Admission: No
Post Op Hydration Adequate: Yes
--- NOTE | 2024-04-26 13:50 | PTCARENOTE ---
OOB to chair with 2 assist. Pt reported dizziness with transfer.
[2024-04-26] MEDS: NOVOLOG FLEXPEN-MODERATE RESISTANCE SC ×2 (14:23→14:57)
[2024-04-26 14:59] LABS: APTT 55.2 Sec (23.4-35.0)
--- NOTE | 2024-04-26 15:19 | PN.DE.MGMTRT ---
Insulin Management
- -
04/27/2023 Diabetes Management Consult
58 year old male who presented to the hospital with progressive intermittent left lower extremity pain for the past several months. Acutely got worse and came to the hospital on 04-25-24. CT/CTA in the ED showed left occlusion of the iliac stents of
common and external iliac arteries, and he was started on heparin drip. Taken to OR for right common femoral artery to left profunda femoral artery bypass and right distal external iliac artery to distal common femoral artery interposition graft.
PMH: PAD, CAD, HTN, HCL, CT, s/p arterial stents, HLD, Active smoker, T2DM. 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 He is
not a good historian and is mixing details about his medications, at times stating that he doesn't remember what he takes. Challenging to tell if he is taking all of his diabetes medications. A1C is 9.9%, Cr 1.1, eGFR >60
Patient is awake alert and oriented able to discuss diabetes management. States his primary care Dr. manages his diabetes.
Current diabetes regimen includes Lantus 25 units @ HS, Farxiga 10mg daily and NovoLog 14 units AC with moderate corrective
His blood glucose range has been 137 to 197, FBG 187 this AM.
Will increase Lantus dose to 27 units and AC NovoLog to 16 units. Cont moderate corrective with meals. Change diet to 1800 fadumo
Patient states he has a working glucose monitor at home but does not monitor his blood sugars.
Will cont to follow and adjust insulin if necessary. Discussed wit Nurse.
Diabetes History
- -
Type of Diabetes: 2 requiring insulin
Pre-Admission Diabetes Regimen
04/26/24 04/26/24
00:42 04:28
Creatinine 1.0 1.1
Lab Results
Hemoglobin A1c 9.9 % (4.0-5.6) H 04/26/24 04:28
Insulin Pump Settings
IP Diabetes Regimen
04/25/24 04/25/24 04/25/24
17:26 20:23 21:51
Glucose
POC Glucose 150 H 137 H 138 H
04/25/24 04/26/24 04/26/24
23:44 00:42 04:28
Glucose 163 H 187 H
POC Glucose 164 H
04/26/24 04/26/24 04/26/24
05:35 09:14 12:34
Glucose
POC Glucose 184 H 162 H 197 H
Meal type: Breakfast
Amount consumed: 80%
Patient Education
[2024-04-26] MEDS: HEPARIN 25000 UNITS/250 ML IV (17:06)
[2024-04-26 17:10] LABS: Glucose - Point of Care 228 mg/dl (70-99)
[2024-04-26 17:12] VITALS: BP 135/74
--- NOTE | 2024-04-26 17:28 | PTCARENOTE ---
Pt OOB 1hr. Requested to go back to bed d/t dizziness and feeling 'high'. CHAR FILTER TANK TENDER notified. D/c'd PO Dilaudid. New order for Oxycodone. A-line d/c'd. No void since goss d/c'd. Bladder scan 175ml. Neurovascular checks WNL. Doppler pedal pulses.
[2024-04-26] MEDS: NOVOLOG FLEXPEN-MODERATE RESISTANCE 3 UNITS SC (18:35)
[2024-04-26] MEDS: NOVOLOG FLEXPEN 16 UNITS SC (18:35)
[2024-04-26 19:20] VITALS: BP 150/71
[2024-04-26] MEDS: ROXICODONE 5 MG PO (19:40)
[2024-04-26 20:00] VITALS: BP 149/68
--- NOTE | 2024-04-26 20:19 | PTCARENOTE ---
assumed care, pt Ox3, [place] and makes needs known, NS c PVCs on the monitor, + radials, doppler pedals refer to neurovascular checks on worklist, rhonchi and coarse, SpO2 98% 4L NC, BSx4, voided 450 ml yellow urine in urinal, B/L groin ASIA drains,
old sanguinous drainage, pt c/o /10 R groin pain refer to MAR, Hep 1300 units, 18G RAC, 18G L hand, CHG bath, call santillan within reach, otherwise refer to documentation.
[2024-04-26 21:00] VITALS: BP 106/68
[2024-04-26 21:51] LABS: Glucose - Point of Care 124 mg/dl (70-99)
[2024-04-26] MEDS: LANTUS 0.27 UNITS SC (21:56)
[2024-04-26 22:00] VITALS: BP 136/77
[2024-04-26 22:19] LABS: APTT 36.9 Sec (23.4-35.0)
[2024-04-26 23:00] VITALS: BP 166/55
[2024-04-27] VITALS (16 sets, daily range): BP systolic 125–164; BP diastolic 59–93; BMI 32.9
--- NOTE | 2024-04-27 00:22 | PTCARENOTE ---
systems reviewed, Hep protocol per worklist, neurovascular checks per worklist, otherwise refer to documentation
[2024-04-27] MEDS: ROXICODONE 5 MG PO ×3 (04:48→20:19)
--- NOTE | 2024-04-27 04:56 | PTCARENOTE ---
systems reviewed, labs sent, pain management per MAR, otherwise refer to documentation
[2024-04-27 05:13] LABS: Hematocrit 38.9 % (39.0-52.0); Hemoglobin 13.5 g/dL (13.0-18.0); Mean Corp Hgb Conc. 34.7 g/dL (33.0-37.0); Mean Corpuscular Hgb 30.9 pg (27.0-31.0); Mean Platelet Volume 11.3 fL (7.4-10.4); Platelet Count 205 10^3/uL (130-400); Red Blood Cell Count 4.37 10^6/uL (4.70-6.10); Red Cell Dist. Width 14.6 % (11.5-14.5); White Blood Cell Count 17.2 10^3/uL (4.8-10.8)
[2024-04-27 05:19] LABS: APTT 35.7 Sec (23.4-35.0)
[2024-04-27 05:35] LABS: Blood Urea Nitrogen 23 mg/dl (9-20); Calcium 8.5 mg/dl (8.4-10.2); Carbon Dioxide 24 mmol/L (22-30); Chloride 100 mmol/L (98-107); Estimated Creatinine Clearance 61 ml/min; Glucose 120 mg/dl (70-99); Potassium 4.1 mmol/L (3.5-5.1); Sodium 132 mmol/L (135-145); eGFR 58.99
[2024-04-27] MEDS: HEPARIN 7000 UNITS IV (05:38)
--- NOTE | 2024-04-27 05:54 | PTCARENOTE ---
PTT resulted lower even after bolus and going up on gtt, flushed IV in RAC and it was patent, no signs of infiltration, switched gtt to IV in hand, protocol followed.
--- NOTE | 2024-04-27 08:03 | W.PN.VS ---
Addendum entered and electronically signed by Manny Nelson MD 04/27/24 13:49:
Seen and examined with ENEDELIA Cartagena. Agree with findings as noted below. Abdomen soft, bilateral groins flat. Javid dressings clean dry and intact bilaterally. No hematomas. Feet warm with dopplerable signals is noted. Calves compartments soft
bilaterally. Plan/as discussed and noted below.
Original Note:
Today's Communication / Plan
-
Patient seen and examined at bedside with Dr. Manny Nelson, below plan reviewed with attending.
Assessment/Plan
-
Assessment: 58-year-old male POD #2 Reoperative BILATERAL groin surgery, right distal external iliac artery to distal common femoral artery interposition graft (8 mm Dacron), right common femoral artery to left profunda femoral artery bypass using 6
mm ring reinforced PTFE graft
Plan:
Will transition from heparin infusion to full anticoagulation with p.o. Eliquis 5 mg twice daily
From a vascular surgical perspective can be downgraded to telemetry
Continue to encourage incentive spirometry
Smoking cessation education
Subjective Data
-
Date of Service: April 27, 2024
Patient seen and examined at bedside, reports adequate post operative pain management. Tolerating Po diet. Denies nausea, vomiting, fever, and chills.
Objective Data
-
Vital Signs
Temp Pulse Resp BP Pulse Ox
98.8 F 86 21 149/76 91
04/27/24 04:30 04/27/24 06:00 04/27/24 06:00 04/27/24 06:00 04/27/24 06:00
Intake and Output
04/26/24 04/27/24 04/28/24
06:59 06:59 06:59
Intake Total 699 / 699 2547 / 2566
Output Total 905 / 905 1355 / 1355
Balance -206 / -206 1192 / 1211
Intake:
Oral fluids 600 / 600 2250 / 2250
IV fluids (Total) 297 / 316
heparin
Output:
Urine, Esparza 905 / 905 455 / 455
Urine, Voided 900 / 900
Lab Results
04/27/24 04:45
04/27/24 04:45
Calcium 8.5 mg/dl (8.4-10.2) 04/27/24 04:45
Total Bilirubin 0.4 mg/dl (0.2-1.3) 04/25/24 13:58
AST 20 U/L (17-59) 04/25/24 13:58
ALT 19 U/L (0-50) 04/25/24 13:58
Alkaline Phosphatase 85 U/L (38-126) 04/25/24 13:58
Total Protein 6.8 g/dl (6.3-8.2) 04/25/24 13:58
Albumin 3.7 g/dl (3.5-5.0) 04/25/24 13:58
Physical Exam
-
No apparent distress, resting in bed comfortably
No tachycardia
No dyspnea
ABD rotund, nontender, nondistended
Bilateral groin javid dressings dry and intact, holding suction, no evidence of hematoma or edema, all surrounding compartments soft
Bilateral PT Doppler signal present, bilateral feet warm
--- NOTE | 2024-04-27 08:10 | W.PN.INTV ---
Today's Communication / Plan
Recommendations
Continue postoperative vascular management as per vascular surgery
Neurovascular checks
Continue Eliquis
prn DuoNebs; outpatient PFTs given suspected COPD
Pain control
Up OOB as tolerated
PT/OT
Nicotine patch; nicotine cessation strongly recommended
Outpatient follow-up for concerning right lower lobe nodule
Patient is stable for downgrade out of ICU to telemetry. No additional recommendations at this time. Professional [employer] Fisherman/Pulmonary service will now sign off. As stated above, outpatient pulmonary office follow-up will be arranged. Please reconsult if
there are any additional questions/concerns, or if patient's respiratory status deteriorates.
Assessment
-
Assessment: 58-year-old male active tobacco smoker with a past medical history of PAD with multiple balloon angioplasties and stenting of the lower extremities + left common femoral endarterectomy, CAD with history of KS s/p JANNA (2008),
hypertension, hyperlipidemia, DM type II, and alcohol use who presents with left lower extremity pain. Patient thought that he was having a DVT, however lower extremity duplex done on admission was negative for a DVT in the left lower extremity.
Initially in the ER, he was afebrile to 97.3 �F, pulse rate 96, respiratory rate 18, BP 165/110, and saturating 98% on room air. Initial labs showed leukocytosis to 14.7, Hb 16.2, sodium 134, and glucose 224. The patient's left foot was cool with
no Doppler signals. CTA abdominal aorta with runoff showed occluded left iliac stents and the common femoral endarterectomy site was filled with thrombus. Patient seen by vascular surgery and plan is for a right to left femoral-femoral bypass.
Patient was admitted to the ICU for closer monitoring while awaiting the OR. Professional [employer] Fisherman services consulted for additional management/recommendations.
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
of DVT
Impression:
#Left lower extremity pain due to ischemia with threatened limb due to occluded left iliac stents and common femoral endarterectomy site is filled with thrombus s/p right distal external iliac artery to distal common femoral artery interposition
graft + right KETTLE WORKER to left profunda femoral artery bypass (POD #2)
#Hypertensive urgency in post-operative period requiring cardene gtt --> now off as of 04/26/2024
#Leukocytosis likely reactive due to above and improving
#Hyponatremia
#DM type II complicated by hyperglycemia (uncontrolled with HbA1c: 9.9 on 04/26/2024)
#Enlarging right lower lobe nodule measuring 1.3 cm on CTA A/P from 04/25/2024 (previously measured 6.3 mm on CTA A/P from 10/08/2023) - concerning for lung cancer
#Active tobacco use (started smoking at age 14, and smokes 1 pack/day)
#Alcohol use
#History of KS s/p JANNA (2008)
#History of DVT
Plan:
- Patient presented with left lower extremity pain with concern for DVT however duplex US was negative. CTA abdominal aorta with runoff on 04/25/2024 showed occlusion of the left-sided iliac stents involving the common and external iliac arteries
with partially thrombosed femoral endarterectomy and long segment SFA and popliteal occlusion on the left with two-vessel runoff.
- Patient seen by vascular surgery, and the left foot was cool with no Doppler signals. Patient underwent bilateral reoperative groin surgery on 04/25/2024, with right distal external iliac artery to distal common femoral artery interposition
graft, and right common femoral artery to left profunda femoral artery bypass using a 6 mm ring reinforced PTFE graft
- Patient transitioned off heparin drip to Eliquis today
- Continue with neurovascular checks as per vascular surgery
- Maintain goal MAP 70�100; patient off of Cardene drip since 04/27/2019 5 in the afternoon
- Nicotine patch
- Maintain SpO2 >90-94%; recommend outpatient PFTs given concern for COPD due to long tobacco smoking history
- Maintain MAP>65
- Trend WBC --> patient is nontoxic-appearing; he did have a fever last night to 100.4 �F, but WBC today is coming down, and he denies any cough or shortness of breath and is on room air breathing comfortably, and saturating 95%; also is
hemodynamically stable. Continue to monitor off antibiotics; continue to monitor for fever
-Blood cultures were collected on 04/26/2024 and urine culture collected today � follow-up these results and if he spikes another fever then would consider starting empiric antibiotics at that time
- Trend serum Na
- Replete electrolytes with K>4, Mg>2
- Maintain euglycemia with goal BG 140-180 with ISS q6hr with pre-meal aspart + lantus; adjust as necessary; diabetic BALLISTICS TESTER on board
- Trend H/H and transfuse if needed to keep Hb>7g/dL; keep plt>50k (given his post-operative status)
- prn nebulized bronchodilators - not currently bronchospastic
- Incentive spirometer encouraged 10x per hour for at least 4 hrs a day
- Of note, he has a right lower lobe nodule measuring 1.3 cm, which is enlarging compared to prior CT abdomen/pelvis from 10/08/[address]23. [address] chest without contrast to assess remainder of the lung kirk and then additional workup
should be discussed as an outpatient --> he will likely need a robotic-assisted lung biopsy. Of note I had seen this patient previously in October 2023 and recommended outpatient follow-up with me at that time given his lung nodule however due to
his insurance he was unable to be scheduled with me - he had apparently been 'living on the streets' and lost his job at the time so he was never seen in our pulmonary office
- DVT ppx: Eliquis
Patient is stable for downgrade out of ICU to telemetry. No additional recommendations at this time. Professional Bass Fisherman/Pulmonary service will now sign off. As stated above, outpatient pulmonary office follow-up will be arranged. Thank you for allowing
us to be involved in the care of this patient. Please reconsult if there are any additional questions/concerns, or if patient's respiratory status deteriorates.
Data:
CTA abdominal aorta with runoff 04/25/2024:
1. Aortic atherosclerotic changes without aneurysmal dilation. High-grade stenosis superior mesenteric artery. Segmental narrowing of the splenic artery.
2. On the right, patent iliac stent and patent femoral to below-knee popliteal bypass. One-vessel runoff via peroneal. On the left, occlusion of iliac stents the common and external iliac arteries. Probable femoral endarterectomy changes which are
partially thrombosed, with narrow caliber patent channel reconstituted at the common femoral. There is long segment SFA and popliteal occlusion on the left. Two-vessel runoff.
3. Right lower lobe 1.3 cm nodule, larger as compared with prior and highly suspicious for malignancy.
4. Abnormal wall thickening of the sigmoid colon. While this may be inflammatory, neoplastic etiology cannot be excluded. This could be further evaluated with colonoscopy.
Total time spent today was 58 minutes for this encounter. Time includes reviewing laboratory test/imaging results, reviewing pertinent medical records, obtaining and reviewing medical history, performing an appropriate exam, ordering medications,
tests and procedures. Time also includes documentation of this encounter, coordinating patient care and communicating with other healthcare professionals. Total time does not include separately billed tests performed on this date of service.
Subjective Dataa
Subjective Data
Date of Service:
Date of Service: April 27, 2024
Chief Complaint: Professional Bass Fisherman Follow Up
Subjective:
Patient was seen and evaluated today at bedside. BP 146/63, and saturating 95% on room air with heart rate 87. He has been off Cardene drip since yesterday afternoon. He is complaining that he has tingling along his left arm where the A-line was
located. He is currently not short of breath. Also denies chest pain. Still has left-sided lower extremity pain. Feet feel warm to touch.
Review of Systems
General: Other (Negative unless mentioned above)
Objective Data
Data Reviewed
Vital Signs / I&O / Oxygen:
Vital Signs
Temp Pulse Resp BP Pulse Ox
99.1 F 83 21 161/78 91
04/27/24 07:30 04/27/24 08:42 04/27/24 06:00 04/27/24 08:42 04/27/24 06:00
Intake and Output
04/26/24 04/27/24 04/28/24
06:59 06:59 06:59
Intake Total 699 / 699 2547 / 2566
Output Total 905 / 905 1355 / 1355
Balance -206 / -206 1192 / 1211
SaO2 91
Nasal Cannula flow liters per 4
minute
Physical Exam
General: Respiratory Distress (negative), Comfortable, Chills (negative) and Sweats (negative)
HEENT: Normocephalic and Anicteric
Cardiovascular: S1-S2, Rub (negative) and Peripheral Edema (negative)
Respiratory: Wheeze (negative), Crackles (Bilaterally), Rhonchi (negative), Accessory Resp Muscle Use (negative) and Stridor (negative)
GI: Soft, Non Distended, Non Tender and Normal Bowel Sounds
Neurology: AO x 3 and Tremors (negative)
Skin: Warm, Dry, Cyanosis (negative) and Jaundice (negative)
Labs/Micro/Reports
Lab Data
04/27/24 04:45
04/27/24 04:45
Laboratory Results
04/26/24 04/26/24 04/26/24
14:30 14:30 21:55
APTT 55.2 H Cancelled 36.9 H
04/27/24
04:45
APTT 35.7 H
--- NOTE | 2024-04-27 08:18 | W.PN.HOSP.TC ---
Addendum entered and electronically signed by Chidi Milligan MD 04/28/24 00:26:
Attending Addendum-
I saw and evaluated the patient. I reviewed the resident�s note and agree with findings and plan as documented in the resident�s note. Sub: denies pain in b/L LE.complain sof pain in left wrist and numbness. Denies CP SOB cough fevers chills
urinary difficulties Full 12 point ROS reviewed and negative except as documented Exam: Vitals reviewed in chart GEN-NAD heart RRR no M/R/G lungs clear abd soft LE no edema b/l groin sites bandaged B/L LE distal pulses dopplerable not palpable
non palp bladder
Plan:
# Acute Critical LLE ischemia/Severe PAD
-POD #2 Reoperative BILATERAL groin surgery, right distal external iliac artery to distal common femoral artery interposition graft (8 mm Dacron), right common femoral artery to left profunda femoral artery bypass using 6 mm ring reinforced PTFE
graft
-transfer to tele
-transition heparin drip to full dose AC d/w hemeonc and VS
-wound care
-Continue aspirin
-DC xarelto (?failure) start full dose eliquis per heme onc
#Right Lower Lobe Lung Nodule
-Noted to be increasing in size, highly suspicious of malignancy
-onc input appreciated -OP follow up with PET scan
# Left wrist numbness
- US-Short segment occlusion of the distal LEFT radial artery with small hematoma within the wrist measuring 1.2 x 0.25 x 0.75 cm
- no surgical intervention per VS
- CTM
#Hypertensive Urgency
-resolved
-Continue enalapril hold metoprolol
-cont coreg
-DC nicardipine gtt
-cont hydralazine prn
# Abnormal wall thickening of the sigmoid colon
- had colon 2022 no reported issues per patient
- will need repeat colon as OP
# Acute Hypoxemic Respiratory Failure
- likely underlying COPD- needs OP PFTS
- wean o2 for sats > 88%
#Hyperlipidemia
-Continue atorvastatin
# Post Op Urinary Retention
- successful TOV s/p DC goss
# Leukocytosis
- likely reactive and secondary to inflammation
- trending down
- check blood cx urine cx for completeness
#Diabetes Mellitus, Type II
-Hold Metformin
-uncontrolled
-Continue Farxiga
-increase Lantus 27 and NovoLog 16 (Home )
-HbA1c 9.9
-Monitor sugars and continue coverage insulin
#Diabetes Neuropathy
-Continue duloxetine and gabapentin
#Coronary Artery Disease s/p Stent
-Continue aspirin
#Tobacco Use Disorder / Nicotine Dependence
-Continue Nicotine Patch
-counselled at great length re smoking cessation
# Severe PAD- recurrent severe disease
- due to continued smoking
- cont asa and DC Xarelto (failure vs pseudo failure) start eliquis/dc hep gtt per vasc surg and hemeonc
DVT proph: Heparin Drip->eliquis
Code Status: Full Code-->DNR AAO x 3
Dispo DC in am after PT- awaiting eval
Time spent coordinating care, review of plan of care with resident, personally reviewed records in EMR, med rec, consults, notes, labs, radiology, d/w nursing � 53 mins
Original Note:
Today's Communication/Plan
-
* IV hydration.
* Increase insulin dosing.
* Heparin to apixaban.
* Hold enalapril.
* Transfer to telemetry.
Assessment / Plan
Assessment / Plan
Assessment
Weston Richard, 58-year-old male, has had progressive intermittent left lower extremity pain for the past several months. Acutely got worse and came to the hospital on 04-25-24. CT/CTA in the ED showed left occlusion of the iliac stents of common and
external iliac arteries, and he was started on heparin drip. Taken to OR for femoro-femoral bypass. Admitted to the ICU for post-op monitoring.
Impression and plan
Acute LEFT lower extremity ischemia
LEFT common and external iliac stent occlusion
LEFT common femoral endarterectomy partial thrombosis
Severe peripheral arterial occlusive disease
- Post-operative day 2; doing well and pain appropriately controlled.
- Well perfused bilaterally on exam.
- Considering his recurrent re-stenosis and suspected underlying malignancy, likely that he now has a baseline hypercoagulable state.
- Switch heparin to therapeutic anticoagulation with apixaban.
Tobacco use disorder
Current smoker
- About 44 pack-year smoking history.
- Discussed how this has been driving a majority of his health issues.
- He acknowledges but feels addicted and does not believe he can quit.
- Continue nicotine patch.
Bilateral carotid artery disease
Coronary artery disease
Superior mesenteric artery stenosis
History of MD s/p JANNA 2008
History of several balloon angioplasties and stenting
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
- Continue aspirin.
- Asymptomatic for the standpoint of the above.
Acute hypoxemic respiratory failure
- Wean oxygen as tolerated.
- Possibly post-op from atelectasis.
- Incentive spirometry.
Acute kidney injury
- Possibly contrast-induced+post-op.
- Hold enalapril.
- Good oral intake; will start maintenance fluids.
- Follow BMP.
Hyponatremia
- Possibly dilutional and/or from pain.
- Follow BMP.
Leukocytosis
- Chronic, possibly in setting of smoking history.
- Up-tick is likely reactive post-op, and normalizing.
- BC x2 pending.
Primary hypertension
Hypertensive urgency, resolved
- Elevated post-operatively; better controlled now.
- Hold enalapril.
- Hydralazine as needed.
- Added carvedilol; will monitor.
Type II diabetes mellitus
- Poorly-controlled with an A1c of 9.9.
- Increase home insulin and cover with SSI.
- Consult diabetes management for recommendations for insulin dosing.
- Hold metformin while inpatient.
Right lower lobe lung nodule
- Seen on CT incidentally.
- Highly suspicious for malignancy given the rapid increase in size from September 2023.
- Needs biopsy as an outpatient; will refer to pulmonology at discharge.
Abnormal sigmoid colon thickening
- Seen on CT incidentally.
- Not symptomatic from a GI standpoint.
- Colonoscopy in July 2022.
- Will refer at discharge; may need a repeat.
Class I obesity due to excess calorie intake
- Affects all aspects of care.
- Will benefit greatly from a GLP-1 in setting of diabetes and cardiovascular risk reduction.
- Discuss outpatient with primary.
Hyperlipidemia
- Continue atorvastatin.
Peripheral neuropathy
- Continue gabapentin.
Sleep-onset insomnia
- Would benefit from sleep study as outpatient.
- Discuss with primary.
- Continue zolpidem.
Thromboprophylaxis
- Apixaban.
Code status
- Full.
Anticipated Discharge: 24 - 48 hours
Subjective/Interval History
-
Date of Service: April 27, 2024
No significant events overnight. Doing well and feels good.
Objective Data
-
Labs:
Laboratory Results
04/26/24 04/27/24 04/27/24
21:55 04:45 11:40
WBC 17.2 H
Hgb 13.5
Hct 38.9 L
Plt Count 205 D
APTT 36.9 H 35.7 H Pending
Sodium 132 L
Potassium 4.1
Chloride 100
Carbon Dioxide 24
BUN 23 H
Creatinine 1.4 H
Glucose 120 H
Calcium 8.5
Vital Signs:
Vital Signs
Temp Pulse Resp BP Pulse Ox
99.1 F 86 21 149/76 91
04/27/24 07:30 04/27/24 06:00 04/27/24 06:00 04/27/24 06:00 04/27/24 06:00
I&O
04/26/24 04/27/24 04/28/24
06:59 06:59 06:59
Intake Total 699 / 699 2547 / 2566
Output Total 905 / 905 1355 / 1355
Balance -206 / -206 1192 / 1211
Review of Systems
-
History Source: Patient
Constitutional: Reports Fatigue
EENT: Reports No Symptoms Reported
Respiratory: Reports No Symptoms
Cardiac: Reports No Symptoms
Abdomen/GI: Reports No Symptoms
Genitourinary: Reports No Symptoms
Musculoskeletal: Reports Muscle Pain (mild, at the surgical scar; controlled with meds)
Skin: Reports No Symptoms
Neuro: Reports No Symptoms
Endocrine: Reports No Symptoms
Hematologic / Lymphatic: Reports No Symptoms
Allergy / Immunology: Reports No Symptoms
Physical Exam
-
General: No Apparent Distress and Comfortable
HEENT: Normocephalic, Atraumatic, Moist Mucous Membranes, Anicteric and No Ptosis
Respiratory: Clear to Auscultation and Non Labored Respirations
Cardiac: Regular Rhythm and S1/S2
GI: Soft, Nontender, Nondistended and No Hepatosplenomegaly
Genito-urinary: No Costovertebral Tender
Musculoskeletal: No Clubbing, No Cyanosis, No Edema and Other (1+ pedal pulses bilaterally)
Skin: Warm, Dry, IV Access / Catheter Site and Other (post-op groin dressing without erythema, tenderness, warmth, swelling or drainage)
Neuro: Awake, Alert, Oriented, No Motor Deficits and No Sensory Deficits
Psych: Calm
--- NOTE | 2024-04-27 08:25 | PN.DE.MGMTRT ---
Insulin Management
- -
04/28/2023 Diabetes Management Consult Follow up
58 year old male who presented to the hospital with progressive intermittent left lower extremity pain for the past several months. Acutely got worse and came to the hospital on 04-25-24. CT/CTA in the ED showed left occlusion of the iliac stents of
common and external iliac arteries, and he was started on heparin drip. Taken to OR for right common femoral artery to left profunda femoral artery bypass and right distal external iliac artery to distal common femoral artery interposition graft.
PMH: PAD, CAD, HTN, HCL, [place], s/p arterial stents, HLD, Active smoker, T2DM. Pt states that he was taking Metformin 1000 mg BID, Farxiga 10 mg, Lantus 25 units @ HS, NovoLog 14 units AC. He is not a good historian and is mixing details about his
medications, at times stating that he doesn't remember what he takes. Challenging to tell if he is taking all of his diabetes medications. A1C is 9.9%, Cr 1.1, eGFR >60
Patient is awake alert and oriented able to discuss diabetes management. States his primary care Dr. manages his diabetes. Expressed frustration at taking SO many pills and not knowing what they are for; believes he is taking too many medications.
04/26 glucose range 184 to 228, AC novolog increased from 14 units to 16 units, HS glucose 124. HS lantus increased from 25 units to 27 units.
04/27 Fasting glucose 120.
Will make no change to current regimen lantus 27 units @ hs with novolog 16 units AC, farxiga 10 mg daily. Will decrease corrective insulin from moderate to low.
Patient states he has a working glucose monitor at home but does not monitor his blood sugars. Explained importance of glucose control and need to test before each meal and HS.
Will cont to follow and adjust insulin if necessary. Discussed wit Nurse.
Diabetes History
- -
Type of Diabetes: 2 requiring insulin
Pre-Admission Diabetes Regimen
04/27/24
04:45
Creatinine 1.4 H
Lab Results
Hemoglobin A1c 9.9 % (4.0-5.6) H 04/26/24 04:28
Insulin Pump Settings
IP Diabetes Regimen
04/26/24 04/26/24 04/26/24
09:14 12:34 16:58
Glucose
POC Glucose 162 H 197 H 228 H
04/26/24 04/27/24
21:39 04:45
Glucose 120 H
POC Glucose 124 H
Meal type: Breakfast
Amount consumed: 80%
Patient Education
[2024-04-27 08:39] LABS: Glucose - Point of Care 106 mg/dl (70-99)
[2024-04-27] MEDS: CYMBALTA DELAYED RELEASE 60 MG PO ×2 (08:41→20:19)
[2024-04-27] MEDS: NEURONTIN 900 MG PO ×3 (08:41→22:35)
[2024-04-27] MEDS: LIPITOR 80 MG PO (08:41)
[2024-04-27] MEDS: ASPIR LOW (ENTERIC COATED) 81 MG PO (08:41)
[2024-04-27] MEDS: FARXIGA 10 MG PO (08:42)
[2024-04-27] MEDS: NICODERM TRANSDERMAL 14 MG TRANSDERM (08:42)
[2024-04-27] MEDS: COREG 6.25 MG PO ×2 (08:42→20:19)
[2024-04-27] MEDS: VASOTEC PO (08:43)
[2024-04-27] MEDS: NOVOLOG FLEXPEN-MODERATE RESISTANCE SC (08:56)
[2024-04-27] MEDS: NSS 1000 IV ×2 (08:59→18:23)
--- NOTE | 2024-04-27 09:15 | PTCARENOTE ---
Rec'd pt at 0700 dozing, awakens easily to verbal stimuli- pulse checks completed with offgoing RN. Rec'd pt alert and oriented. Speech is clear. Denies dizziness or headache. Admits to 6/10 R groin soreness mostly with movement. [place]. Medicated with
Roxicodone 5 mg po at 0800 for the pain. Skin- face is sl flushed otherwise wm and dry. Respirs are unlabored on RA with sats of 95%. BS are sl decreased but clear. No cough noted. Getting about 2300 on IS. Monitor SR-Sinus Arrythmia with PAC's and
PVC's. + pulses. Radial pulses are weak but palp. PT and DP pulses bilat with the doppler. Legs are warm. Bilat groin incisions with ASIA dressings intact. Old drainage on dressings. No reddness or swelling noted. Denies chest pain. VS as
documented. Abd is round and soft with + sl hypoactive BS. Denies nausea. Denies need to void currently. IV Heparin infusing via L hand IV site at 1900 units/hr. Per MD order NSS hung via L hand IV site at 100 ml/hr. Capped int inact R AC. Pt
repositioned. Breakfast ordered. Call santillan in reach. Will wait for breakfast to give Insulin. GLucose this AM 106.
[2024-04-27] MEDS: ELIQUIS 5 MG PO ×2 (10:09→20:20)
[2024-04-27] MEDS: NOVOLOG FLEXPEN 16 UNITS SC ×2 (10:13→15:31)
--- NOTE | 2024-04-27 10:30 | PTCARENOTE ---
Pt slept after Roxicodone and is awake currently and eating breakfast. Tiffanie Grimm in to see him for diabetes management. Novolog 16 units SQ given as pt was eating breakfast. Eliquis 5 mg po given and Heparin gtt stopped at 1015 after Eliquis
dose. Pt verbalizing frustration over the amount of medications he takes and not knowing what many of them do. This RN did explain what medications he was getting but pt commented that it is too much information and it was ruining his breakfast.
Assured pt that on discharge all of the medications he will be going home on will be reviewed. Pt also just now c/o his L hand feeling 'numb'. States the same thing happened after having an A line in his R arm- that now he has chronic numbness and
issues with his hand going from hot to cold. Bilateral radial pulses are weak to palpation but easily audible with the doppler. Hands are warm w ith cap refill <[address] Howell updated and will order an ultrasound. No other changes. Call
santillan in reach.
--- NOTE | 2024-04-27 12:30 | PTCARENOTE ---
Report called to [address] [place] [address]. Assessment is unchanged although states L hand numbness is a 'little' better. Complete CHG bath given. Pt then assisted to the side of the bed and sat on the side of the bed to void. Voided 750 ml of yellow urine- UA sent
as ordered. Pt stood at the bedside- did admit with standing to some neuropathy of his feet. Pulses unchanged. Bilat groin dressings with ASIA drains unchanged. Call santillan in reach. Pt for 2 view chest and US then will go to new room.
[2024-04-27 13:00] LABS: Glucose - Point of Care 200 mg/dl (70-99)
--- NOTE | 2024-04-27 13:01 | PTCARENOTE ---
Pt sent via stretcher and tele pack to XRay and then to US. No other changes
--- NOTE | 2024-04-27 13:16 | CM ---
CM following re: discharge planning.
Reviewed pt's chart, met with pt.
CM consult to check the clay for Eliquis noted. Per pharmacist, pt just filled Xarelto a few days ago and he cannot check the clay for Eliquis. Per pharmacist pt had 0 co-pay for Xarelto and he assumed that pt will have 0 co-pay for Eliquis. Free
30 days coupon for Eliquis given to the pt.
Pt stated he feels he will need [facility]N services at discharge and he had [facility] in the past and pt requested [facility].
A referral to [facility] made.
Pt confirmed he lives with a room mate who rents a space in his house, has 2 sons. Per pt, one son visits every weekend and helps as needed. Per pt, his room mate is helpful as well. 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
works.
D/C plan: home with [facility] and family support.
CM will follow with discharge plan updates as hospitalization progresses
[2024-04-27 13:23] LABS: Urine Albumin 2+ (Neg - Trace); Urine Bilirubin Negative (Negative); Urine Character Clear (Clear); Urine Color Yellow; Urine Glucose 4+ (Negative); Urine Ketone Negative (Negative); Urine Leukocyte Negative (Negative); Urine Nitrite Negative (Negative); Urine Occult Blood Negative (Negative); Urine Specific Gravity 1.015 (<1.030); Urine Urobilinogen Negative (Neg - 1+)
[2024-04-27 13:57] LABS: Urine Bacteria Moderate (Negative); Urine Red Blood Cell 0-2 /HPF (0-2); Urine Squamous Cell 0-2 /LPF (Few); Urine White Cell 0-2 /HPF (0-5)
[2024-04-27 15:02] LABS: Glucose - Point of Care 116 mg/dl (70-99)
[2024-04-27] MEDS: NOVOLOG FLEXPEN-LOW RESISTANCE SC ×2 (15:15→17:43)
[2024-04-27] MEDS: MIRALAX 17 GRAMS PO (16:30)
--- NOTE | 2024-04-27 16:33 | W.PN.UPDATE ---
Addendum entered and electronically signed by Manny Nelson MD 04/27/24 16:46:
Seen and examined with ENEDELIA Cartagena. Findings as noted below. Currently he notes no symptoms in his left hand. No pain, no numbness/coolness/weakness. He just notes intermittent tingling in both hands. Dopplerable ulnar signal and palmar arch
signal. Fingers are pink and warm with brisk capillary refill. Neuro motor/sensory fully intact. Recommend continued anticoagulation. No clear indication for radial artery thrombectomy at this point. Risks may outweigh benefit.
Original Note:
Update Note
Progress Note Update
Notified by hotel maintenance technician team that patient was reporting intermittent mild tingling at left hand, agreed with obtaining radial ultrasound. Ultrasound results reviewed indicate short segment occlusion of left radial artery but patent ulnar artery.
Upon exam patient denies left hand pain, coolness, or decrease in motor/sensation and does indicate intermittent tingling is occurring in bilateral hands, is not bothersome and occurring less frequently. Examined patient with attending Dr. Bryant
Omar, positive ulnar and palmar Doppler signal at left hand, no need for surgical intervention, continue anticoagulation.
[2024-04-27] MEDS: DILAUDID 1 MG IV (16:41)
[2024-04-27 16:53] LABS: Glucose - Point of Care 105 mg/dl (70-99)
[2024-04-27 21:26] LABS: Glucose - Point of Care 122 mg/dl (70-99)
[2024-04-27] MEDS: NOVOLOG FLEXPEN SC (21:34)
[2024-04-27] MEDS: AMBIEN 5 MG PO (22:34)
[2024-04-27] MEDS: LANTUS 0.27 UNITS SC (22:35)
[2024-04-27] MEDS: TYLENOL 650 MG PO (22:49)
--- NOTE | 2024-04-27 23:45 | PTCARENOTE ---
Patient spiked a temp of 101.7, prn Tylenol given. Recheck and temp was 100.6. continuing to monitor.
[2024-04-28] VITALS (7 sets, daily range): BP systolic 143–169; BP diastolic 71–89; PULSE 60–64; O2SAT 98; BMI 33.3
[2024-04-28] MEDS: NSS 1000 IV (06:35)
--- NOTE | 2024-04-28 07:33 | PN.DE.MGMTRT ---
Insulin Management
- -
04/29/2023 Diabetes Management Consult Follow up
58 year old male who presented to the hospital with progressive intermittent left lower extremity pain for the past several months. Acutely got worse and came to the hospital on 04-25-24. CT/CTA in the ED showed left occlusion of the iliac stents of
common and external iliac arteries, and he was started on heparin drip. Taken to OR for right common femoral artery to left profunda femoral artery bypass and right distal external iliac artery to distal common femoral artery interposition graft.
PMH: PAD, CAD, HTN, HCL, CT, s/p arterial stents, HLD, Active smoker, T2DM. Pt states that he was taking Metformin 1000 mg BID, Farxiga 10 mg, Lantus 25 units @ HS, NovoLog 14 units AC. He is not a good historian and is mixing details about his
medications, at times stating that he doesn't remember what he takes. Challenging to tell if he is taking all of his diabetes medications. A1C is 9.9%, Cr 1.1, eGFR >60
Patient is awake alert and oriented able to discuss diabetes management. States his primary care Dr. manages his diabetes. Expressed frustration at taking SO many pills and not knowing what they are for; believes he is taking too many medications.
04/27 glucose range 106 to 200. Received HS lantus 27 units.
04/28 Fasting glucose 73, will reduce HS lantus to 25 units, continue novolog 16 units AC with low corrective and farxiga 10 mg daily.
Patient states he has a working glucose monitor at home but does not monitor his blood sugars. Explained importance of glucose control and need to test before each meal and HS.
Will cont to follow and adjust insulin if necessary. Discussed wit Nurse.
Diabetes History
- -
Type of Diabetes: 2 requiring insulin
Pre-Admission Diabetes Regimen
Lab Results
Hemoglobin A1c 9.9 % (4.0-5.6) H 04/26/24 04:28
Insulin Pump Settings
IP Diabetes Regimen
04/27/24 04/27/24 04/27/24
08:27 12:48 15:00
POC Glucose 106 H 200 H 116 H
04/27/24 04/27/24
16:51 21:25
POC Glucose 105 H 122 H
Meal type: Breakfast
Amount consumed: 90%
Patient Education
[2024-04-28 08:04] LABS: Glucose - Point of Care 73 mg/dl (70-99)
[2024-04-28] MEDS: NOVOLOG FLEXPEN-LOW RESISTANCE SC ×2 (08:17→17:04)
[2024-04-28] MEDS: NOVOLOG FLEXPEN SC (08:36)
[2024-04-28] MEDS: NEURONTIN 900 MG PO ×3 (08:38→22:20)
[2024-04-28] MEDS: ROXICODONE 10 MG PO (08:38)
[2024-04-28] MEDS: COREG 6.25 MG PO ×2 (08:39→20:56)
[2024-04-28] MEDS: ASPIR LOW (ENTERIC COATED) 81 MG PO (08:39)
[2024-04-28] MEDS: FARXIGA 10 MG PO (08:39)
[2024-04-28] MEDS: ELIQUIS 5 MG PO ×2 (08:40→20:56)
[2024-04-28] MEDS: CYMBALTA DELAYED RELEASE 60 MG PO ×2 (08:40→20:55)
[2024-04-28] MEDS: NICODERM TRANSDERMAL 14 MG TRANSDERM (08:40)
[2024-04-28] MEDS: MIRALAX 17 GRAMS PO (08:40)
[2024-04-28] MEDS: LIPITOR 80 MG PO (08:40)
--- NOTE | 2024-04-28 08:52 | W.PN.VS ---
Addendum entered and electronically signed by Manny Nelson MD 04/28/24 15:01:
Note, patient had been febrile overnight. Recommended chest x-ray/UA/workup as noted below. If repeat fevers are noted, then would pursue blood cultures and CT scan imaging.
Addendum entered and electronically signed by Manny Nelson MD 04/28/24 15:00:
Seen and examined with VOCATIONAL REHABILITATION SPECIALIST. Agree with findings as noted below. Patient without any complaints of pain in the legs. Notes intermittent tingling in the hand still. His abdomen is soft. Groins are both flat. Javid dressings clean dry and intact
bilaterally. Feet are warm. Hands are also warm with no rubor, no ulcerations. Brisk capillary refill. Plan/as discussed and noted below.
Original Note:
Today's Communication / Plan
-
Seen and assessed with Dr. Nelson
Assessment/Plan
-
Assessment: 58-year-old male POD #3 Reoperative BILATERAL groin surgery, right distal external iliac artery to distal common femoral artery interposition graft (8 mm Dacron), right common femoral artery to left profunda femoral artery bypass using 6
mm ring reinforced PTFE graft
Plan:
Upper extremity ultrasound/segmental pressures ordered for tingling to bilateral hands
UA, chest x-ray, blood cultures pending for temps
COVID and flu pending
PT/ambulate
Continue to encourage incentive spirometry
Smoking cessation education
Subjective Data
-
Date of Service: April 28, 2024
Patient seen and examined Dr. Nelson. Patient denies pain at this time. Complains of intermittent tingling in bilateral fingers. Denies pain in the hands, decreased sensation, change in temperature. Patient was noted to have temp of 101.7 this
morning. Chest x-ray, UA, cultures pending.
Objective Data
-
Vital Signs
Temp Pulse Resp BP Pulse Ox
99.8 F 88 18 165/79 95
04/28/24 07:20 04/28/24 08:39 04/28/24 07:20 04/28/24 08:39 04/28/24 07:20
Intake and Output
04/27/24 04/28/24 04/29/24
06:59 06:59 06:59
Intake Total 2547 / 2566 826 / 826
Output Total 1355 / 1355 750 / 750
Balance 1192 / 1211
Intake:
Oral fluids 2250 / 2250 350 / 350
IV fluids (Total) 297 / 316 476 / 476
Nss 1,000 ml @ 100 mls/hr IV . 400 / 400
Q10H KENNY Rx#:[id number]
heparin 297 / 316 / 76
Output:
Urine, Esparza 455 / 455
Urine, Voided 900 / 900 750 / 750
Calcium 8.5 mg/dl (8.4-10.2) 04/27/24 04:45
Total Bilirubin 0.4 mg/dl (0.2-1.3) 04/25/24 13:58
AST 20 U/L (17-59) 04/25/24 13:58
ALT 19 U/L (0-50) 04/25/24 13:58
Alkaline Phosphatase 85 U/L (38-126) 04/25/24 13:58
Total Protein 6.8 g/dl (6.3-8.2) 04/25/24 13:58
Albumin 3.7 g/dl (3.5-5.0) 04/25/24 13:58
Physical Exam
-
No apparent distress, resting in bed comfortably
No tachycardia
No dyspnea
ABD rotund, nontender, nondistended
Bilateral groin javid dressings dry and intact, holding suction, no evidence of hematoma or edema, all surrounding compartments soft
Bilateral PT Doppler signal present, bilateral feet warm
[2024-04-28 09:05] LABS: Hematocrit 35.4 % (39.0-52.0); Hemoglobin 11.9 g/dL (13.0-18.0); Mean Corp Hgb Conc. 33.6 g/dL (33.0-37.0); Mean Corpuscular Hgb 30.4 pg (27.0-31.0); Mean Corpuscular Volume 90.5 fL (80.0-94.0); Mean Platelet Volume 11.8 fL (7.4-10.4); Platelet Count 183 10^3/uL (130-400); Red Blood Cell Count 3.91 10^6/uL (4.70-6.10); Red Cell Dist. Width 14.6 % (11.5-14.5)
[2024-04-28 09:16] LABS: COVID-19 Antigen Negative (Negative)
[2024-04-28 09:39] LABS: Blood Urea Nitrogen 17 mg/dl (9-20); Carbon Dioxide 21 mmol/L (22-30); Chloride 105 mmol/L (98-107); Estimated Creatinine Clearance 78 ml/min; Glucose 78 mg/dl (70-99); Potassium 3.9 mmol/L (3.5-5.1); Sodium 132 mmol/L (135-145); eGFR > 60.00
--- NOTE | 2024-04-28 10:10 | PTCARENOTE ---
Addendum entered by Dalila Codrova RN 04/28/24 16:26:
Missing ASIA pump found between bed mattress and bed frame, vascular surgery made aware, ASIA pump reattached to R groin dressing. Patient up as aba to chair, states no concerns at this time, afebrile throughout this shift.
Original Note:
Patient with 101.7F fever overnight, relieved with PRN tylenol per shift stacker RN. Vascular surgery and MD/resident made aware by this RN, orders for blood cx, flu/COVID swabs, xray ordered. This RN in room to assess patient, patient with mild
peripheral neuropathy, states LE neuropathy is chronic but neuropathy in B/L hands is new since A-line placement earlier in admission; US ordered per MD. B/L groin ASIA dressings intact with small amount of drainage, L groin ASIA pump intact, R
groin ASIA pump missing from patient, not in bed/in linens. Vascular made aware, stated they will replace pump when patient is back on floor from tests.
--- NOTE | 2024-04-28 10:41 | VNURNOTE ---
[facility] liaison attempted to meet w/patient- he was off the floor. Will follow up later. [facility] referral in [facility].
[2024-04-28 11:54] LABS: Glucose - Point of Care 192 mg/dl (70-99)
[2024-04-28] MEDS: NOVOLOG FLEXPEN-LOW RESISTANCE 1 UNITS SC (13:00)
[2024-04-28] MEDS: NOVOLOG FLEXPEN 16 UNITS SC ×2 (13:01→18:25)
--- NOTE | 2024-04-28 13:44 | CM ---
Patient seen at bedside
[facility] referral in [facility]-accepted
PLAN: home with [facility]
son to transport
--- NOTE | 2024-04-28 14:44 | W.PN.HOSP.TC ---
Addendum entered and electronically signed by Chidi Milligan MD 04/28/24 23:31:
Attending Addendum-
I saw and evaluated the patient. I reviewed the resident�s note and agree with findings and plan as documented in the resident�s note. Sub: complains left wrist numbness and b/l groin pain. Was febrile overnight. Denies CP SOB cough fevers chills
urinary difficulties Full 12 point ROS reviewed and negative except as documented Exam: Vitals reviewed in chart GEN-NAD heart RRR no M/R/G lungs clear abd soft LE no edema b/l groin sites bandaged B/L LE distal pulses palpable non palp bladder
Plan:
# Acute Critical LLE ischemia/Severe PAD
-POD #3 Reoperative BILATERAL groin surgery, right distal external iliac artery to distal common femoral artery interposition graft (8 mm Dacron), right common femoral artery to left profunda femoral artery bypass using 6 mm ring reinforced PTFE
graft
-cont care in tele
-transitioned heparin drip to full dose eliquis verified with hemeonc
-wound care
-Continue aspirin
-DC xarelto (?failure) cont full dose eliquis per heme onc
# Post Op Fever
- cont IS
- doubt infectious etiology
- check cxr- personally reviewed-r/o PNA
- check covid flu urine
- malignancy related?
#Right Lower Lobe Lung Nodule
-Noted to be increasing in size, highly suspicious of malignancy
-onc input appreciated -OP follow up with PET scan
# Left wrist numbness
- US-Short segment occlusion of the distal LEFT radial artery with small hematoma within the wrist measuring 1.2 x 0.25 x 0.75 cm
- no surgical intervention per VS
- CTM
#Hypertensive Urgency
-resolved
-Continue enalapril hold metoprolol
-cont coreg
-DC nicardipine gtt
-cont hydralazine prn
# Abnormal wall thickening of the sigmoid colon
- had colon 2022 no reported issues per patient
- will need repeat colon as OP
# Acute Hypoxemic Respiratory Failure
- likely underlying COPD- needs OP PFTS
- wean o2 for sats > 88%
#Hyperlipidemia
-Continue atorvastatin
# Post Op Urinary Retention
- successful TOV s/p DC goss
# Leukocytosis
- likely reactive and secondary to inflammation
- trending down
- check blood cx urine cx for completeness
#Diabetes Mellitus, Type II
-Hold Metformin
-uncontrolled now hypoglycemic
-Continue Farxiga
-decrease Lantus 25 and continue NovoLog 16 (Home )
-HbA1c 9.9
-Monitor sugars and continue coverage insulin
#Diabetes Neuropathy
-Continue duloxetine and gabapentin
#Coronary Artery Disease s/p Stent
-Continue aspirin
#Tobacco Use Disorder / Nicotine Dependence
-Continue Nicotine Patch
-counselled at great length re smoking cessation
# Severe PAD- recurrent severe disease
- due to continued smoking
- cont asa and DC Xarelto (failure vs pseudo failure) start eliquis/dc hep gtt per vasc surg and hemeonc
DVT proph: Heparin Drip->eliquis
Code Status: Full Code-->DNR AAO x 3
Dispo DC home with son in am if afebrile
Time spent coordinating care, review of plan of care with resident, personally reviewed records in EMR, med rec, consults, notes, labs, radiology, d/w nursing and VS� 51 mins
Original Note:
Today's Communication/Plan
-
* Fever work-up.
* Continue good oral intake.
* PT-OT.
* Discharge planning.
Assessment / Plan
Assessment / Plan
Assessment
Weston Richard, 58-year-old male, has had progressive intermittent left lower extremity pain for the past several months. Acutely got worse and came to the hospital on 04-25-24. CT/CTA in the ED showed left occlusion of the iliac stents of common and
external iliac arteries, and he was started on heparin drip. Taken to OR for femoro-femoral bypass. Admitted to the ICU for post-op monitoring.
Impression and plan
Acute LEFT lower extremity ischemia
LEFT common and external iliac stent occlusion
LEFT common femoral endarterectomy partial thrombosis
Severe peripheral arterial occlusive disease
- Post-operative day 2; doing well and pain appropriately controlled.
- Well perfused bilaterally on exam.
- Considering his recurrent re-stenosis and suspected underlying malignancy, likely that he now has a baseline hypercoagulable state.
- Switch heparin to therapeutic anticoagulation with apixaban.
Distal LEFT radial artery occlusion
- Stable and no acutely worsening symptoms.
- Vascular surgery following; no interventions indicated at this point.
Fever
- T-max of 101.7 F on 04-28-24.
- Unclear why in absence of any symptoms.
- White count also coming down, and pain better controlled.
- Will check influenza, COVID-19, CXR, BCx2 again.
- Doubt this is of infectious etiology.
- Possibly a post-op process, including drug fever, anesthesia effects, atelectasis.
- No indication to cover empirically with antibiotics based on the above.
Tobacco use disorder
Current smoker
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
- About 44 pack-year smoking history.
- Discussed how this has been driving a majority of his health issues.
- He acknowledges but feels addicted and does not believe he can quit.
- Continue nicotine patch.
Bilateral carotid artery disease
Coronary artery disease
Superior mesenteric artery stenosis
History of GA s/p JANNA 2008
History of several balloon angioplasties and stenting
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
- Continue aspirin.
- Asymptomatic for the standpoint of the above.
Acute hypoxemic respiratory insufficiency, resolved
- Wean oxygen as tolerated.
- Possibly post-op from atelectasis.
- Incentive spirometry.
Acute kidney injury, improving
- Possibly contrast-induced+post-op.
- Hold enalapril.
- Good oral intake; will start maintenance fluids.
- Follow BMP.
Hyponatremia
- Possibly dilutional and/or from pain.
- Follow BMP.
Leukocytosis
- Chronic, possibly in setting of smoking history.
- Up-tick is likely reactive post-op, and normalizing.
- BC x2 pending.
Primary hypertension
Hypertensive urgency, resolved
- Elevated post-operatively; better controlled now.
- Hold enalapril.
- Hydralazine as needed.
- Added carvedilol; will monitor.
Type II diabetes mellitus
- Poorly-controlled with an A1c of 9.9.
- Increase home insulin and cover with SSI.
- Consult diabetes management for recommendations for insulin dosing.
- Hold metformin while inpatient.
Right lower lobe lung nodule
- Seen on CT incidentally.
- Highly suspicious for malignancy given the rapid increase in size from September 2023.
- Needs biopsy as an outpatient; will refer to pulmonology at discharge.
Abnormal sigmoid colon thickening
- Seen on CT incidentally.
- Not symptomatic from a GI standpoint.
- Colonoscopy in July 2022.
- Will refer at discharge; may need a repeat.
Class I obesity due to excess calorie intake
- Affects all aspects of care.
- Will benefit greatly from a GLP-1 in setting of diabetes and cardiovascular risk reduction.
- Discuss outpatient with primary.
Hyperlipidemia
- Continue atorvastatin.
Peripheral neuropathy
- Continue gabapentin.
Sleep-onset insomnia
- Would benefit from sleep study as outpatient.
- Discuss with primary.
- Continue zolpidem.
Thromboprophylaxis
- Apixaban.
Code status
- Full.
Anticipated Discharge: 24 - 48 hours
Subjective/Interval History
-
Date of Service: April 28, 2024
Fever overnight. No new complaints. Pain better.
Objective Data
-
Labs:
Laboratory Results
04/28/24
08:37
WBC 14.0 H
Hgb 11.9 L
Hct 35.4 L
Plt Count 183
Sodium 132 L
Potassium 3.9
Chloride 105
Carbon Dioxide 21 L
BUN 17
Creatinine 1.1
Glucose 78
Calcium 8.0 L
Vital Signs:
Vital Signs
Temp Pulse Resp BP Pulse Ox
98.5 F 77 18 165/71 95
04/28/24 10:59 04/28/24 10:59 04/28/24 10:59 04/28/24 10:59 04/28/24 10:59
I&O
04/27/24 04/28/24 04/29/24
06:59 06:59 06:59
Intake Total 2547 / 2566 826 / 826
Output Total 1355 / 1355 750 / 750
Balance 1192 / 1211 76 / 76
Review of Systems
-
History Source: Patient
Constitutional: Reports Fatigue
EENT: Reports No Symptoms Reported
Respiratory: Reports No Symptoms
Cardiac: Reports No Symptoms
Abdomen/GI: Reports No Symptoms
Genitourinary: Reports No Symptoms
Musculoskeletal: Reports Muscle Pain (mild, at the surgical scar; controlled with meds)
Skin: Reports No Symptoms
Neuro: Reports No Symptoms
Endocrine: Reports No Symptoms
Hematologic / Lymphatic: Reports No Symptoms
Allergy / Immunology: Reports No Symptoms
Physical Exam
-
General: No Apparent Distress and Comfortable
HEENT: Normocephalic, Atraumatic, Moist Mucous Membranes, Anicteric and No Ptosis
Respiratory: Clear to Auscultation and Non Labored Respirations
Cardiac: Regular Rhythm and S1/S2
GI: Soft, Nontender, Nondistended and No Hepatosplenomegaly
Genito-urinary: No Costovertebral Tender
Musculoskeletal: No Clubbing, No Cyanosis, No Edema and Other (1+ pedal pulses bilaterally)
Skin: Warm, Dry, IV Access / Catheter Site and Other (post-op groin dressing without erythema, tenderness, warmth, swelling or drainage)
Neuro: Awake, Alert, Oriented, No Motor Deficits and No Sensory Deficits
Psych: Calm
--- NOTE | 2024-04-28 15:56 | PN.CDI ---
CDI
- -
CDI:
Physician Documentation Request
Admit Date: 04/25/24 14:57
Dear Doctor Tonio,
Hospitalist progress notes 04/26-04/28 include a diagnosis of Acute Hypoxemic Respiratory Failure.
Per documented vital signs, patient has not exceeded 4 L.
Recognized standard criteria for respiratory failure includes:
(Source: [facility] Hospitalist Dec 2012)
ABGs (1 or more)
�PO2 <60 or RA SpO2 <91%
�PcO2 >50 and pH <7.35
�pO2 decrease or pcO2 increase by 10 mmHg from baseline if known Symptoms:
�Tachypnea, SOB, dyspnea
�Pallor or cyanosis
�Anxiety or restlessness
�Use of accessory muscles
�Retractions (grunting in newborns)
�Unable to speak in complete sentences
Supplemental O2 requirement of 40% (5LPM) or more Intubation is not required
Based on the above information and the recognized standard for respiratory failure could you please verify this diagnoses is still accurate and reflective of the patient�s condition to ensure quality of the medical record.
Please clarify in the Progress Notes:
�Respiratory failure is/was present and is a clinical diagnosis based on (please include this additional support in the medical record)
�After study respiratory failure has been ruled out
�Other
Use of terms such as suspected, likely, concern for, or probable (associated with a specific diagnosis that is being evaluated, monitored, or treated as if it exists) are acceptable and can be coded in the inpatient setting, when documented at the
time of discharge.
Thank you,
Debbi Bella RN, BSN
CDI Specialist
tiger text
Please use your independent medical judgment in providing your response.
[2024-04-28] MEDS: NSS IV (16:19)
[2024-04-28 16:53] LABS: Glucose - Point of Care 117 mg/dl (70-99)
[2024-04-28] MEDS: DILAUDID 1 MG IV (19:46)
[2024-04-28 21:44] LABS: Glucose - Point of Care 52 mg/dl (70-99)
[2024-04-28] MEDS: AMBIEN 5 MG PO (22:09)
[2024-04-28 22:11] LABS: Glucose - Point of Care 62 mg/dl (70-99)
[2024-04-28 22:38] LABS: Glucose - Point of Care 103 mg/dl (70-99)
[2024-04-29 00:27] LABS: Glucose - Point of Care 100 mg/dl (70-99)
[2024-04-29] MEDS: DILAUDID 1 MG IV (02:26)
[2024-04-29 03:12] LABS: Glucose - Point of Care 126 mg/dl (70-99)
[2024-04-29 03:39] VITALS: BP 159/82
[2024-04-29 06:00] VITALS: BMI 33.5
[2024-04-29 07:15] VITALS: BP 159/75
[2024-04-29 07:18] LABS: Glucose - Point of Care 118 mg/dl (70-99)
--- NOTE | 2024-04-29 07:50 | PN.DE.MGMTRT ---
Insulin Management
- -
04/30/2023 Diabetes Management Follow up
58 year old male who presented to the hospital with progressive intermittent left lower extremity pain for the past several months. Acutely got worse and came to the hospital on 04-25-24. CT/CTA in the ED showed left occlusion of the iliac stents of
common and external iliac arteries, and he was started on heparin drip. Taken to OR for right common femoral artery to left profunda femoral artery bypass and right distal external iliac artery to distal common femoral artery interposition graft.
PMH: PAD, CAD, HTN, HCL, DC, s/p arterial stents, HLD, Active smoker, T2DM. Pt states that he was taking Metformin 1000 mg BID, Farxiga 10 mg, Lantus 25 units @ HS, NovoLog 14 units AC. He is not a good historian and is mixing details about his
medications, at times stating that he doesn't remember what he takes. Challenging to tell if he is taking all of his diabetes medications. A1C is 9.9%, Cr 1.1, eGFR >60
Patient is awake alert and oriented able to discuss diabetes management. States his primary care DrYannick manages his diabetes. Expressed frustration at taking SO many pills and not knowing what they are for; believes he is taking too many medications.
04/28 glucose range 73 to 192. Noted for an episode of hypoglycemia as low as 52 @ HS. His HS Lantus dose of 27 units was held last night. FBG 118 this AM. Will reduce HS Lantus to 22 units, and reduce AC NovoLog to 14 units. Cont low corrective and
Farxiga 10 mg daily.
Patient states he has a working glucose monitor at home but does not monitor his blood sugars. Explained importance of glucose control and need to test before each meal and HS.
Will cont to follow and adjust insulin if necessary. Discussed wit Nurse.
Diabetes History
- -
Type of Diabetes: 2 requiring insulin
Pre-Admission Diabetes Regimen
04/28/24
08:37
Creatinine 1.1
Lab Results
Hemoglobin A1c 9.9 % (4.0-5.6) H 04/26/24 04:28
Insulin Pump Settings
IP Diabetes Regimen
04/28/24 04/28/24 04/28/24
08:03 08:37 11:52
Glucose 78
POC Glucose 73 192 H
04/28/24 04/28/24 04/28/24
16:51 21:42 22:08
Glucose
POC Glucose 117 H 52 L* 62 L
04/28/24 04/29/24 04/29/24
22:37 00:26 03:09
Glucose
POC Glucose 103 H 100 H 126 H
04/29/24
07:16
Glucose
POC Glucose 118 H
Meal type: Dinner
Meal type: Lunch
Meal type: Breakfast
Amount consumed: 100%
Amount consumed: 100%
Amount consumed: 80%
Patient Education
[2024-04-29 08:01] LABS: % Basophils 0.3 % (0-2); % Eosinophils 2.1 % (0-6); % Immature Granulocytes 0.5 % (0-0.5); % Lymphocytes 11.5 % (20.5-51.1); % Monocytes 14.3 % (1.7-9.3); % Neutrophils 71.3 % (42.2-75.2); Absolute Eosinophils 0.3 10^3/uL (0-0.7); Absolute Immature Granulocytes 0.1 10^3/uL (0-0.05); Absolute Lymphocytes 1.4 10^3/uL (1.2-3.4); Absolute Monocytes 1.7 10^3/uL (0.1-0.6); Absolute Neutrophils 8.5 10^3/uL (1.4-6.5); Hematocrit 33.6 % (39.0-52.0); Hemoglobin 11.4 g/dL (13.0-18.0); Mean Corp Hgb Conc. 33.9 g/dL (33.0-37.0); Mean Corpuscular Hgb 30.7 pg (27.0-31.0); Mean Corpuscular Volume 90.6 fL (80.0-94.0); Mean Platelet Volume 12.1 fL (7.4-10.4); Nucleated Red Blood Cells % 0 % (-); Platelet Count 172 10^3/uL (130-400); Red Blood Cell Count 3.71 10^6/uL (4.70-6.10); Red Cell Dist. Width 14.5 % (11.5-14.5); White Blood Cell Count 11.9 10^3/uL (4.8-10.8)
[2024-04-29 08:43] LABS: ALT (SGPT) 16 U/L (0-50); AST (SGOT) 23 U/L (17-59); Alkaline Phosphatase 71 U/L (38-126); Blood Urea Nitrogen 16 mg/dl (9-20); Calcium 8.2 mg/dl (8.4-10.2); Carbon Dioxide 20 mmol/L (22-30); Chloride 100 mmol/L (98-107); Estimated Creatinine Clearance 86 ml/min; Glucose 117 mg/dl (70-99); Sodium 133 mmol/L (135-145); Total Bilirubin 0.8 mg/dl (0.2-1.3); Total Protein 5.8 g/dl (6.3-8.2); eGFR > 60.00
[2024-04-29] MEDS: MIRALAX 17 GRAMS PO (09:08)
[2024-04-29] MEDS: NOVOLOG FLEXPEN 14 UNITS SC (09:08)
[2024-04-29] MEDS: ASPIR LOW (ENTERIC COATED) 81 MG PO (09:09)
[2024-04-29] MEDS: FARXIGA 10 MG PO (09:09)
[2024-04-29] MEDS: ELIQUIS 5 MG PO (09:09)
[2024-04-29] MEDS: NEURONTIN 900 MG PO (09:09)
[2024-04-29] MEDS: LIPITOR 80 MG PO (09:09)
[2024-04-29] MEDS: COREG 6.25 MG PO (09:10)
[2024-04-29] MEDS: NOVOLOG FLEXPEN-LOW RESISTANCE SC ×2 (09:10→14:07)
[2024-04-29] MEDS: NICODERM TRANSDERMAL 14 MG TRANSDERM (09:10)
[2024-04-29] MEDS: CYMBALTA DELAYED RELEASE 60 MG PO (09:10)
--- NOTE | 2024-04-29 09:54 | VNURNOTE ---
Copy Room Technician met with patient to discuss [facility], visits, schedule and homebound status. Patient is known to home care services. Patient is agreeable and understands that visits at home will be 2-3 x per week to assess and teach
medical management. has dog, aware of pet policy. aware of homebound status.
[2024-04-29] MEDS: NOVOLOG FLEXPEN SC (10:09)
--- NOTE | 2024-04-29 10:26 | W.PN.HOSP.TC ---
Addendum entered and electronically signed by Chidi Milligan MD 04/29/24 22:45:
Attending Addendum-
I saw and evaluated the patient. I reviewed the resident�s note and agree with findings and plan as documented in the resident�s note. Sub: afebrile, feels good. pain controlled. Denies CP SOB cough fevers chills urinary difficulties Full 12 point
ROS reviewed and negative except as documented Exam: Vitals reviewed in chart GEN-NAD heart RRR no M/R/G lungs clear abd soft LE no edema b/l groin sites bandaged B/L LE distal pulses palpable non palp bladder
Plan:
# Acute Critical LLE ischemia/Severe PAD
-POD #4 Reoperative BILATERAL groin surgery, right distal external iliac artery to distal common femoral artery interposition graft (8 mm Dacron), right common femoral artery to left profunda femoral artery bypass using 6 mm ring reinforced PTFE
graft
-cont care in tele
-transitioned heparin drip to full dose eliquis verified with hemeonc
-wound care bandaged replaced
-Continue aspirin
-DC xarelto (?failure) cont full dose eliquis per heme onc
# Post Op Fever
- resolved
- cont IS
- doubt infectious etiology
- check cxr- personally reviewed-no infiltrate
- check covid flu urine blood-neg
#Right Lower Lobe Lung Nodule
-Noted to be increasing in size, highly suspicious of malignancy
-onc input appreciated -OP follow up with PET scan
# Left wrist numbness
- US-Short segment occlusion of the distal LEFT radial artery with small hematoma within the wrist measuring 1.2 x 0.25 x 0.75 cm
- no surgical intervention per VS
- CTM as OP
#Hypertensive Urgency
-resolved
-Continue enalapril hold metoprolol
-cont coreg
-DC nicardipine gtt
# Abnormal wall thickening of the sigmoid colon
- had colon 2022 no reported issues per patient
- will need repeat colon as OP
# Acute Hypoxemic Respiratory Failure
- resolved
- likely underlying COPD- needs OP PFTS
- wean o2 for sats > 88%
#Hyperlipidemia
-Continue atorvastatin
# Post Op Urinary Retention
- successful TOV s/p DC goss
# Leukocytosis
- likely reactive and secondary to inflammation
- trending down
- check blood cx urine cx for completeness - NGTD
#Diabetes Mellitus, Type II
-restart Metformin
-uncontrolled now hypoglycemic
-Continue Farxiga
-decrease Lantus 22 and NovoLog 14 (Home )
-HbA1c 9.9
-counselled re compliance
#Diabetes Neuropathy
-Continue duloxetine and gabapentin
#Coronary Artery Disease s/p Stent
-Continue aspirin
#Tobacco Use Disorder / Nicotine Dependence
-Continue Nicotine Patch
-counselled at great length re smoking cessation
# Severe PAD- recurrent severe disease
- due to continued smoking
- cont asa and DC Xarelto (failure vs pseudo failure) cont new eliquis
DVT proph: Heparin Drip->eliquis
Code Status: Full Code-->DNR AAO x 3
Dispo DC home
Time spent coordinating care, DC planning, review of DC plan of care with resident, transition of care, review of records, med rec/scripts sent electronically, consults, notes, d/w consultants, nursing, and CM� 35 mins
Original Note:
Today's Communication/Plan
-
* Anticipated discharge today.
Assessment / Plan
Assessment / Plan
Assessment
Weston Richard, 58-year-old male, has had progressive intermittent left lower extremity pain for the past several months. Acutely got worse and came to the hospital on 04-25-24. CT/CTA in the ED showed left occlusion of the iliac stents of common and
external iliac arteries, and he was started on heparin drip. Taken to OR for femoro-femoral bypass. Admitted to the ICU for post-op monitoring.
Impression and plan
Acute LEFT lower extremity ischemia
LEFT common and external iliac stent occlusion
LEFT common femoral endarterectomy partial thrombosis
Severe peripheral arterial occlusive disease
- Post-operative day 4; doing well and pain appropriately controlled.
- Well perfused bilaterally on exam.
- Considering his recurrent re-stenosis and suspected underlying malignancy, likely that he now has a baseline hypercoagulable state.
- Continue apixaban indefinitely.
Thromboangiitis obliterans
Tobacco use disorder
Current smoker
- About 44 pack-year smoking history.
- Discussed how this has been driving a majority of his health issues.
- He acknowledges but feels addicted and does not believe he can quit.
- Continue nicotine patch.
- Willing to try bupropion at discharge.
Distal LEFT radial artery occlusion
- Stable and no acutely worsening symptoms.
- Vascular surgery following; no interventions indicated at this point.
Fever
- T-max of 101.7 F on 04-28-24.
- Unclear why in absence of any symptoms.
- White count also coming down, and pain better controlled.
- Will check influenza, COVID-19, CXR, BCx2 again.
- Doubt this is of infectious etiology.
- Possibly a post-op process, including drug fever, anesthesia effects, atelectasis.
- No indication to cover empirically with antibiotics based on the above.
Bilateral carotid artery disease
Coronary artery disease
Superior mesenteric artery stenosis
History of [place] s/p JANNA 2008
History of several balloon angioplasties and stenting
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
- Continue aspirin.
- Asymptomatic for the standpoint of the above.
Acute hypoxemic respiratory insufficiency, resolved
- Wean oxygen as tolerated.
- Possibly post-op from atelectasis.
- Incentive spirometry.
Acute kidney injury, resolved
- Possibly contrast-induced+post-op.
- Hold enalapril.
- Good oral intake; will start maintenance fluids.
- Follow BMP.
Hyponatremia
- Possibly dilutional and/or from pain.
- Follow BMP.
Leukocytosis
- Chronic, possibly in setting of smoking history.
- Up-tick is likely reactive post-op, and normalizing.
- BC x2 pending.
Primary hypertension
Hypertensive urgency, resolved
- Elevated post-operatively; better controlled now.
- Hold enalapril.
- Hydralazine as needed.
- Added carvedilol; will monitor.
Type II diabetes mellitus
- Poorly-controlled with an A1c of 9.9.
- Increase home insulin and cover with SSI.
- Consult diabetes management for recommendations for insulin dosing.
- Hold metformin while inpatient.
Right lower lobe lung nodule
- Seen on CT incidentally.
- Highly suspicious for malignancy given the rapid increase in size from September 2023.
- Needs biopsy as an outpatient; will refer to pulmonology at discharge.
Abnormal sigmoid colon thickening
- Seen on CT incidentally.
- Not symptomatic from a GI standpoint.
- Colonoscopy in July 2022.
- Will refer at discharge; may need a repeat.
Class I obesity due to excess calorie intake
- Affects all aspects of care.
- Will benefit greatly from a GLP-1 in setting of diabetes and cardiovascular risk reduction.
- Discuss outpatient with primary.
Hyperlipidemia
- Continue atorvastatin.
Peripheral neuropathy
- Continue gabapentin.
Sleep-onset insomnia
- Would benefit from sleep study as outpatient.
- Discuss with primary.
- Continue zolpidem.
Thromboprophylaxis
- Apixaban.
Code status
- Full.
Anticipated Discharge: Today
Subjective/Interval History
-
Date of Service: April 29, 2024
Stable overnight and doing well.
Objective Data
-
Labs:
Laboratory Results
04/29/24
07:00
WBC 11.9 H
Hgb 11.4 L
Hct 33.6 L
Plt Count 172
Sodium 133 L
Potassium 4.0
Chloride 100
Carbon Dioxide 20 L
BUN 16
Creatinine 1.0
Glucose 117 H
Calcium 8.2 L
Total Bilirubin 0.8
AST 23
ALT 16
Alkaline Phosphatase 71
Vital Signs:
Vital Signs
Temp Pulse Resp BP Pulse Ox
98.3 F 69 18 159/75 97
04/29/24 07:15 04/29/24 09:10 04/29/24 07:15 04/29/24 09:10 04/29/24 03:39
I&O
04/28/24 04/29/24 04/30/24
06:59 06:59 06:59
Intake Total 1306 / 1306 2220 / 2220
Output Total 750 / 750 1075 / 1075
Balance 556 / 556 1145 / 1145
Review of Systems
-
History Source: Patient
Constitutional: Reports Fatigue
EENT: Reports No Symptoms Reported
Respiratory: Reports No Symptoms
Cardiac: Reports No Symptoms
Abdomen/GI: Reports No Symptoms
Genitourinary: Reports No Symptoms
Musculoskeletal: Reports Muscle Pain (mild, at the surgical scar; controlled with meds)
Skin: Reports No Symptoms
Neuro: Reports No Symptoms
Endocrine: Reports No Symptoms
Hematologic / Lymphatic: Reports No Symptoms
Allergy / Immunology: Reports No Symptoms
Physical Exam
-
General: No Apparent Distress and Comfortable
HEENT: Normocephalic, Atraumatic, Moist Mucous Membranes, Anicteric and No Ptosis
Respiratory: Clear to Auscultation and Non Labored Respirations
Cardiac: Regular Rhythm and S1/S2
GI: Soft, Nontender, Nondistended and No Hepatosplenomegaly
Genito-urinary: No Costovertebral Tender
Musculoskeletal: No Clubbing, No Cyanosis, No Edema and Other (1+ pedal pulses bilaterally)
Skin: Warm, Dry, IV Access / Catheter Site and Other (post-op groin dressing without erythema, tenderness, warmth, swelling or drainage)
Neuro: Awake, Alert, Oriented, No Motor Deficits and No Sensory Deficits
Psych: Calm
--- NOTE | 2024-04-29 10:58 | W.PN.VS ---
Today's Communication / Plan
-
Discussed with Dr. Esparza
Assessment/Plan
-
Assessment: 58-year-old male POD #4 Reoperative BILATERAL groin surgery, right distal external iliac artery to distal common femoral artery interposition graft (8 mm Dacron), right common femoral artery to left profunda femoral artery bypass using 6
mm ring reinforced PTFE graft
Plan:
PT/ambulate
Continue to encourage incentive spirometry
Smoking cessation education
Dressings were placed at bedside
Okay for discharge from vascular standpoint, follow-up added to the chart
Subjective Data
-
Date of Service: April 29, 2024
Patient seen at bedside this a.m. Patient offers no complaints at this time. No events overnight.
Objective Data
-
Vital Signs
Temp Pulse Resp BP Pulse Ox
98.3 F 69 18 159/75 97
04/29/24 07:15 04/29/24 09:10 04/29/24 07:15 04/29/24 09:10 04/29/24 03:39
Intake and Output
04/28/24 04/29/24 04/30/24
06:59 06:59 06:59
Intake Total 1306 / 1306 2220 / 2220
Output Total 750 / 750 1075 / 1075
Balance 556 / 556 1145 / 1145
Intake:
Oral fluids 830 / 830 2220 / 2220
IV fluids (Total) 476 / 476
Nss 1,000 ml @ 100 mls/hr IV . 400 / 400
Q10H KENNY Rx#:[id number]
heparin 76 / 76
Output:
Urine, Voided 750 / 750 1075 / 1075
Other:
Number of approximated LARGE 1
amounts of urine
Lab Results
04/29/24 07:00
04/29/24 07:00
Calcium 8.2 mg/dl (8.4-10.2) L 04/29/24 07:00
Total Bilirubin 0.8 mg/dl (0.2-1.3) 04/29/24 07:00
AST 23 U/L (17-59) 04/29/24 07:00
ALT 16 U/L (0-50) 04/29/24 07:00
Alkaline Phosphatase 71 U/L (38-126) 04/29/24 07:00
Total Protein 5.8 g/dl (6.3-8.2) L 04/29/24 07:00
Albumin 3.0 g/dl (3.5-5.0) L 04/29/24 07:00
Physical Exam
-
No apparent distress, resting in bed comfortably
No tachycardia
No dyspnea
ABD rotund, nontender, nondistended
Bilateral groin javid dressings removed and replaced. No drainage noted, well-approximated.
Bilateral PT Doppler signal present, bilateral feet warm
--- NOTE | 2024-04-29 11:01 | CM ---
Reviewed the chart notes. CM continues to be available to patient/family and is monitoring medical plan for needs at discharge.
Plan: Discharge to home with [facility] services.
[2024-04-29 11:57] LABS: Glucose - Point of Care 172 mg/dl (70-99)
[2024-04-29 14:01] VITALS: BP 157/73
--- NOTE | 2024-04-29 18:02 | W.DCSUMMARY ---
Addendum entered and electronically signed by Chidi Milligan MD 04/29/24 22:46:
Read, reviewed, and agree. See same day progress note for additional details.
Calvin Milligan MD
Original Note:
Documented by User: Michel Elizalde MD, Resident 04/29/24 18:17
Discharge Summary
Discharge Data
Date of Admission: 04/25/24
Date of Discharge: 04/29/24
-
Pending Results: No
Hospital Course
Primary discharge diagnoses
Acute LEFT lower extremity ischemia
LEFT common and external iliac stent occlusion
LEFT common femoral endarterectomy partial thrombosis
Distal LEFT radial artery occlusion
Secondary discharge diagnoses
Severe peripheral arterial occlusive disease
Thromboangiitis obliterans
Tobacco use disorder
Current smoker
Fever
Bilateral carotid artery disease
Coronary artery disease
Superior mesenteric artery stenosis
History of [place] s/p JANNA 2008
History of several balloon angioplasties and stenting
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
Acute hypoxemic respiratory insufficiency
Acute kidney injury
Hyponatremia
Leukocytosis
Primary hypertension
Hypertensive urgency
Type II diabetes mellitus
Right lower lobe lung nodule, suspicious for malignancy
Abnormal sigmoid colon thickening, questionable for malignancy
Class I obesity due to excess calorie intake
Hyperlipidemia
Peripheral neuropathy
Sleep-onset insomnia
Hospital course
Weston Richard, 58-year-old male, has had progressive intermittent left lower extremity pain for the past several months. Acutely got worse and came to the hospital on 04-25-24. CT/CTA in the ED showed left occlusion of the iliac stents of common and
external iliac arteries, and he was started on heparin drip. Taken to OR for femoro-femoral bypass. Did well post-op. Pain had resolved and his vitals had normalized. His diabetic regimen was changed, and he was switched to full dose of
anticoagulation with apixaban. His vitals remained stable throughout the hospital course, and fever work-up was unremarkable - likely drug fever or post-op fever.
Coincidentally, a right lung nodule was found to have expanded rapidly since October 2023, hence highly suspicious for malignancy. Needs outpatient PET and biopsy. Also had colon thickening which might require colonoscopy. Strongly emphasized the
need to quit smoking and will start bupropion to help quit. Follow-up with primary in 1 week. Follow-up with pulmonology, oncology, gastroenterology and vascular surgery.
Discharge Plan
-
Patient Disposition: Home with Home Care
Discharge Diagnosis/Procedures: Acute LEFT lower extremity ischemia
LEFT common and external iliac stent occlusion
LEFT common femoral endarterectomy partial thrombosis
Thromboangiitis obliterans
Severe peripheral arterial occlusive disease
Tobacco use disorder
Current smoker
Right lower lobe lung nodule (SUSPECTED CANCER)
Abnormal sigmoid colon thickening (QUESTION IF CANCER)
Type II diabetes mellitus
Primary hypertension
Hypertensive urgency
Class I obesity due to excess calorie intake
Bilateral carotid artery disease
Coronary artery disease
Superior mesenteric artery stenosis
History of DE s/p JANNA 2008
History of several balloon angioplasties and stenting
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
Acute hypoxemic respiratory insufficiency
Acute kidney injury
Hyponatremia
Leukocytosis
Peripheral neuropathy
Sleep-onset insomnia
Condition: Fair
Diet: Low Fat, Low Cholesterol, Low Sodium and Diabetic, Carb Controlled
Activity: No strenuous activity
Driving Restrictions: Not until seen by your Dr
Bathing Restrictions: OK to Shower
Blood Work: CBC and CMP in 1 week
Others Tests: PET scan AND CT 'ion' chest scan in 1 month
Other Services: VN, PT and OT
Activity Restrictions/Additional Instructions:
The white ASIA dressing on the groin site can be peeled off and removed on 05/02. you may throw the dressing and battery pack away.
Until removal you may disconnect at hub closest to your body to shower and re-connect after shower
The battery pack will vibrate and blink different colors, this is normal.
If the dressing becomes saturated or peels away before removal date that is ok, you may remove it at that time.
After removal if you would like to cover the site with gauze you may, change this daily. You also may leave open to air.
DO NOT SOAK incision. Showering is fine but no standing water(tub/pool).
Keep this incision as dry as you can when not showering.
Instructions: Quitting smoking for adults
Stand Alone Forms: DC Instr - Vascular OR
Referrals:
Son Mg MD [Active] - in four to six weeks
Milka Mcgowan PA-C [Specified Professional Personl] - 05/11/24 2:00 pm
Bijan Howell MD [Active] - in one to two weeks (can see USER EXPERIENCE DEVELOPER if needed; has a concerning RLL nodule and will likely need Ion robotic bronchoscopy for biopsy)
Annie Dominguez MD [Active] - in two to four weeks
Miguel Chaney DO [Family Provider] - in less than 1 week
Prescriptions:
New
apixaban 5 mg tablet
5 mg PO BID 30 Days Qty: 60 0RF
bupropion HCl (smoking deter) 150 mg tablet extended release 12 hr
150 mg PO BID 30 Days Qty: 60 5RF
Rx Instructions:
ONCE DAILY FOR FIRST 3 DAYS; THEM TWICE DAILY
nicotine 21-14-7 mg/24 hr patch, TD daily, sequential
1 patch transdermal DAILY Qty: 56 5RF
Continued
cilostazol 100 MG tablet
100 mg PO BID
metoprolol succinate 25 MG tablet extended release 24 hr
25 mg PO DAILY
gabapentin 300 MG capsule
900 mg PO TID
metformin 1,000 mg Tablet
1,000 mg PO BID
dapagliflozin propanediol [Farxiga] 10 mg Tablet
10 mg PO DAILY
atorvastatin 80 MG tablet
80 mg PO DAILY
enalapril maleate 10 MG tablet
10 mg PO DAILY
aspirin 81 mg tablet,delayed release (DR/EC)
81 mg PO DAILY
zolpidem 5 mg Tablet
5 mg PO HS
duloxetine 30 mg Capsule,Delayed Release(Dr/Ec)
60 mg PO BID
tizanidine 2 mg Capsule
2 - 4 mg PO HSPRN PRN (Reason: muscle spasms)
Changed
insulin aspart U-100 [Novolog FlexPen U-100 Insulin] 100 unit/mL (3 mL) insulin pen
16 unit SC AC Qty: 0 0RF
insulin glargine [Lantus Solostar U-100 Insulin] 100 unit/mL (3 mL) insulin pen
27 unit SC HS Qty: 0 0RF
Discontinued
rivaroxaban 2.5 mg Tablet
2.5 mg PO BID
Discharge Orders:
Discharge Patient (As Directed); Ordered 04/29/24
Ordered By: Michel Elizalde
Discharge Date and Time
Discharge Date/Time: 04/29/24 15:05
Print Language: JORDANIAN

Documented by User: Chidi Milligan MD 04/29/24 22:41
Discharge Summary
Discharge Data
Date of Admission: 04/25/24
Date of Discharge: 04/29/24
Discharge Plan
-
Patient Disposition: Home with Home Care
Discharge Diagnosis/Procedures: Acute LEFT lower extremity ischemia
LEFT common and external iliac stent occlusion
LEFT common femoral endarterectomy partial thrombosis
Thromboangiitis obliterans
Severe peripheral arterial occlusive disease
Tobacco use disorder
Current smoker
Right lower lobe lung nodule (SUSPECTED CANCER)
Abnormal sigmoid colon thickening (QUESTION IF CANCER)
Type II diabetes mellitus
Primary hypertension
Hypertensive urgency
Class I obesity due to excess calorie intake
Bilateral carotid artery disease
Coronary artery disease
Superior mesenteric artery stenosis
History of DE s/p JANNA 2008
History of several balloon angioplasties and stenting
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
Acute hypoxemic respiratory insufficiency
Acute kidney injury
Hyponatremia
Leukocytosis
Peripheral neuropathy
Sleep-onset insomnia
Condition: Fair
Diet: Low Fat, Low Cholesterol, Low Sodium and Diabetic, Carb Controlled
Activity: No strenuous activity
Driving Restrictions: Not until seen by your Dr
Bathing Restrictions: OK to Shower
Blood Work: CBC and CMP in 1 week
Others Tests: PET scan AND CT 'ion' chest scan in 1 month
Other Services: VN, PT and OT
Activity Restrictions/Additional Instructions:
The white ASIA dressing on the groin site can be peeled off and removed on 05/02. you may throw the dressing and battery pack away.
Until removal you may disconnect at hub closest to your body to shower and re-connect after shower
The battery pack will vibrate and blink different colors, this is normal.
If the dressing becomes saturated or peels away before removal date that is ok, you may remove it at that time.
After removal if you would like to cover the site with gauze you may, change this daily. You also may leave open to air.
DO NOT SOAK incision. Showering is fine but no standing water(tub/pool).
Keep this incision as dry as you can when not showering.
Instructions: Quitting smoking for adults
Stand Alone Forms: DC Instr - Vascular OR
Referrals:
Son Mg MD [Active] - in four to six weeks
Milka Mcgowan PA-C [Specified Professional Personl] - 05/11/24 2:00 pm
Bijan Howell MD [Active] - in one to two weeks (can see USER EXPERIENCE DEVELOPER if needed; has a concerning RLL nodule and will likely need Ion robotic bronchoscopy for biopsy)
Annie Dominguez MD [Active] - in two to four weeks
Miguel Chaney DO [Family Provider] - in less than 1 week
Prescriptions:
New
apixaban 5 mg tablet
5 mg PO BID 30 Days Qty: 60 0RF
bupropion HCl (smoking deter) 150 mg tablet extended release 12 hr
150 mg PO BID 30 Days Qty: 60 5RF
Rx Instructions:
ONCE DAILY FOR FIRST 3 DAYS; THEM TWICE DAILY
nicotine 21-14-7 mg/24 hr patch, TD daily, sequential
1 patch transdermal DAILY Qty: 56 5RF
Continued
cilostazol 100 MG tablet
100 mg PO BID
metoprolol succinate 25 MG tablet extended release 24 hr
25 mg PO DAILY
gabapentin 300 MG capsule
900 mg PO TID
metformin 1,000 mg Tablet
1,000 mg PO BID
dapagliflozin propanediol [Farxiga] 10 mg Tablet
10 mg PO DAILY
atorvastatin 80 MG tablet
80 mg PO DAILY
enalapril maleate 10 MG tablet
10 mg PO DAILY
aspirin 81 mg tablet,delayed release (DR/EC)
81 mg PO DAILY
zolpidem 5 mg Tablet
5 mg PO HS
duloxetine 30 mg Capsule,Delayed Release(Dr/Ec)
60 mg PO BID
tizanidine 2 mg Capsule
2 - 4 mg PO HSPRN PRN (Reason: muscle spasms)
Changed
insulin aspart U-100 [Novolog FlexPen U-100 Insulin] 100 unit/mL (3 mL) insulin pen
16 unit SC AC Qty: 0 0RF
insulin glargine [Lantus Solostar U-100 Insulin] 100 unit/mL (3 mL) insulin pen
27 unit SC HS Qty: 0 0RF
Discontinued
rivaroxaban 2.5 mg Tablet
2.5 mg PO BID
Discharge Orders:
Discharge Patient (As Directed); Ordered 04/29/24
Ordered By: Michel Elizalde
Discharge Date and Time
Discharge Date/Time: 04/29/24 15:05
Print Language: JORDANIAN
[2024-05-02 08:32] LABS: ACT-LR - POC 160 Seconds (116-155)
== END 2024-04-29 15:05 | disposition home health service (06) | DRG 271 ==
LOC: 2 NORTH 14:57
PROVIDERS: Nurse Practitioner; Nurse Practitioner Acute Care; Physician Assistant Medical; Student in an Organized Health Care Education/Training Program; ADMITTING PHYSICIAN Hospitalist; ATTENDING PHYSICIAN Family Medicine; CONSULT PHYSICIAN Internal Medicine Critical Care Medicine; EMERGENCY PHYSICIAN Student in an Organized Health Care Education/Training Program; FAMILY PHYSICIAN Family Medicine; OTHER PHYSICIAN Internal Medicine Hematology & Oncology; OTHER PHYSICIAN Surgery Vascular Surgery
PROC: 04UL0JZ Supplement Left Femoral Artery with Synthetic Substitute, Open Approach (ICD-10-PCS; 2024-04-25)
PROC: 04CL0ZZ Extirpation of Matter from Left Femoral Artery, Open Approach (ICD-10-PCS; 2024-04-25)
PROC: 041K0JJ Bypass Right Femoral Artery to Left Femoral Artery with Synthetic Substitute, Open Approach (ICD-10-PCS; 2024-04-25)
PROC: 04CJ0ZZ Extirpation of Matter from Left External Iliac Artery, Open Approach (ICD-10-PCS; 2024-04-25)
DX: T82.868A Thrombosis due to vascular prosthetic devices, implants and grafts, initial encounter (principal); C34.31 Malignant neoplasm of lower lobe, right bronchus or lung; E87.1 Hypo-osmolality and hyponatremia; I74.5 Embolism and thrombosis of iliac artery; N17.9 Acute kidney failure, unspecified; J98.11 Atelectasis; K55.1 Chronic vascular disorders of intestine; I74.2 Embolism and thrombosis of arteries of the upper extremities; E11.51 Type 2 diabetes mellitus with diabetic peripheral angiopathy without gangrene; I25.10 Atherosclerotic heart disease of native coronary artery without angina pectoris; E78.00 Pure hypercholesterolemia, unspecified; F17.210 Nicotine dependence, cigarettes, uncomplicated; D72.829 Elevated white blood cell count, unspecified; E87.5 Hyperkalemia; E11.40 Type 2 diabetes mellitus with diabetic neuropathy, unspecified; I70.222 Atherosclerosis of native arteries of extremities with rest pain, left leg; I12.9 Hypertensive chronic kidney disease with stage 1 through stage 4 chronic kidney disease, or unspecified chronic kidney disease; N18.9 Chronic kidney disease, unspecified; I16.0 Hypertensive urgency; N99.89 Other postprocedural complications and disorders of genitourinary system; E11.22 Type 2 diabetes mellitus with diabetic chronic kidney disease; E66.811 Obesity, class 1; E66.09 Other obesity due to excess calories; R20.0 Anesthesia of skin; F10.90 Alcohol use, unspecified, uncomplicated; R50.82 Postprocedural fever; Y83.1 Surgical operation with implant of artificial internal device as the cause of abnormal reaction of the patient, or of later complication, without mention of misadventure at the time of the procedure; Y71.2 Prosthetic and other implants, materials and accessory cardiovascular devices associated with adverse incidents; Y92.9 Unspecified place or not applicable; I73.1 Thromboangiitis obliterans [Buerger's disease]; R09.02 Hypoxemia; R06.89 Other abnormalities of breathing; G47.00 Insomnia, unspecified; Z66 Do not resuscitate; I25.2 Old myocardial infarction; Z95.820 Peripheral vascular angioplasty status with implants and grafts; Z79.01 Long term (current) use of anticoagulants; Z86.718 Personal history of other venous thrombosis and embolism; Z79.82 Long term (current) use of aspirin; Z79.84 Long term (current) use of oral hypoglycemic drugs; Z79.4 Long term (current) use of insulin; Z95.5 Presence of coronary angioplasty implant and graft; Z91.199 Patient's noncompliance with other medical treatment and regimen due to unspecified reason; Z11.52 Encounter for screening for COVID-19; Z68.33 Body mass index [BMI] 33.0-33.9, adult
CPT/HCPCS: 88305; 35661; 35665; 35681; 71046; 75635; 80048; 80053; 81003; 81015; 82962; 83036; 85025; 85027; 85610; 85730; 86850; 86900; 86901; 87040; 87086; 87502; 87811; 93923; 93930; 93971; 96374; 96375; 97116; 97162; 97166; 99291; 99406; C1768; Q9967

== ENCOUNTER 2024-05-08 20:18 | Inpatient (IN) | payer OTHER, SELFPAY ==
[2024-05-08 17:28] VITALS: BP 177/72
[2024-05-08 17:36] VITALS: BP 177/72
[2024-05-08 18:00] VITALS: BP 175/83
--- NOTE | 2024-05-08 18:11 | ED.GENMED ---
History of Present Illness
General
Chief Complaint: Post Operative Problem(s)
Time Seen by Provider: 05/08/24 17:58
History of Present Illness
History of Present Illness:
Patient is status post BILATERAL groin surgery on 04/[address] Esparza.He had a right distal external iliac artery to distal common femoral artery interposition graft (8 mm Dacron), right common femoral artery to left profunda femoral artery bypass
using 6 mm ring reinforced PTFE graft. Has a history of, coronary artery disease, diabetes, tobacco use, alcohol use. p/w worsening pain and leakage from the right groin. States the pain a few days ago. Notes worsening dyspnea area since.
endorses foul-smelling drainage. Denies fevers or chills.
Past History
Past History
ED Past Medical History: CAD, HTN, Hypercholesterolemia, NIDDM, MD and Other
ED Past Surgical History: Tonsilectomy and Other
Patient has exhibited threatening behavior?: No
Social History
Tobacco: Smoker (1 PPD)
Alcohol: Other ('moderately' drinks more than a few times a week.)
Personal:
Living: with family
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
Family History
Family History: CAD
Phy Exam
Physical Exam
Physical Exam:
GENERAL APPEARANCE: NAD, well developed/ well nourished
EYES lids/conjunctiva normal
EARS/NOSE/THROAT Mucous membranes moist, uvula midline without oral pharyngeal erythema, exudate or swelling
HEAD/NECK normocephalic atraumatic, neck is supple.
RESPIRATORY respiratory effort normal, speaks in full sentences, no accessory muscle use. Lungs clear to auscultation without rhonchi, wheezes, rales
CARDIAC Regular rate and rhythm, no edema.
ABDOMINAL he has bilateral inguinal incisions with meron. The right wound is dehiscing with edema tracking up right lower abdomen. There is no scrotal or perineal erythema or rash. There is no crepitus or bullae. there is foul-smelling drainage.
MUSCLES/EXTREMITIES No abnormal range of motion, no swelling. The feet are warm and normal in color bilaterally. there are no palpable pulses in bilateral lower extremities. He has a dopplerable DP/PT signal on the L. There is dopplerable biphasic
signal to PT on R. No dopplerable signal to R PT
SKIN Warm, pink and dry. No rashes
NEUROLOGICAL Speech is clear and appropriate. Normal level of consciousness. 5/5 strength in all extremities.
PSYCH Normal mood and affect. Judgement/competence is appropriate
Course
Orders/Labs/Results
Orders:
Orders
05/08/24 Dinner
2000 calorie (17 carb) Diabetic
At Your Request: Full Participation
Does patient need a safe tray?: No
05/08/24 17:33
EKG [Electrocardiogram (*1)] Urgent
Reason for Study: Chest Pain
EKG- Treatment ONCE
05/08/24 17:57
Complete Blood Count/With Diff Urgent
05/08/24 17:58
Wound Culture [Wound/Abscess/Other Culture] Urgent
YG Source: Groin
Specimen Description: Right
Date Specimen was Collected: 05/08/24
Time Specimen was Collected: 17:35
Comment: right groin surgical incision
05/08/24 18:15
Morphine Sulfate 4 mg IV NOW STA
Piperacillin/Tazo 4.5 Gram [Zosyn] 4.5 gram in 100 ml IV NOW
05/08/24 18:16
0.9% Sodium Chloride 1000 ml [Nss] 1,000 ml IV BOLUS
05/08/24 18:31
Comprehensive Metabolic Panel Urgent
Lactate Level [Lactic Acid] Urgent
PT/INR [Prothrombin Time] Urgent
PTT Urgent
05/08/24 18:32
Blood Culture Q1
YG Source: Blood/Venous
Specimen Description:
Date Specimen was Collected: 05/08/24
Time Specimen was Collected: 17:33
05/08/24 18:33
Blood Culture Q1
YG Source: Blood/Venous
Specimen Description:
Date Specimen was Collected: 05/08/24
Time Specimen was Collected: 17:33
05/08/24 18:46
Vancomycin [Vancocin] 2,000 mg 0.9% Sodium Chloride 500 ml [Nss] 500 ml IV NOW
05/08/24 19:16
CT Abd Aorta Angio W/ Run Off Urgent
Comment:
Reason For Exam: fem-fem bypass, no dp dopppler in R,infected
05/08/24 19:54
Admit/Transfer Patient As Directed
Co-Sign Provider:
Level of Care: Inpatient admission
Assign to:: Telemetry
Physician / Group: ingrid
Diagnosis: wound dehiscence
Reason for Telemetry: Arrhythmia
Date to Stop Telemetry: 05/11/24
Time to Stop Telemetry: 11:00
Reason for Hospitalization: wound dehiscence
Expected length of stay greater than two midnights?: Yes
ELOS- Estimated Length of Stay in days: 2
I certify the patient meets the requirements for IP care: Yes
PRN Pain Medication Management As Directed
May give lesser potent ordered pain med per pt: Yes
preference::
Protocol:: Medication orders for pain may be administered in a
manner that supports deferring to patient preference
when the pt is:
- Requesting an ordered lesser potent pain medication.
Least to most potent pain medications are defined
as: acetaminophen < NSAID < tramadol < opioids
(morphine, oxycodone, hydromorphone).
- Requesting a lesser dose of the same medication IF
ORDERED.
- Requesting a less intrusive route of administration
if both routes are prescribed by the provider (PO <
IV).
05/08/24 19:56
Code Status As Directed
Resuscitation Status: Full Code
05/08/24 21:26
0.9% Sodium Chloride 1000 ml [Nss] 1,000 ml IV 100 mls/hr
Acetaminophen [Tylenol] 650 mg PO Q4HPRN PRN
Dextrose 50%-Water [Dextrose 50% Syringe] 12.5 grams IV [id number] PRN
Glucagon [GlucaGen] 1 mg IM PRN PRN
HYDROmorphone [Dilaudid] 0.5 mg IV Q4HPRN PRN
Heparin 5,000 units SC Q12
HydrALAZINE [Apresoline] 5 mg IV Q6HPRN PRN
05/08/24 21:26
Vascular Surgery Consult Routine
Consulting Provider: Mela Jimenes
Was physician already notified: Yes
Activity As Directed
Activity Level: As Tolerated
Bedside Glucose Monitoring As Directed
Frequency: AC&HS
Additional Instructions:: Change to q6h if pt on TPN, tube feeding or not eating
Vital Signs As Directed
Frequency: Per unit guidelines
DX Deep Vein Thrombosis Video Routine
05/08/24 22:00
Gabapentin [Neurontin] 600 mg PO TID
Zolpidem Tartrate [Ambien] 5 mg PO HS
05/09/24 00:00
Piperacillin/Tazo 3.375 Gram [Zosyn] 3.375 gram in 50 ml IV Q6
05/09/24 Breakfast
NPO
Allow oral meds: Yes
Allow clear liquids: Sips of Clears
Complete Blood Count/With Diff IN AM
Comprehensive Metabolic Panel IN AM
05/09/24 07:30
Insulin Aspart Corrective Low [Novolog Flexpen-Low Resistance] See Protocol SC AC
Insulin Aspart Pen [Novolog Flexpen] 16 units SC AC
05/09/24 08:00
Aspirin Low Dose EC [Aspir Low (Enteric Coated)] 81 mg PO DAILY
Atorvastatin [Lipitor] 80 mg PO DAILY
Bupropion(12Hr)Sustain Release [WELLBUTRIN SR (12 hour sustained release)] 150 mg PO BID
Cilostazol [Pletal] 100 mg PO BID
Dapagliflozin [Farxiga] 10 mg PO DAILY
Duloxetine Delayed Release [Cymbalta Delayed Release] 60 mg PO BID
Enalapril [Vasotec] 10 mg PO DAILY
Metoprolol Xl [Toprol Xl] 25 mg PO DAILY
Nicotine [Nicoderm Transdermal] 14 mg TRANSDERM DAILY
05/11/24 11:00
DC Protocol for Telemetry ONCE
Abnormal Lab Results
05/08/24 05/08/24
17:57 18:31
WBC 26.0 H 10^3/uL
(4.8-10.8)
RBC 4.19 L 10^6/uL
(4.70-6.10)
Hgb 12.5 L g/dL
(13.0-18.0)
Hct 37.7 L %
(39.0-52.0)
Plt Count 513 H 10^3/uL
(130-400)
MPV 10.6 H fL
(7.4-10.4)
Abs Immat Gran (auto) 0.2 H 10^3/uL
(0-0.05)
Absolute Neuts (auto) 22.8 H 10^3/uL
(1.4-6.5)
Absolute Monos (auto) 1.6 H 10^3/uL
(0.1-0.6)
Immature Gran % 0.8 H %
(0-0.5)
Neutrophils % 87.7 H %
(42.2-75.2)
Lymphocytes % 4.5 L %
(20.5-51.1)
Glucose 198 H mg/dl
(70-99)
AST 16 L U/L
(17-59)
05/08/24 17:57
05/08/24 18:31
Vital Signs
Initial and Last Documented VS:
Initial Vital Signs
BP
177/72
05/08/24 17:28
Last Documented Vital Signs
Temp Pulse Resp BP Pulse Ox
99 F 92 22 149/75 99
05/08/24 21:25 05/08/24 21:25 05/08/24 21:25 05/08/24 21:25 05/08/24 21:25
*Critical Care Note
Total Time (30-74mins, 75-104mins- exclusive of procedures): Not Applicable
ED Attending Note
ED Attending Note
ED Attending Note:
THONYMAURISIOMASHA Obdulio 58M BED 25
hx severe PAD, tobacco use, CAD, DM
was admitted for LLE ischemia and had fem-fem bypass
returns to ER today with wound dehsicense to R groin. It appears infected
afebrile, hemodynamically stable
He has dopplerable signals in both feet -- unable to get doppler signal of R DP though
WBC 26, lactate normal
wound/blood cultures sent, given broad spectrum antibiotics
vascular consulted
admit to hospitalist
-
Portions of this chart may have been created with voice recognition software.� Occasional wrong word or��sound alike� substitutions may have occurred due to the inherent limitations of voice recognition software.
Discharge Plan
Departure
Patient Disposition: Admit
Date of Disposition: 05/08/24
Time of Disposition: 19:16
Presentation/result/management discussed w/ accepting MD/DO: Hospitalist
Discharge Problem:
Post-operative infection
Interventions
Interventions:
*Risk Screen - Suicide Last Done: 05/08/24 18:05
*General Assessment Last Done: 05/08/24 18:05
*Neglect/Abuse Screening Last Done: 05/08/24 18:05
*ED- Fall Risk Assessment Last Done: 05/08/24 18:05
*ED COVID-19 Vaccine History Last Done: 05/08/24 18:05
*Nursing Disposition Last Done: 05/08/24 21:18
ED-Skin Assessment Last Done: 05/08/24 19:58
Discharge Date and Time
Discharge Date/Time: 05/08/24 21:18
[2024-05-08 18:17] LABS: Hematocrit 37.7 % (39.0-52.0); Hemoglobin 12.5 g/dL (13.0-18.0); Mean Corp Hgb Conc. 33.2 g/dL (33.0-37.0); Mean Corpuscular Hgb 29.8 pg (27.0-31.0); Red Blood Cell Count 4.19 10^6/uL (4.70-6.10); Red Cell Dist. Width 13.9 % (11.5-14.5)
[2024-05-08] MEDS: MORPHINE SULFATE 4 MG IV (18:24)
[2024-05-08] MEDS: ZOSYN 100 IV (18:24)
[2024-05-08 18:31] LABS: % Basophils 0.4 % (0-2); % Eosinophils 0.5 % (0-6); % Immature Granulocytes 0.8 % (0-0.5); % Lymphocytes 4.5 % (20.5-51.1); % Monocytes 6.1 % (1.7-9.3); % Neutrophils 87.7 % (42.2-75.2); Absolute Basophils 0.1 10^3/uL (0-0.2); Absolute Eosinophils 0.1 10^3/uL (0-0.7); Absolute Immature Granulocytes 0.2 10^3/uL (0-0.05); Absolute Lymphocytes 1.2 10^3/uL (1.2-3.4); Absolute Monocytes 1.6 10^3/uL (0.1-0.6); Absolute Neutrophils 22.8 10^3/uL (1.4-6.5); Mean Platelet Volume 10.6 fL (7.4-10.4); Nucleated Red Blood Cells % 0 % (-); Platelet Count 513 10^3/uL (130-400)
[2024-05-08] MEDS: NSS 1000 IV ×2 (18:41→22:33)
[2024-05-08 18:55] LABS: APTT 31.5 Sec (23.4-35.0); INR 1.11; PT 14.6 Sec (11.4-14.6)
[2024-05-08 19:00] VITALS: BP 185/86
[2024-05-08 19:00] LABS: Lactic Acid 1.3 mmol/L (0.7-2.0)
[2024-05-08 19:08] LABS: ALT (SGPT) 16 U/L (0-50); AST (SGOT) 16 U/L (17-59); Albumin 3.8 g/dl (3.5-5.0); Alkaline Phosphatase 87 U/L (38-126); Blood Urea Nitrogen 16 mg/dl (9-20); Calcium 9.1 mg/dl (8.4-10.2); Carbon Dioxide 22 mmol/L (22-30); Chloride 103 mmol/L (98-107); Estimated Creatinine Clearance 75 ml/min; Glucose 198 mg/dl (70-99); Potassium 4.8 mmol/L (3.5-5.1); Sodium 135 mmol/L (135-145); Total Bilirubin 0.6 mg/dl (0.2-1.3); Total Protein 7.1 g/dl (6.3-8.2); eGFR > 60.00
[2024-05-08] MEDS: VANCOCIN 540 MG IV (19:43)
--- NOTE | 2024-05-08 19:45 | EDRN ---
This RN attempted IV insertion L ACF for CT angio, unable to advance catheter after blood return. Pressure dressing applied. [place] RN attempting US guided IV access for CT
[2024-05-08 20:00] VITALS: BP 175/96
--- NOTE | 2024-05-08 20:07 | HPS.HSE ---
Family Physician
-
Family Physician: Miguel Chaney
Chief Complaint
-
right groin pain
History of Present Illness
58-year-old male past medical history of radial artery occlusion status post thrombectomy, CAD, PAD status post revascularization of right lower extremity on Xarelto, thromboangiitis obliterans, superior mesenteric artery stenosis, prior [employer]
endarterectomy/stent, bilateral carotid artery stenosis, type 2 diabetes, hypertension, hyperlipidemia, tobacco dependence, peripheral neuropathy, obesity, presenting with pain in his right groin starting a few days ago. He feels a little bit of
short of breath secondary to pain. He denies any fevers or chills. He denies chest pain.
Patient was recently admitted from 04/25 to 04/29 for progressive left lower extremity pain which acutely got worse. He underwent femorofemoral bypass. He was eventually started on Eliquis.
He still smokes. He only drinks alcohol occasionally.
Medical History
Past Medical History
Past Medical History: Reports Other (radial artery occlusion status post thrombectomy, CAD, PAD status post revascularization of right lower extremity on Xarelto, thromboangiitis obliterans, superior mesenteric artery stenosis, prior [employer]
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
Past Surgical History: Reports Other (Tonsilectomy)
Social History
Tobacco: Smoker
Alcohol: None
Drug: None
Family History
Family History: Not pertinent
Allergies / Home Medications
Allergies reflects when Allergies were last updated in [facility].
Home Medications with original date entered in [facility]
Allergy/Medication List:
Allergies
Allergy/AdvReac Type Severity Reaction Status Date / Time
No Known Allergies Allergy Verified 05/08/24 17:38
Home Medications
cilostazol 100 mg tablet 100 mg PO BID Blood Clot Prevention/Tx 03/09/20
metoprolol succinate 25 mg tablet,extended release 24 hr 25 mg PO DAILY Blood Pressure 03/09/20
gabapentin 300 mg capsule 900 mg PO TID pain 03/29/21
dapagliflozin propanediol 10 mg tablet (Farxiga) 10 mg PO DAILY Diabetes 06/02/22
metformin 1,000 mg tablet 1,000 mg PO BID Diabetes 06/02/22
atorvastatin 80 mg tablet 80 mg PO DAILY High Cholesterol 10/08/23
aspirin 81 mg tablet,delayed release 81 mg PO DAILY Blood Clot Prevention/Tx 10/29/23
enalapril maleate 10 mg tablet 10 mg PO DAILY blood pressure 10/29/23
duloxetine 30 mg capsule,delayed release 60 mg PO BID Mental Health/Anxiety 04/25/24
tizanidine 2 mg capsule 2 - 4 mg PO HSPRN PRN muscle spasms 04/25/24
zolpidem 5 mg tablet 5 mg PO HS Sleep 04/25/24
apixaban 5 mg tablet 5 mg PO BID 30 days #60 tabs 04/27/24
insulin aspart U-100 100 unit/mL (3 mL) subcutaneous pen (Novolog FlexPen U-100 Insulin aspart) 16 unit (0.16 mL) SC AC diabetes #0 mL 04/27/24
insulin glargine 100 unit/mL (3 mL) subcutaneous pen (Lantus Solostar U-100 Insulin) 27 unit (0.27 mL) SC HS diabetes #0 mL 04/27/24
bupropion HCl (smoking deter) 150 mg tablet,12 hr sustained-release(smoking deterrent) 150 mg PO BID smoking 30 days #60 tabs 04/29/24
nicotine 21mg/24hr-14mg/24hr-7mg/24hr daily transderm patches,sequentl 1 patch transdermal DAILY #56 patches 04/29/24
Review of Systems
-
History Source: Patient
A 12 point ROS was completed and negative except as noted: Yes
Constitutional: Reports No Symptoms
EENT: Reports No Symptoms
Respiratory: Reports No Symptoms
Cardiac: Reports No Symptoms
Abdomen/GI: Reports See HPI
: Reports No Symptoms
Musculoskeletal: Reports No Symptoms
Skin: Reports No Symptoms
Neurological: Reports No Symptoms
Endocrine: Reports No Symptoms
Hematologic/Lymphatic: Reports No Symptoms
Psych: Reports No Symptoms
Physical Exam
Vital Signs
Vital Signs
Temp Pulse Resp BP Pulse Ox
99.7 F 82 21 185/86 95
05/08/24 19:46 05/08/24 19:00 05/08/24 19:00 05/08/24 19:00 05/08/24 18:45
Physical Exam
General: Well Developed, Well Nourished and No Apparent Distress
HEENT: NormoCephalic, Moist mucous membranes and Atraumatic
Respiratory: Clear
Cardiac: S1/S2 and Regular Rhythm; No Murmur or Rub
GI: Soft, Non Tender, Non Distended and Normal Bowel Sounds; No Organomegaly
Rectal: Deferred by Provider
Genito-urinary: Other (right groin wound dehiscence )
Musculoskeletal: No Clubbing, No Cyanosis and No Edema
Skin: No Rash
Neuro: Nonfocal/grossly intact
Laboratory Results
-
05/08/24 17:57
05/08/24 18:31
Laboratory Results
PT 14.6 Sec (11.4-14.6) 05/08/24 18:31
INR 1.11 05/08/24 18:31
APTT 31.5 Sec (23.4-35.0) 05/08/24 18:31
Lactic Acid 1.3 mmol/L (0.7-2.0) 05/08/24 18:31
Total Bilirubin 0.6 mg/dl (0.2-1.3) 05/08/24 18:31
AST 16 U/L (17-59) L 05/08/24 18:31
ALT 16 U/L (0-50) 05/08/24 18:31
Alkaline Phosphatase 87 U/L (38-126) 05/08/24 18:31
Data Reviewed
-
Lab Data: Labs Reviewed by me
Old Records: Reviewed
Impression/Plan
-
IMPRESSION:
PLAN:
# Wound dehiscence of right groin with infection
-Leukocytosis 26
-Wound culture, blood culture sent
-IV fluids given, continue
-Vancomycin/Zosyn
-CT abdomen aorta angio with runoff pending
-Vascular surgery consult
-Dilaudid for pain
-Hold Eliquis
-N.p.o. past midnight for potential washout tomorrow
# Recent acute left lower extremity critical limb ischemia/severe PAD status post femorofemoral bypass
# History of prior [employer] endarterectomy/stent
-Hold Eliquis for potential washout
-Continue aspirin, statin
-Continue cilostazol
# Hypertensive urgency secondary to pain
-PRN dilaudid
-As needed hydralazine if needed
Right lower lobe lung nodule
-Outpatient follow-up with pulmonology for PET scan/biopsy
Essential hypertension
-Continue enalapril
Abnormal wall thickening of the sigmoid colon
Likely underlying COPD
Hyperlipidemia
Type 2 diabetes
-Blood sugar 198
-Continue dapagliflozin
-Continue Lantus 27 units
-Continue 16 units Premeal insulin
-Insulin sliding scale
-Hold metformin
Diabetic neuropathy
-Continue gabapentin
CAD status post stent
History of superior mesenteric artery stenosis
History of bilateral carotid stenosis
Nicotine dependence
-Continue bupropion
Anxiety/depression
-Continue duloxetine
Full code
DVT prophylaxis�heparin
Diabetic diet
--- NOTE | 2024-05-08 20:17 | EDRN ---
Switched vanco infusion to L ACF #18g because pt often moves R arm to scratch his nose stopping infusion
[2024-05-08 21:25] VITALS: BP 149/75
[2024-05-08] MEDS: NEURONTIN 600 MG PO (22:21)
[2024-05-08] MEDS: HEPARIN 5000 UNITS SC (22:22)
[2024-05-08] MEDS: DILAUDID 0.5 MG IV (22:22)
[2024-05-08] MEDS: AMBIEN 5 MG PO (22:33)
--- NOTE | 2024-05-08 22:43 | PHA.VAN.IN ---
Assessment
- Assessment
Renal Function: Appears similar to baseline
Maximum Temperature: 99.7
Minimum Temperature: 98.7
Concomitant Antimicrobials: PIP/TAZO
AUC Dosing Plan
- Empiric Dosing
Initial / Loading Dose: 2000mg
Maintenance Regimen: 750mg Q12H
Estimated AUC (mcg*h/mL): 453
Estimated Peak (mcg*h/mL): 26.6
Estimated Trough (mcg/ml): 12.8
Estimated Half Life (H): 10.4
- Monitoring
No levels ordered at this time: Consider levels in next few days
Pharmacokinetics Vancomycin I
- -
Patient Age: 58
Patient Sex: Male
Vancomycin Day #: 1
Indication: Skin And Soft Tissue
Requesting Provider: FABIOLA
Pertinent Antimicrobial Allergies:
NKDA
Height / Weight:
Height 5 ft 5 in
Actual Weight 85.5 kg
Pertinent Past Medical History: OBESITY, DM
- Vital Signs / Lab Results
Temp Pulse Resp BP Pulse Ox
99.7 F 87 20 175/96 96
05/08/24 19:46 05/08/24 20:00 05/08/24 20:00 05/08/24 20:00 05/08/24 20:00
Lab Results - Hematology
05/08/24
17:57
WBC 26.0 H
Lab Results - Chemistry
05/08/24 05/08/24
17:57 18:31
BUN Cancelled 16
Creatinine Cancelled 1.1
Estimated Creat Clear Cancelled 75
Albumin Cancelled 3.8
05/08/24
18:31
Lactic Acid 1.3
[2024-05-08] MEDS: LANTUS 0.27 UNITS SC (23:00)
[2024-05-08 23:07] LABS: Glucose - Point of Care 154 mg/dl (70-99)
[2024-05-08] MEDS: ZOSYN 50 IV (23:47)
[2024-05-09] VITALS (12 sets, daily range): BP systolic 129–181; BP diastolic 68–89
--- NOTE | 2024-05-09 01:56 | PTCARENOTE ---
21:20 pt rec'vd from ER, pt able to transfer to bed, IVF infusing via l f/a, vs WNL, pt noted with a 4x4 with small serous drainage on right groin. Pt is not cooperative with assessment and is very agitated, he expressed he is in pain. Pt unwilling
to answer all admission questions and states ''I told them downstairs already'' pt is regarding to home med review/his ER contacts and his unwillingness to be NPO, pt was educated at length. Pt did calm down after he rec'vd PRN pain med.
[2024-05-09] MEDS: DILAUDID 0.5 MG IV ×2 (03:46→18:07)
[2024-05-09] MEDS: ZOSYN 50 IV ×4 (05:29→23:49)
[2024-05-09] MEDS: VANCOCIN 150 IV (06:02)
[2024-05-09 06:39] LABS: Glucose - Point of Care 150 mg/dl (70-99)
--- NOTE | 2024-05-09 08:26 | PHA.VAN.FU ---
Vancomycin Assessment / Plan
- Assessment
Renal Function: SCR Decreasing
WBC's are: Trending Down
In the past 24 hrs, patient has been: Afebrile
Concomitant Antimicrobials: piperacillin/tazobactam
- Dosing Plan
Adjust Regimen to: Vanc 1000mg Q12H starting at 1800
New Regimen Predicts: AUC (434), Peak (27.2), Trough (11.1)
- Monitoring Plan
No level(s) ordered at this time: consider levels in next few days
- Follow Up
Pharmacy will continue to follow.
Vancomycin Follow UP
- -
Patient Age: 58
Patient Sex: Male
Vancomycin Day #: 2
Indication: Skin And Soft Tissue
Requesting Provider: Dr. Mcdowell
Pertinent Antimicrobial Allergies:
NKDA
Height / Weight:
Height 5 ft 6 in
Actual Weight 84.17 kg
Pertinent Past Medical History: BMI ~30, DM 2
- Vital Signs / Lab Results
Temp Pulse Resp BP Pulse Ox
98.8 F 68 18 181/89 97
05/09/24 07:35 05/09/24 07:35 05/09/24 07:35 05/09/24 07:35 05/09/24 07:35
Lab Results - Hematology
05/08/24
17:57
WBC 26.0 H
Lab Results - Chemistry
05/08/24 05/08/24
17:57 18:31
BUN Cancelled 16
Creatinine Cancelled 1.1
Estimated Creat Clear Cancelled 75
Albumin Cancelled 3.8
05/08/24
18:31
Lactic Acid 1.3
[2024-05-09 08:30] LABS: % Basophils 0.4 % (0-2); % Eosinophils 0.8 % (0-6); % Immature Granulocytes 0.5 % (0-0.5); % Lymphocytes 7.7 % (20.5-51.1); % Monocytes 7.6 % (1.7-9.3); Absolute Basophils 0.1 10^3/uL (0-0.2); Absolute Eosinophils 0.2 10^3/uL (0-0.7); Absolute Immature Granulocytes 0.1 10^3/uL (0-0.05); Absolute Lymphocytes 1.5 10^3/uL (1.2-3.4); Absolute Monocytes 1.5 10^3/uL (0.1-0.6); Hematocrit 34.9 % (39.0-52.0); Hemoglobin 11.6 g/dL (13.0-18.0); Mean Corp Hgb Conc. 33.2 g/dL (33.0-37.0); Mean Corpuscular Hgb 30.1 pg (27.0-31.0); Mean Corpuscular Volume 90.6 fL (80.0-94.0); Mean Platelet Volume 10.6 fL (7.4-10.4); Nucleated Red Blood Cells % 0 % (-); Platelet Count 405 10^3/uL (130-400); Red Blood Cell Count 3.85 10^6/uL (4.70-6.10); Red Cell Dist. Width 14.2 % (11.5-14.5); White Blood Cell Count 19.3 10^3/uL (4.8-10.8)
[2024-05-09 08:32] LABS: Glucose - Point of Care 161 mg/dl (70-99)
[2024-05-09] MEDS: CYMBALTA DELAYED RELEASE 60 MG PO ×2 (08:38→21:16)
[2024-05-09] MEDS: WELLBUTRIN SR (12 hour sustained release) 150 MG PO ×2 (08:38→21:16)
[2024-05-09] MEDS: VASOTEC 10 MG PO (08:38)
[2024-05-09] MEDS: PLETAL 100 MG PO ×2 (08:38→21:16)
[2024-05-09] MEDS: TOPROL XL 25 MG PO (08:39)
[2024-05-09] MEDS: NEURONTIN 600 MG PO ×3 (08:39→23:49)
[2024-05-09] MEDS: LIPITOR 80 MG PO (08:39)
[2024-05-09] MEDS: ASPIR LOW (ENTERIC COATED) 81 MG PO (08:39)
[2024-05-09] MEDS: FARXIGA 10 MG PO (08:39)
[2024-05-09] MEDS: HEPARIN 5000 UNITS SC ×2 (08:40→21:17)
[2024-05-09] MEDS: NOVOLOG FLEXPEN-LOW RESISTANCE 1 UNITS SC ×2 (08:44→14:05)
[2024-05-09 09:10] LABS: ALT (SGPT) 12 U/L (0-50); AST (SGOT) 14 U/L (17-59); Albumin 2.7 g/dl (3.5-5.0); Alkaline Phosphatase 74 U/L (38-126); Blood Urea Nitrogen 11 mg/dl (9-20); Calcium 7.5 mg/dl (8.4-10.2); Carbon Dioxide 17 mmol/L (22-30); Chloride 110 mmol/L (98-107); Estimated Creatinine Clearance 93 ml/min; Glucose 136 mg/dl (70-99); Potassium 4.1 mmol/L (3.5-5.1); Sodium 135 mmol/L (135-145); Total Bilirubin 0.7 mg/dl (0.2-1.3); Total Protein 5.6 g/dl (6.3-8.2); eGFR > 60.00
--- NOTE | 2024-05-09 10:34 | CON.VAS ---
Addendum entered and electronically signed by Dagoberto Esparza III, MD 05/09/24 12:50:
This patient was seen and examined in collaboration with TATIANA Monroy. I agree with the history and physical exam as well as the assessment and plan. I have the following additions:
Recent right femoral artery reconstruction with graft and a right to left fem-fem bypass for acute limb ischemia
Readmitted with right groin dehiscence
Drainage started a few days ago by his report followed by progressive wound breakdown.
Leukocytosis
CT reviewed-air and fluid around the graft in the right groin. no extravasation.
Exploration and washout today along with muscle flap coverage. Will send cultures from the OR.
Technical aspects of this procedure were discussed with him in detail. The benefits and rationale for this approach were discussed with him in detail. Operative risks were discussed with him in detail including but not limited to recurrent
infection, bleeding, wound healing complications, need for graft removal and need for return trips to the operating room.
He expressed a clear understanding of our conversation and agrees to proceed with surgery as detailed above.
Signed:
Dagoberto Esparza III, MD
[facility] Surgery
[phone] ([phone])
Original Note:
Consultation
Consultation Request
Performing Provider: Vilma
Reason for Consultation: Dehisced right groin incision
Medical History
-
Chief Complaint: Right groin incisional drainage
History of Present Illness:
58-year-old male well-known to our service, he is status post right to left femorofemoral bypass with ringed graft. Patient was discharged home on 04/29/2024 without issue. Other past medical history CAD, hypertension, PAD, chronic kidney disease,
hypercholesterolemia, insulin-dependent diabetic who is known to be noncompliant with medications, current everyday smoker. Patient states Thursday he began having drainage from the right groin site which led to his ER visit yesterday. Patient
admitted through the ER last night for dehisced right groin incision with drainage.
Patient seen at bedside this a.m. with Dr. Esparza. Right groin incision is widely dehisced. Serous drainage on bedding and gown.
Vascular surgery history: (Other vascular interventions including a lower extremity bypass completed at [facility])
04/25/2024: Reoperative bilateral groin surgery, right distal external iliac artery to distal common femoral artery interposition graft, right common femoral to left profunda femoral artery bypass
10/29/2023: Right upper extremity radial artery thrombectomy
10/13/2023: Left common femoral artery endarterectomy with profundoplasty, removal of stent from common femoral, retrograde PLASTERER SPRAY GUN and stent left common iliac and left external iliac
03/09/2020: PLASTERER SPRAY GUN and stent of right SFA overlapping
08/12/2019: Balloon angioplasty and stenting of right SFA, PLASTERER SPRAY GUN of right external iliac, PLASTERER SPRAY GUN/stent of left common iliac, PLASTERER SPRAY GUN left external iliac
Past Medical History
Past Medical History: GA (Stents) and Other (CAD, hypertension, PAD, chronic kidney disease, hypercholesterolemia, insulin-dependent diabetic)
Past Surgical History: Cardiac (Cardiac stents x 4?) and Other (See above)
Social History
Tobacco: Smoker
Alcohol: Daily
Family History
Family History: Reviewed & Not Pertinent
Allergies / Home Medications
Allergy/AdvReac Type Severity Reaction Status Date / Time
No Known Allergies Allergy Verified 05/08/24 17:38
�Medication �Instructions �Recorded �Confirmed �Type
cilostazol 100 mg tablet 100 mg PO BID Blood Clot 03/09/20 05/09/24 History
Prevention/Tx
metoprolol succinate 25 mg 25 mg PO DAILY Blood Pressure 03/09/20 05/09/24 History
tablet,extended release 24 hr
gabapentin 300 mg capsule 900 mg PO TID pain 03/29/21 05/09/24 History
dapagliflozin propanediol 10 mg 10 mg PO DAILY Diabetes 06/02/22 05/09/24 History
tablet (Farxiga)
metformin 1,000 mg tablet 1,000 mg PO BID Diabetes 06/02/22 05/09/24 History
atorvastatin 80 mg tablet 80 mg PO DAILY High Cholesterol 10/08/23 05/09/24 History
aspirin 81 mg tablet,delayed 81 mg PO DAILY Blood Clot 10/29/23 05/09/24 History
release Prevention/Tx
enalapril maleate 10 mg tablet 10 mg PO DAILY blood pressure 10/29/23 05/09/24 History
duloxetine 30 mg capsule,delayed 60 mg PO BID Mental Health/Anxiety 04/25/24 05/09/24 History
release
zolpidem 5 mg tablet 5 mg PO HS Sleep 04/25/24 05/09/24 History
apixaban 5 mg tablet 5 mg PO BID 30 days #60 tabs 04/27/24 05/09/24 Rx
insulin aspart U-100 100 unit/mL 16 unit (0.16 mL) SC AC diabetes 04/27/24 05/09/24 Rx
(3 mL) subcutaneous pen (Novolog #0 mL
FlexPen U-100 Insulin aspart)
insulin glargine 100 unit/mL (3 27 unit (0.27 mL) SC HS diabetes 04/27/24 05/09/24 Rx
mL) subcutaneous pen (Lantus #0 mL
Solostar U-100 Insulin)
bupropion HCl (smoking deter) 150 150 mg PO BID smoking 30 days #60 04/29/24 05/09/24 Rx
mg tablet,12 hr tabs
sustained-release(smoking
deterrent)
tizanidine 2 mg tablet 2 mg PO Q8HPRN PRN spasms 05/09/24 05/09/24 History
Review of Systems
-
History Source: Patient
All other systems: Negative unless noted
Constitutional: Reports No Symptoms
EENT: Reports No Symptoms
Respiratory: Reports No Symptoms
Cardiac: Reports No Symptoms
Vascular: Denies Leg Pain / Claudication
Abdomen/GI: Reports No Symptoms
Skin: Reports Other (Open groin incision)
Physical Exam
Vital Signs
Temp Pulse Resp BP Pulse Ox
98.8 F 68 18 181/89 97
05/09/24 07:35 05/09/24 07:35 05/09/24 07:35 05/09/24 07:35 05/09/24 07:35
Lab Results
05/09/24 07:55
05/09/24 07:55
Physical Exam
General: No Apparent Distress
HEENT: Normocephalic and Atraumatic
Respiratory: Non Labored Respirations
Cardiac: Negative JVD
GI: Soft and Non Tender
Musculoskeletal: No Clubbing, No Cyanosis and Edema
Skin: Warm and Other (Right groin incision widely dehisced with serous drainage)
Neuro: Awake, Alert and Oriented
Psych: Calm
Assessment / Plan
-
58-year-old male status post right to left femorofemoral bypass was discharged on 04/29/2024
Admitted now with dehisced right groin incision
Plan:
-IV antibiotics
-N.p.o.
-OR today for right groin washout, sartorius flap, VAC placement
Data Reviewed
-
Labs: Labs Reviewed by me
[2024-05-09] MEDS: NOVOLOG FLEXPEN SC ×3 (10:41→21:06)
--- NOTE | 2024-05-09 10:59 | CM ---
Reviewed the chart notes and spoke with the patient at the bedside. The patient was recently hospitalized (04/16-04/29) and discharged to home with VN services. The patient resides in a split level home. Patient has a roommate/boarder. The
patient reports no DME or SNF in the past. The patient confirmed his pharmacy of choice is the [facility]. continues to be available to patient/family and is monitoring medical plan for needs at discharge.
Plan: Discharge to home when medically stable with resumption of [facility]N services.
[2024-05-09] MEDS: PERIDEX 0.12% ORAL RINSE 15 ML PO (11:30)
[2024-05-09] MEDS: ZOFRAN 4 MG IV (11:30)
[2024-05-09] MEDS: BACTROBAN 2% OINTMENT 1 APPLIC NASAL (11:31)
[2024-05-09] MEDS: NSS 1000 IV ×2 (11:34→20:01)
[2024-05-09 11:52] LABS: Glucose - Point of Care 171 mg/dl (70-99)
--- NOTE | 2024-05-09 12:28 | W.PN.HOSP.TC ---
Today's Communication/Plan
-
IV abx for now
OR today
Washout/wound vac
ID input
monitor BP
pain control
Eliquis on hold-restart pending surgery clearance
Assessment / Plan
Assessment / Plan
General: Well Developed, Well Nourished and No Apparent Distress
HEENT: NormoCephalic, Moist mucous membranes and Atraumatic
Respiratory: Clear
Cardiac: S1/S2 and Regular Rhythm; No Murmur or Rub
GI: Soft, Non Tender, Non Distended and Normal Bowel Sounds; No Organomegaly
Rectal: Deferred by Provider
Genito-urinary: Other (right groin wound dehiscence )
Musculoskeletal: No Clubbing, No Cyanosis and No Edema
Skin: No Rash
Neuro: Nonfocal/grossly intact
# Wound dehiscence of right groin with suspected infection
-Leukocytosis 26 to 19k
-Wound culture, blood culture sent
-IV fluids given, continue
-Vancomycin/Zosyn for now
-CT abdomen noted
-tylenol, tramadol Dilaudid for pain
-Hold Eliquis
-N.p.o. past midnight for potential washout today. Possible wound vac placement. per vascular surgery.
-ID eval
# Recent acute left lower extremity critical limb ischemia/severe PAD status post femorofemoral bypass
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
#
-Hold Eliquis for potential washout
-Continue aspirin, statin
-Continue cilostazol
# Hypertensive urgency secondary to pain
#Primary HTN
-PRN dilaudid
-As needed hydralazine if needed
-Continue enalapril
Right lower lobe lung nodule/Colonic thickening
-Outpatient follow-up with pulmonology for PET scan/biopsy
-Was seen by oncology on 04/26/24
Likely underlying COPD
Hyperlipidemia
Type 2 diabetes
-POC am 161
-Continue dapagliflozin
-Continue Lantus 27 units
-Continue 16 units Premeal insulin
-Insulin sliding scale
-Hold metformin
Diabetic neuropathy
-Continue gabapentin
CAD status post stent
History of superior mesenteric artery stenosis
History of bilateral carotid stenosis
Nicotine dependence
-Continue bupropion
Anxiety/depression
-Continue duloxetine
Alcohol usage
-MSAS protocol
Full code
DVT prophylaxis�heparin
Diabetic diet
Anticipated Discharge: > 48 hours
Subjective/Interval History
-
Date of Service: May 09, 2024
states of sever R groin pain w/drainage
Objective Data
-
Labs:
Laboratory Results
05/09/24
07:55
WBC 19.3 H
Hgb 11.6 L
Hct 34.9 L
Plt Count 405 H D
Sodium 135
Potassium 4.1
Chloride 110 H
Carbon Dioxide 17 L
BUN 11
Creatinine 0.9
Glucose 136 H
Calcium 7.5 L D
Total Bilirubin 0.7
AST 14 L
ALT 12
Alkaline Phosphatase 74
Vital Signs:
Vital Signs
Temp Pulse Resp BP Pulse Ox
98.0 F 82 18 176/81 96
05/09/24 11:00 05/09/24 11:00 05/09/24 11:00 05/09/24 11:00 05/09/24 11:00
I&O
05/08/24 05/09/24 05/10/24
06:59 06:59 06:59
Intake Total 2170 / 2170
Output Total 1600 / 1600 300 / 300
Balance 570 / 570 -300 / -300
Data Reviewed
-
Total Time Spent with Patient (in minutes): 56
--- NOTE | 2024-05-09 14:10 | CON.ID ---
Consultation
-
Date/Time Consultation Requested: May 09, 2024 1224
Date/Time Consultation Performed: May 09, 2024 1410
Requesting Provider: Dr. Spencer Anne
Performing Provider: Dr. Flower Harry
Reason for Consultation: Wound dehiscence
Chief Complaint / Past History
Chief Complaint
Right groin open wound
History of Present Illness
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 2 days ago patient was in
bed and noted that the bedsheet was wet. The right groin incision has fully dehisced. He denies fevers or chills. White count was 26. Patient is currently on vancomycin and going to the OR.
Past History
Additional Past Medical History:
Diabetes mellitus type 2
Hypertension
Dyslipidemia
CAD status post stent
Pulmonary nodule
PAD
History of right lower extremity bypass
History of left iliac stent and common femoral endarterectomy
Thrombosed Left iliac stent s/p right distal external iliac artery to distal common femoral artery interposition graft, right common femoral artery to left profunda femoral artery bypass with SOCIAL MEDIA COMMUNITY MANAGER graft April 25, 2024
History of DVT
History of right radial artery thrombectomy
Umbilical hernia repair
Allergy History:
No Known Allergies Allergy (Verified 05/08/24 17:38)
Medications Reviewed: Yes
Current Antibiotics:
Vancomycin day 2
Zosyn day 2
Social History
Tobacco: Smoker (1 pack/day)
Alcohol: Occasional
Review of Systems
Review of Systems
General: Negative Fever or Chills
Cardiovascular: Negative Chest Pain or Dyspnea
Respiratory: Negative Cough
Gasteroenterology: Negative Nausea, Vomiting or Diarrhea
Endocrine: Negative Weakness
Neurological: Negative Headache or Dizziness
All systems: All other systems were reviewed and were negative
Vital Signs
Temp Pulse Resp BP Pulse Ox
98.0 F 82 18 176/81 96
05/09/24 11:00 05/09/24 11:00 05/09/24 11:00 05/09/24 11:00 05/09/24 11:00
Physical Exam
Physical Exam
Constitutional: No Acute Distress
Eyes: No Conjunctival Hemorrhage and Sclera Anicteric
Cardiovascular: Regular Rate and S1/S2
Pulmonary: Clear
Gastrointestinal: Soft, Non Tender, Non Distended and Normal Bowel Sounds
Extremities: Negative Edema
Wound: Other (Right groin fully dehisced wound with serous discharge, + erythema)
Lab / Diagnostic Study Results
05/09/24 07:55
05/09/24 07:55
Abs Immat Gran (auto) 0.1 10^3/uL (0-0.05) H 05/09/24 07:55
Absolute Neuts (auto) 16.0 10^3/uL (1.4-6.5) H 05/09/24 07:55
Absolute Lymphs (auto) 1.5 10^3/uL (1.2-3.4) 05/09/24 07:55
Absolute Monos (auto) 1.5 10^3/uL (0.1-0.6) H 05/09/24 07:55
Absolute Basos (auto) 0.1 10^3/uL (0-0.2) 05/09/24 07:55
Immature Gran % 0.5 % (0-0.5) 05/09/24 07:55
Neutrophils % 83.0 % (42.2-75.2) H 05/09/24 07:55
Lymphocytes % 7.7 % (20.5-51.1) L 05/09/24 07:55
Monocytes % 7.6 % (1.7-9.3) 05/09/24 07:55
Eosinophils % 0.8 % (0-6) 05/09/24 07:55
Basophils % 0.4 % (0-2) 05/09/24 07:55
PT 14.6 Sec (11.4-14.6) 05/08/24 18:31
INR 1.11 05/08/24 18:31
Lactic Acid 1.3 mmol/L (0.7-2.0) 05/08/24 18:31
Microbiology Results
Micro:
05/08/24 18:33 Blood Culture - Pending
Blood/Venous
05/08/24 18:32 Blood Culture - Pending
Blood/Venous
05/08/24 17:58 Wound Culture - Pending
Groin - Right Gram Stain - Pending
05/08/24 CT a/p: There is air and fluid density in the right groin at the surgery site, suggesting wound dehisced since, with extension to the skin surface. No well-formed drainable collection is seen at this time.
Assessment / Plan
# Right groin wound dehiscence
Recent R fem to left profunda bypass (04/25/24)
# Leukocytosis
# DM2
# Tobacco use disorder
- To OR today for I+D, exploration. Please send deep cultures.
- DC Vancomycin.
-Continue Zosyn for now pending culture data.
- Follow WBC
# Conditions SOCIAL MEDIA COMMUNITY MANAGER
Diabetes mellitus type 2
Hypertension
Dyslipidemia
CAD status post stent
Pulmonary nodule
PAD
History of right lower extremity bypass
History of left iliac stent and common femoral endarterectomy
Thrombosed Left iliac stent s/p right distal external iliac artery to distal common femoral artery interposition graft, right common femoral artery to left profunda femoral artery bypass with SOCIAL MEDIA COMMUNITY MANAGER graft April 25, 2024
History of DVT
History of right radial artery thrombectomy
Umbilical hernia repair
[2024-05-09 17:32] LABS: Glucose - Point of Care 137 mg/dl (70-99)
--- NOTE | 2024-05-09 17:33 | W.SUR.POST ---
Surgical Immediate Post Op
Note
Pre Op Diagnosis: R groin wound dehiscence
Post Op Diagnosis: R groin wound dehiscence
Procedure Performed: R groin washout, debridement, sartorious uscle flap, wound vac application
Primary Surgeon: Dagoberto Esparza
Secondary Surgeons: Luis Barragan
Anesthesia: see anesthesia flowsheet
Estimated Blood Loss: 10cc
Fluids: see anesthesia flowsheet
Drains/Shunts: wound vac
Specimens/Cultures: deep wound culture aerobic and anaerobic
Doppler/Duplex/Angio (Y/N): none
Complications: none
Operative Findings: Dehisced R groin wound with exposed graft. Opened wound and irrigated with saline and betadine. Pulsevacced extensively. Debrided tissue and skin edges. Sartorious muscle flap to cover exposed graft. Closed superior portion
of incision with nylon vertical mattress sutures. Wound vac placed.
[2024-05-09 17:56] LABS: Glucose - Point of Care 145 mg/dl (70-99)
--- NOTE | 2024-05-09 18:37 | OR.RPT ---
Operative Report
Operative Report
Date of Operation: 05/09/2024
Pre Op Diagnosis: Right groin wound dehiscence
Post Op Diagnosis: Right groin wound dehiscence
Procedure:
1. Sharp excisional debridement of right groin wound including skin and subcutaneous tissue (wound dimensions 10 cm x 5 cm)
2. Pulse lavage of right groin wound
3. Rotational muscle flap coverage using sartorius muscle
4. Placement of VAC dressing
Surgeon: Dagoberto Esparza III, MD
Health Information Systems Technician: Luis Barragan MD, PGY4
Anesthesia: General
Complications: None
Estimated Blood Loss: 50 cc
History and Indications for Procedure: 58-year-old male status post recent reoperative groin surgery on the right including a right external iliac artery to profunda femoral artery bypass along with a right to left fem-fem bypass. He developed
groin drainage and groin wound dehiscence and was admitted to the hospital. He was taken to the operating room today for exploration, washout and rotational muscle flap coverage
Procedure in Detail: Weston Richard was correctly identified and placed supine on the operating table. After adequate induction of anesthesia his abdomen, pelvis and bilateral groins were prepped and draped in the usual sterile fashion. He received
preoperative antibiotics. A timeout procedure was performed with the nursing and anesthesia staff confirming the patient's identity as well as the nature and laterality of the procedure.
We started by reopening the right groin incision and extending this superiorly towards the anterior superior iliac spine. [place] and sutures were removed from the skin. Subcutaneous Vicryl sutures were removed. We then obtained access to the
deeper tissue and exposed the prosthetic graft. There were good pulses within the prosthetic graft material. No gross purulence was encountered. Old topical hemostatic agents from the initial procedure were identified surrounding the graft
material and this entirely removed. No bleeding was identified from the prosthetic material or suture lines. Deep tissue culture swabs were obtained and sent to microbiology.
Sharp excisional debridement was performed on the skin and subcutaneous tissue. This was done with forceps and a scalpel. Wound dimensions were 10 cm x 5 cm. Tissue was debrided back to healthy bleeding margins. Electrocautery was then used to
obtain hemostasis in the wound bed. We then pulse irrigated the wound with 3 L of saline solution.
I then identified the sartorius muscle in the wound bed. This was carefully dissected to its insertion on the anterior superior iliac spine. I divided the sartorius muscle at the insertion with electrocautery. The sartorius muscle was then
mobilized gently. No perforators were sacrificed. The muscle was rotated over gently to provide coverage of the Dacron graft as well as the PTFE fem-fem bypass. Interrupted 3-0 Vicryl horizontal mattress sutures were utilized around the margin of
the sartorius muscle to fix it in place to the surrounding tissue. This provided good coverage of the graft material. The skin and subcutaneous tissue on the superior aspect of the incision was closed with interrupted vertical mattress nylon
sutures. A black VAC sponge was cut to size and positioned over the sartorius muscle along the mid and inferior aspect of the wound. Adhesive dressings were applied. The dressing was then connected to the negative pressure unit. A good seal was
achieved.
The patient tolerated the procedure well was taken to the recovery room in good condition.
Attestation: I was present and responsible for the entire procedure
Signed:
Dagoberto Esparza III, MD
[facility] Vascular Surgery
[phone] (cell)
[2024-05-09 19:35] LABS: Glucose - Point of Care 135 mg/dl (70-99)
[2024-05-09] MEDS: NOVOLOG FLEXPEN-LOW RESISTANCE SC (19:37)
[2024-05-09] MEDS: THIAMINE INJECTION 200 MG IV (21:17)
[2024-05-09] MEDS: NICODERM TRANSDERMAL 14 MG TRANSDERM (21:17)
[2024-05-09 22:05] LABS: Glucose - Point of Care 213 mg/dl (70-99)
[2024-05-09] MEDS: LANTUS 0.27 UNITS SC (22:54)
[2024-05-09] MEDS: AMBIEN PO (22:54)
[2024-05-09 23:30] LABS: Amphetamines Negative (Negative); Barbiturates Negative (Negative); Benzodiazepines Negative (Negative); Buprenorphine Negative (Negative); Cocaine Negative (Negative); Marijuana Positive (Negative); Methadone Negative (Negative); Methamphetamines Negative (Negative); Opiates Positive (Negative); Phencyclidine Negative (Negative); Tricyclic Antidepressants Negative (Negative)
[2024-05-09] MEDS: ULTRAM 50 MG PO (23:56)
[2024-05-10 02:47] LABS: Fentanyl, Urine Positive (Negative)
[2024-05-10 03:15] VITALS: BP 169/80
[2024-05-10] MEDS: DILAUDID 0.5 MG IV ×4 (03:31→18:41)
[2024-05-10] MEDS: ZOSYN 50 IV ×4 (05:02→23:48)
[2024-05-10] MEDS: NSS 1000 IV (05:43)
[2024-05-10] MEDS: ULTRAM 50 MG PO (06:32)
[2024-05-10 07:18] LABS: Hematocrit 34.4 % (39.0-52.0); Hemoglobin 11.4 g/dL (13.0-18.0); Mean Corp Hgb Conc. 33.1 g/dL (33.0-37.0); Mean Corpuscular Hgb 30.1 pg (27.0-31.0); Mean Corpuscular Volume 90.8 fL (80.0-94.0); Mean Platelet Volume 10.7 fL (7.4-10.4); Platelet Count 389 10^3/uL (130-400); Red Blood Cell Count 3.79 10^6/uL (4.70-6.10); Red Cell Dist. Width 14.1 % (11.5-14.5); White Blood Cell Count 16.8 10^3/uL (4.8-10.8)
[2024-05-10 07:43] LABS: Blood Urea Nitrogen 15 mg/dl (9-20); Calcium 8.4 mg/dl (8.4-10.2); Carbon Dioxide 23 mmol/L (22-30); Chloride 109 mmol/L (98-107); Estimated Creatinine Clearance 76 ml/min; Glucose 88 mg/dl (70-99); Potassium 4.6 mmol/L (3.5-5.1); Sodium 139 mmol/L (135-145); eGFR > 60.00
[2024-05-10 07:45] VITALS: BP 147/84
[2024-05-10 07:54] LABS: Glucose - Point of Care 82 mg/dl (70-99)
[2024-05-10] MEDS: FOLVITE 1 MG PO (08:36)
[2024-05-10] MEDS: FARXIGA 10 MG PO (08:36)
[2024-05-10] MEDS: LIPITOR 80 MG PO (08:37)
[2024-05-10] MEDS: PLETAL 100 MG PO ×2 (08:37→20:27)
[2024-05-10] MEDS: ASPIR LOW (ENTERIC COATED) 81 MG PO (08:38)
[2024-05-10] MEDS: HEPARIN 5000 UNITS SC ×2 (08:38→20:30)
[2024-05-10] MEDS: TOPROL XL 25 MG PO (08:38)
[2024-05-10] MEDS: NEURONTIN 600 MG PO ×3 (08:38→22:32)
[2024-05-10] MEDS: WELLBUTRIN SR (12 hour sustained release) 150 MG PO ×2 (08:38→20:27)
[2024-05-10] MEDS: CYMBALTA DELAYED RELEASE 60 MG PO ×2 (08:38→20:27)
[2024-05-10] MEDS: VASOTEC 10 MG PO (08:38)
[2024-05-10] MEDS: THIAMINE INJECTION 200 MG IV (08:39)
[2024-05-10] MEDS: NOVOLOG FLEXPEN 16 UNITS SC ×3 (08:40→18:39)
--- NOTE | 2024-05-10 08:47 | W.PN.VS ---
Addendum entered and electronically signed by Dagoberto Esparza III, MD 05/10/24 18:40:
This patient was seen and examined in collaboration with TATIANA Vincent. I agree with the history and physical exam as well as the assessment and plan.
Bed rest
VAC change 05/11/2024
Antibiotics
Follow-up on culture results
Signed:
Dagoberto Esparza III, MD
[facility] Vascular Surgery
[phone] (cell)
Original Note:
Today's Communication / Plan
-
Patient seen and examined at bedside with Dr. Dagoberto Esparza III, below plan reviewed with attending.
Assessment/Plan
-
Assessment: 58-year-old male POD #1 Sharp excisional debridement of right groin wound including skin and subcutaneous tissue (wound dimensions 10 cm x 5 cm), rotational muscle flap coverage using sartorius muscle, and placement of VAC dressing for
right groin dehiscence
Plan:
Appreciate infectious disease recommendations for antibiotic management
Continue strict bedrest and head of bed max elevation of 30 degrees
Wound care nurse consultation for wound VAC management
Wound VAC dressing change tomorrow
Subjective Data
-
Date of Service: May 10, 2024
Patient seen and examined at bedside, resting comfortably and eating breakfast. Tolerating p.o. diet. Reports minor relief from given pain medication regimen. Endorses understanding of strict bedrest. Denies nausea, vomiting, fever, and chills.
Objective Data
-
Vital Signs
Temp Pulse Resp BP Pulse Ox
98.3 F 83 18 147/84 91
05/10/24 07:45 05/10/24 07:45 05/10/24 07:45 05/10/24 07:45 05/10/24 07:45
Intake and Output
05/09/24 05/10/24 05/11/24
06:59 06:59 06:59
Intake Total 2170 / 2170 2920 / 2920
Output Total 1600 / 1600 1475 / 1475
Balance 570 / 570 1445 / 1445
Intake:
Oral fluids 120 / 120 720 / 720
IV fluids (Total) 1950 / 1950 2099 / 2099
NS 1000 / 1000 200 / 200
IV piggybacks 100 / 100 100 / 100
Output:
Urine, Esparza 1175 / 1175
Urine, Voided 1600 / 1600 300 / 300
Other:
Number of approximated SMALL 1
amounts of urine
Number of unmeasured liquid
stools
Rectum 1
Lab Results
05/10/24 06:53
05/10/24 06:53
Calcium 8.4 mg/dl (8.4-10.2) 05/10/24 06:53
Total Bilirubin 0.7 mg/dl (0.2-1.3) 05/09/24 07:55
AST 14 U/L (17-59) L 05/09/24 07:55
ALT 12 U/L (0-50) 05/09/24 07:55
Alkaline Phosphatase 74 U/L (38-126) 05/09/24 07:55
Total Protein 5.6 g/dl (6.3-8.2) L D 05/09/24 07:55
Albumin 2.7 g/dl (3.5-5.0) L 05/09/24 07:55
Physical Exam
-
No apparent distress, resting in bed comfortably
No tachycardia
No dyspnea
ABD rotund, nontender, nondistended
Right groin wound VAC CDI and holding suction
bilateral feet warm
--- NOTE | 2024-05-10 10:12 | CM ---
Reviewed the chart notes. Patient s/p debridement and placement of a wound vac to R groin. CM continues to be available to patient/family and is monitoring medical plan for needs at discharge.
Plan: Discharge to home with resumption of [facility] services.
--- NOTE | 2024-05-10 11:13 | W.PN.HOSP.TC ---
Today's Communication/Plan
-
await OR CULTURES
IV zosyn for now
ID recs
vascular following
wound vac
Assessment / Plan
Assessment / Plan
General: Well Developed, Well Nourished and No Apparent Distress
HEENT: NormoCephalic, Moist mucous membranes and Atraumatic
Respiratory: Clear
Cardiac: S1/S2 and Regular Rhythm; No Murmur or Rub
GI: Soft, Non Tender, Non Distended and Normal Bowel Sounds; No Organomegaly
Rectal: Deferred by Provider
Genito-urinary: Other (right groin wound dehiscence ), wound vac with mild drainage noted.
Musculoskeletal: No Clubbing, No Cyanosis and No Edema
Skin: No Rash
Neuro: Nonfocal/grossly intact
# Wound dehiscence of right groin with suspected infection
-Leukocytosis 26 to 19k
-Wound culture from ER with polymicrobial. , blood culture sent negative.
-IV fluids given, continue
-zosyn for now.
-CT abdomen noted
-pain control
-Restart ELIQUIS pending surgery clearance
-s/p R groin washout, debridement, sartorious uscle flap, wound vac application
-Esparza removal per surgery.
-Await wound culture from OR
-ID eval
# Recent acute left lower extremity critical limb ischemia/severe PAD status post femorofemoral bypass
# History of prior RN SUPPORT SERVICES endarterectomy/stent
-Continue aspirin, statin
-Continue cilostazol
# Hypertensive urgency secondary to pain
#Primary HTN
-PRN dilaudid
-As needed hydralazine if needed
-Continue enalapril
Right lower lobe lung nodule/Colonic thickening
-Outpatient follow-up with pulmonology for PET scan/biopsy
-Was seen by oncology on 04/26/24
Likely underlying COPD
Hyperlipidemia
Type 2 diabetes
-POC am 82
-Continue dapagliflozin
-Continue Lantus 27 units
-Continue 16 units Premeal insulin
-Insulin sliding scale
-Hold metformin
Diabetic neuropathy
-Continue gabapentin
CAD status post stent
History of superior mesenteric artery stenosis
History of bilateral carotid stenosis
Nicotine dependence
-Continue bupropion
Anxiety/depression
-Continue duloxetine
Alcohol usage
-MSAS protocol
Full code
DVT prophylaxis�heparin
Diabetic diet
Anticipated Discharge: > 48 hours
Subjective/Interval History
-
Date of Service: May 10, 2024
states of severe groin pain at surgical site
Objective Data
-
Labs:
Laboratory Results
05/10/24
06:53
WBC 16.8 H
Hgb 11.4 L
Hct 34.4 L
Plt Count 389
Sodium 139
Potassium 4.6
Chloride 109 H
Carbon Dioxide 23
BUN 15
Creatinine 1.1
Glucose 88
Calcium 8.4
Vital Signs:
Vital Signs
Temp Pulse Resp BP Pulse Ox
98.3 F 83 18 147/84 91
05/10/24 07:45 05/10/24 07:45 05/10/24 07:45 05/10/24 07:45 05/10/24 07:45
I&O
05/09/24 05/10/24 05/11/24
06:59 06:59 06:59
Intake Total 2170 / 2170 2920 / 2920
Output Total 1600 / 1600 1475 / 1475
Balance 570 / 570 1445 / 1445
Data Reviewed
-
Total Time Spent with Patient (in minutes): 55
[2024-05-10 11:15] VITALS: BP 148/69
--- NOTE | 2024-05-10 11:26 | WOUNDNOTE ---
SEAN RN note: Patient admitted with post operative infection.
See H&P for complete history. Lives with son.
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
Wound Location and type/assessment: Patient s/p R groin I&D with flap, wound vac applied by vascular. R groin wound vac without leaks and at 125mmhg. Will update [employer] with vac application and faxed forms for suspected discharge to home with
VN. Next vac change tomorrow by wound care.
Appetite: Good.
Pressure redistribution devices in place: [employer]
Plan: Will change wound vac dressing tomorrow as requested by vascular, vac supplies ordered.
Updated care plan and will follow.
Note to case management of equipment requested for discharge: VN for wound vac changes
Recommend follow up with vascular.
[2024-05-10 12:25] LABS: Glucose - Point of Care 101 mg/dl (70-99)
--- NOTE | 2024-05-10 12:59 | W.PN.ID1 ---
Date of Service
Date of Service: May 10, 2024
Today's Communication
Continue Zosyn.
Assessment / Plan
# Right groin wound dehiscence
Recent R fem to left profunda bypass (04/25/24)
# Leukocytosis - trending down
# DM2
# Tobacco use disorder
- 05/09 s/p OR excisional debridement of right groin wound including skin and subcutaneous tissue (wound dimensions 10 cm x 5 cm), rotational muscle flap coverage using sartorius muscle, and placement of VAC dressing
- OR cx's pending
-Continue Zosyn for now pending culture data.
- Follow WBC
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
Diabetes mellitus type 2
Hypertension
Dyslipidemia
CAD status post stent
Pulmonary nodule
PAD
History of right lower extremity bypass
History of left iliac stent and common femoral endarterectomy
Thrombosed Left iliac stent s/p right distal external iliac artery to distal common femoral artery interposition graft, right common femoral artery to left profunda femoral artery bypass with FRUIT I FARMWORKER graft April 25, 2024
History of DVT
History of right radial artery thrombectomy
Umbilical hernia repair
Chief Complaint
-: Other (Wound dehiscence)
Vital Signs / Physical Exam
Vital Signs
Vital Signs
Temp Pulse Resp BP Pulse Ox
98.2 F 81 18 148/69 97
05/10/24 11:15 05/10/24 11:15 05/10/24 11:15 05/10/24 11:15 05/10/24 11:15
Physical Exam
Constitutional: No Acute Distress and Comfortable
Gastrointestinal: Soft, Non Tender and Non Distended
Wound: Other (Right groin wound vac in place)
Objective Data
Lab Data
Lab Results
05/10/24 06:53
05/10/24 06:53
PT 14.6 Sec (11.4-14.6) 05/08/24 18:31
INR 1.11 05/08/24 18:31
APTT 31.5 Sec (23.4-35.0) 05/08/24 18:31
Estimated Creat Clear 76 ml/min 05/10/24 06:53
Lactic Acid 1.3 mmol/L (0.7-2.0) 05/08/24 18:31
Total Bilirubin 0.7 mg/dl (0.2-1.3) 05/09/24 07:55
AST 14 U/L (17-59) L 05/09/24 07:55
ALT 12 U/L (0-50) 05/09/24 07:55
Alkaline Phosphatase 74 U/L (38-126) 05/09/24 07:55
Most recent labs reviewed.
Micro Results:
05/09/24 16:41 Anaerobic Culture - Preliminary
Groin - Right Culture pending. Anaerobic cultures are examined after 3
days incubation. Additional information to follow.
05/09/24 16:41 Wound Culture - Preliminary
Groin - Right Gram Stain - Preliminary
05/08/24 17:58 Wound Culture - Preliminary
Groin - Right Streptococcus pyogenes
Gram negative bacilli
Gram Stain - Preliminary
05/08/24 18:32 Blood Culture - Preliminary
Blood/Venous No Growth in 24 hours- Final report to follow
05/08/24 18:33 Blood Culture - Preliminary
Blood/Venous No Growth in 24 hours- Final report to follow
05/08/24 CT a/p: There is air and fluid density in the right groin at the surgery site, suggesting wound dehisced since, with extension to the skin surface. No well-formed drainable collection is seen at this time.
[2024-05-10 15:10] VITALS: BP 140/73
[2024-05-10] MEDS: ROXICODONE 5 MG PO (15:49)
[2024-05-10 17:22] LABS: Glucose - Point of Care 110 mg/dl (70-99)
[2024-05-10 19:20] VITALS: BP 143/74
[2024-05-10] MEDS: NICODERM TRANSDERMAL 14 MG TRANSDERM (20:32)
[2024-05-10 21:49] LABS: Glucose - Point of Care 146 mg/dl (70-99)
[2024-05-10] MEDS: VITAMIN B1 100 MG PO (22:32)
[2024-05-10] MEDS: LANTUS 0.27 UNITS SC (22:32)
[2024-05-10] MEDS: AMBIEN 5 MG PO (22:33)
[2024-05-10 23:20] VITALS: BP 143/63
[2024-05-11] MEDS: DILAUDID 0.5 MG IV ×2 (01:05→10:19)
[2024-05-11 03:20] VITALS: BP 136/73
--- NOTE | 2024-05-11 04:15 | PTCARENOTE ---
0410 - could audibly hear air leak from wound vac. Walked in to see pt pealing dressing of wound vac - pt stated 'I shouldn't have done that'. Wet to dry applied. Will pass on in report.
--- NOTE | 2024-05-11 04:32 | PTCARENOTE ---
7610 - could audibly hear air leak from wound vac. Walked in to see pt pealing dressing of wound vac - pt stated 'I shouldn't have done that'. Assessed wound vac, was able to find source of air leak - reinforced w several tegaderms. + suction from
vac w no air leaks at this time.
[2024-05-11] MEDS: ZOSYN 50 IV ×3 (05:31→17:52)
[2024-05-11] MEDS: ROXICODONE 5 MG PO ×2 (06:00→19:06)
[2024-05-11 07:09] LABS: % Basophils 0.6 % (0-2); % Eosinophils 2.7 % (0-6); % Immature Granulocytes 0.6 % (0-0.5); % Lymphocytes 10.9 % (20.5-51.1); % Monocytes 10.4 % (1.7-9.3); % Neutrophils 74.8 % (42.2-75.2); Absolute Basophils 0.1 10^3/uL (0-0.2); Absolute Eosinophils 0.4 10^3/uL (0-0.7); Absolute Immature Granulocytes 0.1 10^3/uL (0-0.05); Absolute Lymphocytes 1.6 10^3/uL (1.2-3.4); Absolute Monocytes 1.5 10^3/uL (0.1-0.6); Absolute Neutrophils 10.6 10^3/uL (1.4-6.5); Hematocrit 31.6 % (39.0-52.0); Hemoglobin 10.2 g/dL (13.0-18.0); Mean Corp Hgb Conc. 32.3 g/dL (33.0-37.0); Mean Corpuscular Hgb 29.6 pg (27.0-31.0); Mean Corpuscular Volume 91.6 fL (80.0-94.0); Mean Platelet Volume 10.8 fL (7.4-10.4); Nucleated Red Blood Cells % 0 % (-); Platelet Count 412 10^3/uL (130-400); Red Blood Cell Count 3.45 10^6/uL (4.70-6.10); Red Cell Dist. Width 14.1 % (11.5-14.5); White Blood Cell Count 14.2 10^3/uL (4.8-10.8)
[2024-05-11 07:35] LABS: Blood Urea Nitrogen 14 mg/dl (9-20); Calcium 8.4 mg/dl (8.4-10.2); Carbon Dioxide 20 mmol/L (22-30); Chloride 105 mmol/L (98-107); Estimated Creatinine Clearance 65 ml/min; Glucose 115 mg/dl (70-99); Potassium 4.1 mmol/L (3.5-5.1); Sodium 136 mmol/L (135-145); eGFR > 60.00
[2024-05-11 07:40] VITALS: BP 137/106
[2024-05-11 07:43] LABS: Glucose - Point of Care 113 mg/dl (70-99)
[2024-05-11 08:39] VITALS: BP 134/65
[2024-05-11] MEDS: NOVOLOG FLEXPEN 16 UNITS SC ×3 (08:58→17:51)
[2024-05-11] MEDS: LIPITOR 80 MG PO (08:59)
[2024-05-11] MEDS: CYMBALTA DELAYED RELEASE 60 MG PO ×2 (08:59→19:58)
[2024-05-11] MEDS: ASPIR LOW (ENTERIC COATED) 81 MG PO (09:00)
[2024-05-11] MEDS: FOLVITE 1 MG PO (09:00)
[2024-05-11] MEDS: NEURONTIN 600 MG PO ×3 (09:00→22:19)
[2024-05-11] MEDS: FARXIGA 10 MG PO (09:00)
[2024-05-11] MEDS: TOPROL XL 25 MG PO (09:00)
[2024-05-11] MEDS: VASOTEC 10 MG PO (09:00)
[2024-05-11] MEDS: VITAMIN B1 100 MG PO ×2 (09:00→19:58)
[2024-05-11] MEDS: PLETAL 100 MG PO ×2 (09:00→19:58)
[2024-05-11] MEDS: WELLBUTRIN SR (12 hour sustained release) 150 MG PO ×2 (09:00→19:58)
--- NOTE | 2024-05-11 09:00 | PTCARENOTE ---
Entered patient's room and found him standing at bedside; education provided that order is for bedrest 48 hours ending at 16:00 today as ordered on 05/09 @16:00; pt INSISTENT he is going into the bathroom for bowel movement, yelling at this RN;
education again provided, he remained insistent, refusing to get back to bed, refusing bedpan; placed BSC right next to him as he would not return to bed; Flower Cartagena TRANSITIONS MANAGER & Bina Boles TRANSITIONS MANAGER notified; patient did not have a bowel movement, returned to
bed with assist x1.
[2024-05-11] MEDS: HEPARIN 5000 UNITS SC (09:01)
--- NOTE | 2024-05-11 11:03 | W.PN.VS ---
Addendum entered and electronically signed by Manny Nelson MD 05/11/24 11:13:
Seen and examined with ENEDELIA Cartagena. Agree with findings and plan as noted and discussed below. Seen during VAC change and therefore wound examined by me as well. Wound clean.
Original Note:
Today's Communication / Plan
-
Seen and assessed with Dr Nelson
Assessment/Plan
-
Assessment: 58-year-old male POD #2 Sharp excisional debridement of right groin wound including skin and subcutaneous tissue (wound dimensions 10 cm x 5 cm), rotational muscle flap coverage using sartorius muscle, and placement of VAC dressing for
right groin dehiscence
Plan:
Appreciate infectious disease recommendations for antibiotic management
Continue strict bedrest and head of bed max elevation of 30 degrees until 4pm
Appreciate wound care nurse for VAC management
Can restart Eliquis from vasc standpoint
Subjective Data
-
Date of Service: May 11, 2024
Pt seen at bedside this am with Dr Nelson. Pt had carboy filler at bedside for VAC change. Pt was found up walking in the room this morning by RN. Pt aware he is on strict bedrest for his muscle flap until 4pm today but refused to use bedpan.
Objective Data
-
Vital Signs
Temp Pulse Resp BP Pulse Ox
98.8 F 87 16 134/65 97
05/11/24 07:40 05/11/24 08:39 05/11/24 07:40 05/11/24 08:39 05/11/24 07:40
Intake and Output
05/10/24 05/11/24 05/12/24
06:59 06:59 06:59
Intake Total 2920 / 2920 1180 / 1180
Output Total 1475 / 1475 350 / 350 500 / 500
Balance 1445 / 1445 830 / 830 -500 / -500
Intake:
Oral fluids 720 / 720 1180 / 1180
IV fluids (Total) 2099 / 2099
NS 200 / 200
IV piggybacks 100 / 100
Output:
Urine, Esparza 1175 / 1175 350 / 350
Urine, Voided 300 / 300 500 / 500
Other:
Number of approximated SMALL 1
amounts of urine
Number of unmeasured liquid
stools
Rectum 1
Lab Results
05/11/24 06:39
05/11/24 06:39
Calcium 8.4 mg/dl (8.4-10.2) 05/11/24 06:39
Total Bilirubin 0.7 mg/dl (0.2-1.3) 05/09/24 07:55
AST 14 U/L (17-59) L 05/09/24 07:55
ALT 12 U/L (0-50) 05/09/24 07:55
Alkaline Phosphatase 74 U/L (38-126) 05/09/24 07:55
Total Protein 5.6 g/dl (6.3-8.2) L D 05/09/24 07:55
Albumin 2.7 g/dl (3.5-5.0) L 05/09/24 07:55
Physical Exam
-
No apparent distress, resting in bed comfortably
No tachycardia
No dyspnea
ABD rotund, nontender, nondistended
Right groin VAC removed, no signs of infection, scant serous drainage. VAC reapplied by carboy filler
bilateral feet warm
[2024-05-11 11:35] VITALS: BP 163/82
[2024-05-11 11:41] LABS: Glucose - Point of Care 116 mg/dl (70-99)
--- NOTE | 2024-05-11 11:54 | WOUNDNOTE ---
WON RN NOTE: Wound vac dressing changed on R groin with black foam at base, Max seal used on groin crease fold. Vascular team rounding and assessed groin. Confirmed with Dr. Nelson continue black foam to 125mmhg and proximal sutures use Xeroform and
gauze under Tegaderm to protect. Patient premedicated for pain prior to vac change by nurse Machelle. Patient turned to side, sacrum and heels intact. Intact sutures and meron on L groin and thigh, sutures to be removed this afternoon. Confirmed with
[employer]) that home vac unit approved. Patient made aware that if going home he will have a home vac unit and VN for vac changes. Will follow for next vac change on Thursday, called [facility] for supplies. [employer] home vac in wound care office and will
be applied upon discharge. Will update orders and care plan.
--- NOTE | 2024-05-11 13:28 | W.PN.HOSP.TC ---
Today's Communication/Plan
-
OOB/PT pending surgery clearance
restart Eliquis
IV abx
await wound culture
Assessment / Plan
Assessment / Plan
General: Well Developed, Well Nourished and No Apparent Distress
HEENT: NormoCephalic, Moist mucous membranes and Atraumatic
Respiratory: Clear
Cardiac: S1/S2 and Regular Rhythm; No Murmur or Rub
GI: Soft, Non Tender, Non Distended and Normal Bowel Sounds; No Organomegaly
Rectal: Deferred by Provider
Genito-urinary: Other (right groin wound dehiscence ), wound vac with drainage noted in canister
Musculoskeletal: No Clubbing, No Cyanosis and No Edema
Skin: No Rash
Neuro: Nonfocal/grossly intact
# Wound dehiscence of right groin with suspected infection
-Leukocytosis 26 to 14.2k
-Wound culture from ER with polymicrobial. , blood culture sent negative.
-IV fluids given can be stopped further
-zosyn for now.
-CT abdomen noted
-pain control
-s/p R groin washout, debridement, sartorious uscle flap, wound vac application
-Esparza removal per surgery.
-Await wound culture from OR-prelim with strep pyogenes
-okay to restart Eliquis per surgery
-ID eval
# Recent acute left lower extremity critical limb ischemia/severe PAD status post femorofemoral bypass
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
-Continue aspirin, statin
-Continue cilostazol
# Hypertensive urgency secondary to pain
#Primary HTN
-PRN dilaudid
-As needed hydralazine if needed
-Continue enalapril. may need to increase dose if bp persistently elevated.
Right lower lobe lung nodule/Colonic thickening
-Outpatient follow-up with pulmonology for PET scan/biopsy
-Was seen by oncology on 04/26/24
Likely underlying COPD
Hyperlipidemia
Type 2 diabetes
-POC am 113
-Continue dapagliflozin
-Continue Lantus 27 units
-Continue 16 units Premeal insulin
-Insulin sliding scale
-Hold metformin
Diabetic neuropathy
-Continue gabapentin
CAD status post stent
History of superior mesenteric artery stenosis
History of bilateral carotid stenosis
Nicotine dependence
-Continue bupropion
Anxiety/depression
-Continue duloxetine
Alcohol usage
Marijuana usage
-MSAS protocol
-UDS positive for THC
Full code
DVT prophylaxis�eliquis
Diabetic diet
Anticipated Discharge: > 48 hours
Subjective/Interval History
-
Date of Service: May 11, 2024
Upon entrance to room pt resting in bed comfortably
Upon waking up states of SEVERE pain.
wound vac continues with drainage
bedrest till afternoon
Objective Data
-
Labs:
Laboratory Results
05/11/24
06:39
WBC 14.2 H
Hgb 10.2 L
Hct 31.6 L
Plt Count 412 H
Sodium 136
Potassium 4.1
Chloride 105
Carbon Dioxide 20 L
BUN 14
Creatinine 1.3
Glucose 115 H
Calcium 8.4
Vital Signs:
Vital Signs
Temp Pulse Resp BP Pulse Ox
97.8 F 62 16 163/82 99
05/11/24 11:35 05/11/24 11:35 05/11/24 11:35 05/11/24 11:35 05/11/24 11:35
I&O
05/10/24 05/11/24 05/12/24
06:59 06:59 06:59
Intake Total 2920 / 2920 1180 / 1180
Output Total 1475 / 1475 350 / 350 500 / 500
Balance 1445 / 1445 830 / 830 -500 / -500
--- NOTE | 2024-05-11 13:50 | W.PN.ID1 ---
Date of Service
Date of Service: May 11, 2024
Today's Communication
-Continue Zosyn.
- At time of discharge, transition to amoxicillin 1000mg po q8 plus doxycycline 100mg po bid through 05/23/24.
Assessment / Plan
# Right groin wound dehiscence
Recent R fem to left profunda bypass (04/25/24)
# Leukocytosis - trending down
# DM2
# Tobacco use disorder
- 05/09 s/p OR excisional debridement of right groin wound including skin and subcutaneous tissue (wound dimensions 10 cm x 5 cm), rotational muscle flap coverage using sartorius muscle, and placement of VAC dressing
- OR cx's Strep pyogenes
- Wound swab: Strep pyogenes, Enterobacter cloacae (beware of Amp-C resistance)
-Continue Zosyn.
- At time of discharge, transition to amoxicillin 1000mg po q8 plus doxycycline 100mg po bid through 05/23/24.
- Follow WBC
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
Diabetes mellitus type 2
Hypertension
Dyslipidemia
CAD status post stent
Pulmonary nodule
PAD
History of right lower extremity bypass
History of left iliac stent and common femoral endarterectomy
Thrombosed Left iliac stent s/p right distal external iliac artery to distal common femoral artery interposition graft, right common femoral artery to left profunda femoral artery bypass with WAREHOUSE RECORD CLERK graft April 25, 2024
History of DVT
History of right radial artery thrombectomy
Umbilical hernia repair
Chief Complaint
-: Other (Wound dehiscence)
Subjective / Review of Systems
No complaints.
Vital Signs / Physical Exam
Vital Signs
Vital Signs
Temp Pulse Resp BP Pulse Ox
97.8 F 62 16 163/82 99
05/11/24 11:35 05/11/24 11:35 05/11/24 11:35 05/11/24 11:35 05/11/24 11:35
Physical Exam
Constitutional: No Acute Distress and Comfortable
Cardiovascular: Regular Rate and S1/S2
Pulmonary: Clear
Gastrointestinal: Soft, Non Tender, Non Distended and Normal Bowel Sounds
Wound: Other (Right groin wound vac in place. Reviewed todays's wound photos, wound dark red tissue, no drainage)
Neurological: AO x 3
Objective Data
Lab Data
Lab Results
05/11/24 06:39
05/11/24 06:39
PT 14.6 Sec (11.4-14.6) 05/08/24 18:31
INR 1.11 05/08/24 18:31
APTT 31.5 Sec (23.4-35.0) 05/08/24 18:31
Estimated Creat Clear 65 ml/min 05/11/24 06:39
Lactic Acid 1.3 mmol/L (0.7-2.0) 05/08/24 18:31
Total Bilirubin 0.7 mg/dl (0.2-1.3) 05/09/24 07:55
AST 14 U/L (17-59) L 05/09/24 07:55
ALT 12 U/L (0-50) 05/09/24 07:55
Alkaline Phosphatase 74 U/L (38-126) 05/09/24 07:55
Most recent labs reviewed.
Micro Results:
05/09/24 16:41 Wound Culture - Preliminary
Groin - Right Streptococcus pyogenes
Gram Stain - Preliminary
05/08/24 17:58 Wound Culture - Final
Groin - Right Enterobacter cloacae
Streptococcus pyogenes
Gram Stain - Final
05/08/24 18:32 Blood Culture - Preliminary
Blood/Venous No Growth in 48 hours- Final report to follow
05/08/24 18:33 Blood Culture - Preliminary
Blood/Venous No Growth in 48 hours- Final report to follow
05/09/24 16:41 Anaerobic Culture - Preliminary
Groin - Right Culture pending. Anaerobic cultures are examined after 3
days incubation. Additional information to follow.
05/08/24 CT a/p: There is air and fluid density in the right groin at the surgery site, suggesting wound dehisced since, with extension to the skin surface. No well-formed drainable collection is seen at this time.
--- NOTE | 2024-05-11 14:34 | CM ---
Reviewed the chart notes. Wound vac in place. CM continues to be available to patient/family and is monitoring medical plan for needs at discharge.
Plan: Discharge to home with resumption of VN services.
[2024-05-11 15:20] VITALS: BP 138/63
--- NOTE | 2024-05-11 16:19 | W.PN.UPDATE ---
Update Note
Progress Note Update
Left groin sutures removed, site remains intact and well-approximated, meron remain if no evidence of tension on suture line or if meron tomorrow.
[2024-05-11 17:12] LABS: Glucose - Point of Care 105 mg/dl (70-99)
[2024-05-11] MEDS: NICODERM TRANSDERMAL 14 MG TRANSDERM (19:59)
[2024-05-11] MEDS: ELIQUIS 5 MG PO (19:59)
[2024-05-11 21:52] LABS: Glucose - Point of Care 98 mg/dl (70-99)
[2024-05-11] MEDS: AMBIEN 5 MG PO (22:19)
[2024-05-11] MEDS: LANTUS 0.27 UNITS SC (22:19)
[2024-05-11 23:06] VITALS: BP 150/77
[2024-05-12] MEDS: ZOSYN 50 IV ×5 (00:15→23:09)
--- NOTE | 2024-05-12 00:25 | PTCARENOTE ---
0000 - pt heard attempting to sit on the side of the bed. This RN entered the room to find pt's right hand INT removed and on the bedside table. This RN reoriented pt to situation. Pt was able to state who he was, where he was and why he's in the "hospital. RN asked pt why he pulled out his INT, pt responded that he had no idea he removed it. Assessed pt's needs. Pt now resting in bed and stated he would not pull out any other tubes or lines. Assessment ongoing.
[2024-05-12 05:03] LABS: Glucose - Point of Care 119 mg/dl (70-99)
[2024-05-12] MEDS: DILAUDID 0.5 MG IV (05:43)
[2024-05-12 07:05] VITALS: BP 164/85
[2024-05-12 07:43] LABS: % Basophils 0.6 % (0-2); % Eosinophils 3.5 % (0-6); % Immature Granulocytes 0.6 % (0-0.5); % Lymphocytes 13.4 % (20.5-51.1); % Monocytes 9.5 % (1.7-9.3); % Neutrophils 72.4 % (42.2-75.2); Absolute Basophils 0.1 10^3/uL (0-0.2); Absolute Eosinophils 0.4 10^3/uL (0-0.7); Absolute Immature Granulocytes 0.1 10^3/uL (0-0.05); Absolute Lymphocytes 1.5 10^3/uL (1.2-3.4); Absolute Neutrophils 7.9 10^3/uL (1.4-6.5); Hematocrit 31.3 % (39.0-52.0); Hemoglobin 10.3 g/dL (13.0-18.0); Mean Corp Hgb Conc. 32.9 g/dL (33.0-37.0); Mean Corpuscular Hgb 29.6 pg (27.0-31.0); Mean Corpuscular Volume 89.9 fL (80.0-94.0); Mean Platelet Volume 10.6 fL (7.4-10.4); Nucleated Red Blood Cells % 0 % (-); Platelet Count 424 10^3/uL (130-400); Red Blood Cell Count 3.48 10^6/uL (4.70-6.10); Red Cell Dist. Width 13.9 % (11.5-14.5); White Blood Cell Count 10.9 10^3/uL (4.8-10.8)
[2024-05-12] MEDS: ROXICODONE 5 MG PO ×2 (07:59→16:45)
[2024-05-12 08:17] LABS: Blood Urea Nitrogen 10 mg/dl (9-20); Calcium 8.5 mg/dl (8.4-10.2); Carbon Dioxide 23 mmol/L (22-30); Chloride 110 mmol/L (98-107); Estimated Creatinine Clearance 76 ml/min; Glucose 86 mg/dl (70-99); Potassium 4.1 mmol/L (3.5-5.1); Sodium 139 mmol/L (135-145); eGFR > 60.00
[2024-05-12] MEDS: NOVOLOG FLEXPEN 16 UNITS SC ×3 (09:37→19:18)
[2024-05-12] MEDS: VITAMIN B1 100 MG PO ×2 (09:38→20:01)
[2024-05-12] MEDS: CYMBALTA DELAYED RELEASE 60 MG PO ×2 (09:38→20:01)
[2024-05-12] MEDS: WELLBUTRIN SR (12 hour sustained release) 150 MG PO ×2 (09:39→20:02)
[2024-05-12] MEDS: TOPROL XL 25 MG PO (09:39)
[2024-05-12] MEDS: PLETAL 100 MG PO ×2 (09:39→20:02)
[2024-05-12] MEDS: VASOTEC 10 MG PO ×2 (09:39→12:14)
[2024-05-12] MEDS: FOLVITE 1 MG PO (09:39)
[2024-05-12] MEDS: ASPIR LOW (ENTERIC COATED) 81 MG PO (09:40)
[2024-05-12] MEDS: LIPITOR 80 MG PO (09:40)
[2024-05-12] MEDS: ELIQUIS 5 MG PO ×2 (09:40→20:02)
[2024-05-12] MEDS: FARXIGA 10 MG PO (09:40)
[2024-05-12] MEDS: NEURONTIN 600 MG PO ×3 (09:40→22:10)
--- NOTE | 2024-05-12 10:04 | W.PN.ID1 ---
Date of Service
Date of Service: May 12, 2024
Today's Communication
-Continue Zosyn.
- At time of discharge, transition to amoxicillin 1000mg po q8 plus doxycycline 100mg po bid through 05/23/24.
Assessment / Plan
# Right groin wound dehiscence
Recent R fem to left profunda bypass (04/25/24)
# Leukocytosis - trending down
# DM2
# Tobacco use disorder
- 05/09 s/p OR excisional debridement of right groin wound including skin and subcutaneous tissue (wound dimensions 10 cm x 5 cm), rotational muscle flap coverage using sartorius muscle, and placement of VAC dressing
- OR cx's Strep pyogenes
- Wound swab: Strep pyogenes, Enterobacter cloacae (beware of Amp-C resistance)
-Continue Zosyn.
- At time of discharge, transition to amoxicillin 1000mg po q8 plus doxycycline 100mg po bid through 05/23/24.
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
Diabetes mellitus type 2
Hypertension
Dyslipidemia
CAD status post stent
Pulmonary nodule
PAD
History of right lower extremity bypass
History of left iliac stent and common femoral endarterectomy
Thrombosed Left iliac stent s/p right distal external iliac artery to distal common femoral artery interposition graft, right common femoral artery to left profunda femoral artery bypass with MINIATURE TRAIN DRIVER graft April 25, 2024
History of DVT
History of right radial artery thrombectomy
Umbilical hernia repair
Chief Complaint
-: Other (Wound dehiscence)
Subjective / Review of Systems
No acute complaints.
Vital Signs / Physical Exam
Vital Signs
Vital Signs
Temp Pulse Resp BP Pulse Ox
97.7 F 75 18 164/85 99
05/12/24 07:05 05/12/24 07:05 05/12/24 07:05 05/12/24 07:05 05/12/24 07:05
Physical Exam
Constitutional: No Acute Distress
Gastrointestinal: Soft, Non Tender and Non Distended
Wound: Other (right groin wound vac in place)
Objective Data
Lab Data
Lab Results
05/12/24 06:20
05/12/24 06:20
PT 14.6 Sec (11.4-14.6) 05/08/24 18:31
INR 1.11 05/08/24 18:31
APTT 31.5 Sec (23.4-35.0) 05/08/24 18:31
Estimated Creat Clear 76 ml/min 05/12/24 06:20
Lactic Acid 1.3 mmol/L (0.7-2.0) 05/08/24 18:31
Total Bilirubin 0.7 mg/dl (0.2-1.3) 05/09/24 07:55
AST 14 U/L (17-59) L 05/09/24 07:55
ALT 12 U/L (0-50) 05/09/24 07:55
Alkaline Phosphatase 74 U/L (38-126) 05/09/24 07:55
Most recent labs reviewed.
Micro Results:
05/08/24 18:32 Blood Culture - Preliminary
Blood/Venous No Growth in 72 hours- Final report to follow
05/08/24 18:33 Blood Culture - Preliminary
Blood/Venous No Growth in 72 hours- Final report to follow
05/09/24 16:41 Wound Culture - Preliminary
Groin - Right Streptococcus pyogenes
Gram Stain - Preliminary
05/08/24 17:58 Wound Culture - Final
Groin - Right Enterobacter cloacae
Streptococcus pyogenes
Gram Stain - Final
05/09/24 16:41 Anaerobic Culture - Preliminary
Groin - Right Culture pending. Anaerobic cultures are examined after 3
days incubation. Additional information to follow.
05/08/24 CT a/p: There is air and fluid density in the right groin at the surgery site, suggesting wound dehisced since, with extension to the skin surface. No well-formed drainable collection is seen at this time.
--- NOTE | 2024-05-12 11:26 | W.PN.HOSP.TC ---
Today's Communication/Plan
-
OOB/Activity/Meron per surgery
surgery/wound consult for wound vac
IV abx
increase bp meds
Assessment / Plan
Assessment / Plan
General: Well Developed, Well Nourished and No Apparent Distress
HEENT: NormoCephalic, Moist mucous membranes and Atraumatic
Respiratory: Clear
Cardiac: S1/S2 and Regular Rhythm; No Murmur or Rub
GI: Soft, Non Tender, Non Distended and Normal Bowel Sounds; No Organomegaly
Rectal: Deferred by Provider
Genito-urinary: Other (right groin wound dehiscence ), wound vac with drainage noted in canister
Musculoskeletal: No Clubbing, No Cyanosis and No Edema
Skin: No Rash
Neuro: Nonfocal/grossly intact
# Wound dehiscence of right groin with suspected infection
-Leukocytosis 26 to 10.9k
-Wound culture from ER with polymicrobial. , blood culture sent negative.
-IV fluids given can be stopped further
-zosyn for now.
-CT abdomen noted
-pain control
-s/p R groin washout, debridement, sartorious uscle flap, wound vac application
-Esparza removal per surgery.
-Await wound culture from OR-prelim with strep pyogenes.
-okay to restart Eliquis per surgery
-Cont zosyn with plan to switch to amoxicillin 1000mg po q8 plus doxycycline 100mg po bid through 05/23/24.
-ID recs
-meron/OOB/activity per surgery
# Recent acute left lower extremity critical limb ischemia/severe PAD status post femorofemoral bypass
# History of prior UNDERCOVER COP endarterectomy/stent
-Continue aspirin, statin
-Continue cilostazol
# Hypertensive urgency secondary to pain
#Primary HTN
-PRN dilaudid
-As needed hydralazine if needed
-Continue enalapril. Increase dose to 20mg
Right lower lobe lung nodule/Colonic thickening
-Outpatient follow-up with pulmonology for PET scan/biopsy
-Was seen by oncology on 04/26/24
Likely underlying COPD
Hyperlipidemia
Type 2 diabetes
-POC am 119
-Continue dapagliflozin
-Continue Lantus 27 units
-Continue 16 units Premeal insulin
-Insulin sliding scale
-Hold metformin
Diabetic neuropathy
-Continue gabapentin
CAD status post stent
History of superior mesenteric artery stenosis
History of bilateral carotid stenosis
Nicotine dependence
-Continue bupropion
Anxiety/depression
-Continue duloxetine
Alcohol usage
Marijuana usage
-MSAS protocol
-UDS positive for THC
Full code
DVT prophylaxis�eliquis
Diabetic diet
Anticipated Discharge: 24 - 48 hours
Subjective/Interval History
-
Date of Service: May 12, 2024
sutures removed yesterday
tolerating diet
Objective Data
-
Labs:
Laboratory Results
05/12/24
06:20
WBC 10.9 H
Hgb 10.3 L
Hct 31.3 L
Plt Count 424 H
Sodium 139
Potassium 4.1
Chloride 110 H
Carbon Dioxide 23
BUN 10
Creatinine 1.1
Glucose 86
Calcium 8.5
Vital Signs:
Vital Signs
Temp Pulse Resp BP Pulse Ox
97.7 F 75 18 164/85 99
05/12/24 07:05 05/12/24 07:05 05/12/24 07:05 05/12/24 07:05 05/12/24 07:05
I&O
05/11/24 05/12/24 05/13/24
06:59 06:59 06:59
Intake Total 1180 / 1180 1210 / 1210
Output Total 350 / 350 1000 / 1000
Balance 830 / 830 210 / 210
Data Reviewed
-
Total Time Spent with Patient (in minutes): 55
[2024-05-12 11:53] LABS: Glucose - Point of Care 70 mg/dl (70-99)
[2024-05-12 14:01] LABS: Glucose - Point of Care 128 mg/dl (70-99)
--- NOTE | 2024-05-12 14:48 | CM ---
Reviewed the chart notes. Per notes, transition to amoxicillin 1000mg po q8 plus doxycycline 100mg po bid through 05/23/24 at discharge. CM continues to be available to patient/family and is monitoring medical plan for needs at discharge.
Plan: Discharge to home [facility].
--- NOTE | 2024-05-12 15:05 | WOUNDNOTE ---
[facility] RN note: Patient stated he will see if his son can come in for home wound vac education during the day tomorrow otherwise patient will be instructed if discharged tomorrow. Skin on heels intact. Elevated heels off bed with pillow. Sacral skin
intact. Coccyx crease has a dull red scar. Instructed patient pressure injury prevention measures.
--- NOTE | 2024-05-12 15:16 | W.PN.VS ---
Today's Communication / Plan
-
Discussed with Dr. Nelson
Assessment/Plan
-
Assessment: 58-year-old male POD #3 Sharp excisional debridement of right groin wound including skin and subcutaneous tissue (wound dimensions 10 cm x 5 cm), rotational muscle flap coverage using sartorius muscle, and placement of VAC dressing for
right groin dehiscence
Plan:
Next VAC change tomorrow, will need home VAC-discussed with wound care
Tyler removed from left groin, healing well
Okay for discharge from vascular standpoint, follow-up added to chart
Subjective Data
-
Date of Service: May 12, 2024
Patient seen at bedside this a.m. Patient offers no complaints at this time. No events overnight. VAC intact with no leak
Objective Data
-
Vital Signs
Temp Pulse Resp BP Pulse Ox
97.7 F 75 18 164/85 99
05/12/24 07:05 05/12/24 07:05 05/12/24 07:05 05/12/24 07:05 05/12/24 07:05
Intake and Output
05/11/24 05/12/24 05/13/24
06:59 06:59 06:59
Intake Total 1180 / 1180 1210 / 1210 300 / 300
Output Total 350 / 350 1000 / 1000
Balance 830 / 830 210 / 210 300 / 300
Intake:
Oral fluids 1180 / 1180 960 / 960 300 / 300
IV fluids (Total) 50 / 50
IV piggybacks 200 / 200
Output:
Urine, Esparza 350 / 350
Urine, Voided 1000 / 1000
Other:
Number of approximated MODERATE 1 2
amounts of urine
Number of approximated LARGE 1
amounts of urine
Lab Results
05/12/24 06:20
05/12/24 06:20
Calcium 8.5 mg/dl (8.4-10.2) 05/12/24 06:20
Total Bilirubin 0.7 mg/dl (0.2-1.3) 05/09/24 07:55
AST 14 U/L (17-59) L 05/09/24 07:55
ALT 12 U/L (0-50) 05/09/24 07:55
Alkaline Phosphatase 74 U/L (38-126) 05/09/24 07:55
Total Protein 5.6 g/dl (6.3-8.2) L D 05/09/24 07:55
Albumin 2.7 g/dl (3.5-5.0) L 05/09/24 07:55
Physical Exam
-
No apparent distress, resting in bed comfortably
No tachycardia
No dyspnea
ABD rotund, nontender, nondistended
Right groin VAC intact. Left groin meron removed, healing well
bilateral feet warm
[2024-05-12 15:25] VITALS: BP 149/73
[2024-05-12 18:10] LABS: Glucose - Point of Care 125 mg/dl (70-99)
[2024-05-12 19:11] VITALS: BP 172/86
[2024-05-12] MEDS: NICODERM TRANSDERMAL 14 MG TRANSDERM (20:02)
[2024-05-12] MEDS: SENOKOT-S 1 TABLET PO (20:02)
[2024-05-12 21:27] LABS: Glucose - Point of Care 89 mg/dl (70-99)
[2024-05-12] MEDS: AMBIEN 5 MG PO (22:10)
[2024-05-12] MEDS: LANTUS 0.27 UNITS SC (22:10)
[2024-05-13 00:08] VITALS: BP 166/89
[2024-05-13 05:23] VITALS: BMI 31.1
[2024-05-13] MEDS: ZOSYN 50 IV ×2 (05:23→13:36)
--- NOTE | 2024-05-13 05:48 | PTCARENOTE ---
Pt awake intermittently t/o the night, confused to place, looking for cigarettes. Pt reoriented to place and time and the need to abstain from smoking in order to promote wound healing. Nicotine patch in place. Frequent reality orientation provided.
Right groin wound vac remains intact. Pt pulled out left UE INT, pt stated 'I didnt think i needed it anymore'. VAT RN placed new int in left wrist. close monitoring maintained.
[2024-05-13 06:46] LABS: % Basophils 0.4 % (0-2); % Eosinophils 2.8 % (0-6); % Immature Granulocytes 0.4 % (0-0.5); % Lymphocytes 12.2 % (20.5-51.1); % Monocytes 7.7 % (1.7-9.3); % Neutrophils 76.5 % (42.2-75.2); Absolute Basophils 0.1 10^3/uL (0-0.2); Absolute Eosinophils 0.4 10^3/uL (0-0.7); Absolute Immature Granulocytes 0.1 10^3/uL (0-0.05); Absolute Lymphocytes 1.7 10^3/uL (1.2-3.4); Absolute Monocytes 1.1 10^3/uL (0.1-0.6); Absolute Neutrophils 10.5 10^3/uL (1.4-6.5); Hematocrit 31.5 % (39.0-52.0); Hemoglobin 10.4 g/dL (13.0-18.0); Mean Corpuscular Volume 90.8 fL (80.0-94.0); Mean Platelet Volume 10.6 fL (7.4-10.4); Nucleated Red Blood Cells % 0 % (-); Platelet Count 459 10^3/uL (130-400); Red Blood Cell Count 3.47 10^6/uL (4.70-6.10); White Blood Cell Count 13.7 10^3/uL (4.8-10.8)
[2024-05-13 07:07] LABS: Glucose - Point of Care 58 mg/dl (70-99)
[2024-05-13 07:15] LABS: Blood Urea Nitrogen 11 mg/dl (9-20); Calcium 8.8 mg/dl (8.4-10.2); Carbon Dioxide 23 mmol/L (22-30); Chloride 108 mmol/L (98-107); Estimated Creatinine Clearance 78 ml/min; Glucose 53 mg/dl (70-99); Potassium 4.2 mmol/L (3.5-5.1); Sodium 141 mmol/L (135-145); eGFR > 60.00
[2024-05-13 07:36] LABS: Glucose - Point of Care 69 mg/dl (70-99)
[2024-05-13 07:55] VITALS: BP 166/71
[2024-05-13 08:06] LABS: Glucose - Point of Care 116 mg/dl (70-99)
[2024-05-13] MEDS: VASOTEC 20 MG PO (08:38)
[2024-05-13] MEDS: TOPROL XL 25 MG PO (08:38)
[2024-05-13] MEDS: MIRALAX 17 GRAMS PO (08:38)
[2024-05-13] MEDS: WELLBUTRIN SR (12 hour sustained release) 150 MG PO (08:38)
[2024-05-13] MEDS: FARXIGA 10 MG PO (08:38)
[2024-05-13] MEDS: VITAMIN B1 100 MG PO (08:38)
[2024-05-13] MEDS: ELIQUIS 5 MG PO (08:39)
[2024-05-13] MEDS: SENOKOT-S 1 TABLET PO (08:39)
[2024-05-13] MEDS: NEURONTIN 600 MG PO (08:39)
[2024-05-13] MEDS: FOLVITE 1 MG PO (08:39)
[2024-05-13] MEDS: CYMBALTA DELAYED RELEASE 60 MG PO (08:39)
[2024-05-13] MEDS: PLETAL 100 MG PO (08:40)
[2024-05-13] MEDS: ASPIR LOW (ENTERIC COATED) 81 MG PO (08:40)
[2024-05-13] MEDS: LIPITOR 80 MG PO (08:40)
[2024-05-13] MEDS: ROXICODONE 5 MG PO (08:44)
[2024-05-13 10:21] LABS: Glucose - Point of Care 123 mg/dl (70-99)
--- NOTE | 2024-05-13 10:31 | W.PN.ID1 ---
Date of Service
Date of Service: May 13, 2024
Today's Communication
-Continue Zosyn.
- At time of discharge, transition to amoxicillin 1000mg po q8 plus doxycycline 100mg po bid through 05/23/24.
Assessment / Plan
# Right groin wound dehiscence
Recent R fem to left profunda bypass (04/25/24)
# Leukocytosis - trending down
# DM2
# Tobacco use disorder
- 05/09 s/p OR excisional debridement of right groin wound including skin and subcutaneous tissue (wound dimensions 10 cm x 5 cm), rotational muscle flap coverage using sartorius muscle, and placement of VAC dressing
- OR cx's Strep pyogenes
- Wound swab: Strep pyogenes, Enterobacter cloacae (beware of Amp-C resistance)
-Continue Zosyn.
- At time of discharge, transition to amoxicillin 1000mg po q8 plus doxycycline 100mg po bid through 05/23/24.
# Conditions [employer]
Diabetes mellitus type 2
Hypertension
Dyslipidemia
CAD status post stent
Pulmonary nodule
PAD
History of right lower extremity bypass
History of left iliac stent and common femoral endarterectomy
Thrombosed Left iliac stent s/p right distal external iliac artery to distal common femoral artery interposition graft, right common femoral artery to left profunda femoral artery bypass with [employer] graft April 25, 2024
History of DVT
History of right radial artery thrombectomy
Umbilical hernia repair
Chief Complaint
-: Other (Wound dehiscence)
Subjective / Review of Systems
Doing OK
Vital Signs / Physical Exam
Vital Signs
Vital Signs
Temp Pulse Resp BP Pulse Ox
98.5 F 58 16 166/71 96
05/13/24 07:55 05/13/24 07:55 05/13/24 07:55 05/13/24 07:55 05/13/24 07:55
Physical Exam
Constitutional: No Acute Distress
Gastrointestinal: Soft, Non Tender and Non Distended
Wound: Other (right groin wound vac in place)
Objective Data
Lab Data
Lab Results
05/13/24 06:13
05/13/24 06:13
PT 14.6 Sec (11.4-14.6) 05/08/24 18:31
INR 1.11 05/08/24 18:31
APTT 31.5 Sec (23.4-35.0) 05/08/24 18:31
Estimated Creat Clear 78 ml/min 05/13/24 06:13
Lactic Acid 1.3 mmol/L (0.7-2.0) 05/08/24 18:31
Total Bilirubin 0.7 mg/dl (0.2-1.3) 05/09/24 07:55
AST 14 U/L (17-59) L 05/09/24 07:55
ALT 12 U/L (0-50) 05/09/24 07:55
Alkaline Phosphatase 74 U/L (38-126) 05/09/24 07:55
Most recent labs reviewed.
Micro Results:
05/08/24 18:33 Blood Culture - Preliminary
Blood/Venous No Growth in 4 days- Final report to follow
05/08/24 18:32 Blood Culture - Preliminary
Blood/Venous No Growth in 4 days- Final report to follow
05/09/24 16:41 Anaerobic Culture - Preliminary
Groin - Right Culture pending. Anaerobic cultures are examined after 3
days incubation. Additional information to follow.
05/09/24 16:41 Wound Culture - Preliminary
Groin - Right Streptococcus pyogenes
Gram Stain - Preliminary
05/08/24 17:58 Wound Culture - Final
Groin - Right Enterobacter cloacae
Streptococcus pyogenes
Gram Stain - Final
05/08/24 CT a/p: There is air and fluid density in the right groin at the surgery site, suggesting wound dehisced since, with extension to the skin surface. No well-formed drainable collection is seen at this time.
--- NOTE | 2024-05-13 10:31 | WOUNDNOTE ---
[facility] RN note: Patient's R groin vac dressing changed. Patient received po pain med prior. Patient tolerated fair. R groin wound appears clean and improved from last photo with more pink tissue. Dr. Anen was in and stated he will request PT evaluate
for readiness for home. Patient did not contact his son for home vac teaching. 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 Skin on heels and sacrum intact. Heels off bed with air chair cushion. He can turn self in bed. Next vac dressing change due
on Thursday.
[2024-05-13] MEDS: DILAUDID 0.5 MG IV (10:41)
[2024-05-13] MEDS: NOVOLOG FLEXPEN SC (10:42)
[2024-05-13] MEDS: NOVOLOG FLEXPEN 10 UNITS SC ×2 (10:42→13:37)
--- NOTE | 2024-05-13 11:52 | W.PN.HOSP.TC ---
Today's Communication/Plan
-
PT eval
po abx on dc
OP VASCULAR f/u
decrease insulin
Assessment / Plan
Assessment / Plan
General: Well Developed, Well Nourished and No Apparent Distress
HEENT: NormoCephalic, Moist mucous membranes and Atraumatic
Respiratory: Clear
Cardiac: S1/S2 and Regular Rhythm; No Murmur or Rub
GI: Soft, Non Tender, Non Distended and Normal Bowel Sounds; No Organomegaly
Rectal: Deferred by Provider
Genito-urinary: Other (right groin wound dehiscence ), wound vac with drainage noted in canister
Musculoskeletal: No Clubbing, No Cyanosis and No Edema
Skin: No Rash
Neuro: Nonfocal/grossly intact
# Wound dehiscence of right groin with suspected infection
-Wound culture from ER with polymicrobial. , blood culture sent negative.
-IV fluids given can be stopped further
-zosyn for now.
-CT abdomen noted
-pain control
-s/p R groin washout, debridement, sartorious uscle flap, wound vac application
-Esparza removed post d2 .
-Await wound culture from OR-prelim with strep pyogenes.
-okay to restart Eliquis per surgery
-Cont zosyn with plan to switch to amoxicillin 1000mg po q8 plus doxycycline 100mg po bid through 05/23/24.
-ID recs
-meron/OOB/activity and okay to dc per vascular surgery
# Recent acute left lower extremity critical limb ischemia/severe PAD status post femorofemoral bypass
# History of prior [employer]IE[employer] endarterectomy/stent
-Continue aspirin, statin
-Continue cilostazol
# Hypertensive urgency secondary to pain
#Primary HTN
-PRN dilaudid
-As needed hydralazine if needed
-Continue enalapril. Increase dose to 20mg
-Elevated due to pain
Right lower lobe lung nodule/Colonic thickening
-Outpatient follow-up with pulmonology for PET scan/biopsy
-Was seen by oncology on 04/26/24
Likely underlying COPD
Hyperlipidemia
Type 2 diabetes
-hypoglycemia episode -
-Continue dapagliflozin
-Continue Lantus 27 units
-Continue Premeal insulin-reduce dose to 10units
-Insulin sliding scale
-Hold metformin
Diabetic neuropathy
-Continue gabapentin
CAD status post stent
History of superior mesenteric artery stenosis
History of bilateral carotid stenosis
Nicotine dependence
-Continue bupropion
Anxiety/depression
-Continue duloxetine
Alcohol usage
Marijuana usage
-MSAS protocol
-UDS positive for THC
Full code
DVT prophylaxis�eliquis
PT eval. if home would benefit from VN.
Anticipated Discharge: Today
Subjective/Interval History
-
Date of Service: May 13, 2024
wound vac change today via wound care team
meron out per surgery
Objective Data
-
Labs:
Laboratory Results
05/13/24
06:13
WBC 13.7 H
Hgb 10.4 L
Hct 31.5 L
Plt Count 459 H
Sodium 141
Potassium 4.2
Chloride 108 H
Carbon Dioxide 23
BUN 11
Creatinine 1.1
Glucose 53 L*
Calcium 8.8
Vital Signs:
Vital Signs
Temp Pulse Resp BP Pulse Ox
98.5 F 58 16 166/71 96
05/13/24 07:55 05/13/24 07:55 05/13/24 07:55 05/13/24 07:55 05/13/24 07:55
I&O
05/12/24 05/13/24 05/14/24
06:59 06:59 06:59
Intake Total 1210 / 1210 1130 / 1130
Output Total 1000 / 1000 50 / 50
Balance 210 / 210 1080 / 1080
Data Reviewed
-
Total Time Spent with Patient (in minutes): 55
[2024-05-13 12:35] VITALS: BP 168/86; PULSE 73
[2024-05-13 13:13] LABS: Glucose - Point of Care 124 mg/dl (70-99)
--- NOTE | 2024-05-13 13:16 | CM ---
Reviewed the chart notes. Wound vac dressing changed. Home wound vac to be placed and discharge. CM continues to be available to patient/family and is monitoring medical plan for needs at discharge.
Plan: Discharge to home with wound vac and resumption of [facility] services. Patient son will transport home.
--- NOTE | 2024-05-13 13:31 | W.[place]-PDMP ---
[place]-PD[place]
-
Checked the [place]- Prescription Drug Monitoring Program website, no red flags identified; safe to proceed with prescription.
--- NOTE | 2024-05-13 13:31 | W.DCSUMMARY ---
Discharge Summary
Discharge Data
Date of Admission: 05/08/24
Date of Discharge: 05/13/24
-
Pending Results: No
Hospital Course
58-year-old male past medical history of diabetes, diabetic neuropathy, CAD status post stent, superior mesenteric artery stenosis, bilateral carotid stenosis, tobacco abuse, primary hypertension, severe peripheral arterial disease status post
femorofemoral bypass, carotid endarterectomy and stent placement who is presenting with right groin pain. Patient had a wound dehiscence after undergoing lower extremity bypass. Patient was evaluated by vascular surgery. Patient underwent CT
abdomen pelvis. Patient underwent to the operating room where he underwent right groin washout, debridement, sartorius muscle flap with wound VAC application. OR cultures positive for strep pyogenes. Patient was started on Zosyn. Infectious
disease was also consulted. Physical therapy was also consulted. Patient leukocytosis down trended. Patient remained afebrile. Patient Esparza catheter was removed postop day 2. patient was voiding without difficulty. Blood pressure medications
were increased. Wound vac application exchanged prior to discharge. IV zosyn transtioned to po amoxicillin and doxycycline.
Patient will need to follow up with vascular surgery. Recommend pulmonary follow up for lung nodule.
Discharge Plan
-
Patient Disposition: Home with Home Care
Discharge Diagnosis/Procedures: Right groin washout, sartorius muscle flap, wound VAC
Wound dehiscence of right groin with infection
Condition: Fair
Diet: Diabetic, Carb Controlled
Activity: As tolerated
Driving Restrictions: Not until seen by your Dr
Blood Work: BMP in 7-10 days via primary doctor
Others Tests: Right lower lobe lung nodule
-Outpatient follow-up with pulmonology for PET scan/biopsy
Activity Restrictions/Additional Instructions:
Wound Care Instructions
Visiting nurse to change home vac dressing changes. R groin-wound vac therapy, clean with saline, black foam, Change every 48 - 72 hours (i. e. Uqpnfrn-[id number]-Sdbnife) and prn if unable to obtain a seal. Low Intensity, Continuous at 125 mmHg.
Upon discharge or transfer to another facility, remove VAC foam and apply NS moistened gauze dressing unless home VAC unit available.
Call [employer] or [employer] support 08/09 for vac problems/concerns [phone].
Elevate heels off bed with pillow/s.
Follow up with vascular surgeon.
Stand Alone Forms: DC Instr - Vascular OR
Referrals:
Milka Mcgowan PA-C [Specified Professional Personl] - 05/25/24 10:00 am (Vascular surgery office follow-up)
Bijan Howell MD [Active] - None
(call to make appt-Right lower lobe lung nodule
)
Miguel Chaney DO [Family Provider] - in less than 1 week (F/U FOR BLOOD PRESSURE AND DIABETES MANAGEMENT.)
Prescriptions:
New
amoxicillin 500 mg tablet
1,000 mg PO TID 10 Days Qty: 60 0RF
doxycycline hyclate 100 mg tablet
100 mg PO BID 10 Days Qty: 20 0RF
oxycodone 5 mg tablet
5 mg PO TID PRN (Reason: SEVERE PAIN) Qty: 15 0RF
enalapril maleate 20 mg tablet
20 mg PO DAILY Qty: 30 0RF
acetaminophen [Tylenol] 325 mg tablet
650 mg PO QID PRN (Reason: Pain) Qty: 60 0RF
Continued
cilostazol 100 MG tablet
100 mg PO BID
metoprolol succinate 25 MG tablet extended release 24 hr
25 mg PO DAILY
metformin 1,000 mg Tablet
1,000 mg PO BID
dapagliflozin propanediol [Farxiga] 10 mg Tablet
10 mg PO DAILY
atorvastatin 80 MG tablet
80 mg PO DAILY
aspirin 81 mg tablet,delayed release (DR/EC)
81 mg PO DAILY
zolpidem 5 mg Tablet
5 mg PO HS
duloxetine 30 mg Capsule,Delayed Release(Dr/Ec)
60 mg PO BID
apixaban 5 mg tablet
5 mg PO BID 30 Days Qty: 60 0RF
insulin glargine [Lantus Solostar U-100 Insulin] 100 unit/mL (3 mL) insulin pen
27 unit SC HS Qty: 0 0RF
bupropion HCl (smoking deter) 150 mg tablet extended release 12 hr
150 mg PO BID 30 Days Qty: 60 5RF
Rx Instructions:
ONCE DAILY FOR FIRST 3 DAYS; THEM TWICE DAILY
tizanidine 2 mg Tablet
2 mg PO Q8HPRN PRN (Reason: spasms)
Changed
gabapentin 300 MG capsule
600 mg PO TID Qty: 0 0RF
insulin aspart U-100 [Novolog FlexPen U-100 Insulin] 100 unit/mL (3 mL) insulin pen
10 unit SC AC Qty: 0 0RF
Discontinued
enalapril maleate 10 MG tablet
10 mg PO DAILY
Discharge Orders:
Discharge Patient (As Directed); Ordered 05/13/24
Ordered By: Spencer Anne
Discharge Date and Time
Print Language: SYRIAC
--- NOTE | 2024-05-13 14:10 | WOUNDNOTE ---
[facility] RN note: Patient discharged. Connected patient's vac dressing to the ready mcc vac pump (serial #[id number]). Patient given ready care vac supplied. Patient signed proof of delivery form. Instructed patient how to turn on/off vac pump, how
to plug in vac pump, how to change the vac canister, how to disconnect, clamp, reconnect and un-clamp vac tubing. Instructed patient to call VN if the home vac alarms or if looses it's suction. Instructed patient to call [employer] support
08/09 for problems or questions regarding the vac. Instructed patient if rafael bleeding occurs, to clamp and disconnect vac tubing immediately, turn vac pump off and call 911. VN scheduled to change vac dressing on Thursday. Wound care supplies given.
Updated RN Sana who will offer teaching patient's son about the home vac pump when he comes in. TOMASZ Lopez was in during the end of visit.
--- NOTE | 2024-05-13 14:27 | VNURNOTE ---
Home health liaison spoke with patient about [facility]ADAR visit on 05/16/24 for wound vac. Patient being discharged today
[2024-05-13 15:27] VITALS: BP 148/69
== END 2024-05-13 15:31 | disposition home health service (06) | DRG 902 ==
LOC: 2 SOUTH 20:18
PROVIDERS: Student in an Organized Health Care Education/Training Program; ADMITTING PHYSICIAN Hospitalist; ATTENDING PHYSICIAN Hospitalist; CONSULT PHYSICIAN Internal Medicine Infectious Disease; EMERGENCY PHYSICIAN Emergency Medicine; FAMILY PHYSICIAN Family Medicine; OTHER PHYSICIAN Surgery Vascular Surgery
PROC: 2W1NX6Z Compression of Right Upper Leg using Pressure Dressing (ICD-10-PCS; 2024-05-09)
PROC: 0KXQ0ZZ Transfer Right Upper Leg Muscle, Open Approach (ICD-10-PCS; 2024-05-09)
PROC: 0JBL0ZZ Excision of Right Upper Leg Subcutaneous Tissue and Fascia, Open Approach (ICD-10-PCS; 2024-05-09)
DX: T81.31XA Disruption of external operation (surgical) wound, not elsewhere classified, initial encounter (principal); T81.41XA Infection following a procedure, superficial incisional surgical site, initial encounter; I25.10 Atherosclerotic heart disease of native coronary artery without angina pectoris; E11.40 Type 2 diabetes mellitus with diabetic neuropathy, unspecified; F17.210 Nicotine dependence, cigarettes, uncomplicated; I16.0 Hypertensive urgency; R91.1 Solitary pulmonary nodule; J44.9 Chronic obstructive pulmonary disease, unspecified; E11.51 Type 2 diabetes mellitus with diabetic peripheral angiopathy without gangrene; F32.A Depression, unspecified; I10 Essential (primary) hypertension; F12.90 Cannabis use, unspecified, uncomplicated; F41.9 Anxiety disorder, unspecified; E78.00 Pure hypercholesterolemia, unspecified; B95.0 Streptococcus, group A, as the cause of diseases classified elsewhere; E66.9 Obesity, unspecified; Y83.8 Other surgical procedures as the cause of abnormal reaction of the patient, or of later complication, without mention of misadventure at the time of the procedure; Y92.9 Unspecified place or not applicable; I25.2 Old myocardial infarction; Z79.84 Long term (current) use of oral hypoglycemic drugs; Z79.01 Long term (current) use of anticoagulants; Z79.4 Long term (current) use of insulin; Z95.5 Presence of coronary angioplasty implant and graft; Z86.718 Personal history of other venous thrombosis and embolism; Z95.820 Peripheral vascular angioplasty status with implants and grafts; Z91.148 Patient's other noncompliance with medication regimen for other reason; Z79.82 Long term (current) use of aspirin; Z79.02 Long term (current) use of antithrombotics/antiplatelets; Z68.31 Body mass index [BMI] 31.0-31.9, adult
CPT/HCPCS: 11042; 11045; 15738; 75635; 80048; 80053; 80306; 80307; 82962; 83605; 85025; 85027; 85610; 85730; 86850; 86900; 86901; 87040; 87070; 87075; 87076; 87077; 87147; 87186; 87205; 93005; 96361; 96365; 96366; 96367; 96375; 97162; 99285; Q9967

== ENCOUNTER → 2024-06-14 06:52 | Outpatient (REF) | payer OTHER, SELFPAY | LOC: RAD 06:52 | PROVIDERS: ATTENDING PHYSICIAN Physician Assistant; FAMILY PHYSICIAN Family Medicine | DX: I73.9 Peripheral vascular disease, unspecified (principal) | CPT/HCPCS: 93922 ==

== ENCOUNTER → 2024-07-14 14:19 | Outpatient (REF) | payer OTHER, SELFPAY | LOC: HWRAD 14:19 | PROVIDERS: ATTENDING PHYSICIAN Internal Medicine Critical Care Medicine; FAMILY PHYSICIAN Family Medicine | DX: R91.1 Solitary pulmonary nodule (principal) | CPT/HCPCS: 71250 ==

== ENCOUNTER → 2024-07-15 07:39 | Outpatient (REF) | payer OTHER, SELFPAY ==
[2024-07-15 09:02] LABS: Hematocrit 41.5 % (39.0-52.0); Hemoglobin 13.4 g/dL (13.0-18.0); Mean Corp Hgb Conc. 32.3 g/dL (33.0-37.0); Mean Corpuscular Hgb 29.1 pg (27.0-31.0); Mean Platelet Volume 10.8 fL (7.4-10.4); Platelet Count 371 10^3/uL (130-400); Red Blood Cell Count 4.61 10^6/uL (4.70-6.10); Red Cell Dist. Width 15.4 % (11.5-14.5); White Blood Cell Count 12.5 10^3/uL (4.8-10.8)
[2024-07-15 09:08] LABS: APTT 28.9 Sec (23.4-35.0); PT 13.5 Sec (11.4-14.6)
[2024-07-15 09:22] LABS: Blood Urea Nitrogen 19 mg/dl (9-20); Carbon Dioxide 26 mmol/L (22-30); Chloride 105 mmol/L (98-107); Glucose 250 mg/dl (70-99); Potassium 5.2 mmol/L (3.5-5.1); Sodium 140 mmol/L (135-145); eGFR > 60.00
== END ==
LOC: SDSPAT 07:39
PROVIDERS: ATTENDING PHYSICIAN Internal Medicine Critical Care Medicine; FAMILY PHYSICIAN Family Medicine
DX: R91.1 Solitary pulmonary nodule (principal)
CPT/HCPCS: 80048; 85027; 85610; 85730; 93005

== ENCOUNTER 2024-07-18 06:15 | Day surgery (SDC) | payer OTHER, SELFPAY ==
--- NOTE | 2024-07-14 14:11 | PTCARENOTE ---
Addendum entered by Cristela Tirado 07/15/24 16:32:
Per Dr Chau, patient was instructed by him to hold Cilostazol after 07/15 and will restart after the procedure.
Original Note:
Patient is ok to continue taking Cilostazol pre procedure per Dr Llanes and Dr Chau.
[2024-07-15 12:50] VITALS: BMI 32.0
[2024-07-18] VITALS (11 sets, daily range): BP systolic 141–211; BP diastolic 69–110; BMI 32.0
[2024-07-18 09:15] LABS: Glucose - Point of Care 132 mg/dl (70-99)
[2024-07-18 11:31] LABS: Glucose - Point of Care 184 mg/dl (70-99)
== END 2024-07-18 13:18 | disposition home or self-care (01) ==
LOC: SDS 06:15
PROVIDERS: ATTENDING PHYSICIAN Internal Medicine Critical Care Medicine; FAMILY PHYSICIAN Family Medicine
DX: R91.1 Solitary pulmonary nodule (principal); C78.01 Secondary malignant neoplasm of right lung
CPT/HCPCS: 31629; 31628; 31624; 31627; 31654; 88173; 88305; 71045; 76000; 82962; 88112; 88333; 88341; 88342; 94640; C1887

== ENCOUNTER → 2024-09-05 08:22 | Outpatient (REF) | payer OTHER, SELFPAY | LOC: PET 08:22 | PROVIDERS: ATTENDING PHYSICIAN Internal Medicine Hematology & Oncology | DX: C34.31 Malignant neoplasm of lower lobe, right bronchus or lung (principal) | CPT/HCPCS: 78816; A9552 ==

== ENCOUNTER 2024-09-22 23:41 | Inpatient (IN) | payer OTHER, SELFPAY ==
[2024-09-22 19:37] VITALS: BP 193/117
[2024-09-22 20:05] VITALS: BP 194/89
[2024-09-22 20:12] VITALS: BMI 30.3
--- NOTE | 2024-09-22 20:12 | ED.GENMED ---
History of Present Illness
General
Chief Complaint: Throat Problem
Source: patient and records
Exam Limitations: none
Time Seen by Provider: 09/22/24 20:03
Nursing documentation reviewed up to this point in time: agreed with
History of Present Illness
History of Present Illness:
58-year-old male with 3 weeks of sore throat hoarse voice decreased p.o. intake due to pain with swallowing has a nodule in his chest underwent a biopsy from pulmonary, workup is in progress, patient also was in urgent care told that he had a mass
in his throat details are unclear he is diabetic suffers from neuropathy
Past History
Past History
ED Past Medical History: CAD, HTN, Hypercholesterolemia, NIDDM, NH and Other
ED Past Surgical History: Tonsilectomy and Other
Patient has exhibited threatening behavior?: No
Social History
Tobacco: Smoker (1 PPD)
Alcohol: Other ('moderately' drinks more than a few times a week.)
Drug: None
Personal:
Living: with family
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
Family History
Family History: CAD
Phy Exam
Physical Exam
Physical Exam:
Physical Exam
General: 58-year-old male stridor not drooling sitting upright
Neck: Posterior pharynx is clear no swelling under the tongue, no trismus
Heart: s1/s2 regular rate and rhythm, no murmur. equal radial pulses.
Lungs: Wheeze bilateral
Abdomen: Nontender
Neuro: alert and oriented. no focal neurological deficits
Skin: no rash
Psychiatric: well kept. interactive and cooperative
Extremities: no edema.
Course
Orders/Labs/Results
Orders:
Orders
09/22/24 19:44
Electrocardiogram (*1) Urgent
Reason for Study: Hypertension, Benign
EKG- Treatment ONCE
09/22/24 20:10
CT Chest With Iv Contrast Urgent
Comment:
Reason For Exam: stridor cancer
CT Neck With Iv Contrast Urgent
Comment:
Reason For Exam: stridor cancer
Dexamethasone Sod Phosphate [Decadron] 10 mg IV NOW STA
Racepinephrine [Vaponefrin Nebs] 0.5 ml INH R NOW STA
09/22/24 20:36
Complete Blood Count/No Diff Urgent
09/22/24 21:20
Comprehensive Metabolic Panel Urgent
09/22/24 23:07
0.9% Sodium Chloride 1000 ml [Nss] 1,000 ml IV BOLUS
Racepinephrine [Vaponefrin Nebs] 0.5 ml INH R NOW STA
Abnormal Lab Results
09/22/24 09/22/24
20:36 21:20
WBC 17.3 H 10^3/uL
(4.8-10.8)
MCHC 32.3 L g/dL
(33.0-37.0)
RDW 17.0 H %
(11.5-14.5)
Plt Count 417 H 10^3/uL
(130-400)
MPV 10.7 H fL
(7.4-10.4)
Glucose 175 H mg/dl
(70-99)
09/22/24 20:36
09/22/24 21:20
Vital Signs
Initial and Last Documented VS:
Initial Vital Signs
Temp Pulse Resp BP Pulse Ox
98.5 F 112 16 193/117 97
09/22/24 19:37 09/22/24 19:37 09/22/24 19:37 09/22/24 19:37 09/22/24 19:37
Last Documented Vital Signs
Temp Pulse Resp BP Pulse Ox
98.5 F 91 25 147/132 95
09/22/24 19:37 09/22/24 22:45 09/22/24 22:45 09/22/24 22:00 09/22/24 22:45
MDM/Problems Addressed
Differential Diagnosis Includes:
Bronchitis laryngitis symptoms related to tumor epiglottitis retropharyngeal abscess
MDM/Problems Addressed:
Sore throat strep
Chronic conditions affecting care:
Smoker question lung
Acute Exacerbation and/or Progression of Chronic Illness:
Smoking question lung cancer
*Radiology
Radiology exam reviewed: radiology read reviewed
*Pulse Oximetry
SaO2: 97
Oxygen Mode of Delivery: Room air
Patient hypoxic: no
*EKG
Interpreted by ED Provider?: Yes
Interpretation: abnormal
Comparison EKG: no comparison EKG present
Heart Rate: 78
Rate: normal
Rhythm: sinus
Ischemia: non-specific ST changes
*Weaving Professor Interpretation
Rate: normal
Interpretation: normal
Heart Rate: 78
Rhythm: sinus
*Critical Care Note
Total Time (30-74mins, 75-104mins- exclusive of procedures): 15
Data Reviewed
Review of Other/Old Records Reveals: Labs
Source: records
Update Note
Update Note:
Update labs noted CT noted report noted patient is able to lie flat still with stridor, though decreased from previous, placed on oxygen for comfort we will repeat racemic epi, at this point I believe would be prudent to admit him to the hospital,
he knows about the melanoma in his lung-result from Dr. Chau July 2024 has not yet seen oncology, message sent to oncology ENT hospitalist and pulmonary
ED Attending Note
-
Portions of this chart may have been created with voice recognition software.� Occasional wrong word or��sound alike� substitutions may have occurred due to the inherent limitations of voice recognition software.
Discharge Plan
Departure
Patient Disposition: Admit
Date of Disposition: 09/22/24
Time of Disposition: 23:16
Admit to: IMU
Presentation/result/management discussed w/ accepting MD/DO: Hospitalist
Patient with high blood pressure during this ER visit?: No
Condition: Fair
Discharge Problem:
Stridor, Melanoma
Prescriptions:
No Action
cilostazol 100 MG tablet
100 mg PO BID
Rx Instructions:
MEDICATION INFORMATION PROVIDED BY PATIENT
metoprolol succinate 25 MG tablet extended release 24 hr
25 mg PO DAILY
Rx Instructions:
MEDICATION INFORMATION PROVIDED BY PATIENT
metformin 1,000 mg Tablet
1,000 mg PO DAILY
Rx Instructions:
MEDICATION INFORMATION PROVIDED BY PATIENT
dapagliflozin propanediol [Farxiga] 10 mg Tablet
10 mg PO DAILY
Rx Instructions:
MEDICATION INFORMATION PROVIDED BY PATIENT
atorvastatin 80 MG tablet
80 mg PO DAILY
Rx Instructions:
MEDICATION INFORMATION PROVIDED BY PATIENT
zolpidem 5 mg Tablet
5 mg PO HS
Rx Instructions:
MEDICATION INFORMATION PROVIDED BY PATIENT
duloxetine 30 mg Capsule,Delayed Release(Dr/Ec)
60 mg PO DAILY
Rx Instructions:
MEDICATION INFORMATION PROVIDED BY PATIENT
enalapril maleate 20 mg tablet
20 mg PO DAILY Qty: 30 0RF
Rx Instructions:
MEDICATION INFORMATION PROVIDED BY PATIENT
acetaminophen [Tylenol] 325 mg tablet
650 mg PO PRN PRN (Reason: Pain)
Rx Instructions:
MEDICATION INFORMATION PROVIDED BY PATIENT
gabapentin 300 MG capsule
300 mg PO TID
Rx Instructions:
MEDICATION INFORMATION PROVIDED BY PATIENT
insulin aspart U-100 [Novolog FlexPen U-100 Insulin] 100 unit/mL (3 mL) insulin pen
17 unit SC AC
Rx Instructions:
MEDICATION INFORMATION PROVIDED BY PATIENT
insulin glargine [Lantus Solostar U-100 Insulin] 100 unit/mL (3 mL) insulin pen
20 unit SC HS
Rx Instructions:
MEDICATION INFORMATION PROVIDED BY PATIENT
apixaban 5 mg tablet
5 mg PO DAILY
Rx Instructions:
MEDICATION INFORMATION PROVIDED BY PATIENT
amoxicillin 875 mg Tablet
875 mg PO DAILY
Rx Instructions:
MEDICATION INFORMATION PROVIDED BY PATIENT.
Referrals:
Miguel Chaney DO [Family Provider, [facility]]
Interventions
Interventions:
*Risk Screen - Suicide Last Done: 09/22/24 19:44
*General Assessment Last Done: 09/22/24 20:29
*Neglect/Abuse Screening Last Done: 09/22/24 19:44
*ED- Fall Risk Assessment Last Done: 09/22/24 20:29
*ED COVID-19 Vaccine History Last Done: 09/22/24 20:29
ED-EENT Assessment Last Done: 09/22/24 20:33
ED- Pulmonary Assessment Last Done: 09/22/24 20:29
Discharge Date and Time
Print Language: DIVEHI
[2024-09-22] MEDS: VAPONEFRIN NEBS 0.5 ML INH ×2 (20:17→23:16)
[2024-09-22] MEDS: DECADRON 10 MG IV (20:23)
[2024-09-22 20:37] VITALS: BP 179/94
[2024-09-22 20:53] LABS: Hematocrit 48.3 % (39.0-52.0); Hemoglobin 15.6 g/dL (13.0-18.0); Mean Corp Hgb Conc. 32.3 g/dL (33.0-37.0); Mean Corpuscular Volume 85.2 fL (80.0-94.0); Platelet Count 417 10^3/uL (130-400); Red Cell Dist. Width 17.0 % (11.5-14.5)
[2024-09-22 21:18] VITALS: BP 178/94
[2024-09-22 21:58] LABS: ALT (SGPT) 15 U/L (0-50); AST (SGOT) 20 U/L (17-59); Albumin 4.0 g/dl (3.5-5.0); Alkaline Phosphatase 89 U/L (38-126); Blood Urea Nitrogen 16 mg/dl (9-20); Calcium 9.4 mg/dl (8.4-10.2); Carbon Dioxide 23 mmol/L (22-30); Chloride 107 mmol/L (98-107); Estimated Creatinine Clearance 77 ml/min; Glucose 175 mg/dl (70-99); Potassium 4.9 mmol/L (3.5-5.1); Sodium 138 mmol/L (135-145); Total Protein 8.0 g/dl (6.3-8.2); eGFR > 60.00
[2024-09-22 22:00] VITALS: BP 147/132
[2024-09-22 23:00] VITALS: BP 170/86
[2024-09-22] MEDS: NSS 1000 IV (23:15)
[2024-09-22] MEDS: NICODERM TRANSDERMAL 14 MG TRANSDERM (23:32)
--- NOTE | 2024-09-22 23:51 | HPS.HSE ---
Family Physician
-
Family Physician: Miguel Chaney
Chief Complaint
-
Sore throat
History of Present Illness
Patient is a 58y M with PMH significant for ASCVD and recently diagnosed melanoma who presents to ED complaining of pain in the L throat with severe odynophagia. Patient states that he initially noted pain in the L throat about 2 weeks ago.
Pain has steadily increased in severity since that time. He notes pain / pressure in the L ear and in the L jaw. He has pain with coughing or swallowing. He notes that he has not been able to tolerate even sips of liquid for the past 2 days. He
reports subjective fevers and diaphoresis.
Patient was recently diagnosed with melanoma after FOB / biopsy of RLL pulmonary nodule (July 2024). He has yet to begin any specific treatment.
Patient was on long-term antibiotic therapy after R groin dehiscence / infection requiring wound vac. He states that he stopped the abx about one month ago or so.
Medical History
Past Medical History
Past Medical History: Reports Other
Additional Past Medical History:
Melanoma
Peripheral Arterial Disease
Coronary Artery Disease
Essential Hypertension
Hyperlipidemia
Diabetes Mellitus, Type II
Past Surgical History: Reports Other
Additional Past Surgical History:
Bronchoscopy / Biopsy (07/18/24)
Tonsillectomy
Umbilical Hernia Repair
Right Radial Artery Thrombectomy
Left Common Femoral Artery Endarterectomy
Bilateral Lower Extremity Stents
PTCA with Stent
Right Groin I&D / Muscle Flap
Social History
Tobacco: Smoker (1 PPD)
Alcohol: Occasional
Family History
Family History: Not pertinent
Allergies / Home Medications
Allergies reflects when Allergies were last updated in [facility].
Home Medications with original date entered in [facility]
Allergy/Medication List:
Allergies
Allergy/AdvReac Type Severity Reaction Status Date / Time
No Known Allergies Allergy Verified 07/18/24 08:29
Home Medications
cilostazol 100 mg tablet 100 mg PO BID Blood Clot Prevention/Tx 03/09/20
metoprolol succinate 25 mg tablet,extended release 24 hr 25 mg PO DAILY Blood Pressure 03/09/20
dapagliflozin propanediol 10 mg tablet (Farxiga) 10 mg PO DAILY Diabetes 06/02/22
metformin 1,000 mg tablet 1,000 mg PO DAILY Diabetes 06/02/22
atorvastatin 80 mg tablet 80 mg PO DAILY High Cholesterol 10/08/23
duloxetine 30 mg capsule,delayed release 60 mg PO DAILY Mental Health/Anxiety 04/25/24
zolpidem 5 mg tablet 5 mg PO HS Sleep 04/25/24
enalapril maleate 20 mg tablet 20 mg PO DAILY #30 tabs 05/13/24
acetaminophen 325 mg tablet (Tylenol) 650 mg PO PRN PRN Pain 07/15/24
apixaban 5 mg tablet 5 mg PO DAILY 07/15/24
gabapentin 300 mg capsule 300 mg PO TID pain 07/15/24
insulin aspart U-100 100 unit/mL (3 mL) subcutaneous pen (Novolog FlexPen U-100 Insulin aspart) 17 unit SC AC diabetes 07/15/24
insulin glargine 100 unit/mL (3 mL) subcutaneous pen (Lantus Solostar U-100 Insulin) 20 unit SC HS diabetes 07/15/24
Review of Systems
-
History Source: Patient
A 12 point ROS was completed and negative except as noted: Yes
Constitutional: Reports Fever, Fatigue and Night Sweats; Denies Chills
EENT: Reports Sore Throat and Other (Ear pain / jaw pain.); Denies Runny Nose
Respiratory: Reports Cough and Trouble Breathing (SOB after coughing spells.); Denies Hemoptysis
Cardiac: Denies Chest Pain or Palpitations
Abdomen/GI: Denies Abdominal Pain, Nausea, Vomiting or Diarrhea
: Denies Dysuria, Frequency or Flank Pain
Musculoskeletal: Denies Joint Pain or Edema
Neurological: Denies Dizzy or Headache
Psych: Denies Depression or Anxiety
Physical Exam
Vital Signs
Vital Signs
Temp Pulse Resp BP Pulse Ox
98.5 F 91 25 147/132 95
09/22/24 19:37 09/22/24 22:45 09/22/24 22:45 09/22/24 22:00 09/22/24 22:45
Physical Exam
General: Other (58y M in mild distress due to pain.)
HEENT: Moist mucous membranes, PERRLA and Other (Generalized post oropharynx erythema. No visible mass / lesion.)
Respiratory: Other (Few wheezes at R base. Scattered coarse breath sounds. No stridor.)
Cardiac: S1/S2 and Regular Rhythm; No Murmur
GI: Soft, Non Tender, Non Distended and Normal Bowel Sounds
Musculoskeletal: No Clubbing, No Cyanosis and No Edema
Neuro: AO x 3 and Nonfocal/grossly intact
Laboratory Results
-
09/22/24 20:36
09/22/24 21:20
Laboratory Results
Total Bilirubin 0.7 mg/dl (0.2-1.3) 09/22/24 21:20
AST 20 U/L (17-59) 09/22/24 21:20
ALT 15 U/L (0-50) 09/22/24 21:20
Alkaline Phosphatase 89 U/L (38-126) 09/22/24 21:20
Impression/Plan
-
A/P: Patient is a 58y M with PMH significant for ASCVD, DM-II and recently diagnosed melanoma who presents to ED complaining of severe L throat pain and difficulty swallowing.
Left Vocal Fold Mass Lesion
- Admit for further evaluation and treatment.
- Severe pain / odynophagia due to mass noted on CT.
- L vocal fold mass with central hypodensity - ? malignant v infectious.
- Supportive care for now with pain control, IV steroids. IV abx for now pending further evaluation.
- Follow temperature curve and any culture data.
- Monitor for any increased dyspnea, hypoxemia, etc - airways patent on today's CT and patient reports pain not dyspnea is primary complaint.
- ENT evaluation for additional recommendations.
Melanoma
- Recently diagnosed via biopsy of RLL pulmonary nodule.
- New L vocal fold lesion possibly / likely related.
- Oncology evaluation for additional recommendations.
ASCVD
- History of CAD, PAD s/p coronary and peripheral stents.
- Hold Eliquis acutely pending possible intervention(s).
- ASA daily for now.
- Holding majority of PO medications for now due to difficulty / painful swallowing.
Benign Hypertension
- BP elevated in the ED - likely due to pain as well as lack of medications x 2 days.
- IV hydralazine for now for very high BP.
- Pain control as noted above.
- Resume PO medications when able.
DM-II
- Stable. Holding PO medications acutely as noted.
- Continue basal insulin at decreased dose.
- Follow glucose and cover with SSI as needed.
- Update A1C.
Right Groin Dehiscence / Infection
- Initially hospitalized in April 2024. Had local I&D, wound vac, etc.
- Patient states that chronic abx were discontinued about one month ago.
- Cover with IV abx for now as noted above.
- Follow temp curve and monitor for any new / focal symptoms.
Tobacco Use Disorder
Suspected COPD
- Patient continues to smoke daily - encourage cessation.
- Nebs ATC and PRN.
DVT Prophylaxis: Subcut Heparin while Eliquis on hold.
Code Status: Full
[2024-09-23] VITALS (10 sets, daily range): BP systolic 150–202; BP diastolic 73–109; BMI 29.4
[2024-09-23 01:51] LABS: Glucose - Point of Care 271 mg/dl (70-99)
[2024-09-23] MEDS: NSS 1000 IV (02:57)
[2024-09-23] MEDS: ZOSYN 50 IV ×2 (02:57→08:02)
[2024-09-23 03:48] LABS: Hematocrit 47.6 % (39.0-52.0); Hemoglobin 15.3 g/dL (13.0-18.0); Mean Corp Hgb Conc. 32.1 g/dL (33.0-37.0); Mean Corpuscular Volume 85.2 fL (80.0-94.0); Platelet Count 392 10^3/uL (130-400); Red Cell Dist. Width 16.9 % (11.5-14.5)
--- NOTE | 2024-09-23 04:21 | PTCARENOTE ---
Received pt from the ED via stretcher. Pt able to get into bed with minimal assistance. Appears AHUMADA; frequent productive cough. NSS infusing through R AC. Pt offers no complaints at this time.
[2024-09-23 06:08] LABS: Glucose - Point of Care 225 mg/dl (70-99)
[2024-09-23] MEDS: DUONEB 3 ML INH (07:17)
[2024-09-23 08:01] LABS: Blood Urea Nitrogen 20 mg/dl (9-20); Calcium 8.8 mg/dl (8.4-10.2); Carbon Dioxide 23 mmol/L (22-30); Chloride 109 mmol/L (98-107); Estimated Creatinine Clearance 68 ml/min; Glucose 244 mg/dl (70-99); Potassium 5.3 mmol/L (3.5-5.1); Sodium 142 mmol/L (135-145); eGFR > 60.00
[2024-09-23] MEDS: NSS (PRESERVATIVE FREE) 10 ML IV (08:02)
[2024-09-23] MEDS: PROTONIX IV 40 MG IV (08:02)
[2024-09-23] MEDS: DECADRON 4 MG IV (08:02)
[2024-09-23] MEDS: LOW STRENGTH ASPIRIN 81 MG PO (08:03)
[2024-09-23] MEDS: HEPARIN 5000 UNITS SC (08:03)
[2024-09-23] MEDS: NOVOLOG FLEXPEN-LOW RESISTANCE 2 UNITS SC ×2 (08:30→12:47)
--- NOTE | 2024-09-23 09:09 | W.PN.HOSP.TC ---
Today's Communication/Plan
-
N.p.o.
Speech consult
ENT
Oncology
Stop antibiotics
Assessment / Plan
Assessment / Plan
Gen-AAOx3, NAD
HEENT-NC, AT, anicteric, clear oral mm
Neck-supple
CV-reg, no M, +S1/S2
Lungs-clear B/L
Abd-soft, NT, ND
Ext-no edema
Musculoskeletal-no cyanosis, clubbing
Skin-warm and dry
Neuro-grossly non-focal
Psych-calm, cooperative
Odynophagia/dysphagia -with left vocal cord lesion, concerning for malignancy. Symptoms have been present for [address] neck with contrast demonstrates hypodense lesion involving the left vocal folds with extension to the left aryepiglottic fold
and left aspect of the epiglottis concerning for malignancy. Mild local mass effect. Airways appear patent.
CT chest with contrast shows 2.1 cm nodule in the right lower lobe consistent with known malignancy.
N.p.o., awaiting ENT input. Speech therapy consult. Continue steroids. Hold further antibiotics.
Melanoma -diagnosed July 2024 via bronchoscopy. Has not started treatment yet. Oncology consulted.
Hyperkalemia -5.3. Hold FERCHO inhibitor.
PAD -noted to have acute limb ischemia of left lower extremity in April of this year. Underwent right distal external iliac artery to distal common femoral artery interposition graft along with right common femoral artery to left profundofemoral
artery bypass, 04/25/2024. History of prior right lower extremity revascularization.
Appears that patient is on chronic Eliquis for PAD. Will clarify with vascular surgery whether he needs to continue on discharge. Eliquis currently on hold awaiting ENT input.
Chronic right groin wound dehiscence -follow-up with vascular surgery in the office.
CAD -with history of stent.
History of bilateral carotid stenosis
Essentia hypertension -uncontrolled. Patient states he has not been able to take his antihypertensives at home due to dysphagia. If cleared by speech therapy will resume.
Hyperlipidemia -atorvastatin.
DM2 with hyperglycemia -hemoglobin A1c pending. Has been on Farxiga 10 mg daily, NovoLog 17 units AC, Lantus 20 units at bedtime, metformin 1000 mg daily at home.
Glucose 244 this morning. Anticipate hyperglycemia due to steroids. Currently on Lantus 10 units at bedtime, low resistance aspart sliding scale. Currently NPO.
Chronic diabetic peripheral neuropathy
Tobacco dependence
Alcohol use disorder
Anxiety/depression
Obesity due to excess calories
Full code
Anticipated Discharge: 24 - 48 hours
Subjective/Interval History
-
Date of Service: September 23, 2024
Patient seen and examined. Complaining of pain with swallowing. Difficulty swallowing.
Objective Data
-
Labs:
Laboratory Results
09/22/24 09/23/24 09/23/24
21:20 03:34 04:57
WBC 15.2 H
Hgb 15.3
Hct 47.6
Plt Count 392
Sodium 138 Cancelled Cancelled
Potassium 4.9 Cancelled Cancelled
Chloride 107 Cancelled Cancelled
Carbon Dioxide 23 Cancelled Cancelled
BUN 16 Cancelled Cancelled
Creatinine 1.1 Cancelled Cancelled
Glucose 175 H Cancelled Cancelled
Calcium 9.4 Cancelled Cancelled
Total Bilirubin 0.7
AST 20
ALT 15
Alkaline Phosphatase 89
09/23/24 09/23/24
06:01 07:30
WBC
Hgb
Hct
Plt Count
Sodium Cancelled 142
Potassium Cancelled 5.3 H
Chloride Cancelled 109 H
Carbon Dioxide Cancelled 23
BUN Cancelled 20
Creatinine Cancelled 1.1
Glucose Cancelled 244 H
Calcium Cancelled 8.8
Total Bilirubin
AST
ALT
Alkaline Phosphatase
Vital Signs:
Vital Signs
Temp Pulse Resp BP Pulse Ox
97.9 F 82 14 169/89 99
09/23/24 07:55 09/23/24 07:21 09/23/24 07:21 09/23/24 05:28 09/23/24 07:21
I&O
09/22/24 09/23/24 09/24/24
06:59 06:59 06:59
Intake Total 400 / 400
Balance 400 / 400
Review of Systems
-
History Source: Patient
All other systems: Reviewed and negative
[2024-09-23 09:41] LABS: Glycohemoglobin (HgbA1c) 9.2 % (4.0-5.6)
--- NOTE | 2024-09-23 10:58 | CON.ONC ---
Documented by User: TATIANA Ayala 09/23/24 17:27
Consultation
-
Date Consultation Requested: 09/23/24
Date Consultation Performed: 09/23/24
Requesting Provider: Dr. Rio Herrera
Performing Provider: Dr. Neno Manzo
Reason for Consultation: left vocal cord mass, melanoma
Impression
Impression
malignant melanoma to lung, BRAF V600E detected, C-kit not mutated
1.1 cm right Level II neck lymph node on 09/05 PET that FDG could not help differentiate infection vs inflammation vs malignancy
hypodense lesion involving the left vocal folds which extends into the left aryepiglottic fold and left aspect of the epiglottis -mild local mass effect
tobacco use
uncontrolled DM
Plan
Plan
MRI brain w & w/o contrast
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
on dexamethasone
pain management and symptoms support
smoking cessation discussed -no quit plan in place
abx per primary service
OP follow up with Dr. Villalobos will be arranged upon discharge for next steps in management
Patient History
History of Present Illness
58yo M who presented with severe left throat pain and odynophagia. His throat pain started approximately 2 weeks ago and has steadily increased in severity. HIs pain radiates to his left ear and jaw which feels like pressure. Pain is exacerbated by
swallowing and coughing. He has been unable to tolerate any food or fluid for the past 2 days due to this pain. He also notes voice changes. His CT neck showed a hypodense lesion involving the left vocal folds which extends into the left
aryepiglottic fold and left aspect of the epiglottis that is causing mild local mass effect. He has been admitted, started on dexamethasone, IV zosyn, and IVF. He is NPO.
In brief, he is known to Dr. Villalobos for management of melanoma with lung involvement. He was noted to have right lung nodules on his CT vascular study. He underwent bronchoscopy with biopsy in July 2024 that was diagnostic for malignant melanoma,
C-Kit not mutated, BRAF V600E detected. He has not completed his brain MRI for staging. He has postponed the start of his treatment from August while working with his vascular surgeons.
Afebrile, no hypotension, 2L NC
Past-Medical/Surgical History
PMH HTN, HLD, DM2, [place], CAD, PAD
PSH tonsillectomy, hernia repair, cardiac stent, femoropopliteal bypass, CEA, bronch with biopsy, right radial artery thrombectomy, right groin I&D with flap
Social smokes 1PPD, 3ETOH/week, denies recreational drug use. . [employer]
Family hx: denies malignancy
Patient Medication
�Medication �Instructions �Recorded �Confirmed �Last Taken �Type
cilostazol 100 mg tablet 100 mg PO BID Blood Clot 03/09/20 09/22/24 07/15/24 History
Prevention/Tx
metoprolol succinate 25 mg 25 mg PO DAILY Blood Pressure 03/09/20 09/22/24 07/17/24 History
tablet,extended release 24 hr
dapagliflozin propanediol 10 mg 10 mg PO DAILY Diabetes 06/02/22 09/22/24 07/17/24 History
tablet (Farxiga)
metformin 1,000 mg tablet 1,000 mg PO DAILY Diabetes 06/02/22 09/22/24 07/17/24 History
atorvastatin 80 mg tablet 80 mg PO DAILY High Cholesterol 10/08/23 09/22/24 07/17/24 History
duloxetine 30 mg capsule,delayed 60 mg PO DAILY Mental 04/25/24 09/22/24 07/17/24 History
release Health/Anxiety
zolpidem 5 mg tablet 5 mg PO HS Sleep 04/25/24 09/22/24 Unknown History
enalapril maleate 20 mg tablet 20 mg PO DAILY #30 tabs 05/13/24 09/22/24 07/17/24 Rx
acetaminophen 325 mg tablet 650 mg PO PRN PRN Pain 07/15/24 09/22/24 Unknown History
(Tylenol)
apixaban 5 mg tablet 5 mg PO DAILY 07/15/24 09/22/24 07/15/24 History
gabapentin 300 mg capsule 300 mg PO TID pain 07/15/24 09/22/24 07/17/24 12:00 History
insulin aspart U-100 100 unit/mL 17 unit SC AC diabetes 07/15/24 09/22/24 07/17/24 19:00 History
(3 mL) subcutaneous pen (Novolog
FlexPen U-100 Insulin aspart)
insulin glargine 100 unit/mL (3 20 unit SC HS diabetes 07/15/24 09/22/24 07/16/24 22:00 History
mL) subcutaneous pen (Lantus
Solostar U-100 Insulin)
Active Medications
Generic Name Dose Route Start Last Admin
Trade Name Freq PRN Reason Stop Dose Admin
Acetaminophen 650 mg 09/23/24 01:32
Acetaminophen 325 Mg Tablet PO 10/21/24 01:31
Q4HPRN PRN
Mild Pain / Temp > 101
Albuterol Sulfate 2.5 mg 09/23/24 01:32
Albuterol Nebs 2.5 Mg/3 Ml Ampul INH
R Q4HPRN PRN
SOB
Protocol
Amlodipine Besylate 5 mg 09/23/24 11:00
Amlodipine 5 Mg Tablet PO 10/21/24 10:59
DAILY KENNY
Aspirin 81 mg 09/23/24 08:00 09/23/24 08:03
Aspirin 81 Mg Chewable Tablet PO 10/21/24 07:59 81 mg
DAILY KENNY Administration
Dexamethasone Sodium Phosphate 4 mg 09/23/24 08:00 09/23/24 08:02
Dexamethasone 4 Mg/Ml 1 Ml Vial IV 10/21/24 07:59 4 mg
Q12H KENNY Administration
Dextrose 12.5 grams 09/23/24 01:32
Dextrose 50% (0.5 Grams/Ml) 50 Ml Syringe IV 10/21/24 01:31
[id number] PRN
hypoglycemia
Protocol
Glucagon 1 mg 09/23/24 01:32
Glucagon 1 Mg Vial IM 10/21/24 01:31
PRN PRN
hypoglycemia
Protocol
Heparin Sodium 5,000 units 09/23/24 08:00 09/23/24 08:03
Heparin 5,000 Units/Ml 1 Ml Vial SC 10/21/24 07:59 5,000 units
Q12 KENNY Administration
Hydralazine HCl 10 mg 09/23/24 01:32
Hydralazine 20 Mg/Ml Vial IV 10/21/24 01:31
Q6HPRN PRN
SBP > 180
Hydromorphone HCl 0.5 mg 09/23/24 01:32
Hydromorphone 0.5 Mg/0.5 Ml Syringe IV 10/07/24 01:31
Q4HPRN PRN
Severe Pain
Sodium Chloride 1,000 mls @ 80 mls/hr 09/23/24 01:32 09/23/24 02:57
Nss IV 1,000 mls
[id number] KENNY Administration
Insulin Glargine 10 units/ 0.1 mls @ 0 mls/hr 09/23/24 22:00
Device SC 10/21/24 21:59
HS KENNY
As Directed
Insulin Aspart 0 units 09/23/24 07:30 09/23/24 08:30
Insulin Aspart Low Resistance 300 Units/3 Ml Pen.Injctr SC 10/21/24 07:29 2 units
AC KENNY Administration
Protocol
Ketorolac Tromethamine 10 mg 09/23/24 01:32
Ketorolac 15 Mg/Ml Injection IV 09/28/24 01:31
Q6HPRN PRN
Moderate Pain
Metoprolol Succinate 25 mg 09/23/24 11:00
Metoprolol 25 Mg Extended Release Tablet PO 10/21/24 10:59
DAILY KENNY
Ondansetron HCl 4 mg 09/23/24 01:32
Ondansetron 4 Mg/2 Ml Vial IV 10/21/24 01:31
Q6HPRN PRN
nausea and vomiting
Pantoprazole Sodium 40 mg 09/23/24 08:00 09/23/24 08:02
Pantoprazole Sodium 40 Mg/10 Ml Vial IV 10/21/24 07:59 40 mg
DAILY KENNY Administration
Sodium Chloride 0 flush 09/23/24 02:00
Sodium Chloride 0.9% (Flush) Syringe IV 10/21/24 01:59
PER PROTOCOL KENNY
Sodium Chloride 10 ml 09/23/24 08:00 09/23/24 08:02
Sodium Chloride 0.9% (Preservative Free) 10 Ml Vial IV 10/21/24 07:59 10 ml
DAILY KENNY Administration
Review of Systems
-
ROS is notable for HPI, otherwise negative
Physical Exam
-
General: No Apparent Distress
HEENT: Moist Mucous Membranes; Negative Jaundice
Pulmonary: Other (unlabored)
GI: Soft
Extremities: Pulses Present
Skin: Warm
Psych: Calm
Labs
Lab Results
WBC 15.2 10^3/uL (4.8-10.8) H 09/23/24 03:34
RBC 5.59 10^6/uL (4.70-6.10) 09/23/24 03:34
Hgb 15.3 g/dL (13.0-18.0) 09/23/24 03:34
Hct 47.6 % (39.0-52.0) 09/23/24 03:34
MCV 85.2 fL (80.0-94.0) 09/23/24 03:34
MCH 27.4 pg (27.0-31.0) 09/23/24 03:34
MCHC 32.1 g/dL (33.0-37.0) L 09/23/24 03:34
RDW 16.9 % (11.5-14.5) H 09/23/24 03:34
Plt Count 392 10^3/uL (130-400) 09/23/24 03:34
MPV 10.7 fL (7.4-10.4) H 09/23/24 03:34
Creatinine 1.1 mg/dL (0.7-1.3) 09/23/24 07:30
Vital Signs
Vital Signs
Temp Pulse Resp BP Pulse Ox
97.9 F 89 17 177/89 94
09/23/24 07:55 09/23/24 10:00 09/23/24 10:00 09/23/24 08:00 09/23/24 10:00

Documented by User: Neno Manzo MD 09/23/24 17:52
Plan
Plan
MRI brain w & w/o contrast
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
on dexamethasone
pain management and symptoms support
smoking cessation discussed -no quit plan in place
abx per primary service
OP follow up with Dr. Villalobos will be arranged upon discharge for next steps in management
09/23: Agree with plans as outlined by nurse practitioner. His breathing seems to be improved. Discussed with ENT. Given the ability of melanoma to grow in unusual areas, I was concerned that when he underwent bronchoscopy some cells may have
dislodged higher up in his respiratory tract. Continue to closely monitor as an outpatient.
--- NOTE | 2024-09-23 11:08 | PTOTSP ---
Speech Therapy Swallowing Assessment
Patient with risk factors for aspiration including vocal fold tumor, dysphonia and at least one episode of coughing with thin liquids. Tolerated smaller single sips of liquid as well as puree and solid trials without difficulty or symptoms to
suggest pharyngeal stasis.
Recommend
1. Regular solids and single sips of liquid
2. Meds one at a time with small sips of liquid
3. Aspiration precautions.
4. Instrumental testing of swallow recommended, but not considered urgent to objectively assess pharyngeal swallow given above stated risk factors. FEES preferred over VSE given laryngeal tumor but dependent on timing/availability.
5. ST will follow during acute stay to ensure diet tolerance and provide pre treatment education exercise program for suspected head/neck malignancy.
--- NOTE | 2024-09-23 11:59 | CON.MD ---
Consultation - Medical
-
Chief complaint: Hoarseness, dysphagia, CT findings of possible mass in larynx
History of present illness: This patient is a 58-year-old gentleman with a 3-week history of sore throat and hoarseness. He was admitted from the emergency room last night because of difficulty speaking and swallowing. CT scan ordered in the
emergency room showed evidence of what appeared to be a laryngeal mass. The patient also has been worked up recently for lung lesions. He underwent bronchoscopy with biopsy. The patient is chronically anticoagulated with Eliquis. He is an
insulin-dependent diabetic. He states that he feels significantly better today. His breathing has improved, his sore throat and voice have improved significantly. He does not have any significant respiratory distress. He was noted to have some
stridor when admitted from the emergency room yesterday.
Past medical history:
Illnesses: Melanoma, stridor, anxiety and depression, hypertensive urgency, disruption of external operation wound, postoperative infection, peripheral vascular disease, coronary atherosclerosis, type 2 diabetes, hyperlipidemia, essential
hypertension
Allergies: No known drug allergies
Home medications: Acetaminophen 650 mg p.o. as needed, apixaban 5 mg p.o. daily, atorvastatin 80 mg p.o. daily, cilostazol 100 mg p.o. twice daily, Farxiga 10 mg p.o. daily, duloxetine 60 mg p.o. daily, enalapril 20 mg p.o. daily, gabapentin 300 mg
p.o. 3 times daily, insulin aspart U�117 units SQ AC, metformin 1000 mg p.o. daily, metoprolol 25 mg p.o. daily, zolpidem 5 mg p.o. nightly
Hospitalizations: The patient is currently hospitalized for dysphagia and a dyne aphasia as well as stridor
Family history: Asked and is noncontributory for this problem
Review of systems: Hoarseness, dysphagia, odynophagia, positive for stridor yesterday but negative for stridor today.
Physical examination:
Head: Atraumatic and normocephalic
Ears: Normal to exam
Nose: Fairly straight septum, no evidence of infection
Oral cavity/oropharynx: Normal without mucosal abnormality
Cranial nerves: 2 through 12 are intact
Salivary glands: Normal to examination without swelling
Thyroid: Normal to examination
Voice: Hoarse but not particularly breathy or weak
Procedure: Flexible laryngoscopy was performed at the patient's bedside.
The patient underwent application of viscous lidocaine into the nose bilaterally using cotton swabs. After waiting for a couple of minutes the patient underwent flexible laryngoscopy through the right nose after this was determined to be widely
patent. Good visualization was achieved and the patient tolerated the procedure well. The patient was noted to have bilateral benign-appearing vocal cord polyps. The arytenoid mucosa was less swollen than seen on CT scan last night. Airway looks
good. Vocal cord motion is normal. No obviously suspicious lesions were seen.
CT scan of neck: The patient was noted to have what appeared to be a laryngeal mass although a portion of this mass was rounded like a polyp or cyst.
Impression/plan: The patient presented with stridor and odynophagia as well as dysphagia. He has been on antibiotics and is feeling a good deal better today than he had been. He has evidence of what appears to be benign polyps of his vocal cords.
I do not see obvious cancer although I do want to reexamine him relatively shortly in the future. I have asked him to rest his voice and avoid clearing his throat. I would like to see him back in about a month to reexamine with a flexible
laryngoscope. It is possible, given the prominent nature of these polyps that he might benefit from microscopic laryngoscopy with excision.
Consultation
-
Date/Time Consultation Requested: 09/23/24 7a
Date/Time Consultation Performed: 09/23/24 12noon
Requesting Provider: ICU
Performing Provider: Eugenio
Reason for Consultation: hoarsness/CT findings
--- NOTE | 2024-09-23 12:12 | CM ---
Patient seen at bedside in IMU with Speech therapy. Patient stated that he still lives with border in a split level home and his PCP is Dr. Chaney and he uses [facility] in [place]. Patient has had [facility] in the past. Patient may benefit from
therapy to clarify discharge planning needs. CM will continue to follow for discharge planning needs.
Plan; home with [facility] pending medical treatment plan
[2024-09-23] MEDS: NEURONTIN 300 MG PO ×2 (12:39→17:59)
[2024-09-23] MEDS: TOPROL XL 25 MG PO (12:39)
[2024-09-23] MEDS: NORVASC 5 MG PO (12:40)
[2024-09-23 12:57] LABS: Glucose - Point of Care 246 mg/dl (70-99)
--- NOTE | 2024-09-23 16:05 | W.DS.TRANS ---
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
-
Discharge Instructions:
Discharge Diagnosis/Procedures Vocal cord polyps
Diet Regular
Activity As tolerated
Driving Restrictions As prior to admission
Bathing Restrictions None
Instructions:
Stand-Alone Forms:
Changes to Home Medications: No
Discharge Medications:
DC Medications w/original date entered in [facility]
cilostazol 100 mg tablet 100 mg PO BID Blood Clot Prevention/Tx 03/09/20
metoprolol succinate 25 mg tablet,extended release 24 hr 25 mg PO DAILY Blood Pressure 03/09/20
dapagliflozin propanediol 10 mg tablet (Farxiga) 10 mg PO DAILY Diabetes 06/02/22
metformin 1,000 mg tablet 1,000 mg PO DAILY Diabetes 06/02/22
atorvastatin 80 mg tablet 80 mg PO DAILY High Cholesterol 10/08/23
duloxetine 30 mg capsule,delayed release 60 mg PO DAILY Mental Health/Anxiety 04/25/24
zolpidem 5 mg tablet 5 mg PO HS Sleep 04/25/24
enalapril maleate 20 mg tablet 20 mg PO DAILY #30 tabs 05/13/24
acetaminophen 325 mg tablet (Tylenol) 650 mg PO PRN PRN Pain 07/15/24
gabapentin 300 mg capsule 300 mg PO TID pain 07/15/24
insulin aspart U-100 100 unit/mL (3 mL) subcutaneous pen (Novolog FlexPen U-100 Insulin aspart) 17 unit SC AC diabetes 07/15/24
insulin glargine 100 unit/mL (3 mL) subcutaneous pen (Lantus Solostar U-100 Insulin) 20 unit SC HS diabetes 07/15/24
amlodipine 5 mg tablet 5 mg PO DAILY #30 tabs 09/23/24
apixaban 5 mg tablet 5 mg PO BID Blood Clot Prevention/Tx #0 tabs 09/23/24
aspirin 81 mg chewable tablet 81 mg PO DAILY #0 tabs 09/23/24
dexamethasone 4 mg tablet 4 mg PO BID #14 tabs 09/23/24
Home Medication Changes
Pending Results: No
--- NOTE | 2024-09-23 16:21 | W.DS.TRANS ---
DC Summary - Customer Assistant
-
Discharge Instructions:
Discharge Diagnosis/Procedures Vocal cord polyps
Diet Regular
Activity As tolerated
Driving Restrictions As prior to admission
Bathing Restrictions None
Blood Work BMP next week with your primary care doctor.
Instructions:
Stand-Alone Forms:
Changes to Home Medications: Yes
Discharge Medications:
DC Medications w/original date entered in [facility]
cilostazol 100 mg tablet 100 mg PO BID Blood Clot Prevention/Tx 03/09/20
metoprolol succinate 25 mg tablet,extended release 24 hr 25 mg PO DAILY Blood Pressure 03/09/20
dapagliflozin propanediol 10 mg tablet (Farxiga) 10 mg PO DAILY Diabetes 06/02/22
metformin 1,000 mg tablet 1,000 mg PO DAILY Diabetes 06/02/22
Held on 09/23/24. Instructions: Resume on 09/25/24.
atorvastatin 80 mg tablet 80 mg PO DAILY High Cholesterol 10/08/23
duloxetine 30 mg capsule,delayed release 60 mg PO DAILY Mental Health/Anxiety 04/25/24
zolpidem 5 mg tablet 5 mg PO HS Sleep 04/25/24
acetaminophen 325 mg tablet (Tylenol) 650 mg PO PRN PRN Pain 07/15/24
gabapentin 300 mg capsule 300 mg PO TID pain 07/15/24
insulin aspart U-100 100 unit/mL (3 mL) subcutaneous pen (Novolog FlexPen U-100 Insulin aspart) 17 unit SC AC diabetes 07/15/24
insulin glargine 100 unit/mL (3 mL) subcutaneous pen (Lantus Solostar U-100 Insulin) 20 unit SC HS diabetes 07/15/24
amlodipine 5 mg tablet 5 mg PO DAILY #30 tabs 09/23/24
apixaban 5 mg tablet 5 mg PO BID Blood Clot Prevention/Tx #0 tabs 09/23/24
dexamethasone 4 mg tablet 4 mg PO BID #14 tabs 09/23/24
Home Medication Changes
Hold enalapril until you speak with your primary care doctor next week.
Hold metformin until September 25.
Pending Results: No
--- NOTE | 2024-09-23 17:23 | PTCARENOTE ---
pt reports throat pain is much better and he can swallow without difficult. seen by speech and cleared for diet. ate 100 percent of tray. mri of head completed. discharge order placed . pt awaiting ride.
[2024-09-23 17:56] LABS: Glucose - Point of Care 322 mg/dl (70-99)
[2024-09-23] MEDS: LOKELMA 10 GRAM PO (18:00)
[2024-09-23] MEDS: NOVOLOG FLEXPEN-LOW RESISTANCE 4 UNITS SC (18:01)
== END 2024-09-23 18:20 | disposition home or self-care (01) | DRG 156 ==
LOC: IMU 23:41
PROVIDERS: ADMITTING PHYSICIAN Hospitalist; ATTENDING PHYSICIAN Hospitalist; EMERGENCY PHYSICIAN Emergency Medicine; FAMILY PHYSICIAN Family Medicine; OTHER PHYSICIAN Internal Medicine Hematology & Oncology; OTHER PHYSICIAN Otolaryngology Facial Plastic Surgery
PROC: 0CJS8ZZ Inspection of Larynx, Via Natural or Artificial Opening Endoscopic (ICD-10-PCS; 2024-09-23)
DX: J38.1 Polyp of vocal cord and larynx (principal); R49.0 Dysphonia; R91.8 Other nonspecific abnormal finding of lung field; F17.210 Nicotine dependence, cigarettes, uncomplicated; E11.40 Type 2 diabetes mellitus with diabetic neuropathy, unspecified; E11.65 Type 2 diabetes mellitus with hyperglycemia; E78.00 Pure hypercholesterolemia, unspecified; I10 Essential (primary) hypertension; I25.10 Atherosclerotic heart disease of native coronary artery without angina pectoris; J44.9 Chronic obstructive pulmonary disease, unspecified; C43.9 Malignant melanoma of skin, unspecified; E11.42 Type 2 diabetes mellitus with diabetic polyneuropathy; R13.10 Dysphagia, unspecified; R91.1 Solitary pulmonary nodule; E11.51 Type 2 diabetes mellitus with diabetic peripheral angiopathy without gangrene; F41.9 Anxiety disorder, unspecified; F32.A Depression, unspecified; E66.09 Other obesity due to excess calories; F10.10 Alcohol abuse, uncomplicated; E87.5 Hyperkalemia; T81.31XD Disruption of external operation (surgical) wound, not elsewhere classified, subsequent encounter; Y83.8 Other surgical procedures as the cause of abnormal reaction of the patient, or of later complication, without mention of misadventure at the time of the procedure; I25.2 Old myocardial infarction; Z82.49 Family history of ischemic heart disease and other diseases of the circulatory system; Z95.5 Presence of coronary angioplasty implant and graft; Z79.84 Long term (current) use of oral hypoglycemic drugs; Z79.01 Long term (current) use of anticoagulants; Z79.4 Long term (current) use of insulin; Z79.82 Long term (current) use of aspirin; Z68.29 Body mass index [BMI] 29.0-29.9, adult; Z79.02 Long term (current) use of antithrombotics/antiplatelets; Z71.6 Tobacco abuse counseling
CPT/HCPCS: 70491; 70553; 71260; 80048; 80053; 82962; 83036; 85027; 92610; 93005; 94640; 96361; 96374; 99285; A9575; Q9967

== ENCOUNTER → 2024-10-07 14:56 | Outpatient (REF) | payer OTHER, SELFPAY | LOC: DHVS 14:56 | PROVIDERS: ATTENDING PHYSICIAN Physician Assistant; FAMILY PHYSICIAN Family Medicine; OTHER PHYSICIAN Registered Nurse | DX: I65.23 Occlusion and stenosis of bilateral carotid arteries (principal) | CPT/HCPCS: 93880; 93922 ==

== ENCOUNTER → 2024-12-07 15:33 | Outpatient (REF) | payer OTHER, SELFPAY | LOC: RAD 15:33 | PROVIDERS: ATTENDING PHYSICIAN Surgery Vascular Surgery; FAMILY PHYSICIAN Family Medicine | DX: I65.23 Occlusion and stenosis of bilateral carotid arteries (principal) | CPT/HCPCS: 36415; 70496; 70498; Q9967 ==

== ENCOUNTER 2025-01-31 08:45 | Inpatient (IN) | payer OTHER, SELFPAY ==
[2025-01-20 09:22] VITALS: BMI 32.6
[2025-01-20 09:53] LABS: Hematocrit 44.7 % (39.0-52.0); Hemoglobin 14.7 g/dL (13.0-18.0); Mean Corp Hgb Conc. 32.9 g/dL (33.0-37.0); Mean Corpuscular Volume 87.3 fL (80.0-94.0); Nucleated Red Blood Cells % 0 % (-); Platelet Count 334 10^3/uL (130-400); Red Cell Dist. Width 13.7 % (11.5-14.5)
[2025-01-20 09:55] LABS: APTT 29.0 Sec (23.4-35.0); INR 1.09; PT 14.2 Sec (11.4-14.6)
[2025-01-20 10:18] LABS: Blood Urea Nitrogen 11 mg/dl (9-20); Calcium 9.3 mg/dl (8.4-10.2); Carbon Dioxide 24 mmol/L (22-30); Chloride 100 mmol/L (98-107); Estimated Creatinine Clearance 77 ml/min; Glucose 411 mg/dl (70-99); Potassium 5.6 mmol/L (3.5-5.1); Sodium 131 mmol/L (135-145); eGFR > 60.00
--- NOTE | 2025-01-25 14:37 | PTCARENOTE ---
Patients 01/20 CXR abnormal, Glucose 411; Potassium-5.6. Kirsten @ Dr. Perez office notified
--- NOTE | 2025-01-26 15:49 | PTCARENOTE ---
Abnormal potassium, 5.6; Glucose 411 and Chest X-Ray done on 01/20. Dr. Kim aware. Ordered electrolytes to be drawn day of surgery.
[2025-01-31] VITALS (20 sets, daily range): BP systolic 97–181; BP diastolic 47–83; BMI 32.5; BMI 31.7
[2025-01-31 09:43] LABS: Glucose - Point of Care 302 mg/dl (70-99)
[2025-01-31] MEDS: NSS 500 IV (10:08)
[2025-01-31] MEDS: PERIDEX 0.12% ORAL RINSE 15 ML PO (10:08)
[2025-01-31] MEDS: BACTROBAN NASAL 1 GRAM NASAL (10:08)
[2025-01-31 10:50] LABS: Glucose - Point of Care 302 mg/dl (70-99)
[2025-01-31] MEDS: NOVOLOG vial 6 UNITS SC (10:52)
--- NOTE | 2025-01-31 10:54 | HP.FOC2 ---
Focused History & Physical
Chief Complaint
HPI:
Chief Complaint: Fatigue
HPI / Indication for Planned Procedure: 59-year-old male with past medical history significant for [place], CAD, hyperlipidemia, hypertension, diabetes, PVD, active smoker, alcohol abuse, lung cancer here for planned right carotid endarterectomy with
[facility]il[facility]. Patient presents at baseline health. Only complaint is of fatigue. Patient is undergoing cancer treatment. No changes to his past medical history and no new medications since prior office visit. Patient denies any neurological symptoms.
Patient agreeable to planned procedure today. Wishes to proceed.
Relevant Past Medical History: Other ([place], CAD, hyperlipidemia, hypertension, diabetes, PVD, lung cancer)
Relevant Social History: ETOH and Tobacco Use
Relevant Family History: Negative
Relevant Past Surgical History: Positive for (Tonsillectomy, hernia, lower extremity stents, femoral endarterectomy, right upper extremity radial artery thrombectomy, bilateral groin surgeries, lower extremity bypass, muscle flap)
Review of Systems
Review of Pertinent Systems: All Systems Negative
Medication
See Medication form for detailed medications: Yes
Medication List (including Herbals & OTC):
cilostazol 100 mg tablet 100 mg PO BID Blood Clot Prevention/Tx 03/09/20
metoprolol succinate 25 mg tablet,extended release 24 hr 25 mg PO DAILY Blood Pressure 03/09/20
dapagliflozin propanediol 10 mg tablet (Farxiga) 10 mg PO DAILY Diabetes 06/02/22
metformin 1,000 mg tablet 1,000 mg PO DAILY Diabetes 06/02/22
Held on 09/23/24. Instructions: Resume on 09/25/24.
atorvastatin 80 mg tablet 80 mg PO DAILY High Cholesterol 10/08/23
duloxetine 30 mg capsule,delayed release 60 mg PO DAILY Mental Health/Anxiety 04/25/24
zolpidem 5 mg tablet 5 mg PO HS PRN Sleep 04/25/24
gabapentin 300 mg capsule 300 mg PO TID pain 07/15/24
insulin aspart U-100 100 unit/mL (3 mL) subcutaneous pen (Novolog FlexPen U-100 Insulin aspart) 17 unit SC AC diabetes 07/15/24
insulin glargine 100 unit/mL (3 mL) subcutaneous pen (Lantus Solostar U-100 Insulin) 20 unit SC HS diabetes 07/15/24
amlodipine 5 mg tablet 5 mg PO DAILY #30 tabs 09/23/24
apixaban 5 mg tablet 5 mg PO BID Blood Clot Prevention/Tx #0 tabs 09/23/24
aspirin 81 mg tablet 81 mg PO DAILY 01/18/25
albuterol sulfate 90 mcg/actuation aerosol inhaler 2 puff inhalation QID PRN shortness of breath 01/31/25
enalapril maleate 10 mg tablet 10 mg PO DAILY 01/31/25
Medications Reviewed: Yes
Allergies and Reactions
Patient has Allergies: No
Noted Allergies and Reactions:
Allergy/AdvReac Type Severity Reaction Status Date / Time
No Known Allergies Allergy Verified 01/18/25 13:07
Pertinent Physical Exam
All Other Systems: Negative
Head/Neck: Normal
Lungs: Normal
Heart: Normal
Abdomen: Normal
Extremities: Normal
Neurological: Normal
Diagnosis / Assessment
Carotid stenosis
Plan / Procedure
Right carotid endarterectomy with Dr. Esparza
Anesthesia/Sedation to be done by Anesthesia Provider: Yes
[2025-01-31 12:32] LABS: ACT-LR - POC 310 Seconds (116-155)
[2025-01-31 12:40] LABS: Glucose - Point of Care 247 mg/dl (70-99)
[2025-01-31 13:33] LABS: ACT-LR - POC 252 Seconds (116-155)
[2025-01-31 13:42] LABS: Glucose - Point of Care 232 mg/dl (70-99)
--- NOTE | 2025-01-31 14:48 | OR.RPT ---
Operative Report
Operative Report
Date of Operation: 01/31/2025
Pre Op Diagnosis: High-grade calcified carotid artery stenosis, asymptomatic
Post Op Diagnosis: High-grade calcified carotid artery stenosis, asymptomatic
Procedure: RIGHT carotid endarterectomy with patch angioplasty using bovine pericardium
Surgeon: Dagoberto Esparza III, MD
Ui Developer: Leyda Lechuga MD CY-4
Anesthesia: General
Complications: None
History and Indications for Procedure: 59-year-old male with high-grade stenosis involving his right carotid artery.
Procedure in Detail: Weston Richard was correctly identified and placed supine on the operating table. After adequate induction of anesthesia the right neck was positioned, prepped and draped in the usual sterile fashion. Preoperative antibiotics
were administered. A timeout procedure was performed with the nursing and anesthesia staff confirming the patients identity as well as the nature and laterality of the procedure.
The carotid bifurcation was marked with ultrasound at the beginning of the case. The incision was planned accordingly. An incision was made along the anterior border of the right sternocleidomastoid muscle. Electrocautery was used to divide the
subcutaneous tissue and platysma. The carotid sheath was entered with sharp dissection. The internal jugular vein was retracted laterally. The vagus nerve was identified and protected throughout the case. The common carotid artery was identified at
the base of this incision and carefully encircled with a vessel loop at a soft spot. The common carotid artery was diffusely calcified with plaque especially so at the carotid bifurcation. Calcified plaque was easily palpable in the proximal
internal carotid artery. The patient was systemically heparinized. The dissection was continued distally towards the carotid bifurcation. The facial vein was skeletonized, ligated and divided between ties and clips. The proximal external carotid
artery was encircled with a vessel loop. The distal internal carotid artery was encircled with a vessel loop at a soft spot on the artery beyond the plaque. The hypoglossal nerve was identified and protected.
The internal vessel loop was secured followed by the common and external. An arteriotomy was made on the distal common carotid artery with an 11-blade. This was extended proximally and distally with Gardner scissors. The arteriotomy was extended
distally through the plaque to an area of normal appearing internal carotid artery. The distal vessel loop was replaced with a short tip hockey-stick type vascular clamp. The proximal vessel loop was replaced with a Derra clamp at the base of the
common carotid artery. I extended the arteriotomy proximally on the common carotid artery to an area that was soft towards the proximal clamp. An extensive endarterectomy was performed with a Raton elevator in the standard fashion. The proximal
extent of the plaque was transected with scissors. The distal end of the plaque in the internal carotid artery was feathered. No distal intimal flap was identified. The plaque extending into the external carotid artery was everted. Once the plaque
was fully removed the endarterectomy plane was irrigated with heparinized saline and any loose fronds of tissue were removed. A pre-cut piece of bovine pericardium was sewn in place using a running 6-0 Prolene suture. Prior to the completion of the
patch the common carotid was allowed to forward bleed and the external was allowed to back bleed. The area under the patch was irrigated with heparinized saline to remove any potential thrombus or debris. The anastomosis was completed.
The external vessel loop was released first, followed by the common and then the internal. There was an excellent pulse in the distal internal carotid artery. An excellent quality Doppler signal in the distal internal carotid artery was also
confirmed. The patch suture line was closely inspected for hemostasis and was achieved. Protamine was administered. Hemostasis was achieved in the wound bed. The wound was irrigated with saline solution.
The wound was then closed in layers. Sterile skin glue was applied. The patient awoke from anesthesia with no immediate neuro deficits and was taken to the PACU in stable condition.
Attestation: I was present and responsible for the entire procedure
Signed:
Dagoberto Esparza III, MD
Vascular Surgery
[facility]
[2025-01-31 14:50] LABS: Glucose - Point of Care 200 mg/dl (70-99)
[2025-01-31 14:50] LABS: Hematocrit 45.3 % (39.0-52.0); Hemoglobin 14.2 g/dL (13.0-18.0); Mean Corp Hgb Conc. 31.3 g/dL (33.0-37.0); Mean Corpuscular Volume 91.0 fL (80.0-94.0); Platelet Count 284 10^3/uL (130-400); Red Cell Dist. Width 14.0 % (11.5-14.5)
[2025-01-31] MEDS: DILAUDID 0.25 MG IV (15:10)
[2025-01-31 16:23] LABS: Blood Urea Nitrogen 17 mg/dl (9-20); Calcium 8.7 mg/dl (8.4-10.2); Carbon Dioxide 22 mmol/L (22-30); Chloride 107 mmol/L (98-107); Estimated Creatinine Clearance 56 ml/min; Glucose 220 mg/dl (70-99); Potassium 5.7 mmol/L (3.5-5.1); Sodium 134 mmol/L (135-145); eGFR 53.96
[2025-01-31] MEDS: NSS 1000 IV (16:39)
[2025-01-31 16:41] LABS: Glucose - Point of Care 209 mg/dl (70-99)
[2025-01-31] MEDS: NEURONTIN 300 MG PO (17:02)
[2025-01-31] MEDS: HEPARIN 5000 UNITS SC (17:02)
--- NOTE | 2025-01-31 17:25 | PTCARENOTE ---
Received pt. via stretcher from PACU into ICU rm [id number] @ approx 1630. Pt. max assisted from stretcher to bed; complete CHG hygiene provided. Neuro checks maintained per orders- see flow sheet. Pupil discrepancy in PACU; pupils 3mm/brisk b/l on ICU
arrival, verified bedside by vascular CAR DUMPERHitesh MCDANIELS. +facial symmetry; denies h/a; reports mild pain @ surgical site, ice pack applied. R rad A-line transduced, calibrated, and monitored; all ports patent and secured; correlates w cuff pressures.
#20 L hand w NSS @ 80mL/hr infusing. Pt. instructed on how to report care concerns and call tyrell w in reach.
[2025-01-31] MEDS: NOVOLOG FLEXPEN 8 UNITS SC (18:06)
[2025-01-31] MEDS: LOKELMA 10 GRAM PO (18:06)
[2025-01-31] MEDS: NOVOLOG FLEXPEN-HIGH RESISTANCE 4 UNITS SC (18:07)
[2025-01-31 19:02] LABS: ALT (SGPT) 28 U/L (0-50); AST (SGOT) 29 U/L (17-59); Albumin 3.6 g/dl (3.5-5.0); Alkaline Phosphatase 70 U/L (38-126); Magnesium 2.2 mg/dl (1.6-2.3); Total Protein 7.0 g/dl (6.3-8.2)
--- NOTE | 2025-01-31 19:24 | PTCARENOTE ---
Received pt from previous RN. Pt is AAOx3, drowsy, LE numbness hx neuropathy. Neurochecks Q1 (see worklist), R pupil greater than L pupil at times, prior finding in PACU. Sinus qiana / NSR w/ 1st degree. Pt on 2L NC O2 sat 96%, lungs exp wheeze at
times, nonproductive moist cough. Pt uses the urinal in bed. Right neck incision c/d/i. Mouth care and CHG bath provided. NS infusing @ 80 ml/hr. [place] zeroed and transduced. Pt asking for a nicotine patch, patch placed on pts right upper arm. Call
santillan in reach. Safe environment maintained.
[2025-01-31] MEDS: NICODERM TRANSDERMAL 21 MG TRANSDERM (20:10)
[2025-01-31] MEDS: LANTUS 0.2 UNITS SC (22:01)
[2025-01-31 22:11] LABS: Glucose - Point of Care 399 mg/dl (70-99)
[2025-01-31] MEDS: DILAUDID 0.5 MG IV (22:12)
[2025-01-31] MEDS: NOVOLOG FLEXPEN 12 UNITS SC (22:17)
--- NOTE | 2025-01-31 22:32 | PTCARENOTE ---
Pt c/o 8/10 neck pain, PRN Dilaudid given (see MAR). Pt blood sugar taken for HS reading 399, scheduled lantus given, ICU MEDICAL TECHNOLOGIST CHIEF notified ordered 12 units novolog x1 (see MAR). Recheck blood sugar around 0000.
[2025-02-01] VITALS (10 sets, daily range): BP systolic 115–156; BP diastolic 53–78; BMI 32.4
[2025-02-01 00:28] LABS: Glucose - Point of Care 266 mg/dl (70-99)
[2025-02-01] MEDS: HEPARIN 5000 UNITS SC ×4 (00:34→23:13)
[2025-02-01] MEDS: NOVOLOG FLEXPEN 5 UNITS SC (00:34)
[2025-02-01] MEDS: ROXICODONE 5 MG PO ×3 (02:54→19:25)
--- NOTE | 2025-02-01 03:06 | PTCARENOTE ---
Systems reviewed, no new changes in assessment. AM labs provided. Neuro check WNL (see worklist). Call santillan in reach. Safe environment maintained.
[2025-02-01 03:13] LABS: Hematocrit 38.2 % (39.0-52.0); Hemoglobin 12.7 g/dL (13.0-18.0); Mean Corp Hgb Conc. 33.2 g/dL (33.0-37.0); Mean Corpuscular Volume 88.6 fL (80.0-94.0); Platelet Count 249 10^3/uL (130-400); Red Cell Dist. Width 13.6 % (11.5-14.5)
[2025-02-01 03:25] LABS: INR 1.09; PT 14.2 Sec (11.4-14.6)
[2025-02-01 03:26] LABS: APTT 27.3 Sec (23.4-35.0)
[2025-02-01 03:55] LABS: Blood Urea Nitrogen 22 mg/dl (9-20); Calcium 8.2 mg/dl (8.4-10.2); Carbon Dioxide 19 mmol/L (22-30); Chloride 107 mmol/L (98-107); Estimated Creatinine Clearance 53 ml/min; Glucose 161 mg/dl (70-99); Potassium 5.2 mmol/L (3.5-5.1); Sodium 131 mmol/L (135-145); eGFR 49.94
[2025-02-01] MEDS: NSS 1000 IV ×3 (04:39→20:46)
[2025-02-01] MEDS: DILAUDID 0.5 MG IV ×3 (04:43→23:44)
--- NOTE | 2025-02-01 07:00 | PTCARENOTE ---
Hand off neuro assessment unchanged. He is awake and alert. IVF infusing. Right radial arterial line transduced, calibrated and monitored. Right AC#18g protective catheter flushed and patent. Doppler pedal pulses. Lungs CTA. Moist non-productive
cough. C/O right neck incisional pain with coughing but did not want analgesia at this time. Large round abdomen. +BSX4, C/O hunger. Diet advanced to 2000 fadumo diabetic diet. Last BM yesterday. Right neck incision WATER PLANT PUMP OPERATOR SUPERVISOR, approximated with surgical glue
intact. He was informed of the plan of care regarding removal of the arterial line, to get in the chair and ambulate, and that after lunch the team will return for possible discharge orders. He verbalized his understanding.
--- NOTE | 2025-02-01 07:16 | CON.INTV ---
Addendum entered and electronically signed by Aramis Pal MD 02/01/25 16:40:
Traffic Sign Supervisor service will sign off, please call as needed.
Original Note:
Consultation
Consultation Request
Date/Time Consultation Requested: 01/31/2025
Date/Time Consultation Performed: 02/01/2025
Medical History
-
Chief Complaint: Carotid artery stenosis
History of Present Illness:
Patient is a very pleasant 59-year-old gentleman with longstanding history of smoking, melanoma with pulmonary nodule and high-grade critical carotid artery stenosis who follows up with vascular surgery as outpatient. He was advised to have carotid
endarterectomy and was admitted to the hospital for the above procedure. Postprocedure, he was admitted to ICU and financial assistance advisor consultation was requested for further input.
Past Medical History
Past Medical History: Reports Other
Additional Past Medical History:
Melanoma
Peripheral Arterial Disease
Coronary Artery Disease
Essential Hypertension
Hyperlipidemia
Diabetes Mellitus, Type II
Past Surgical History: Reports Other
Additional Past Surgical History:
Bronchoscopy / Biopsy (07/18/24)
Tonsillectomy
Umbilical Hernia Repair
Right Radial Artery Thrombectomy
Left Common Femoral Artery Endarterectomy
Bilateral Lower Extremity Stents
PTCA with Stent
Right Groin I&D / Muscle Flap
Social History
Tobacco: Smoker (1 PPD)
Alcohol: Occasional
Family History
Family History: Not pertinent
Allergies / Home Medications
Allergies
Allergy/AdvReac Type Severity Reaction Status Date / Time
No Known Allergies Allergy Verified 01/18/25 13:07
Home Medications
�Medication �Instructions �Recorded �Confirmed �Last Taken �Type
cilostazol 100 mg tablet 100 mg PO BID Blood Clot 03/09/20 01/31/25 01/28/25 08:00 History
Prevention/Tx
metoprolol succinate 25 mg 25 mg PO DAILY Blood Pressure 03/09/20 01/31/25 01/28/25 08:00 History
tablet,extended release 24 hr
dapagliflozin propanediol 10 mg 10 mg PO DAILY Diabetes 06/02/22 01/31/25 01/28/25 08:00 History
tablet (Farxiga)
metformin 1,000 mg tablet 1,000 mg PO DAILY Diabetes 06/02/22 01/31/25 01/28/25 18:00 History
Held on 09/23/24.
Instructions: Resume on
09/25/24.
atorvastatin 80 mg tablet 80 mg PO DAILY High Cholesterol 10/08/23 01/31/25 01/28/25 08:00 History
duloxetine 30 mg capsule,delayed 60 mg PO DAILY Mental 04/25/24 01/31/25 01/28/25 08:00 History
release Health/Anxiety
zolpidem 5 mg tablet 5 mg PO HS PRN Sleep 04/25/24 01/31/25 Unknown History
gabapentin 300 mg capsule 300 mg PO TID pain 07/15/24 01/31/25 01/31/25 06:00 History
insulin aspart U-100 100 unit/mL 17 unit SC AC diabetes 07/15/24 01/31/25 01/30/25 18:00 History
(3 mL) subcutaneous pen (Novolog
FlexPen U-100 Insulin aspart)
insulin glargine 100 unit/mL (3 20 unit SC HS diabetes 07/15/24 01/31/25 01/28/25 20:00 History
mL) subcutaneous pen (Lantus
Solostar U-100 Insulin)
amlodipine 5 mg tablet 5 mg PO DAILY #30 tabs 09/23/24 01/31/25 01/29/25 08:00 Rx
apixaban 5 mg tablet 5 mg PO BID Blood Clot 09/23/24 01/31/25 01/28/25 08:00 Rx
Prevention/Tx #0 tabs
aspirin 81 mg tablet 81 mg PO DAILY Blood Clot 01/18/25 01/31/25 01/28/25 08:00 History
Prevention/Tx
albuterol sulfate 90 mcg/actuation 2 puff inhalation QID PRN 01/31/25 01/31/25 Unknown History
aerosol inhaler shortness of breath
enalapril maleate 10 mg tablet 10 mg PO DAILY Blood Pressure 01/31/25 01/31/25 01/28/25 08:00 History
Review of Systems
Vitals / Labs / Diagnostic Testing
Vital Signs
Temp Pulse Resp BP Pulse Ox
97.8 F 58 14 115/48 94
01/31/25 16:40 01/31/25 16:45 01/31/25 16:45 01/31/25 16:45 01/31/25 16:45
Lab Data
01/31/25 14:40
01/31/25 15:57
Diagnostic Testing:
Assessment
-
Patient is a 59-year-old gentleman with high-grade calcified carotid artery stenosis, s/p right carotid endarterectomy with patch angioplasty using bovine pericardium, by vascular surgery service, POD #1
Continue observation following procedure
Follow neurovascular checks per protocol
ASA, amlodipine and atorvastatin.
Follow BP monitoring and parameters as set by primary team
Cardiac history reviewed
Monitor on telemetry
Pain control per protocol
RASS goal 0
Known history of lung nodule, bronchitis and longstanding history of smoking.
Encouraged IS
Diet advancement per protocol
Aspiration precautions
GI prophylaxis: Protonix
Cr rising.
Critical I/Os
Void trials
Replete electrolytes as needed
No signs/symptoms suspicious for infectious etiology at this time
Will observe off antibiotics for now
Follow temperatures/CBC
Hb and platelets postoperatively stable
DVT prophylaxis: Heparin
Other medical diagnoses:
- History of smoking, 45 pack years
- CAD, h/o [place] in 03/2014, s/p PCI of RCA
- PVD
- DM
- RLL Pulmonary nodule, Melanoma on biopsy (07/2024)
- HTN, HLD
- H/o Alcohol use
- Vocal cord polyps
- CKD with mild LEV and hyperkalemia. Hold Metformin, Enalapril and Farxiga. s/p Lokelma X 1 on 01/31. K improving. f/u labs at 2 pm.
Critical Care time [56] mins -- The patient is admitted for acute critical illness for the treatment of vital organ failure and/or prevention of further life-threatening conditions. Total care includes time spent in review of history, physical exam,
medications, hemodynamic/ventilator parameters, laboratory data, imaging and discussion with house staff, pharmacy, respiratory therapy, music industry internship, and nursing
Data:
CXR 01/2025: Bilateral central peribronchial thickening suggestive of bronchitis.
Lexiscan 09/2023: 1. Positive Lexiscan Sestamibi consistent with ischemia for a small to moderate area of inferior and infero-lateral infarct with kayley-infarct ischemia.
ECHO 09/2023: Normal biventricular size and systolic function without regional wall motion
abnormality.
Mild concentric left ventricular hypertrophy
Left ventricular ejection fraction visually estimated 55-60%
Grade 1 diastolic dysfunction
No significant valvular disease.
Compared to prior study dated 02/27/2014, no significant change
[2025-02-01 07:51] LABS: Glucose - Point of Care 124 mg/dl (70-99)
[2025-02-01] MEDS: NOVOLOG FLEXPEN-HIGH RESISTANCE 1 UNITS SC ×2 (07:53→17:42)
[2025-02-01] MEDS: NOVOLOG FLEXPEN 15 UNITS SC ×3 (07:55→17:41)
[2025-02-01] MEDS: ASPIR LOW (ENTERIC COATED) 81 MG PO (07:59)
[2025-02-01] MEDS: CYMBALTA DELAYED RELEASE 60 MG PO (07:59)
[2025-02-01] MEDS: FARXIGA 10 MG PO (07:59)
[2025-02-01] MEDS: NORVASC 5 MG PO (07:59)
[2025-02-01] MEDS: LIPITOR 80 MG PO (07:59)
--- NOTE | 2025-02-01 08:23 | W.PN.VS ---
Addendum entered and electronically signed by Manny Nelson MD 02/01/25 10:57:
Seen and examined with AFFILIATE MARKETING SPECIALIST's. Agree with findings and plan as discussed and noted below. Right neck incision clean dry and intact. No hematoma. Neurologically no focal deficits.
Original Note:
Today's Communication / Plan
-
Seen and assessed with Dr Nelson
Assessment/Plan
-
POD 1 Right CEA
Plan:
DC jelly
Continue IVF* Creat 1.6, redraw at 2pm
Hold metformin and FERCHO
Increase diet
OOB/ambulate
Diabetic consult
Subjective Data
-
Date of Service: February 01, 2025
Pt seen at bedside this am with Dr Nelson. Pt complains of 'breakfast not being here.' No other complaints at this time. No events overnight.
Objective Data
-
Vital Signs
Temp Pulse Resp BP Pulse Ox
97.5 F 59 12 134/71 97
02/01/25 07:26 02/01/25 08:00 02/01/25 08:00 02/01/25 07:59 02/01/25 07:51
Intake and Output
01/31/25 02/01/25 02/02/25
06:59 06:59 06:59
Intake Total 3600 / 3680 160 / 160
Output Total 350 / 350
Balance 3250 / 3330 160 / 160
Intake:
Oral fluids 2280 / 2280
IV fluids (Total) 1320 / 1400 160 / 160
NSS 200 200 / 200
Nss 1,000 ml @ 80 mls/hr IV . 1120 / 1200 160 / 160
[id number] KENNY Rx#:[id number]
Output:
Urine, Voided 350 / 350
Lab Results
02/01/25 03:03
02/01/25 03:03
Calcium 8.2 mg/dl (8.4-10.2) L 02/01/25 03:03
Phosphorus 4.2 mg/dl (2.5-4.5) 01/31/25 15:57
Magnesium 2.2 mg/dl (1.6-2.3) 01/31/25 15:57
Total Bilirubin 0.3 mg/dl (0.2-1.3) 01/31/25 15:57
AST 29 U/L (17-59) 01/31/25 15:57
ALT 28 U/L (0-50) 01/31/25 15:57
Alkaline Phosphatase 70 U/L (38-126) 01/31/25 15:57
Total Protein 7.0 g/dl (6.3-8.2) 01/31/25 15:57
Albumin 3.6 g/dl (3.5-5.0) 01/31/25 15:57
Physical Exam
-
AAOx3
No tachypnea on RA
No tachycardia
Abd soft
Neck site c/d/i, soft, flat
Moves all extremities equally
Tongue midline
[2025-02-01 08:42] LABS: Glycohemoglobin (HgbA1c) 11.3 % (4.0-5.9)
--- NOTE | 2025-02-01 11:15 | PTCARENOTE ---
Pt removed himself from the monitor and was climbing out of bed to go to the bathroom. He did not use the call santillan for assistance. He is angry and belligerent. He was informed that there is a reason for the close monitoring post CEA and that he was
already told to use the call santillan for when he was ready to get out of bed, since he didn't want to after he ate his breakfast. He was assisted to the BR and was able to urinate and have a BM. He was further assisted to the chair and placed o a tele
pack. Safe environment maintained. Call santillan within reach and reminded to bryan use the call santillan. NSS continue to infuse via left hand IV.
[2025-02-01 12:30] LABS: Glucose - Point of Care 173 mg/dl (70-99)
[2025-02-01] MEDS: NOVOLOG FLEXPEN-HIGH RESISTANCE 2 UNITS SC (12:40)
--- NOTE | 2025-02-01 12:48 | PN.DE.MGMTRT ---
Insulin Management
- -
02/01/2025 Diabetes Management Consult
59 year old male admitted 01/31 for R carotid endarterectomy. PMH [place], CAD, HLD, HTN, diabetes, PVD, active smoker, alcohol abuse, lung ca. Prior to admission patient confirms he was taking 1000 mg metformin daily, farxiga 10 mg daily, lantus 20
units @ HS with novolog 17 units AC. A1C 9.2%, cr 1.6, eGFR 49.94.
POD 1 s/p R carotid endarterectomy. Patient is awake alert and oriented but disgruntled at being awakened. C/O getting no sleep all night due to various people checking things. Tried to gently remind patient that after a surgery close observation
and incision and mental checks are critical to recovery. He was not happy. He states he sees his primary doctor for ongoing diabetes care.
He received 20 units lantus @ hs, fasting glucose today 161. Pre meal glucose yesterday 200 to 300. Will increase AC novolog from 8 units to 12 units with corrective insulin. Due to cr will hold farxiga and metformin and re-evaluate in am
Discussed with Can Carrier and nurse.
Will follow.
Diabetes History
- -
Type of Diabetes: 2 requiring insulin
Pre-Admission Diabetes Regimen
01/31/25 01/31/25 01/31/25
14:40 15:04 15:57
Creatinine Cancelled Cancelled 1.5 H
02/01/25
03:03
Creatinine 1.6 H
Lab Results
Hemoglobin A1c 11.3 % (4.0-5.9) H 01/31/25 15:57
Insulin Pump Settings
IP Diabetes Regimen
01/31/25 01/31/25 01/31/25
13:30 14:40 14:48
Glucose Cancelled
POC Glucose 232 H 200 H
01/31/25 01/31/25 01/31/25
15:04 15:57 16:30
Glucose Cancelled 220 H
POC Glucose 209 H
01/31/25 02/01/25 02/01/25
22:00 00:17 03:03
Glucose 161 H
POC Glucose 399 H 266 H
02/01/25 02/01/25
07:40 12:11
Glucose
POC Glucose 124 H 173 H
Meal type: Breakfast
Amount consumed: 100%
Patient Education
--- NOTE | 2025-02-01 13:00 | PTCARENOTE ---
Ambulatory on the unit with RN. He tolerated it well. Supportive care provided to calm him down. He is anxious to go home.
[2025-02-01] MEDS: TYLENOL 650 MG PO (13:06)
[2025-02-01 14:33] LABS: Blood Urea Nitrogen 25 mg/dl (9-20); Calcium 8.1 mg/dl (8.4-10.2); Carbon Dioxide 19 mmol/L (22-30); Chloride 106 mmol/L (98-107); Estimated Creatinine Clearance 56 ml/min; Glucose 111 mg/dl (70-99); Potassium 4.3 mmol/L (3.5-5.1); Sodium 133 mmol/L (135-145); eGFR 53.96
--- NOTE | 2025-02-01 14:42 | PTCARENOTE ---
Recent BMP TC to Flower SIMPSON.
[2025-02-01 17:53] LABS: Glucose - Point of Care 135 mg/dl (70-99)
[2025-02-01] MEDS: NICODERM TRANSDERMAL 21 MG TRANSDERM (20:46)
[2025-02-01 20:49] LABS: Glucose - Point of Care 132 mg/dl (70-99)
[2025-02-01] MEDS: LANTUS 0.2 UNITS SC (21:14)
[2025-02-01 21:19] LABS: Glucose - Point of Care 114 mg/dl (70-99)
--- NOTE | 2025-02-01 22:57 | PTCARENOTE ---
Received patient at start of shift. Patient aao x3, able to make needs known. States he has pain 6-7/10 to right neck. PRN Zeina administered at that time with minimal positive results. Patient encouraged to use ice pack/cool pack to right neck to
relieve discomfort r/to swelling at surgical site. Patient reluctantly verbalizes understanding and used for short period of time. PRN Dilaudid IV administered when able with positive results noted.
Patient is NSR on the monitor, weak pp, positive radial pulses noted b/l. Trace b/l LE edema noted. Lungs coarse throughout, moist occasional cough noted. Patient provided with folded towel and instructed to brace surgical site when coughing to
provide support and comfort. Understanding verbalized. Right neck surgical site c/d/i, surgical glue in place. Patient continues with NS at 75ml/hr to left hand IV site. Call santillan within reach, will continue to monitor patient closely.
--- NOTE | 2025-02-01 23:40 | W.PN.UPDATE ---
Update Note
Progress Note Update
02/01/2025
7250- Patient having intermittent headache which he feels is worsening in pain. Location of pain is posterior occipital and neck pain. Swelling noted at the right CEA site, encourage patient to apply ice pack to the area. Denies any
nausea/vomiting, visual disturbances, dizziness, or other neurological manifestations. Describes the pain as intermittent stabbing, current pain rating is 6/10. Dr. Nelson, vascular surgeon updated, recommendations: give additional Dilaudid 0.5mg x1
IV, apply ice to surgical incision, if swelling worsens or headache worsens would consider CTA head/neck vs Ctscan of the head.
--- NOTE | 2025-02-01 23:49 | PTCARENOTE ---
Patient verbalizes good pain relief to right neck site from prn dilaudid. C/o posterior headache pain 6/10, intermittent since waking up a short time ago. RN reviewed with Héctor SIMPSON. CRUTCHER HELPER to bedside to review. Site unchanged since start of shift
with some swelling noted, soft and tender to touch. CRUTCHER HELPER instructed patient on use of ice pack and reviewed symptoms.
CRUTCHER HELPER notified Dr. Nelson, new order placed for Dilaudid stat at this time. Medication administered as ordered, will reassess for pain relief shortly. Ice pack in place to right neck.
RN reviewed movement and body mechanics with patient and instructed on not straining neck area with movements; getting in and oob, standing, turning, etc. Patient verbalizes understanding. Will continue to reinforce and encourage patient to
maintain safe environment. Call santillan within reach, will continue to monitor patient closely.
[2025-02-02] VITALS (16 sets, daily range): BP systolic 142–190; BP diastolic 64–105; BMI 32.9
--- NOTE | 2025-02-02 00:16 | PTCARENOTE ---
Patient confirms headache relieved by pain medication. Site unchanged at this time. Will continue to monitor patient closely. Bed alarm on, call santillan within reach.
[2025-02-02] MEDS: ROXICODONE 5 MG PO (04:14)
[2025-02-02 04:23] LABS: Hematocrit 38.0 % (39.0-52.0); Hemoglobin 12.1 g/dL (13.0-18.0); Mean Corp Hgb Conc. 31.8 g/dL (33.0-37.0); Mean Corpuscular Volume 89.6 fL (80.0-94.0); Platelet Count 235 10^3/uL (130-400); Red Cell Dist. Width 14.1 % (11.5-14.5)
[2025-02-02 04:49] LABS: Blood Urea Nitrogen 21 mg/dl (9-20); Calcium 8.0 mg/dl (8.4-10.2); Carbon Dioxide 18 mmol/L (22-30); Chloride 109 mmol/L (98-107); Estimated Creatinine Clearance 71 ml/min; Glucose 110 mg/dl (70-99); Potassium 4.6 mmol/L (3.5-5.1); Sodium 134 mmol/L (135-145); eGFR > 60.00
--- NOTE | 2025-02-02 05:40 | PTCARENOTE ---
Neuro checks unchanged. Patient awakens to verbal stimuli, c/o pain to right neck. PRN Roxicodone administered per order for pain, patient states pain 10/10 with movement, less when still. RN assisted patient oob to chair, patient tolerated fair. A
short time later patient requested to return to bed to lay down. Upon returning to bed patient confirmed pain was tolerable, agreed to ice pack to right neck, asleep a short time later. Call santillan within reach, will continue to monitor.
--- NOTE | 2025-02-02 07:28 | PTCARENOTE ---
Right neck surrounding the incision swollen and extremely tender to touch. Pt with ice pack intact. Dr. Nelson @ the bedside. NSS @ 75ml/hr via left hand #20g. Right AC#18g protective catheter leaked with flush. Pt for CTA head & neck.
--- NOTE | 2025-02-02 07:50 | W.PN.VS ---
Addendum entered and electronically signed by Manny Nelson MD 02/02/25 13:59:
Seen and examined with ENVIRONMENTAL ENGINEERING PROFESSOR earlier this a.m. Agree with findings as noted below. Patient complained of increasing right neck pain. Some edema noted, but no definitive large hematoma or pulsatile mass in the neck. Incision is clean dry and intact.
Patient with relatively short neck and therefore difficult to adequately assess. Therefore I recommended CT angiogram. Study completed I reviewed images. Moderate amount at least of soft tissue edema in the surgical bed. Would continue to
observe for today. If improvement hopefully can go home tomorrow. Otherwise if any increasing pain/swelling or other symptoms and then would require washout.
Original Note:
Today's Communication / Plan
-
Seen and assessed with Dr. Nelson
Assessment/Plan
-
POD 2 Right CEA
Plan:
CTA head and neck this morning for right neck swelling
Hold metformin and FERCHO
OOB/ambulate
Appreciate diabetic management
Subjective Data
-
Date of Service: February 02, 2025
Patient seen at bedside today with Dr. Nelson. Patient had increased in right neck pain and swelling overnight. Pain medication given and pain reduced. Swelling remains stable.
Objective Data
-
Vital Signs
Temp Pulse Resp BP Pulse Ox
97.8 F 69 16 170/79 96
02/02/25 02:55 02/02/25 06:30 02/02/25 06:30 02/02/25 04:00 02/01/25 22:28
Intake and Output
02/01/25 02/02/25 02/03/25
06:59 06:59 06:59
Intake Total 3600 / 3680 2795 / 2795
Output Total 350 / 350 475 / 475
Balance 3250 / 3330 2320 / 2320
Intake:
Oral fluids 2280 / 2280 1320 / 1320
IV fluids (Total) 1320 / 1400 1475 / 1475
NSS 200 200 / 200
Nss 1,000 ml @ 75 mls/hr IV . 675 / 675
[id number] KENNY Rx#:[id number]
Nss 1,000 ml @ 80 mls/hr IV . 1120 / 1200 800 / 800
[id number] KENNY Rx#:[id number]
Output:
Urine, Voided 350 / 350 475 / 475
Other:
Number of approximated MODERATE 1
amounts of urine
Lab Results
02/02/25 03:58
02/02/25 03:58
Calcium 8.0 mg/dl (8.4-10.2) L 02/02/25 03:58
Phosphorus 4.2 mg/dl (2.5-4.5) 01/31/25 15:57
Magnesium 2.2 mg/dl (1.6-2.3) 01/31/25 15:57
Total Bilirubin 0.3 mg/dl (0.2-1.3) 01/31/25 15:57
AST 29 U/L (17-59) 01/31/25 15:57
ALT 28 U/L (0-50) 01/31/25 15:57
Alkaline Phosphatase 70 U/L (38-126) 01/31/25 15:57
Total Protein 7.0 g/dl (6.3-8.2) 01/31/25 15:57
Albumin 3.6 g/dl (3.5-5.0) 01/31/25 15:57
Physical Exam
-
AAOx3
No tachypnea on RA
No tachycardia
Abd soft
Neck site c/d/i, soft, slight edema, no drainage
Moves all extremities equally
Tongue midline
--- NOTE | 2025-02-02 08:11 | PN.DE.MGMTRT ---
Insulin Management
- -
02/02/2025 Diabetes Management Consult Follow up
59 year old male admitted 01/31 for R carotid endarterectomy. PMH [place], CAD, HLD, HTN, diabetes, PVD, active smoker, alcohol abuse, lung ca. Prior to admission patient confirms he was taking 1000 mg metformin daily, farxiga 10 mg daily, lantus 20
units @ HS with novolog 17 units AC. A1C 9.2%, cr 1.2, eGFR >60.
POD 2 s/p R carotid endarterectomy. Patient is currently off of the unit for CTA of head and neck. Overnight c/o headache, neck pain.
Yesterday received 20 units lantus @ hs, fasting glucose today 161. Glucose range 111 to 135 after AC novolog increased from 8 units to 12 units with corrective insulin. Due to cr farxiga and metformin held.
02/02 Fasting glucose 110. Will continue to hold oral meds due to need for further testing. Will continue lantus 20 units @ HS with novolog 15 AC and corrective insulin.
Discussed with nurse.
Will follow.
Diabetes History
- -
Type of Diabetes: 2 requiring insulin
Pre-Admission Diabetes Regimen
02/01/25 02/02/25
14:08 03:58
Creatinine 1.5 H 1.2
Lab Results
Hemoglobin A1c 11.3 % (4.0-5.9) H 01/31/25 15:57
Insulin Pump Settings
IP Diabetes Regimen
02/01/25 02/01/25 02/01/25
12:11 14:08 17:41
Glucose 111 H
POC Glucose 173 H 135 H
02/01/25 02/01/25 02/02/25
20:37 21:08 03:58
Glucose 110 H
POC Glucose 132 H 114 H
Meal type: Lunch
Meal type: Breakfast
Amount consumed: 100%
Amount consumed: 100%
Patient Education
[2025-02-02] MEDS: NOVOLOG FLEXPEN 15 UNITS SC (08:15)
[2025-02-02 08:26] LABS: Glucose - Point of Care 111 mg/dl (70-99)
[2025-02-02] MEDS: DILAUDID 0.5 MG IV (08:45)
--- NOTE | 2025-02-02 08:45 | PN.CDI ---
CDI
- -
CDI:
Physician Documentation Request
Admit Date: 01/31/25 08:45
Dear TATIANA Monroy,
Please review the following and provide your response in the progress notes.
Clinical Indicators:
Laboratory Tests
01/20/25 01/31/25 02/01/25
09:21 15:57 03:03
Sodium 131 L 134 L 131 L
02/01/25 02/02/25
14:08 03:58
Sodium 133 L 134 L
Based on the above and your clinical assessment please clarify in the progress notes, the appropriate diagnosis, if significant, that supports the above abnormalities and additional evaluation, monitoring and/or treatment rendered:
Hyponatremia
Abnormal lab value, clinically insignificant
Other(please specify)
Use of terms such as suspected, likely, concern for, or probable (associated with a specific diagnosis that is being evaluated, monitored, or treated as if it exists) are acceptable and can be coded in the inpatient setting, when documented at the
time of discharge.
Thank you,
Sadaf Zee RN BSN CCDS
CDI Specialist
Please contact via tiger text
Please use your independent medical judgment in providing your response.
[2025-02-02] MEDS: NORVASC 5 MG PO (09:29)
--- NOTE | 2025-02-02 09:47 | PTCARENOTE ---
To CT scan aftter 3rd attempt obtaining an IV access. IV team inseted left C#22g protective catheter for CTA. Pt ambulated in the room to void, and traveled to CT scan via W/C on tele pack.
[2025-02-02] MEDS: ASPIR LOW (ENTERIC COATED) 81 MG PO (10:09)
[2025-02-02] MEDS: CYMBALTA DELAYED RELEASE 60 MG PO (10:09)
[2025-02-02] MEDS: LIPITOR 80 MG PO (10:09)
[2025-02-02] MEDS: HEPARIN 5000 UNITS SC ×3 (10:11→23:29)
[2025-02-02] MEDS: NOVOLOG FLEXPEN-HIGH RESISTANCE 1 UNITS SC ×2 (10:11→18:12)
--- NOTE | 2025-02-02 10:30 | W.PN.UPDATE ---
Update Note
Progress Note Update
CDI:
Physician Documentation Request
Admit Date: 01/31/25 08:45
Please review the following and provide your response in the progress notes.
Clinical Indicators:
Laboratory Tests
01/20/25 01/31/25 02/01/25
09:21 15:57 03:03
Sodium 131 L 134 L 131 L
02/01/25 02/02/25
14:08 03:58
Sodium 133 L 134 L
Based on the above and your clinical assessment please clarify in the progress notes, the appropriate diagnosis, if significant, that supports the above abnormalities and additional evaluation, monitoring and/or treatment rendered:
Abnormal lab value, clinically insignificant
[2025-02-02] MEDS: NSS 1000 IV (12:28)
[2025-02-02] MEDS: NOVOLOG FLEXPEN-HIGH RESISTANCE SC (12:30)
[2025-02-02] MEDS: NOVOLOG FLEXPEN SC ×2 (12:30→18:11)
--- NOTE | 2025-02-02 12:30 | PTCARENOTE ---
Pt lying in the bed. He is anxious to get home. He does not want to order lunch, states he is not hungry, he just wants to sleep. No neuro deficits. Safe environment maintained.
[2025-02-02 12:32] LABS: Glucose - Point of Care 98 mg/dl (70-99)
--- NOTE | 2025-02-02 14:19 | CM ---
I.A: Completed By KARLOS Davidson. Patient is here for planned right carotid endarterectomy with Dr. Esparza. Patient has been sleeping most of the day.
Chart reviewed: Lives with border in a split level home. DME: None
PCP: Dr. Miguel Chaney
Pharm: [facility] in [place]. Patient has had [facility] in the past.
Patient may need VN services. PLAN: Anticipate Home No Needs vs. VN.
--- NOTE | 2025-02-02 14:48 | PTCARENOTE ---
pt ambulating in the room. He reports a good nap after CT scan.
--- NOTE | 2025-02-02 15:30 | PTCARENOTE ---
BP 181/80. Notified Flower SIMPSON, order obtained. Starting MSAS as precaution.
[2025-02-02] MEDS: VASOTEC 10 MG PO (15:43)
[2025-02-02] MEDS: FOLVITE 1 MG PO (15:43)
[2025-02-02 16:54] LABS: Glucose - Point of Care 72 mg/dl (70-99)
[2025-02-02] MEDS: NICODERM TRANSDERMAL 21 MG TRANSDERM (17:25)
[2025-02-02 18:21] LABS: Glucose - Point of Care 90 mg/dl (70-99)
--- NOTE | 2025-02-02 18:26 | PTCARENOTE ---
Pt BP remains elevated @ 181/81 after Vasotec 10mg given @ 1543. Glucose 90 after he ate only a bite of meat and half a dinner roll. Only 1 unit Novolog administered per ISS and 15units scheduled Novolog was not given until further orders obtained.
Dr. Bishop notified via TC regarding this.
[2025-02-02] MEDS: TRANDATE 10 MG IV (18:52)
--- NOTE | 2025-02-02 19:05 | TRANSFER ---
Report called to [address] [facility]. Pt to be transferred via W/C monitored.
[2025-02-02 21:37] LABS: Glucose - Point of Care 118 mg/dl (70-99)
[2025-02-02] MEDS: LANTUS SC (22:11)
[2025-02-02] MEDS: THIAMINE INJECTION IV ×2 (22:11→22:16)
--- NOTE | 2025-02-02 22:27 | PTCARENOTE ---
Patient denied hx of alcohol abuse and refused to take thiamine despite education. Care ongoing.
[2025-02-03] MEDS: ROXICODONE 5 MG PO (02:40)
[2025-02-03] MEDS: VASOTEC 0.625 MG IV (02:40)
[2025-02-03 03:07] VITALS: BP 188/91
--- NOTE | 2025-02-03 03:14 | TRANSFER ---
Report received from [facility], patient arrived via w/c at 1920 s/p RIGHT carotid endarterectomy with patch angioplasty 01/31. right neck incision with glue, ALEX. Swelling noted to site, pt c/o tenderness to palpation. VS as documented. Patient
received PRN labetolol prior to transfer. Assessment as documented. care ongoing.
[2025-02-03 04:00] VITALS: BP 132/75
[2025-02-03 07:50] VITALS: BP 176/83
[2025-02-03] MEDS: FOLVITE 1 MG PO (08:38)
[2025-02-03] MEDS: LIPITOR 80 MG PO (08:38)
[2025-02-03] MEDS: HEPARIN 5000 UNITS SC (08:39)
[2025-02-03] MEDS: THIAMINE INJECTION 200 MG IV (08:39)
[2025-02-03] MEDS: NICODERM TRANSDERMAL 21 MG TRANSDERM (08:39)
[2025-02-03] MEDS: CYMBALTA DELAYED RELEASE 60 MG PO (08:39)
[2025-02-03 08:40] LABS: Glucose - Point of Care 168 mg/dl (70-99)
[2025-02-03] MEDS: VASOTEC 10 MG PO (08:40)
[2025-02-03] MEDS: ASPIR LOW (ENTERIC COATED) 81 MG PO (08:40)
[2025-02-03] MEDS: NORVASC 5 MG PO (08:40)
[2025-02-03] MEDS: NOVOLOG FLEXPEN-HIGH RESISTANCE 2 UNITS SC (08:41)
[2025-02-03] MEDS: NOVOLOG FLEXPEN 8 UNITS SC (08:48)
--- NOTE | 2025-02-03 09:04 | W.PN.VS ---
Today's Communication / Plan
-
Seen and assessed with Dr Esparza
Assessment/Plan
-
POD 3 Right CEA
Plan:
Appreciate diabetic management
Cr 1.0 today
OK for discharge today
Subjective Data
-
Date of Service: February 03, 2025
Pt seen at bedside this am with Dr Esparza. Pt offers no complaints at this time. No events overnight. Neck remains stable.
Objective Data
-
Vital Signs
Temp Pulse Resp BP Pulse Ox
98.4 F 79 16 176/83 97
02/03/25 07:50 02/03/25 07:50 02/03/25 07:50 02/03/25 07:50 02/03/25 07:50
Intake and Output
02/02/25 02/03/25 02/04/25
06:59 06:59 06:59
Intake Total 2795 / 2795 990 / 990 480 / 480
Output Total 475 / 475
Balance 2320 / 2320 990 / 990 480 / 480
Intake:
Oral fluids 1320 / 1320 840 / 840 480 / 480
IV fluids (Total) 1475 / 1475 150 / 150
Nss 1,000 ml @ 75 mls/hr IV . 675 / 675 150 / 150
[id number] KENNY Rx#:[id number]
Nss 1,000 ml @ 80 mls/hr IV . 800 / 800
[id number] KENNY Rx#:[id number]
Output:
Urine, Voided 475 / 475
Other:
Number of approximated MODERATE 1 1
amounts of urine
Lab Results
02/02/25 03:58
Calcium 8.0 mg/dl (8.4-10.2) L 02/02/25 03:58
Phosphorus 4.2 mg/dl (2.5-4.5) 01/31/25 15:57
Magnesium 2.2 mg/dl (1.6-2.3) 01/31/25 15:57
Total Bilirubin 0.3 mg/dl (0.2-1.3) 01/31/25 15:57
AST 29 U/L (17-59) 01/31/25 15:57
ALT 28 U/L (0-50) 01/31/25 15:57
Alkaline Phosphatase 70 U/L (38-126) 01/31/25 15:57
Total Protein 7.0 g/dl (6.3-8.2) 01/31/25 15:57
Albumin 3.6 g/dl (3.5-5.0) 01/31/25 15:57
Physical Exam
-
AAOx3
No tachypnea on RA
No tachycardia
Abd soft
Neck site c/d/i, soft, slight edema, no drainage
Moves all extremities equally
Tongue midline
[2025-02-03] MEDS: NOVOLOG FLEXPEN SC (09:06)
[2025-02-03 09:20] LABS: Blood Urea Nitrogen 14 mg/dl (9-20); Calcium 8.5 mg/dl (8.4-10.2); Carbon Dioxide 19 mmol/L (22-30); Chloride 106 mmol/L (98-107); Estimated Creatinine Clearance 85 ml/min; Glucose 142 mg/dl (70-99); Potassium 4.6 mmol/L (3.5-5.1); Sodium 135 mmol/L (135-145); eGFR > 60.00
--- NOTE | 2025-02-03 09:28 | W.[place]-PDMP ---
[place]-PD[place]
-
Checked the [place]- Prescription Drug Monitoring Program website, no red flags identified; safe to proceed with prescription.
[2025-02-03 10:39] VITALS: BP 168/82
--- NOTE | 2025-02-03 12:37 | CM ---
Patient has been medically cleared for discharge to home with no additional skilled services. Patient arranged for transport home.
== END 2025-02-03 11:50 | disposition home or self-care (01) | DRG 38 ==
LOC: 2 SOUTH 08:45
PROVIDERS: Nurse Practitioner; Nurse Practitioner Acute Care; ADMITTING PHYSICIAN Surgery Vascular Surgery; CONSULT PHYSICIAN Internal Medicine; PRIMARYCARE PHYSICIAN Family Medicine
PROC: 03CH0ZZ Extirpation of Matter from Right Common Carotid Artery, Open Approach (ICD-10-PCS; 2025-01-31)
PROC: 03UH0KZ Supplement Right Common Carotid Artery with Nonautologous Tissue Substitute, Open Approach (ICD-10-PCS; 2025-01-31)
DX: I65.21 Occlusion and stenosis of right carotid artery (principal); N17.9 Acute kidney failure, unspecified; E11.51 Type 2 diabetes mellitus with diabetic peripheral angiopathy without gangrene; I10 Essential (primary) hypertension; I25.10 Atherosclerotic heart disease of native coronary artery without angina pectoris; E78.5 Hyperlipidemia, unspecified; Z85.118 Personal history of other malignant neoplasm of bronchus and lung; F17.210 Nicotine dependence, cigarettes, uncomplicated; Z79.01 Long term (current) use of anticoagulants; Z79.899 Other long term (current) drug therapy; Z79.4 Long term (current) use of insulin; Z79.82 Long term (current) use of aspirin; Z79.84 Long term (current) use of oral hypoglycemic drugs; Z85.820 Personal history of malignant melanoma of skin; Z95.5 Presence of coronary angioplasty implant and graft; F41.9 Anxiety disorder, unspecified; F10.10 Alcohol abuse, uncomplicated; R91.1 Solitary pulmonary nodule; N18.9 Chronic kidney disease, unspecified
CPT/HCPCS: 35301; 36415; 70496; 70498; 71045; 71046; 80048; 80053; 82962; 83036; 83735; 84100; 85025; 85027; 85610; 85730; 88304; 88311; 93005; 95938; 95941; 95955; Q9967